=== PATIENT | female | born 1940 | race Caucasian/White ===

== ENCOUNTER 2021-06-26 17:25 | Emergency (ER) | payer MEDICARE, SELFPAY ==
[2021-06-26 17:33] VITALS: BP 155/70; PULSE 73; RESP 16; TEMP 35.9; O2SAT 99
--- NOTE | 2021-06-26 18:26 | ED.FEMALEGU ---
HPI - Female Genitourinary General Chief complaint: Urogenital-Female Stated complaint: poss uti Time Seen by Provider: 06/26/21 18:18 Source: family and RN notes reviewed Mode of arrival: ambulatory Limitations: dementia History of Present Illness HPI Narrative: Daughter presents patient today complaining of hematuria that was noticed by the clinical nursing intern this morning. Patient denies pain. Patient has history of dementia, so daughter supplies the history. No history of fever, nausea or vomiting, worsening mental status. Related Data Home Medications Medication Instructions Recorded Confirmed apixaban [Eliquis] mg 06/26/21 cyanocobalamin (vitamin B-12) mcg 06/26/21 diclofenac sodium TOPICAL 06/26/21 levothyroxine 06/26/21 memantine mg 06/26/21 pravastatin 06/26/21 rivastigmine tartrate mg 06/26/21 Allergies Allergy/AdvReac Type Severity Reaction Status Date / Time Penicillins Allergy Unknown Verified 06/26/21 18:03 Review of Systems Review of Systems: CONSTITUTIONAL: Denies body aches, fever, chills, or sweats. EYES: Denies visual changes, redness, or discharge. ENT: Denies rhinorrhea, congestion, sore throat, or otalgia. CARDIOVASCULAR: Denies chest pain, palpitations, or edema. RESPIRATORY: Denies cough or dyspnea. GASTROINTESTINAL: Denies abdominal pain, nausea, vomiting, or diarrhea. GENITOURINARY: Denies dysuria. + Hematuria SKIN: Denies rash, itching, or wounds. MUSCULOSKELETAL: Denies back pain, joint pain, or myalgia. NEUROLOGIC: Denies headache, numbness, tingling, or weakness. PSYCH: Denies depression or anxiety. [facility] Past Medical History Medical History (Updated 06/26/21 @ 18:32 by Jessie Vallecillo, [facility], ) Dementia Hypothyroidism TIA (transient ischemic attack) Comments At time of signature, I have reviewed and agree with nursing past medical, surgical, social and family history unless otherwise noted. Please see nursing chart for further information. There is no relevant family history pertinent to the presenting complaint Exam Narrative: GENERAL: Well-appearing, well-nourished, and in no acute distress. HEAD: Normocephalic, atraumatic. EYES: EOMI. No redness or drainage. Conjunctivae normal. ENT: Mucous membranes pink and moist. NECK: Normal AROM. CHEST: No respiratory distress. Clear to auscultation. HEART: Regular rate and rhythm. No murmur appreciated. Normal peripheral pulses. ABDOMEN: Soft, nondistended, normal active bowel sounds. Mild suprapubic tenderness. MUSCULOSKELETAL: No bony tenderness. EXTREMITIES: Normal range of motion. No edema. SKIN: Warm, dry, no rash. Capillary refill normal. Normal skin turgor. NEURO: No focal deficits. Alert and oriented x3. Gait steady. PSYCH: Normal affect. No signs of depression or anxiety. Course Vital Signs Vital signs: Vital Signs Temperature 96.7 F L 06/26/21 17:33 Pulse Rate 73 06/26/21 17:33 Respiratory Rate 16 06/26/21 17:33 Blood Pressure 155/70 H 06/26/21 17:33 Pulse Oximetry 99 06/26/21 17:33 Temperature 96.7 F L 06/26/21 17:33 Pulse Rate 73 06/26/21 17:33 Respiratory Rate 16 06/26/21 17:33 Blood Pressure 155/70 H 06/26/21 17:33 Pulse Oximetry 99 06/26/21 17:33 Reviewed. Pt has been instructed to follow up with her PCP regarding her elevated blood pressure today. MDM - Female Genitourinary Differential Diagnosis Differential diagnosis: Likely urinary tract infection and other (Vaginal bleeding, pyelonephritis) Lab Data Attestation: I reviewed the patient's lab results. Labs: Urine Glucose Negative Reference Range: Negative Urine Bilirubin Negative Reference Range: Negative Urine Ketone Negative Reference Range: Negative Urine Specific Fellows 1.030
== END 2021-06-26 18:35 | disposition home or self-care (01) ==
PROVIDERS: Emergency Provider Nurse Practitioner; PCP Internal Medicine Geriatric Medicine
DX: N39.0 Urinary tract infection, site not specified (principal); E03.9 Hypothyroidism, unspecified; Z86.73 Personal history of transient ischemic attack (TIA), and cerebral infarction without residual deficits; F03.90 Unspecified dementia, unspecified severity, without behavioral disturbance, psychotic disturbance, mood disturbance, and anxiety
CPT/HCPCS: 81003; 87077; 87086; 87186; 99213; G0463

== ENCOUNTER 2023-12-23 20:54 | Emergency (ER) | payer MEDICARE, SELFPAY ==
--- NOTE | ~2023-12-23 | CT_ITS ---
EXAMINATION: CT brain wo con DATE: 12/23/2023 21:21 INDICATION: Head injury. TECHNIQUE: Computed tomography (CT) of the head was performed without intravenous contrast. The mA wa s adjusted according to patient size. Iterative reconstruction technique was employed. The dose-lengt h product was 605.33 mGy-cm. COMPARISON: None FINDINGS: There are scattered areas of low attenuation in the cerebral white matter. There are old in farcts in right parietal and occipital lobes. There is an old infarct in left temporal occipital cesar on. There is an old infarct in left caudate nucleus. There is no intracranial hemorrhage, acute infar ction, or abnormal intracranial mass lesion. The ventricles are normal in size. There is a posterior scalp hematoma. There is mild mucosal thickening in the paranasal sinuses. There are likely changes o f ocular lens replacement surgeries. There is a right mastoid effusion. IMPRESSION: 1. 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 2. Extensive nonspecific cerebral white matter disease, which likely represents chronic small vessel ischemic disease. Reviewed, dictated and finalized at location E.
--- NOTE | ~2023-12-23 | CT_ITS ---
EXAMINATION: CT cervical spine wo con DATE: 12/23/2023 21:21 INDICATION: Head injury. TECHNIQUE: Computed tomography (CT) of the cervical spine was performed without intravenous contrast. Automated exposure control and iterative reconstruction technique were employed. The dose-length pro duct was 605.33 mGy-cm. COMPARISON: None FINDINGS: There is 2 mm anterolisthesis of C4 on C5. Vertebral body heights are normal. There is mild ly decreased disc height at C4-C5 and severely decreased disc height at C5-C6 and C6-C7. The followin g disc levels are specifically discussed: C2-C3: There is mild bilateral uncovertebral joint osteoarthritis. There is moderate right and mild l eft facet joint osteoarthritis. There is no neural foraminal stenosis. There is no central canal sten osis. C3-C4: There is mild bilateral uncovertebral joint osteoarthritis. There is mild right and severe lef t facet joint osteoarthritis. There is mild left neural foraminal stenosis. There is no central canal stenosis. C4-C5: There is mild bilateral uncovertebral joint osteoarthritis. There is ankylosis of left facet j oint with severe hypertrophy. There is mild left neural foraminal stenosis. There is no central canal stenosis. C5-C6: There is severe bilateral uncovertebral joint osteoarthritis. There is severe bilateral facet joint osteoarthritis. There is mild bilateral neural foraminal stenosis. There is mild central canal stenosis. C6-C7: There is severe bilateral uncovertebral joint osteoarthritis. There is severe bilateral facet joint osteoarthritis. There is mild bilateral neural foraminal stenosis. There is mild central canal stenosis. C7-T1: There is no uncovertebral joint osteoarthritis. There is severe right and moderate left facet joint osteoarthritis. There is mild right neural foraminal stenosis. There is no central canal stenos is. IMPRESSION: 1. No fracture. 2. Severe cervical spondylosis. Reviewed, dictated and finalized at location E.
[2023-12-23 20:55] VITALS: BP 141/88; PULSE 64; RESP 20; TEMP 36.6; O2SAT 97
[2023-12-23 21:29] VITALS: BP 149/77; PULSE 69; RESP 18; O2SAT 96
--- NOTE | 2023-12-23 21:31 | ED.FALL ---
HPI - Fall General Chief Complaint: Fall Stated Complaint: Fall out of w/c on thinners Source: patient Mode of arrival: EMS Limitations: dementia History of Present Illness HPI Narrative: Patient is an 83 y/o female who presents to the ED via EMS with report of a fall. Patient is a resident of [facility]. She has hx of dementia and is A&OX2 at baseline. Per AR report, patient slid out of her wheelchair this evening and fell backwards, hitting her head on the ground. She did sustain a contusion to her posterior scalp. No LOC. She is on Eliquis and was sent here for further evaluation. History of AFib. Patient complains of pain to her head. Denies any other concerns. Denies dizziness, lightheadedness, vision changes. Denies chest or abdominal pain. Denies neck or back pain. Related Data Home Medications Medication Instructions Recorded Confirmed apixaban 5 mg tablet (Eliquis) 5 mg PO BID 06/26/21 06/26/21 cholecalciferol (vitamin D3) 125 See Rx Instructions .Route .COMPLEX 06/26/21 06/26/21 mcg (5,000 unit) capsule (Dialyvite Vitamin D) cyanocobalamin (vitamin B-12) 1,000 mcg PO DAILY 06/26/21 06/26/21 1,000 mcg tablet diclofenac sodium 1 % topical gel See Rx Instructions .Route .COMPLEX 06/26/21 06/26/21 docosahexaenoic acid (dha)-epa cap PO 06/26/21 capsule levothyroxine 50 mcg tablet 50 mcg PO DAILY 06/26/21 06/26/21 memantine 10 mg tablet 10 mg PO BID 06/26/21 06/26/21 pravastatin 80 mg tablet 80 mg PO DAILY 06/26/21 06/26/21 rivastigmine tartrate 3 mg capsule 3 mg PO DAILY 06/26/21 06/26/21 turmeric 100 mg-adrian 150 See Rx Instructions .Route .COMPLEX 06/26/21 06/26/21 mg-olive 50 mg-oreg 150 mg-capryl capsule Allergies Allergy/AdvReac Type Severity Reaction Status Date / Time Penicillins Allergy Unknown Verified 06/26/21 18:03 Review of Systems Review of Systems: CONSTITUTIONAL: Denies fever, chills, or sweats. MUSCULOSKELETAL: Denies back pain, neck pain. NEUROLOGIC: See HPI. All systems reviewed & are unremarkable except as noted in HPI and below [facility] Past Medical History Medical History (Updated 12/23/23 @ 21:43 by Tiana Infante PA-C) Atrial fibrillation Dementia Hypothyroidism TIA (transient ischemic attack) Exam Narrative: GENERAL: Elderly, obese with BMI of 37.8, non-toxic, in no acute distress. HEAD: Normocephalic. Contusion/hematoma to posterior scalp, ecchymosis forming. No wounds. Focal TTP. EYES: PERRL/EOMI, conjunctival clear. RESPIRATORY: Airway patent, respirations nonlabored. Clear to auscultation bilaterally, no rales, rhonchi, wheezing. CARDIOVASCULAR: Regular rate and rhythm MUSCULOSKELETAL: Moves all extremities. No gross deformities. No cervical, thoracic, lumbar midline spinal tenderness. SKIN: Warm, dry, normal color. NEURO: A&O X2. Speech clear. Intermittently confused. Able to answer some questions. PSYCHIATRIC: Appropriate mood and affect. Normal interaction. Course Vital Signs Vital signs: Vital Signs Temperature 98 F 12/23/23 20:55 Pulse Rate 64 12/23/23 20:55 Respiratory Rate 20 12/23/23 20:55 Blood Pressure 141/88 H 12/23/23 20:55 Pulse Oximetry 97 12/23/23 20:55 Oxygen Delivery Room Air 12/23/23 20:55 Temperature 98 F 12/23/23 20:55 Pulse Rate 69 12/23/23 21:29 Respiratory Rate 18 12/23/23 21:29 Blood Pressure 149/77 H 12/23/23 21:29 Pulse Oximetry 96 12/23/23 21:29 Oxygen Delivery Room Air 12/23/23 20:55 MDM - Fall MDM Narrative Medical decision making narrative: Patient presented to ED status post mechanical fall out of wheelchair at [facility], head injury, on Eliquis. Vitals are stable upon arrival. Patient in no acute distress. No gross deformities on exam. Neurologically intact at baseline. A & O x2, consistent with baseline. CT brain and cervical spine without acute traumatic findings. Patient without any other injuries. Clear for discharge back to
[2023-12-23 22:10] VITALS: BP 175/85; PULSE 69; RESP 15; O2SAT 97
== END 2023-12-23 22:50 ==
PROVIDERS: Emergency Provider Physician Assistant
DX: S00.03XA Contusion of scalp, initial encounter (principal); F03.90 Unspecified dementia, unspecified severity, without behavioral disturbance, psychotic disturbance, mood disturbance, and anxiety; I48.91 Unspecified atrial fibrillation; E03.9 Hypothyroidism, unspecified; Z86.73 Personal history of transient ischemic attack (TIA), and cerebral infarction without residual deficits; Z79.01 Long term (current) use of anticoagulants; R90.82 White matter disease, unspecified; M47.812 Spondylosis without myelopathy or radiculopathy, cervical region; W05.0XXA Fall from non-moving wheelchair, initial encounter
CPT/HCPCS: 70450; 72125; 99284

== ENCOUNTER 2024-02-28 16:36 | Emergency (ER) | payer MEDICARE, SELFPAY ==
[2024-02-28 16:44] VITALS: BP 164/69; PULSE 65; RESP 16; TEMP 36.8; O2SAT 98
[2024-02-28 16:50] VITALS: BP 164/69; PULSE 65; RESP 16; TEMP 36.6; O2SAT 100
[2024-02-28 18:34] LABS: Appearance Urine Turbid (Clear); Bacteria Urine 4+ /hpf; Bilirubin Urine Negative (Negative); Blood Urine 3+ (Negative); Budding Yeast Urine Present /hpf; Color Urine Yellow (Yellow); Glucose Urine UA Negative (Negative); Ketones Urine Trace mg/dL (Negative); Leukocyte Esterase Ur 2+ LEU/UL (Negative); Need Manual Microscopic Reviewed; Nitrate Urine Positive (Negative); Protein Urine 1+ mg/dL (Negative); RBC Urine >100 /hpf (0-2); Specific Grav Ur 1.021 (1.001-1.035); Squamous Epithelial Cell Urine None Seen /hpf (Few); WBC Urine >100 /hpf (0-3)
[2024-02-28 18:37] LABS: Add Urine Microscopic? YES
--- NOTE | 2024-02-28 18:39 | ED.RECABL ---
HPI - Recheck/Abnormal Lab/Rx General Chief Complaint: Recheck/Abnormal Lab/Rx Stated Complaint: bleeding from genitals Time Seen by Provider: 02/28/24 18:11 History of Present Illness HPI narrative: Patient is an 83-year-old female presenting with hematuria. Patient's daughters are at bedside and they provide the history. Patient resides at a nursing facility and the staff noticed some blood in her depends this morning. States that she has a history of UTIs as well as abnormal uterine bleeding that required an ablation several years ago. Patient's family states that she has not been complaining of anything lately. Patient is poor historian due to her underlying dementia. She denies any complaints. Related Data Home Medications Medication Instructions Recorded Confirmed apixaban 5 mg tablet (Eliquis) 5 mg PO BID 06/26/21 06/26/21 cholecalciferol (vitamin D3) 125 See Rx Instructions .Route .COMPLEX 06/26/21 06/26/21 mcg (5,000 unit) capsule (Dialyvite Vitamin D) cyanocobalamin (vitamin B-12) 1,000 mcg PO DAILY 06/26/21 06/26/21 1,000 mcg tablet diclofenac sodium 1 % topical gel See Rx Instructions .Route .COMPLEX 06/26/21 06/26/21 docosahexaenoic acid (dha)-epa cap PO 06/26/21 capsule levothyroxine 50 mcg tablet 50 mcg PO DAILY 06/26/21 06/26/21 memantine 10 mg tablet 10 mg PO BID 06/26/21 06/26/21 pravastatin 80 mg tablet 80 mg PO DAILY 06/26/21 06/26/21 rivastigmine tartrate 3 mg capsule 3 mg PO DAILY 06/26/21 06/26/21 turmeric 100 mg-adrian 150 See Rx Instructions .Route .COMPLEX 06/26/21 06/26/21 mg-olive 50 mg-oreg 150 mg-capryl capsule Allergies Allergy/AdvReac Type Severity Reaction Status Date / Time Penicillins Allergy Unknown Verified 06/26/21 18:03 Review of Systems Review of Systems: All systems reviewed & are unremarkable except as noted in HPI and below [facility] Past Medical History Medical History Atrial fibrillation Dementia Hypothyroidism TIA (transient ischemic attack) Exam Narrative: GENERAL: Nontoxic, no acute distress, pleasant cooperative HEAD: Normocephalic, atraumatic. EYES: PERRLA and EOMI. ENT: Mucous membranes dry NECK: Supple. CHEST: Clear to auscultation. No respiratory distress. HEART: Regular rate and rhythm ABDOMEN: Soft, nontender, nondistended EXTREMITIES: Normal range of motion. SKIN: Warm, dry, no rash. NEURO: Alert and oriented x1, at baseline PSYCH: Normal mood and affect. Course Vital Signs Vital signs: Vital Signs Temperature 98.2 F 02/28/24 16:44 Pulse Rate 65 02/28/24 16:44 Respiratory Rate 16 02/28/24 16:44 Blood Pressure 164/69 H 02/28/24 16:44 Pulse Oximetry 98 02/28/24 16:44 Oxygen Delivery Room Air 02/28/24 16:44 Temperature 97.1 F L 02/28/24 20:48 Pulse Rate 72 02/28/24 20:48 Respiratory Rate 12 02/28/24 20:48 Blood Pressure 140/72 02/28/24 20:48 Pulse Oximetry 97 02/28/24 20:48 Oxygen Delivery Room Air 02/28/24 16:44 MDM - Recheck/Abnormal Lab/Rx MDM Narrative Medical decision making narrative: 83-year-old female presenting with concerns for hematuria versus vaginal bleeding. Vitals are stable. Exam remarkable for the above. UA is concerning for UTI. Greater than 100 RBCs present. Suspect this is the blood that has been seen in the depends. Does not appear to have bleeding from the vagina. Blood work with mildly elevated BUN to creatinine ratio. Remainder blood work is unremarkable. Normal hemoglobin. No leukocytosis. UA is concerning for UTI. Patient given a dose of IV Rocephin. Feel patient is safe for outpatient management. Patient and her family are agreeable with this. Advised close PCP follow-up. Will send in for Keflex. Appropriate return precautions given. Discharged in stable condition. Differential Diagnosis Differential diagnosis: Likely other (Hematuria, vaginal bleeding, UTI, EMILY, dehydration)
[2024-02-28] MEDS: SODIUM CHLORIDE 0.9% IV 1,000 ML 999 ML IV CONT (18:51)
[2024-02-28] MEDS: cefTRIAXone 2 GM/NS 100 ML 2 GM/100 ML BAG IVPB (18:52)
[2024-02-28 19:00] LABS: Basophils Percent Auto 0.5 % (0.2-1.2); Eosinophils Absolute Auto 0.5 K/mm3 (0-0.3); Eosinophils Percent Auto 6.6 % (0-4.4); Hematocrit 44.9 % (37.0-47.0); Hemoglobin 14.5 g/dL (12.0-15.0); Immature Granulocyte Absolute 0.03 K/mm3 (0.00-0.031); Immature Granulocyte Percent A 0.4 % (0-0.5); Lymphocytes Absolute Auto 2.41 K/mm3 (0.9-3.2); Mean Corpuscular HGB Conc 32.3 g/dl (32-36); Mean Corpuscular Hemoglobin 30.6 pg (26-34); Mean Corpuscular Volume 94.7 fl (80-100); Mean Platelet Volume 12.3 fl (7.4-10.4); Monocytes Absolute Auto 1.1 K/mm3 (0.1-0.6); Monocytes Percent Auto 13.8 % (2.6-8.5); Neutrophils Absolute Auto 3.7 K/mm3 (1.3-6.7); Neutrophils Percent Auto 47.7 % (45.5-73.1); Platelet Count Result 147 k/mm3 (150-375); Red Blood Count 4.74 M/mm3 (4.2-5.4); Red Cell Distribution Width 13.8 % (11.5-14.5); White Blood Count 7.8 K/mm3 (4.5-10.0)
[2024-02-28 19:11] LABS: Anion Gap 8 mmol/L (4-12); Blood Urea Nitrogen 22 mg/dL (7-17); Calcium 9.3 mg/dL (8.4-10.2); Carbon Dioxide 31 mmol/L (22-30); Chloride 104 mmol/L (98-107); Estimated CRCL calculation 44 ml/min; Estimated Glomerular Filt Rate > 60; Glucose 78 mg/dL (65-110); Potassium 3.9 mmol/L (3.4-5.0); Sodium 143 mmol/L (137-145)
[2024-02-28 19:24] LABS: INR 1.3
[2024-02-28 19:26] LABS: Partial Thromboplastin Time 28.2 Seconds (22.3-36.8)
[2024-02-28 20:48] VITALS: BP 140/72; PULSE 72; RESP 12; TEMP 36.2; O2SAT 97
== END 2024-02-28 20:56 ==
PROVIDERS: Emergency Medicine; Emergency Provider Emergency Medicine
DX: N39.0 Urinary tract infection, site not specified (principal); I48.91 Unspecified atrial fibrillation; F03.90 Unspecified dementia, unspecified severity, without behavioral disturbance, psychotic disturbance, mood disturbance, and anxiety; E03.9 Hypothyroidism, unspecified; Z86.73 Personal history of transient ischemic attack (TIA), and cerebral infarction without residual deficits; Z79.01 Long term (current) use of anticoagulants; Z79.899 Other long term (current) drug therapy
CPT/HCPCS: 36415; 80048; 81001; 85025; 85610; 85730; 87077; 87086; 87088; 87186; 96365; 96366; 99284; J0696; J7030

== ENCOUNTER 2024-10-26 09:40 | Emergency (ER) | payer MEDICARE, SELFPAY ==
--- NOTE | ~2024-10-26 | CT_ITS ---
CT thoracic lumbar wo con Ordering provider: Olivia Rico MD History: . fall, same dlp for chest t/l spine- images in . Comparison: None. Technique: CT thoracic spine without contrast. Automated exposure control and iterative reconstructi on technique were employed. The dose-length product was 1359.17 mGy-cm. FINDINGS: VERTEBRAE: Small is noted with slight anterior loss of volume is seen in T11 which may indicate acute fracture. MRI evaluation advised. Otherwise, Normal height and alignment. No subluxation or visible acute fracture. Degenerative changes of the spine. DISC SPACES: Well maintained. Narrowing of the disc T12-L1. PARASPINOUS SOFT TISSUES: Normal. IMPRESSION: Possible compression fracture in T11. MRI evaluation advised. CT thoracic lumbar wo con Ordering provider: Olivia Rico MD History: 84 years Female with . fall, same dlp for chest t/l spine- images in . Comparison: None. Technique: CT lumbar spine without contrast. Automated exposure control and iterative reconstruction technique were employed. The dose-length product was 1359.17 mGy-cm. FINDINGS: VERTEBRAE: Fracture of the spinous process of L4. Normal height and alignment. No subluxation or visi ble acute fracture. DISC SPACES: Narrowing of all the disc spaces. Multilevel facet joint disease. T12-L1: No stenosis. L1-L2: No stenosis. Osteophytes with small central disc protrusion. L2-L3: No stenosis. Mild diffuse disc bulge. L3-L4: No stenosis. Posterior osteophytes with mild diffuse disc bulge. L4-L5: No stenosis. Posterior osteophytes with mild diffuse disc bulge. L5-S1: No stenosis. Posterior osteophytes with diffuse disc bulge. PARASPINOUS SOFT TISSUES: Mild atheromatous disease of the abdominal aorta. Bilateral sacroiliitis. IMPRESSION: Multilevel degenerative disc disease. Highly suggestive fracture of the spinous process of L4. Reviewed, dictated and finalized at location A. IMPRESSION: Possible compression fracture in T11. MRI evaluation advised. CT thoracic lumbar wo con Ordering provider: Olivia Rico MD History: 84 years Female with . fall, same dlp for chest t/l spine- images in . Comparison: None. Technique: CT lumbar spine without contrast. Automated exposure control and it erative reconstruction technique were employed. The dose-length product was 135 9.17 mGy-cm. FINDINGS: VERTEBRAE: Fracture of the spinous process of L4. Normal height and alignment. No subluxation or visible acute fracture. DISC SPACES: Narrowing of all the disc spaces. Multilevel facet joint disease. T12-L1: No stenosis. L1-L2: No stenosis. Osteophytes with small central disc protrusion. L2-L3: No stenosis. Mild diffuse disc bulge. L3-L4: No stenosis. Posterior osteophytes with mild diffuse disc bulge. L4-L5: No stenosis. Posterior osteophytes with mild diffuse disc bulge. L5-S1: No stenosis. Posterior osteophytes with diffuse disc bulge. PARASPINOUS SOFT TISSUES: Mild atheromatous disease of the abdominal aorta. Bilateral sacroiliitis.
--- NOTE | ~2024-10-26 | CT_ITS ---
CT brain wo con Ordering provider: Olivia Rico MD History: 84 years Female with . Fall . Comparison: December 23, 2023 Technique: CT of the head without contrast. Radiation reduction technique utilized. The dose-length p roduct was 605.33 mGy-cm. FINDINGS: BRAIN PARENCHYMA AND CSF SPACES: Mild brain atrophy with deep white matter ischemic changes. 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 No mi dline shift, mass effect or hemorrhage. The brain parenchyma and CSF spaces are otherwise normal. VISUALIZED PARANASAL SINUSES: Well aerated. MASTOIDS: Well aerated. BONES: The bones appear intact. SOFT TISSUES: Visualized nasopharynx is normal. Superficial soft tissues are normal. IMPRESSION: No acute intracranial findings. Reviewed, dictated and finalized at location A.
--- NOTE | ~2024-10-26 | CT_ITS ---
CT diagnostic chest wo con Ordering provider: Olivia Rico MD History: 84 years Female with . rib fracture, fall . Comparison: None. Technique: CT chest without IV contrast. Radiation reduction technique utilized. The dose-length product was 1359.17 mGy-cm. FINDINGS: VISUALIZED THORACIC INLET: Normal. MEDIASTINUM: Aorta/coronary arteries: Mild atheromatous disease. Heart/other: The heart is not enlarged. Aortic valve prosthesis is noted. Lymph nodes: No mediastinal or hilar adenopathy. Precarinal lymph node is seen measuring 1 cm. LUNGS: No pulmonary nodules or masses. No infiltrates or effusions. No pneumothorax. Dependent atelec tatic changes. VISUALIZED UPPER ABDOMEN: Sliding hiatus hernia. Cholelithiasis. Status post splenectomy. Otherwise, the visualized upper abdomen is normal. MUSCULOSKELETAL: Soft tissues: The superficial soft tissues are normal. Bones: Age appropriate degenerative changes of the spine. IMPRESSION: 1. No acute cardiopulmonary pathology. 2. No definite rib fractures seen. 3. Cholelithiasis. 4. Small sliding hiatus hernia. Reviewed, dictated and finalized at location A.
--- NOTE | ~2024-10-26 | CT_ITS ---
CT cervical spine wo con Ordering provider: Olivia Rico MD History: . Fall . Comparison: None. Technique: CT of the cervical spine was performed without contrast. Sagittal and coronal reformatted images were also obtained and reviewed. Automated exposure control and iterative reconstruction zaida hnique were employed. The dose-length product was 605.33 mGy-cm. FINDINGS: VERTEBRAE: No subluxation or acute fracture. The occipital condyles are intact. DISC SPACES: Narrowing of the disc C4-C5 and C5-6 and C6-C7. Multilevel facet joint disease. Multilev el uncovertebral joint osteoarthritic changes. Narrowing of the left foramina at the level of C4-C5. Bilateral narrowing of the foramina at the level of C5-6. Bilateral narrowing of the foramina at the level of C6-C7. PARASPINOUS SOFT TISSUES: Atherosclerotic changes in both carotid arteries. IMPRESSION: No acute osseous abnormality cervical spine. Multilevel degenerative disc disease. Reviewed, dictated and finalized at location A.
[2024-10-26 09:38] VITALS: BP 155/82; PULSE 54; RESP 18; TEMP 36.4; O2SAT 95
[2024-10-26 10:01] VITALS: BP 171/83; PULSE 60; RESP 17; O2SAT 95
[2024-10-26 10:16] VITALS: BP 181/88; PULSE 60; RESP 18; O2SAT 100
--- NOTE | 2024-10-26 10:27 | ED_ITS ---
HPI - Fall General Chief Complaint: Fall Stated Complaint: fall Time Seen by Provider: 10/26/24 09:50 Source: patient Mode of arrival: ambulatory Limitations: no limitations History of Present Illness HPI Narrative: 84 YEARS OLD WHITE FEMALE CAME FROM ALF BECAUSE UNWITNESSED GROUND LEVEL FALLS LAST NIGHT UNSURE OF ANY INJURY, ALF BELIEVED THAT PATIENT IS MORE CONFUSED THAN HER BASELINE. PATIENT DENYING ANY SYMPTOMS, LOOKS COMFORTABLE, SMILING, DOES NOT LOOK IN ANY PAIN OR DISTRESS. PATIENT ON ELIQUIS Related Data Home Medications ?Medication ?Instructions ?Recorded ?Confirmed ?Last Taken ?Type apixaban 5 mg tablet (Eliquis) 5 mg PO BID 06/26/21 06/26/21 Unknown History cholecalciferol (vitamin D3) 125 See Rx Instructions .Route .COMPLEX 06/26/21 06/26/21 Unknown History mcg (5,000 unit) capsule (Dialyvite Vitamin D) cyanocobalamin (vitamin B-12) 1,000 mcg PO DAILY 06/26/21 06/26/21 Unknown History 1,000 mcg tablet diclofenac sodium 1 % topical gel See Rx Instructions .Route .COMPLEX 06/26/21 06/26/21 Unknown History docosahexaenoic acid (dha)-epa cap PO 06/26/21 Unknown History capsule levothyroxine 50 mcg tablet 50 mcg PO DAILY 06/26/21 06/26/21 Unknown History memantine 10 mg tablet 10 mg PO BID 06/26/21 06/26/21 Unknown History pravastatin 80 mg tablet 80 mg PO DAILY 06/26/21 06/26/21 Unknown History rivastigmine tartrate 3 mg capsule 3 mg PO DAILY 06/26/21 06/26/21 Unknown History turmeric 100 mg-adrian 150 See Rx Instructions .Route .COMPLEX 06/26/21 06/26/21 Unknown History mg-olive 50 mg-oreg 150 mg-capryl capsule Allergies Allergy/AdvReac Type Severity Reaction Status Date / Time Penicillins Allergy Unknown Verified 10/26/24 09:51 amoxicillin AdvReac Unknown Unknown Verified 10/26/24 09:51 donepezil AdvReac Unknown Unknown Verified 10/26/24 09:51 Review of Systems 2 Review of Systems: ROS unobtainable: Yes unobtainable due to mental status PMFSH Past Medical History Medical History Atrial fibrillation Hypothyroidism TIA (transient ischemic attack) Dementia Exam 2 Narrative: GENERAL APPEARANCE: WELL-DEVELOPED, WELL-NOURISHED, SMILING, DOES NOT LOOK IN PAIN OR DISTRESS SKIN: NORMAL COLOR HEAD: NORMOCEPHALIC, NONTRAUMATIC EYES: CLEAR CONJUNCTIVA ENT: OROPHARYNX NORMAL, EARS NORMAL, NOSE NORMAL NECK: SUPPLE, NONTENDER CHEST AND RESPIRATORY: AIRWAY PATENT, NO RESPIRATORY DISTRESS, NO ACCESSORY MUSCLE USE HEART: REGULAR RATE/RHYTHM ABDOMEN: SOFT, NONTENDER, NO ORGANOMEGALY, QUIET BOWEL SOUNDS VASCULAR: NORMAL PERIPHERAL PULSES, NORMAL CAPILLARY REFILL. MUSCULOSKELETAL: NORMAL RANGE OF MOTION, NONTENDER BACK NEUROLOGIC: ALERT ORIENTED TO HER NAME ONLY Course Vital Signs Vital signs: Vital Signs Temperature 36.4 C 10/26/24 09:38 Pulse Rate 54 L 10/26/24 09:38 Respiratory Rate 18 10/26/24 09:38 Blood Pressure 155/82 H 10/26/24 09:38 Pulse Oximetry 95 10/26/24 09:38 Oxygen Delivery Room Air 10/26/24 09:38 Temperature 36.4 C 10/26/24 09:38 Pulse Rate 54 L 10/26/24 09:38 Respiratory Rate 18 10/26/24 09:38 Blood Pressure 155/82 H 10/26/24 09:38 Pulse Oximetry 95 10/26/24 09:38 Oxygen Delivery Room Air 10/26/24 09:38 MDM - Fall MDM Narrative Medical decision making narrative: PATIENT CAME TO THE ED FROM ALF BY AMBULANCE BECAUSE OF UNWITNESSED GROUND LEVEL FALL VITAL SIGNS ARE STABLE PHYSICAL EXAMINATION IS UNREMARKABLE EXCEPT FOR DEMENTIA DIFFERENTIAL DIAGNOSIS FRACTURE, CONTUSION, CT HEAD, CT CERVICAL SPINE SHOWED NO ACUTE ABNORMALITY CT THORACIC SPINE SHOWED QUESTIONABLE T11 SMALL COMPRESSION FRACTURE CT LUMBAR SPINE SHOWED T4 SPINOUS PROCESS FRACTURE BLOOD WORKUP TODAY INCLUDES CBC, CMP SHOWED NO ACUTE/SIGNIFICANT ABNORMALITY URINALYSIS SHOWED EVIDENCE OF INFECTION, DISCHARGED ON CIPRO, FAMILY MEMBER AT THE BEDSIDE, WERE NOTIFIED ABOUT THE POSSIBILITY OF T11 FRACTURE AND MRI IS RECOMMENDED. FAMILY ACKNOWLEDGE DISCHARGE THE PT WAS DISCHARGED TO HOME.THE PT,S CONDITION UPON DISCHARGE WAS FAIR,EDUCATION WAS PROVIDED TO THE PT IN REFERENCE TO THE FINAL IMPRESSION,DISCHARGE STUDY RESULTS,TREATMENT,PROGNOSIS AND NEED FOR FOLLOW UP . Differential Diagnosis Differential diagnosis: Likely other ( ABOVE) Medical Records Attestation: I reviewed the patient's medical records. Lab Data Attestation: I reviewed the patient's lab results. 10/26/24 10:42 10/26/24 10:42 Labs: Lab Results 10/26/24 10/26/24 Range/Units 10:42 12:03 WBC 9.3 (4.5-10.0) K/mm3 RBC 4.47 (4.2-5.4) M/mm3 Hgb 13.6 (12.0-15.0) g/dL Hct 42.6 (37.0-47.0) % MCV 95.3 (80-100) fl MCH 30.4 (26-34) pg MCHC 31.9 L (32-36) g/dl RDW 14.3 (11.5-14.5) % Plt Count 160 (150-375) k/mm3 MPV 12.0 H (7.4-10.4) fl Immature Gran % (Auto) 0.3 (0-0.5) % Neut % (Auto) 57.6 (45.5-73.1) % Lymph % (Auto) 27.5 (18.3-44.2) % [place] % (Auto) 11.9 H (2.6-8.5) % Eos % (Auto) 2.2 (0-4.4) % Baso % (Auto) 0.5 (0.2-1.2) % Lymph # (Auto) 2.55 (0.9-3.2) K/mm3 [place] # (Auto) 1.1 H (0.1-0.6) K/mm3 Eos # (Auto) 0.2 (0-0.3) K/mm3 Baso # (Auto) 0.1 (0.0-0.1) K/mm3 Abs Immat Gran (auto) 0.03 (0.00-0.031) K/mm3 Absolute Neuts (auto) 5.3 (1.3-6.7) K/mm3 Absolute Nucleated RBC 0.000 (0.0-0.012) K/mm3 Nucleated RBC % 0.0 (0.0-0.2) % Sodium 140 (137-145) mmol/L Potassium 3.9 (3.4-5.0) mmol/L Chloride 105 (98-107) mmol/L Carbon Dioxide 27 (22-30) mmol/L Anion Gap 8 (4-12) mmol/L BUN 18 H (7-17) mg/dL Creatinine 0.80 (0.7-1.0) mg/dL Estim Creat Clear Calc 46 ml/min Estimated GFR > 60 (59 - ) Glucose 102 (65-110) mg/dL Calcium 9.3 (8.4-10.2) mg/dL Total Bilirubin 1.5 H (0.2-1.3) mg/dL AST 30 (14-36) U/L ALT 26 (6-35) U/L Alkaline Phosphatase 146 H (38-126) U/L Total Protein 7.0 (6.3-8.2) g/dL Albumin 4.1 (3.5-5.1) g/dL Urine Color Yellow (Yellow) Urine Appearance Cloudy H (Clear) Urine pH 5.5 (5.0-9.0) Ur Specific [place] 1.022 (1.001-1.035) Urine Protein Trace (Negative) mg/dL Urine Glucose (UA) Negative (Negative) mg/dL Urine Ketones Trace H (Negative) mg/dL Ur Blood (Man) Negative (Negative) Urine Nitrate Positive H (Negative) Urine Bilirubin Negative (Negative) Urine Urobilinogen 1.0 (<2.0) mg/dL Add Ur Microanalysis Reviewed Leukocyte Esterase Rfl 1+ H (Negative) GERRY/UL Urine RBC >100 H (0-2) /hpf Urine WBC 0-5 (0-3) /hpf Ur Squamous Epith Cells None seen (Few) /hpf Urine Bacteria 4+ H /hpf Urine Casts 0-2 Imaging Data Radiologist's impression: Impressions Head CT 10/26/24 10:57 IMPRESSION: No acute intracranial findings. Cervical Spine CT 10/26/24 11:03 IMPRESSION: No acute osseous abnormality cervical spine. Multilevel degenerative disc disease. Chest CT 10/26/24 11:22 IMPRESSION: 1. No acute cardiopulmonary pathology. 2. No definite rib fractures seen. 3. Cholelithiasis. 4. Small sliding hiatus hernia. Thoracic/Lumbar Spine CT 10/26/24 12:10 IMPRESSION: Possible compression fracture in T11. MRI evaluation advised. CT thoracic lumbar wo con Ordering provider: Olivia Rico MD History: 84 years Female with . fall, same dlp for chest t/l spine- images in . Comparison: None. Technique: CT lumbar spine without contrast. Automated exposure control and iterative reconstruction technique were employed. The dose-length product was 1359.17 mGy-cm. FINDINGS: VERTEBRAE: Fracture of the spinous process of L4. Normal height and alignment. No subluxation or visible acute fracture. DISC SPACES: Narrowing of all the disc spaces. Multilevel facet joint disease. T12-L1: No stenosis. L1-L2: No stenosis. Osteophytes with small central disc protrusion. L2-L3: No stenosis. Mild diffuse disc bulge. L3-L4: No stenosis. Posterior osteophytes with mild diffuse disc bulge. L4-L5: No stenosis. Posterior osteophytes with mild diffuse disc bulge. L5-S1: No stenosis. Posterior osteophytes with diffuse disc bulge. PARASPINOUS SOFT TISSUES: Mild atheromatous disease of the abdominal aorta. Bilateral sacroiliitis. IMPRESSION: Multilevel degenerative disc disease. Highly suggestive fracture of the spinous process of L4. Critical Care Time Critical Care Time Critical Care Time: No Discharge Plan Discharge Clinical Impression: Fall from ground level, Closed fracture of T11 vertebra, Fracture of spinous process of lumbar vertebra, Urinary tract infection Patient Disposition: NH Half-Way/Asst Living Condition: Stable Instructions: Urinary Tract Infection in Women (DC), Vertebral Compression Fracture (ED), Fall Prevention (ED) Additional Instructions: RETURN IF SYMPTOMS ARE WORSENING , CALL YOUR FAMILY PHYSICIAN FOR APPOINTMENT, TAKE TYLENOL NEEDED FOR ACHES AND PAIN, CONTINUE HOME MEDICATIONS. CT SCAN OF THE THORACIC SPINE AND LUMBAR SPINE TODAY SHOWED POSSIBLE COMPRESSION FRACTURE IN T11. MRI EVALUATION ADVISED. Patient Language: Kazakh Prescriptions: New ciprofloxacin HCl [Cipro] 500 mg tablet 500 mg PO Q12H Qty: 10 0RF No Action cyanocobalamin (vitamin B-12) 1,000 mcg tablet 1,000 mcg PO DAILY pravastatin 80 mg tablet 80 mg PO DAILY levothyroxine 50 mcg tablet 50 mcg PO DAILY rivastigmine tartrate 3 mg capsule 3 mg PO DAILY memantine 10 mg tablet 10 mg PO BID diclofenac sodium 1 % gel See Rx Instructions .ROUTE .COMPLEX Rx Instructions: as prescribed Eliquis 5 mg tablet 5 mg PO BID nitrofurantoin monohyd/m-cryst [Macrobid] 100 mg capsule 100 mg PO Q12H 7 Days Qty: 14 0RF Rx Instructions: must administer with a meal/food cholecalciferol (vitamin D3) [Dialyvite Vitamin D] 125 mcg (5,000 unit) Capsule See Rx Instructions .ROUTE .COMPLEX Rx Instructions: per family EPA Fish Oil Capsule PO oxlaagqs-rpxu-xptkp-oreg-capry 100 mg-150 mg- 50 mg-150 mg Capsule See Rx Instructions .ROUTE .COMPLEX Rx Instructions: per family cephalexin 500 mg capsule 500 mg PO Q12H 7 Days Qty: 14 0RF Follow-up/Referrals: UNKNOWN,DOCTOR [Primary Care Provider] -
[2024-10-26 10:31] VITALS: BP 181/93; PULSE 59; RESP 16; O2SAT 96
--- OUTSIDE RECORDS SUMMARY | 2024-10-26 10:52 | XMS_ITS | Encounter Summary ---
Author Organization [facility] ts Address [address] [place] [address] Phone Care Team Providers Care Machine Rug Cleaner Name Role Phone Britni Horn MD Primary Care Provider + [phone] Cornelius Padilla MD Unavailable [phone] Trev Medeiros MD Unavailable [phone] Fam Conteh MD Unavailable [phone] Andrew AlcalaM Unavailable [phone] Carmencita Hammer MD Unavailable [phone] Sree Ramos MD Unavailable Akshat Dukes MD Unavailable [phone] Marley Moore MD Unavailable [phone] Jessie Walker DO Unavailable [phone] Miscellaneous, Not In File Unavailable Unava ilable Prasanna Ochoa MD Primary Care Provider Ale Zheng WATER QUALITY MANAGER Primary Care Provider + [phone] Unknown, Notinfile Primary Care Provider Unavail able Darlin Lazcano WATER QUALITY MANAGER Primary Care Provider [phone] Encounter Details Date Type Department Care Team (Late st Contact Info) Description 06/26/2021 Orders Only [facility] [address] [place] [id number] Britni Horn MD [address] [place] [id number] Social History Tobacco Use Types Packs/Day Years Used Date Smoking Tobacco: Never Smokeless Tobacco: Never Alcohol Use Standard Drinks/Week Comments No 0 (1 standard drink = 0.6 oz pur e alcohol) PHQ-2 Answer Date Recorded PHQ-2 Total Score (If total score is 3 or more points, staff should administer the PHQ-9) 0 12/02/2020 Comments No Sex and Gender Information Value Date Recorded Sex Assigned at Not on file Legal Sex Female 2:35 PM MANAGER ANALYSIS Gender Identity Not on file Sexual Orientation Not on file Occupation Industry Job Start Date Job End Date retired Not on file Not on file Not on file documented as of this encounter Plan of Treatment Not on file documented as of this encounter Procedures Procedure Name Priority Date/Time Associated Diagnosis Comments SCAN - LABS 06/26/2021 documented in this encounter Results * SCAN - LABS (06/26/2021) us Britni Horn MD Final Resu lt documented in this encounter Visit Diagnoses Not on filedocumented in this encounter Additional Health Concerns Infection Onset Date Last Indicated Resolved Time 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 05/07/2022 11/03/2022 3:05 AM CDT COVID: Suspected 09/12/2022 09/12/2022 09/12/2022 8:14 PM MANAGER ANALYSIS COVID: Suspected 01/19/2023 01/19/2023 01/19/2023 3:44 PM CDT documented as of this encounter Care Teams Machine Rug Cleaner Relationship Specialty Start Date End Date Britni Horn MD PCP - General 11/06/16 05/18/22 GabrielaPrasanna augustin MD PCP - General Cardiology 06/08/22 07/15/22 Ale Zheng, WATER QUALITY MANAGER [address] [place] [address] PCP - General Nurse Practitioner 07/16/22 09/28/23 Unknown, Notinfile PCP - General 09/29/23 08/13/24 Darlin Lazcano, WATER QUALITY MANAGER [address] [place] [address] PCP - General Family Medicine 08/14/24 Cornelius Padilla MD [address] [facility] [place] [address] Internal Medicine 03/16/17 Trev Medeiros MD [address] [facility] [place] [address] Cardiovascular Disease 03/16/17 Fam Conteh MD [address] [facility] [address] [place] [facility] [address] [place] [address] Surgeon Orthopedic Surgery 05/26/17 Andrew Alcala DPM [address] [facility] [address] [place] [facility] [address] [place] [address] Consulting Physician Orthotics 06/25/17 Carmencita Hammer MD [address] [facility] [address] [place] [address] Ophthalmology 08/11/17 Sree Ramos MD [address] [place] [address] Consulting Physician Psychiatry 08/15/18 Akshat Dukes MD [address] [place] [address] Surgeon Orthopedic Surgery 12/09/18 Marley Moore MD [address] [place] [address] Consulting Physician Cardiology 06/03/21 Jessie Walker DO [address] [place] [address] Consulting Physician Obstetrics and Gynecology 07/18/21 Miscellaneous, Not In File 09/04/21 documented as of this encounter
--- OUTSIDE RECORDS SUMMARY | 2024-10-26 10:52 | XMS_ITS | CONTINUITY OF CARE DOCUMENT ---
Author Name joseleslie, jacquelynsandeep Address Unknown Organization [facility] Address [address] [place] [address] Phone [phone] Care Team Providers Care Copy Chief Name Role Phone Oscar EVANS, Marley Unavailable HARISH EVANS, GIRISH Unavailable [phone] GIRISH MOREIRA MD Unavailable PROBLEMS Condition Status Date Provider Notes Implantable Loop Recorder- [employer] active 02/01 [facility] Cardiology examination active Gabriele quinones DO Syncope active Gabriele Phillips DO Atrial fibrillation active Gabriele Phillips DO ENCOUNTERS Date Type Provider Location Encounter Diag nosis - In-person encounter Office Visit Gabriele [facility] - In-person encounter Office Visit [facility]le [facility] - In-person encounter Office Visit [facility] Atrial fibrillation - In-person encounter Office Visit [facility]le [facility] - In-person encounter Office Visit [facility]le [facility] Cardiology examinationSyncope VITAL SIGNS Date Observation Value Provider Body Mass Index (Ratio) 36.13 kg/m2 Chapo Phillips DO oxygen saturation, oximetry 97 % Chastvashti Sanabria blood pressure, diastolic 88 mm[Hg] Ch astity Elly blood pressure, systolic 132 mm[Hg] Tiffany stity Elly pulse rate 63 /min Chastity Elly respiratory rate E&M 16 /min Chastit y Elly weight E&M 204 [lb_av] Chastity Elly height E&M 63 [in_i] Tiffanystity Elly Body Mass Index (Ratio) 31.35 kg/m2 Juan Poe blood pressure, diastolic 90 mm[Hg] Er dom Pandey-Jeremy blood pressure, systolic 150 mm[Hg] Charlette ca Pandey-Jeremy oxygen saturation, oximetry 97 % Sybil Pandey-Jeremy pulse rate 75 /min Sybil Pandey- Jeremy weight E&M 177 [lb_av] Sybil Pandey- Jeremy height E&M 63 [in_i] Sybil Pandey- Jeremy Body Mass Index (Ratio) 29.40 kg/m2 Denn is Shannon DO blood pressure, diastolic 66 mm[Hg] Er dom Pandey-Jeremy blood pressure, systolic 120 mm[Hg] Charlette ca Pandey-Jeremy oxygen saturation, oximetry 96 % Sybil Pandey-Jeremy pulse rate 57 /min Sybil Pandey- Jeremy weight E&M 166 [lb_av] Sybil Pandey- Jeremy height E&M 63 [in_i] Sybil Pandey- Jeremy Body Mass Index (Ratio) 29.40 kg/m2 Denn is Shannon DO blood pressure, diastolic 80 mm[Hg] Kr isty David blood pressure, systolic 140 mm[Hg] Kri sty David blood pressure, cuff size regular Kr isty David respiratory rate E&M 17 /min Stacey David oxygen saturation, oximetry 98 % Stacey Ophir pulse rate 59 /min Stacey Hernandez weight E&M 166 [lb_av] Stacey Hernandez height E&M 63 [in_i] Stacey Hernandez Body Mass Index (Ratio) 29.21 kg/m2 Denmina Phillips DO blood pressure, diastolic 82 mm[Hg] Rh karyn Juarez blood pressure, systolic 130 mm[Hg] Rho tracey Juarez blood pressure, cuff size regular Rh karyn Juarez oxygen saturation, oximetry 97 % America Juarez respiratory rate E&M 16 /min America Ann pulse rate 64 /min America Juarez blood pressure, resting Yes Mickymina tory Ann weight E&M 164.9 [lb_av] America Ann height E&M 63 [in_i] Maerica Ann ALLERGIES Allergy Name Onset Date Reaction Criticality Status PENICILLIN High Criticality active AMOXICILLIN High Criticality active RESULTS Date Observation Value Provider Reference Range Interpretation Location prothrombin time (patient) 10.3 s [facility] 9.0-11.5 Normal international normalized ratio (INR) 1.0 [facility] Normal calcium, serum 9.6 mg/dL [facility] 8.6-10.4 Normal carbon dioxide, venous blood 33 mmol/L [facility] 20-32 High chloride, serum 103 mmol/L [facility] 98-110 Normal potassium, serum 3.8 mmol/L [facility] 3.5-5.3 Normal sodium, serum 143 mmol/L [facility] 135-146 Normal urea nitrogen/creatini ne ratio, serum NOT APPLICABLE (calc) [facility] 6-22 Estimated Glomerular Filtration Rate (calc) 78 mL/min/{1.73_m 2} [facility] > OR = 60 Normal creatinine, serum 0.83 mg/dL [facility] 0.60-0.93 Normal urea nitrogen, blood 15 mg/dL [facility] 7-25 Normal blood glucose, random 120 mg/dL [facility] 65-139 Normal HISTORY OF MEDICATION USE Medication Status Instructions Dates Provider Indications Com ments ELIQUIS 5 MG ORAL TABLET active one tablet twice daily 3 Waleska Dickey RN LISINOPRIL-HYDROC HLOROTHIAZIDE 20-12.5 MG ORAL TABLET completed take one tablet by mouth once daily if BP >140/80 5 - 6 Chastity Elly B-12 100 MCG ORAL TABLET active 1 tab once daily 2 America Juarez VITAMIN D2 2000 UNIT ORAL TABLET active one tab daily 2 Waleska Dickey RN CLINDAMYCIN HCL 300 MG ORAL CAPSULE completed 2 - 3 Waleska Dickey RN [facility] FISH OIL 1200 MG ORAL CAPSULE active 1 tab once daily 2 America Juarez RIVASTIGMINE TARTRATE 3 MG ORAL CAPSULE active take one tablet by mouth twice daily 2 Stacey Hernandez PRAVASTATIN SODIUM 80 MG ORAL TABLET active 1 tab once daily 2 America Juarez ADULT ASPIRIN REGIMEN 81 MG ORAL TABLET DELAYED RELEASE completed 1 tab once daily 2 - 6 Chastity Elly LEVOTHYROXINE SODIUM 50 MCG ORAL TABLET active 1 tab once daily 2 America Juarez MEMANTINE HCL 10 MG ORAL TABLET active 1 tab twice daily 2 Waleska Dickey RN SOCIAL HISTORY Date Observation Value Provider number of grandchildren Gabriele Phillips DO social history reviewed E&M revi ewed - no changes required Gabriele Phillips DO smoking status Never smoker Natalia keith smoking status Never smoker Sybil Campos social history reviewed E&M revi ewed - no changes required Sybil Hernandez smoking status Never smoker Sybil Campos social history reviewed E&M revi ewed - no changes required Sybil Hernandez social history E&M S moking History: P patito has never smoked. Waleska Dickey RN social history reviewed E&M revi ewed - no changes required Waleska Dickey RN smoking status Never smoker Waleska Dickey RN social history reviewed E&M revi ewed - no changes required Gabriele Phillips DO INSURANCE PROVIDERS Payer name Policy type / Coverage type [place] red libertarian ID [employer] MEDICARE GOLD ADVANTAGE O Medicare [id number] TREATMENT PLAN Date Name Performer Electrophysiology:1 episode in spring U nclear etiology N one since ILR implant Gabriele Phillips DO Electrophysiology:No kaela on [facility] 04/19/19 lasted 2 hr and 42min C ontinues to having episodes. N o symptoms or awareness . C ontinued occasional episodes of PAF w/o syncope or falls & ZINA VASC of 5. O n eliquis Gabriele Phillips DO Electrophysiology -s ign~M:Noted on [facility] 04/19/19 lasted 2 hr and 42min C ontinues to having episodes. N o symptoms or awareness . . G iven continued cont episodes of PAF w/o syncope or falls & ZINA VASC of 5. will start Eliquis 5mg BID. Waleska Dickey RN Electrophysiology -s ign~M:1 episode in spring U nclear etiology N one since ILR implant Waleska Dickey RN Electrophysiology:No kaela on [facility] 04/19/19 lasted 2 hr and 42min N o symptoms or awareness W ill withhold OAC until etiology of syncope identified and treated Gabriele Phillips DO Electrophysiology:Un clear etiology n one since ILR implant Gabriele Phillips DO Electrophysiology - reivew/sign~M- fxd 06/23/19/TS:none since ILR implant Waleska Dickey RN Electrophysiology - reivew/sign~M- fxd 06/23/19//TS:latest remote showed 1 epiosde of PAT lasting only 6 seconds w/HR 170bpm. p t did not notice episode. P AT has been noted prior w/external monitoring. w ill continue to monitor ILR for increase in episodes or symptomatic episodes. Waleska Dickey RN Electrophysiology:Re current 04/2017 and 12/2018. N o warning sustained left humeral head fracture with most recent. S he had an echo which was normal with the exception of mild aortic stenosis, EF 65%. S he has had two 30 day event monitors, one in 2016 and one 01/2019. Both showed multiple brief spells of nonsustained PAT lasting up to 20 beats at HRs of around 170, and also occasional mild bradycardia with pauses up to 2.2 seconds in duration. It is unclear whether she is having episodes of tachycardia or bradycardia or something entirely unrelated which could be contributing to syncope. I would recommend proceding with implantable ILR to further define this. Discussed with pt and family, they agree Acceptable risk for repair of humeral head fracture from EP standpoint. Gabriele Shannon DO Date Name PROTHROMBIN TIME WIT H INR BASIC METABOLIC PANE L W/EGFR HISTORY OF PROCEDURES Procedure Date Procedure Name Provider Procedure Notes S tatus EKG Gabriele Shannon DO comple kaela EKG Gabriele Shannon DO comple kaela Loop Recorder Interrogation, Remote Gabriele Shannon DO INTERROGATION EVALUATION REMOTE </30 D ILR SYS completed ICM Interrogation, Remote (Tech) Gabriele Shannon DO INTERROGATION EVAL REMOTE </30 D TECH REVIEW completed EKG Gabriele Shannon DO comple kaela Loop Recorder Interrogation, Remote Gabriele Shannon DO INTERROGATION EVALUATION REMOTE </30 D ILR SYS completed ICM Interrogation, Remote (Tech) Gabriele Shannon DO INTERROGATION EVAL REMOTE </30 D TECH REVIEW completed Loop Recorder Interrogation, Remote Gabriele Shannon DO INTERROGATION EVALUATION REMOTE </30 D ILR SYS completed ICM Interrogation, Remote (Tech) Gabriele Shannon DO INTERROGATION EVAL REMOTE </30 D TECH REVIEW completed EKG Gabriele Shannon DO comple kaela
--- OUTSIDE RECORDS SUMMARY | 2024-10-26 10:52 | XMS_ITS | Referral Summary ---
Author Organization [facility] Address [address] [place] [address] Care Team Providers Care Joint Cutter Name Role Phone Cornelius Padilla MD Unavailable [phone] Reagan Medeiros MD Unavailable [phone] Fam Conteh MD Unavailable [phone] Andrew Alcala DPM Unavailable [phone] Carmencita Hammer MD Unavailable [phone] Sree Ramos MD Unavailable Akshat Dukes MD Unavailable [phone] Marley Moore MD Unavailable [phone] Jessie Walker DO Unavailable [phone] Miscellaneous, Not In File Unavailable Unava ilable Darlin Lazcano NP Primary Care Provider Encounters Date Type Department Care Team Description 10/09/2024 1:00 PM [facility] [employer] [facility] Office Visit [facility] at [address] [place] [address] Pat Degroot NP Status post transcatheter aortic valve replacement (TAVR) using bioprosthesis (Primary Dx); Nonrheumatic aortic valve stenosis; Mixed hyperlipidemia; Primary hypertension 09/25/2024 2:10 PM [employer] - 09/25/2024 11:59 PM [employer] Hospital Encounter [facility] [address] [place] [address] Status post transcatheter aortic valve replacement (TAVR) using bioprosthesis Discharge Disposition: Discharge to home or self care from Last 3 Months Allergies Active Allergy Reactions Criticality Noted Date Comments Amoxicillin Itching High 01/18/2019 Donepezil Vomiting Low 03/11/2018 Penicillins Itching Low Medications cyanocobalamin (Vitamin B-12) 1,000 mcg tabletIndication s:Late onset Alzheimer's dementia without behavioral disturbance (HCC) Take 1 tablet (1,000 mcg total) by mouth daily 90 tablet 3 1 Active cholecalciferol (VITAMIN D-3) 2000 unit capsule 1 capsule (2,000 Units total) daily Active acetaminophen ER (TYLENOL) 650 mg 8 hr tabletIndication s:Arthritic Pain Take 1 tablet (650 mg total) by mouth every 8 (eight) hours as needed for pain 2 Active apixaban (ELIQUIS) 5 mg tabletIndication s:Paroxysmal atrial fibrillation (HCC) Take 1 tablet (5 mg total) by mouth 2 (two) times a day 180 tablet 1 2 Active diclofenac sodium (VOLTAREN) 1 % gelIndications:A rthritis of knee Apply 4 g topically 3 (three) times a day 450 g 5 2 Active Additional Information Patient not taking.Reported on 10/09/2024 ergocalciferol, vitamin D2, 50 mcg (2,000 unit) tablet Take 5,000 Units by mouth daily 90 tablet 1 2 Active memantine (NAMENDA) 10 mg tabletIndication s:Late onset Alzheimer's dementia without behavioral disturbance (HCC) Take 1 tablet (10 mg total) by mouth 2 (two) times a day 180 tablet 1 2 Active rivastigmine (EXELON) 3 mg capsuleIndicatio ns:Late onset Alzheimer's dementia without behavioral disturbance (HCC) Take 1 capsule (3 mg total) by mouth 2 (two) times a day 180 capsule 1 2 Active metoprolol tartrate (LOPRESSOR) 25 mg immediate release tablet Take 0.5 tablets (12.5 mg total) by mouth 2 (two) times a day 30 tablet 1 2 Active levothyroxine (SYNTHROID) 100 mcg tablet Take 1 tablet (100 mcg total) by mouth daily 30 tablet 2 Active atorvastatin (LIPITOR) 10 mg tablet Take 1 tablet (10 mg total) by mouth nightly 30 tablet 2 Active miconazole 2 % cream Apply topically 2 (two) times a day 28.35 g 2 Active Additional Information Patient not taking.Reported on 10/09/2024 albuterol HFA (PROVENTIL HFA,VENTOLIN HFA,PROAIR HFA) 90 mcg/actuation inhaler Inhale 2 puffs every 4 hours by inhalation route as needed. Active clobetasoL (TEMOVATE) 0.05 % ointment clobetasol 0.05 % topical ointment Active traMADoL (ULTRAM) 50 mg tablet Take 0.5 tablets every 12 hours by oral route for 30 days. Active Active Problems Problem Noted Date Diagnosed Date E-coli UTI 11/26/2023 Nonrheumatic aortic valve stenosis 11/10/2023 Recurrent syncope 11/06/2023 Syncope and collapse 05/07/2022 Assessment & Plan (05/08/2022 5:44 AM CDT): In the past had loop recorder, not currently. Start on telemetry monitoring. Last echocardiogram from August 2021 consistent with normal left ventricular systolic function and diastolic dysfunction , EF 65-70%, moderate aortic stenosis. Will get orthostatic vital signs. Avoid aggressive diuresis since the patient is preload dependent Fall precautions Acute cystitis with hematuria 05/07/2022 Assessment & Plan (05/07/2022 7:45 PM CDT): UA positive for UTI. Obtain blood cultures, lactate procalcitonin. Started Levaquin. Follow-up urine cultures. CBC, BMP in a.m.. Sepsis 05/07/2022 Assessment & Plan (05/07/2022 7:47 PM CDT): Suspect UTI sepsis versus SIRS. Will check procalcitonin lactate to rule out sepsis. Mixed hyperlipidemia 01/22/2022 Assessment & Plan (05/07/2022 7:46 PM CDT): On statin Arthritis of knee 01/22/2022 Acute blood loss anemia 08/31/2021 Status post transcatheter ao rtic valve replacement (TAVR) using bioprosthesis 08/31/2021 History of loop recorder 06/03/2021 Acute pain of left knee 01/20/2021 Assessment & Plan (01/20/2021 2:28 PM CDT): Patient presents with daughter who provides much of history as patient is poor historian d/t her underlying dementia. Patient has been having pain in the left leg on and off x 1 week. On exam gait is guarded and stepping. She has swelling and tenderness with palpation of the left knee. She also has pain with flexion of left knee. No bruising or warmth noted. Most likely secondary to underlying arthritis. However, there is concern for acute injury as patient cannot recall if she fell. We will do xray for further evaluation. She will continue with OTC therapies and was encouraged to use walker at all times. If no acute fracture will refer to PT. Patient will follow up in 8 weeks or sooner if needed. Paroxysmal atrial fibrillation 05/11/2019 Assessment & Plan (05/07/2022 7:46 PM CDT): Rate controlled. Currently in sinus rhythm. Continue metoprolol. Patient is on Eliquis oral anticoagulation. Encounter for screening for cardiovascular disor ders 02/01/2019 Dementia without behavioral disturbance 12/09/19 19 Assessment & Plan (05/07/2022 7:45 PM CDT): Continue Namenda, Exelon and vitamin-D 12, Assessment & Plan (08/11/2019 12:11 PM [employer]): She continues to follow with Dr. Ramos and the memory clinic. Daughter reports a recent decline on mini mental score. 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 History of total splenectomy 08/11/2017 Overview (08/11/2017): Is done for ITP in 2003, requires Pneumovax every 5 years given 2011, August 2017 Aortic valve disorder 06/25/2017 Overview (09/03/2018): ECHO 09/02/2018 Conclusions: Left Ventricle: Normal left ventricular systolic function with no focal wall motion abnormalities. Normal left ventricular size. Left ventricular wall thickness upper limits of normal. Impaired diastolic relaxation Grade I. Ejection fraction is visually estimated at 60-70 %. Left Atrium: There is mild enlargement of left atrium. Mitral Valve: Mild mitral annular calcification. Mild mitral valve regurgitation. Aortic Valve: Mild aortic stenosis. Mean gradient of 11.0 mmHg. Aortic cusps appear mildly calcified. Aortic cusps appear mildly sclerotic. Aortic cusps appear mildly restricted. Tricuspid Valve: Normal structure of the tricuspid valve. Normal right ventricular systolic pressure. Mild tricuspid regurgitation. Electronically Signed By:Tre Dumont MD, [id number] 12:58:17 [employer] Aortic valve defect Noted 1st in 2007. Recheck echo May 26, 2017. Using dental clindamycin because of the aortic valve. Plan to Repeat echo yearly because of the aortic valve June 2017 RESULT: IMPRESSION ECHO REPORT 2D/M-MODE FINDINGS: 1. Normal left ventricular size, thickness and systolic function. Ejection fraction 60-70%. 2. Nonspecific mitral leaflet thickening with normal excursion. 3. Mild mitral annular calcification. 4. Aortic valve reveals sclerosis and calcifications with some restriction of leaflet mobility. 5. Tricuspid leaflet excursion normal. 6. Pulmonary valve is poorly visualized. 7. Normal right heart size and right ventricular systolic function. 8. No pericardial effusion. 9. Inferior vena cava is poorly visualized. COLOR AND DOPPLER FINDINGS: 1. E to A wave reversal on transmitral Doppler suggesting mild diastolic dysfunction. 2. Aortic valve forward velocity within normal limits with a valve area of 2.0cm sq that is normal. 3. Mild tricuspid regurgitation with no hemodynamic significance. 4. Normal pulmonary Doppler. Interpreting Physician: DR MIKE BARDALES M.D. Read on: Jun 11 2017 Hx of adenomatous colonic polyps 12/23/2013 Overview (03/16/2017): Adenomatous colon polyp Dr. Padilla (+) February 2012 Acquired hypothyroidism 12/23/2013 Overview (11/12/2016): Combined hyperlipidemia Assessment & Plan (05/07/2022 7:44 PM CDT): Continue Synthroid Assessment & Plan (08/11/2019 12:12 PM [employer]): Remains on statin therapy. Will repeat LDL prior to next visit Primary hypertension 11/21/2012 Overview (11/12/2016): Hypertension, benign Assessment & Plan (05/07/2022 7:44 PM CDT): Blood pressure is stable. Continue metoprolol. Assessment & Plan (08/11/2019 12:13 PM [employer]): Blood pressure well controlled. Will continue to monitor. BMP prior to annual visit Adverse effect of anticoagulant Benign tumor of uterine fundus Resolved Problems Problem Noted Date Diagnosed Date Resolved Date Vaginal bleeding 08/30/2021 09/05/2021 Post-menopausal bleeding 07/08/2021 Assessment & Plan (07/08/2021 7:50 AM [employer]): Patient presents today with her daughter. Patient is a poor historian d/t her underlying dementia. Patient however, was seen in urgent care for UTI and treated with antibiotic. Today however, at visit patient has blood noted running down her leg. Her urine sample should gross hematuria and her sanitary pad had a significant amount of blood and clots noted. Suggesting that most likely this was d/t vaginal bleeding not hematuria. Given persistent bleeding patient was taken to ER by her daughter for further evaluation. Fall 09/19/2019 03/25/2020 Assessment & Plan (09/19/2019 2:34 PM [employer]): Appears mechanical in nature as patient reports tripping off the edge of sidewalk. She landed with her face hitting the side of the van and on her knees. She has no previous history of falls. Did discuss with patient and family if this becomes recurrent we will need to address safety of continuing AC as she is on eliquis for CVA prevention. Facial contusion, subsequent encounter 09/19/2019 03/25/2020 Assessment & Plan (09/19/2019 3:32 PM [employer]): Contusion noted s/p fall. Appears to be healing. CT of head negative for acute bleed or infarct. Ct of the face with no acute fracture. Discussed with Dr. Long and at this time feels it is safe to resume AC. Contusion of left hip 12/15/20182019 Closed fracture of surgical neck of left humerus 12/08/2018 03/25/2020 Bilateral carotid artery stenosis 08/11/2017 12/02/2020 Overview (08/11/2017): The 40 percent right carotid 52 percent left carotid January 2008, February 2012 decrease left-sided velocities on carotid Doppler Hypothyroid 08/11/2017 11/06/2023 Assessment & Plan (08/11/2019 12:12 PM [employer]): Remains on replacement therapy. 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 Alcala authorized, Mercedes cannot trim her own toenails PSVT (paroxysmal supraventri cular tachycardia) 05/26/2017 06/26/2017 Overview (05/26/2017): 21 day CardioNetDATE OF EXAM: Apr 23 2017 IMPRESSION:CARDIONET MONITORING REPORT Marianna Gil was monitored for 20 days. There were several transmissions all of which were reviewed by me. There were no urgent reports. The patient had no symptomatic events. She did, however, have 3 asymptomatic short runs of PSVT lasting 7 beats, 12 beats and 14 beats. The fastest one was at 175 beats per minute. Clinical correlation is advised for the above three asymptomatic short runs of PSVT. Interpreting Physician: DR REAGAN MEDEIROS M.D. Read on: May 18 2017 Hearing loss associated with syndrome 05/03/2017 03/25/2020 Overview (06/29/2017): Images from the original note were not included. No evidence of asymmetric hearing loss on audiogram 2016 Syncope 04/22/2017 11/06/2023 Overview (09/05/2021): Dr. Phillips consultation 01/18/2019 advise loop recorder to help determine if her problem is tachycardia or bradycardia causing syncope Syncope developed on the airplane witnessed by her son. Symptoms developed after an episode of nausea and abdominal bloating. Son suspected vasovagal. medical workup 1. PSVT on 28/08 day CardioNet monitor with heart rates up to 175 at night during sleep asymptomatic 2. TSH low-- antithyroid antibodies pending 3. Carotid Dopplers normal 4. Echocardiogram follow-up of / A I Pending 5. Asymmetric hearing loss evaluated with audiogram--- pending 6. Short-term memory impairment evaluated with head CT showing small vessel disease consistent with age Mild cognitive impairment with memory loss 03/16/2017 12/02/2020 Overview (06/26/2017): Syncope developed on the airplane witnessed by her son. Symptoms developed after an episode of nausea and abdominal bloating. Son suspected vasovagal. medical workup 1. PSVT on 28/08 day CardioNet monitor with heart rates up to 175 at night during sleep asymptomatic 2. TSH low-- antithyroid antibodies pending 3. Carotid Dopplers normal 4. Echocardiogram follow-up of June 2017 sclerotic aortic valve with no stenosis or insufficiency. 5. Asymmetric hearing loss evaluated with audiogram--- pending 6. Short-term memory impairment evaluated with head CT showing small vessel disease consistent with age. Problem associated with hearing loss. Hearing evaluation ordered and is pending as of June 2017. Subacromial impingement 03/16/201703/09 Overview (05/29/2017): Failed physical therapy. Referred to Dr. Quiroga 05/26/2017 Hyperthyroidism 12/23/2013 06/26/2017 Overview (06/26/2017): HYPOTHYROIDISM Condition medication induced resolved off Synthroid Thrombocytopenia 12/23/2013 06/26/2017 Overview (06/26/2017): Thrombocytopenia, condition not present on CBC testing 2016 Immunizations Immunization Administration Dates Next Due Influenza, Quad, Adjuvantate d, Intramuscular 05/14/2021 Influenza, Quadrivalent, Hig h Dose, Preservative Free, Intrr 05/11/2022(Deferred: Patient Refused - daughter/poa wished to not give, is scheduled to recieve influenza vacc at facility in the next week or so),05/11/2021 Influenza, Quadrivalent, Spl it, Intramuscular 05/09/2016 Influenza, Trivalent, High D ose, Split, Preservative Free, Intramuscular 05/26/2019,05/03/2018,05/17/2017,04/27,04/24/2015 Influenza, Trivalent, IM (MDV) 04/23/2015 Influenza, Unspecified 05/26/2019,05/08/2018 Moderna SARS-CoV-2 Monovalen t Vaccination (12+ YRS) 10/02/2020,09/04/2020 Pneumococcal Conjugate PCV 13 05/26/2019, 014 Pneumococcal Polysaccharide PPV23 08/11/2017,,03/19/2008 Tdap 10/24/2012 ZOSTER LIVE 05/08/2009 Social History Tobacco Use Types Packs/Day Years Used Date Smoking Tobacco: Never Smokeless Tobacco: Never Tobacco Cessation:Counseling Given: Not Answered Alcohol Use Standard Drinks/Week Comments No 0 (1 standard drink = 0.6 oz pur e alcohol) [facility] Utilities Answer Date Recorded In the past 12 months has [employer], gas, oil, or water Done. threatened to shut off services in your home? No 11/08/2023 Social Connection and Isolat ion Panel [NHANES] Answer Date Recorded In a typical week, how many times do you talk on the phone with family, friends, or neighbors? Twice a week 11/08/2023 How often do you get togethe r with friends or relatives? Twice a week 11/08/2023 How often do you attend [facility] or amish services? More than 4 times per year 11/08/2023 Do you belong to any clubs o r organizations such as amish groups, unions, fraternal or athletic groups, or school groups? Yes 11/08/2023 How often do you attend meet ings of the clubs or organizations you belong to? Never 11/08/2023 Are you , , di vorced, , never , or living with a partner? 11/08/2023 AUDIT-C Answer Date Recorded Q1: How often do you have a drink containing alcohol? Never 11/08/2023 Q2: How many drinks containi ng alcohol do you have on a typical day when you are drinking? Patient does not drink Q3: How often do you have si x or more drinks on one occasion? Never 11/08/2023 Overall Financial Resource Strain (CARDIA) Answe r Date Recorded How hard is it for you to pa y for the very basics like food, housing, medical care, and heating? Not hard at all 11/08/2023 PHQ-2 Answer Date Recorded PHQ-2 Total Score 0 11/08/2023 Hunger Vital Sign Answer Date Recorded Within the past 12 months, y ou worried that your food would run out before you got the money to buy more. Never true 11/08/19 24 Within the past 12 months, t he food you bought just didn't last and you didn't have money to get more. Never true 11/08/2023 PRAPARE - Transportation Answer Date Re corded In the past 12 months, has l ack of transportation kept you from medical appointments or from getting medications? No 08/2023 In the past 12 months, has l ack of transportation kept you from meetings, work, or from getting things needed for daily living? No 11/08/2023 Housing Stability Vital Sign Answer Enrico e Recorded In the last 12 months, was t here a time when you were not able to pay the mortgage or rent on time? No 11/08/2023 In the last 12 months, how many places have you lived? 1 11/08/2023 In the last 12 months, was t here a time when you did not have a steady place to sleep or slept in a jail (including now)? No 11/08/2023 PHQ-9 Answer Date Recorded PHQ-9 Total Score 0 11/08/2023 Personal Safety Answer Date Recorded Have you ever been in or are you currently in a harmful physical or emotional relationship or is someone making you feel afraid or unsafe? Denies 11/05/2023 Comments No Sex and Gender Information Value Date Recorded Sex Assigned at Not on file Legal Sex Female 2:35 PM [employer] Gender Identity Not on file Sexual Orientation Not on file Occupation Industry Job Start Date Job End Date retired Not on file Not on file Not on file Last Filed Vital Signs Vital Sign Reading Time Taken Comments Blood Pressure 151/97 10/09/2024 1:21 PM [employer] Pulse 75 10/09/2024 1:21 PM [employer] Temperature 37.1 C (98.8 F) 12/02/2023 5:26 PM CDT Respiratory Rate 18 10/09/2024 1:21 PM [employer] Oxygen Saturation 95% 12/02/2023 5:26 PM CDT Inhaled Oxygen Concentration - - Weight 83.9 kg (185 lb) 02/03/2024 1:33 PM CDT Height 160 cm (5' 3 ) 10/09/2024 1:21 PM [employer] Body Mass Index 32.26 02/03/2024 1:33 PM CDT Plan of Treatment Not on file Medical Devices Implanted Type Area Maintenance Manager Device Identifier Shelf Expiration Date Model / Serial / Lot Mi Lifesciences Valve Aortic Trnscath Maryam 3 Ultra Resilia 23mm [id number] - [id number] - [id number] Implanted:Qty: 1 on 12/01/2023 by Cuauhtemoc Faulkner MD at [facility] Prosthetic Valve N/A: Heart Mi [employer]iences 01/06/2026 [id number] / [id number] / ShopPad Precious Angio-Seal Vip 6fr Closere Device [id number] - [id number] Implanted:Qty: 1 on 11/10/2023 by Cuauhtemoc Faulkner MD at [facility] [employer]CellNovo Medical Precious [id number] / / Miller Vascular Device Clsr Perclose Prostyle Sut-Mediatd Closure-Repair Sys 51661-82 - [id number] Implanted:Qty: 1 on 12/01/2023 by Cuauhtemoc Faulkner MD at [facility] N/A: Heart [employer] 09/08/2025 [id number] / / [id number] [employer] V[employer] Device Clsr Perclose Prostyle Sut-Mediatd Closure-Repair Sys 17543-08 - [id number] Implanted:Qty: 1 on 12/01/2023 by Cuauhtemoc Faulkner MD at [facility] N/A: Heart [employer] 09/08/2025 [id number] / / [id number] [employer] Device Clsr Perclose Prostyle Sut-Mediatd Closure-Repair Sys 09328-88 - [id number] Implanted:Qty: 1 on 12/01/2023 by Cuauhtemoc Faulkner MD at [facility] [employer] 08/08/2025 [id number] / / [id number] [employer] Precious Angio-Seal Vip 6fr Closere Device [id number] - [id number] Implanted:Qty: 1 on 12/01/2023 by [facility] [id number] / / Procedures Procedure Name Priority Date/Time Associated Diagnosis Comments TRANSTHORACIC ECHO (TTE) COMPLETE W DOPPLER/CF WO CONTRAST Routine 09/25/2024 3:02 PM [employer] Status post transcatheter aortic valve replacement (TAVR) using bioprosthesis from Last 3 Months Results * TRANSTHORACIC ECHO (TTE) COMPLETE W DOPPLER/CF WO CONTRAST (09/25/2024 3:02 PM [employer]) LV EF 60-65 % CONS SCIMAGE Anatomical Region Laterality Modality Ultrasound 09/25/2024 2:27 PM [employer] [facility] Narrative 09/25/2024 3:46 PM [employer] [facility] [employer] [address] [address] Echocardiogram Report Patient Name: MARIANNA GIL : 1940 Study Date: 09/25/2024 2:27:58 PM Gender: F Tech: AA Location: Echo room 1 Ref Provider: CUAUHTEMOC FAULKNER Height(Cm): BSA: Weight(Kg): Quality: Good Order Provider: CUAUHTEMOC FAULKNER PROCEDURES: Echocardiographic Report: Transthoracic echocardiogram with complete 2D, M-Mode, and color Doppler examination. INDICATIONS: 23mm TAVR and Z95.3 Presence of xenogenic heart valve. MEASUREMENTS: 2D/MM Value Range Doppler Value Range Estimated EF 60-65 % MARK Vmax 2.62 cm2 LA Dimension MM 3.99 cm [ 2.70 - 3.80 ] AV Mean PG 5 mmHg AoR Diam MM 2.15 cm [ 2.70 - 3.70 ] AV Peak Eddie 1.64 m/s [ 1.00 - 1.70 ] ACS MM 1.53 cm AV VTI 38.69 cm LVOT Diam 2.30 cm LVOT Peak Eddie 1.04 m/s [ 0.70 - 1.10 ] LVOT VTI 26.45 cm MV E Peak Eddie 1.08 m/s [ 0.60 - 1.30 ] MV A Peak Eddie 1.11 m/s [ 1.00 - 1.20 ] MV Mean PG 2 mmHg MV PHT 58 msec [ 20 - 100 ] MVA 2.50 MV Decel Time 201 msec [ 104 - 258 ] PV Peak Eddie 0.72 m/s [ 0.40 - 0.80 ] TR Peak Eddie 2.62 m/s [ 1.00 - 2.80 ] TR Peak PG 27 mmHg RVSP 32.00 mmHg [ 10.00 - 36.00 ] E` 0.05 m/s E/E` 22.10 [ <= 10.00 ] PA Pressure 5.00 mmHg [ 10.00 - 36.00 ] 2D/MM Value Range Doppler Value Range - FINDINGS: Atrial Septum: Normal atrial septum. Left Ventricle: Normal left ventricular systolic function with no focal wall motion abnormalities. Normal left ventricular size. Normal left ventricular wall thickness. Impaired diastolic relaxation Grade I. Ejection Fraction is estimated to be 60-65 %. Left Atrium: There is mild enlargement of left atrium. Right Ventricle: Normal right ventricular size. Normal right ventricular systolic function. Right Atrium: The right atrium is normal in size. Aortic Valve: Normal appearing aortic valve prosthesis. Normal appearing aortic valve bioprosthesis. Mitral Valve: Mitral valve leaflets appear mildly thickened. Mild mitral annular calcification. Trivial regurgitation of the mitral valve. Pulmonic Valve: Normal structure of the pulmonic valve. Tricuspid Valve: Normal structure of the tricuspid valve. Normal right ventricular systolic pressure. Trivial regurgitation in the tricuspid valve. Pericardium: Normal pericardium with no significant pericardial effusion. Aorta: There is mild atherosclerosis in the aortic root. IVC: The IVC is not well visualized. Pulmonary Artery: Pulmonary artery not well visualized. CONCLUSIONS: Normal left ventricular systolic function with no focal wall motion abnormalities. Normal left ventricular size. Normal left ventricular wall thickness. Impaired diastolic relaxation Grade I. Ejection Fraction is estimated to be 60-65 %. Normal right ventricular size. Normal right ventricular systolic function. There is mild enlargement of left atrium. Mitral valve leaflets appear mildly thickened. Mild mitral annular calcification. Trivial regurgitation of the mitral valve. Normal appearing aortic valve prosthesis. Normal appearing aortic valve bioprosthesis. Normal structure of the tricuspid valve. Normal right ventricular systolic pressure. Trivial regurgitation in the tricuspid valve. Normal pericardium with no significant pericardial effusion. Technically difficult study with limited views and visualization. Subcostal views not available. Valves in general are poorly visualized. Electronically Signed By: Mike Bardales MD 09/25/2024 3:46:27 PM DRAFTER HEATING AND VENTILATING Procedure Note Mike Bardales MD - 09/25/[address] [address] Echocardiogram Report Patient Name: MARIANNA GIL : 1940 Study Date: 09/25/2024 2:27:58 PM Gender: F Tech: SAQIB Location: Echo room 1 Ref Provider: CUAUHTEMOC FAULKNER Height(Cm): BSA: Weight(Kg): Quality: Good Order Provider: CUAUHTEMOC FAULKNER PROCEDURES: Echocardiographic Report: Transthoracic echocardiogram with complete 2D, M-Mode, and color Dopplerexamination. INDICATIONS: 23mm TAVR and Z95.3 Presence of xenogenic heart valve. MEASUREMENTS: 2D/MM Value Range Doppler ValueRange Estimated EF 60-65 % MARK Vmax 2.62cm2 LA Dimension MM 3.99 cm [ 2.70 - 3.80 ] AV Mean PG 5 mmHg AoR Diam MM 2.15 cm [ 2.70 - 3.70 ] AV Peak Eddie 1.64 m/s[ 1.00 - 1.70 ] ACS MM 1.53 cm AV VTI 38.69cm LVOT Diam 2.30 cm LVOT Peak Eddie 1.04 m/s [ 0.70 - 1.10 ] LVOT VTI 26.45 cm MV E Peak Eddie 1.08 m/s [ 0.60 - 1.30 ] MV A Peak Eddie 1.11 m/s [ 1.00 - 1.20 ] MV Mean PG 2 mmHg MV PHT 58 msec [ 20 - 100 ] MVA 2.50 MV Decel Time 201 msec [ 104 - 258 ] PV Peak Eddie 0.72 m/s [ 0.40 - 0.80 ] TR Peak Eddie 2.62 m/s [ 1.00 - 2.80 ] TR Peak PG 27 mmHg RVSP 32.00 mmHg [ 10.00 - 36.00 ] E` 0.05 m/s E/E` 22.10 [ <= 10.00 ] PA Pressure 5.00 mmHg [ 10.00 - 36.00 ] 2D/MM Value Range Doppler ValueRange - FINDINGS: Atrial Septum: Normal atrial septum. Left Ventricle: Normal left ventricular systolic function with no focal wall motionabnormalities. Normal left ventricular size. Normal left ventricular wall thickness. Impaireddiastolic relaxation Grade I. Ejection Fraction is estimated to be 60-65 %. Left Atrium: There is mild enlargement of left atrium. Right Ventricle: Normal right ventricular size. Normal right ventricular systolicfunction. Right Atrium: The right atrium is normal in size. Aortic Valve: Normal appearing aortic valve prosthesis. Normal appearing aortic valvebioprosthesis. Mitral Valve: Mitral valve leaflets appear mildly thickened. Mild mitral annularcalcification. Trivial regurgitation of the mitral valve. Pulmonic Valve: Normal structure of the pulmonic valve. Tricuspid Valve: Normal structure of the tricuspid valve. Normal right ventricular systolicpressure. Trivial regurgitation in the tricuspid valve. Pericardium: Normal pericardium with no significant pericardial effusion. Aorta: There is mild atherosclerosis in the aortic root. IVC: The IVC is not well visualized. Pulmonary Artery: Pulmonary artery not well visualized. CONCLUSIONS: Normal left ventricular systolic function with no focal wall motionabnormalities. Normal left ventricular size. Normal left ventricular wall thickness. Impaireddiastolic relaxation Grade I. Ejection Fraction is estimated to be 60-65 %. Normal right ventricular size. Normal right ventricular systolicfunction. There is mild enlargement of left atrium. Mitral valve leaflets appear mildly thickened. Mild mitral annularcalcification. Trivial regurgitation of the mitral valve. Normal appearing aortic valve prosthesis. Normal appearing aortic valvebioprosthesis. Normal structure of the tricuspid valve. Normal right ventricular systolicpressure. Trivial regurgitation in the tricuspid valve. Normal pericardium with no significant pericardial effusion. Technically difficult study with limited views and visualization.Subcostal views not available. Valves in general are poorly visualized. Electronically Signed By: Mike Bardales MD 09/25/2024 3:46:27 PM [employer] HEATING [employer] VENTILATING Cuauhtemoc Faulkner MD CV ECHO PROCEDURES Final Result from Last 3 Months Insurance [facility] AETNA MEDICARE GOLD [facility] A[facility]NA MEDICARE GOLD AETNA MEDICARE GOLD [facility] AETNA [facility] GOLD REF Advance Directives For more information, please contact: [phone] Documents on File Type Date Recorded Patient Echocardiologist Expl anation ADVANCE DIRECTIVE 11/05/2023 11:42 PM Ryland r of Environmental Health Safety Engineer-Medical ADVANCE DIRECTIVE 11/05/2023 11:40 PM LIFE SUSTANING TREATMENT FORM ADVANCE DIRECTIVE 01/23/2022 POLST - PH YS ORDER FOR PT PREFERENCES ADVANCE DIRECTIVE 03/30/2019 DNR * LIMITED - No CPR (Latest Code Status on File) Date Activated Date Inactivated Comments 11/06/2023 12:46 AM 12/02/2023 11:07 PM Question Answer Comments Provide aggressive medical m anagement before a full cardiopulmonary arrest occurs. Use antibiotics, IV Fluids, and medical treatment unless specifically selected below: No intubation * LIMITED - No CPR Date Activated Date Inactivated Comments 05/07/2022 4:38 PM 05/11/2022 10:16 PM Question Answer Comments Provide aggressive medical m anagement before a full cardiopulmonary arrest occurs. Use antibiotics, IV Fluids, and medical treatment unless specifically selected below: No intubation * LIMITED - No CPR Date Activated Date Inactivated Comments 08/30/2021 5:12 PM 09/04/2021 9:55 PM Question Answer Comments Provide aggressive medical m anagement before a full cardiopulmonary arrest occurs. Use antibiotics, IV Fluids, and medical treatment unless specifically selected below: No intubation Discussed with the following attending physician: patient and family, pt has form on refrig stateing same * Full Code Date Activated Date Inactivated Comments 08/30/2021 5:12 PM 08/30/2021 5:12 PM * Comfort Care Only - DO NOT Resuscitate Date Activated Date Inactivated Comments 08/30/2021 4:53 PM 08/30/2021 5:12 PM Question Answer Comments Discussed with the following attending physician: Discussed with daughter and pt. Pt has form on refridgerator, no cpr, no intubation Care Teams Joint Cutter Relationship Specialty Start Date End Date Darlin Lazcano NP [address] [place] [address] PCP - General Family Medicine 08/14/24 Cornelius Padilla MD [address] [facility] [address] [place] [address] Internal Medicine 03/16/17 Reagan Medeiros MD [address] [place] [address] [address] [place] [address] Cardiovascular Disease 03/16/17 Fam Conteh MD [address] [place] [address] [address] [address] Surgeon Orthopedic Surgery 05/26/17 Andrew Alcala, KANDIM [address] [place] [address] [address] [place] [address] Consulting Physician Orthotics 06/25/17 Carmencita Hammer MD [address] [place] [address] [address] [place] [address] Ophthalmology 08/11/17 Sree Ramos MD [address] [place] [address] Consulting Physician Psychiatry 08/15/18 Akshat Dukes MD [address] [place] [address] Surgeon Orthopedic Surgery 12/09/18 Marley Moore MD [address] [place] [address] Consulting Physician Cardiology 06/03/21 Jessie Walker DO [address] [place] [address] Consulting Physician Obstetrics and Gynecology 07/18/21 Miscellaneous, Not In File 09/04/21
--- OUTSIDE RECORDS SUMMARY | 2024-10-26 10:52 | XMS_ITS | Encounter Summary ---
Author Organization [facility] ts Address [address] [place] [address] Phone Care Team Providers Care Dumper Mold Cleaner Name Role Phone Britni Horn MD Primary Care Provider + [phone] Cornelius Padilla MD Unavailable [phone] Trev Medeiros MD Unavailable [phone] aFm Conteh MD Unavailable [phone] Andrew AlcalaM Unavailable [phone] Carmencita Hammer MD Unavailable [phone] Sree Ramos MD Unavailable Akshat Dukes MD Unavailable [phone] Akshat Montano DO Unavailable Gabriele Phillips DO Unavailable Marley Moore MD Unavailable Jessie Walker DO Unavailable [phone] Miscellaneous, Not In File Unavailable Unava ilable rPasanna Ochoa MD Primary Care Provider Stone, Crystal Helene MANNEQUIN MOLD MAKER Primary Care Provider [phone] Unknown, Notinfile Primary Care Provider Unavail able Darlin Lazcano MANNEQUIN MOLD MAKER Primary Care Provider Encounter Details Date Type Department Care Team (Late st Contact Info) Description 04/20/2017 Orders Only [facility] [address] [place] [address] Britni Horn MD [address] [place] [address] Personal history of colonic polyps (Primary Dx) Social History Tobacco Use Types Packs/Day Years Used Date Smoking Tobacco: Never Smokeless Tobacco: Never Alcohol Use Standard Drinks/Week Comments No 0 (1 standard drink = 0.6 oz pur e alcohol) Comments No Sex and Gender Information Value Date Recorded Sex Assigned at Not on file Legal Sex Female 2:35 PM 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 Gender Identity Not on file Sexual Orientation Not on file documented as of this encounter Plan of Treatment Not on file documented as of this encounter Visit Diagnoses Diagnosis Personal history of colonic polyps- Primary documented in this encounter Additional Health Concerns Infection Onset Date Last Indicated Resolved Time 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 05/07/2022 11/03/2022 3:05 AM CDT COVID: Suspected 09/12/2022 09/12/2022 09/12/2022 8:14 PM 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 COVID: Suspected 01/19/2023 01/19/2023 01/19/2023 3:44 PM CDT documented as of this encounter Care Teams Dumper Mold Cleaner Relationship Specialty Start Date End Date Britni Horn MD PCP - General 11/06/16 05/18/22 Prasanna Ochoa MD PCP - General Cardiology 06/08/22 07/15/22 Ale Zheng NP [address] [place] [address] PCP - General Nurse Practitioner 07/16/22 09/28/23 Unknown, Notinfile PCP - General 09/29/23 08/13/24 Jaleesa DarlinOMAR [address] [place] [address] PCP - General Family Medicine 08/14/24 Cornelius Padilla MD [address] [facility] [facility] [address] Internal Medicine 03/16/17 Trev Medeiros MD [address] [place] [address] [place] [address] Cardiovascular Disease 03/16/17 Fam Conteh MD [address] [place] [address] [address] [address] Surgeon Orthopedic Surgery 05/26/17 Andrew Alcala DPM [address] [place] [address] [address] [address] Consulting Physician Orthotics 06/25/17 Carmencita Hammer MD [address] [place] [address] [address] [address] Ophthalmology 08/11/17 Sree Ramos MD [address] [place] [address] Consulting Physician Psychiatry 08/15/18 Akshat Dukes MD [address] [place] [address] Surgeon Orthopedic Surgery 12/09/18 Akshat Montano DO [address] [facility] [address] [place] [address] Cardiovascular Disease 12/09/18 0 Gabriele Phillips DO [address] [facility] [address] [place] [address] Consulting Physician Cardiology 03/25/20 06/02/21 Marley Moore MD [address] [place] [address] Consulting Physician Cardiology 06/03/21 Jessie Walker DO [address] [place] [address] Consulting Physician Obstetrics and Gynecology 07/18/21 Miscellaneous, Not In File 09/04/21 documented as of this encounter
--- OUTSIDE RECORDS SUMMARY | 2024-10-26 10:52 | XMS_ITS | Clinical Summary ---
Author Organization [facility] Address [address] [place] [address] Care Team Providers Care Juvenile Counselor Name Role Phone Cornelius Padilla MD Unavailable [phone] Reagan Medeiros MD Unavailable [phone] Fam Conteh MD Unavailable [phone] Andrew Alcala DPM Unavailable [phone] Carmencita Hammer MD Unavailable [phone] Sree Ramos MD Unavailable Akshat Dukes MD Unavailable [phone] Marley Moore MD Unavailable [phone] Mitesh Walker DO Unavailable [phone] Miscellaneous, Not In File Unavailable Unava ilable Darlin Lazcano NP Primary Care Provider [phone] Allergies Active Allergy Reactions Criticality Noted Date [...] 12, Assessment & Plan (08/11/2019 12:11 PM WARE DRESSER): She continues to follow with Dr. Ramos [...] tricuspid regurgitation. Electronically Signed By:Tre [place] MD, [id number] 12:58:17 WARE DRESSER Aortic valve defect Noted 1st in 2007. [...] Synthroid Assessment & Plan (08/11/2019 12:12 PM WARE DRESSER): Remains on statin therapy. Will repeat LDL prior to next visit Primary hypertension 11/21/2012 Overview (11/12/2016): Hypertension, benign Assessment & Plan (05/07/2022 7:44 PM CDT): Blood pressure is stable. Continue metoprolol. Assessment & Plan (08/11/2019 12:13 PM WARE DRESSER): Blood pressure well controlled. Will continue to monitor. BMP prior to annual visit Adverse effect of anticoagulant Benign tumor of uterine fundus Resolved Problems Problem Noted Date Diagnosed Date Resolved Date Vaginal bleeding 08/30/2021 09/05/2021 Post-menopausal bleeding 07/08/2021 Assessment & Plan (07/08/2021 7:50 AM WARE DRESSER): Patient presents today with her daughter. Patient [...] 03/25/2020 Assessment & Plan (09/19/2019 2:34 PM WARE DRESSER): Appears mechanical in nature as patient reports [...] 03/25/2020 Assessment & Plan (09/19/2019 3:32 PM WARE DRESSER): Contusion noted s/p fall. Appears to be [...] 11/06/2023 Assessment & Plan (08/11/2019 12:12 PM WARE DRESSER): Remains on replacement therapy. Will do TSH [...] evidence of asymmetric hearing loss on audiogram 2017 Syncope 04/22/2017 11/06/2023 Overview (09/05/2021): Dr. Phillips [...] Thrombocytopenia, condition not present on CBC testing 2017 Encounters Date Type Department Care Team Description 10/09/2024 1:00 PM WARE DRESSER Office Visit [place] Financial Operations Consultant at [address] [place] [id number] Pat Degroot NP Status post transcatheter aortic valve replacement (TAVR) using bioprosthesis (Primary Dx); Nonrheumatic aortic valve stenosis; Mixed hyperlipidemia; Primary hypertension 09/25/2024 2:10 PM WARE DRESSER - 09/25/2024 11:59 PM WARE DRESSER Hospital Encounter [facility] Cardiology [address] [place] [place] [id number] Status post transcatheter aortic valve replacement (TAVR) using bioprosthesis Discharge Disposition: Discharge to home or self care from Last 3 Months Immunizations Immunization Administration Dates Next Due Influenza, [...] PPV23 08/11/2017,,03/19/2008 Tdap 10/24/2012 ZOSTER LIVE 05/08/2009 Surgical History Surgery Date Site/Laterality Comments OTHER SURGICAL HISTORY 08/09/2002 - 08/08/2003 ITP: Spleanectomy OTHER SURGICAL HISTORY 08/09/2002 - 08/08/2003 spleen removed OTHER SURGICAL HISTORY 08/09/2002 - 08/08/2003 surgery on left leg OTHER SURGICAL HISTORY 08/09/2011 - 08/08/2012 Osteoporosis, postmenopausal: COLONOSCOPY 04/20/2017 Valerie (-) CATARACT EXTRACTION 06/09/2014 - 07/08/2014 CARDIAC SURGERY 02/01/2019 Left loop recorder, Dr. 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 [...] showing small vessel disease consistent with age PSVT (paroxysmal supraventri cular tachycardia) 05/26/2017 21 day CardioNetDATE OF EXAM : Apr 23 2017 IMPRESSION:CARDIONET MONITORING REPORT Marianna [...] MEDEIROS M.D. Read on: May 18 2017 Diverticulosis 02/2012 colon Carotid stenosis 2011 Hypothyroid Thyroid disease 2 para 2 Subacromial impingement 03/16/2017 Failed p hysical therapy. Referred to Dr. Quiroga 05/26/2017 Closed fracture of surgical neck of left humerus 12/08/2018 Bilateral carotid artery stenosis 08/11/2017 The 40 percent right carotid 52 percent left carotid January 2008, February 2012 decrease left-sided velocities on carotid Doppler Heart murmur Seizures (HCC) Stroke (HCC) TIA's Family History Medical History Relation Name Comments Heart disease Brother 3 Heart attack Brother 4 Heart attack Brother 5 COPD Father Cirrhosis Mother Diabetes Mother's Sister Stroke Sister Relation Name Status Comments Brother 1 Brother 2 (Age 74) Brother 3 Brother 4 Brother 5 Father (Age 65) Mother (Age 65) Mother's Sister Sister Social History Tobacco Use Types Packs/Day Years Used Date Smoking Tobacco: Never Smokeless Tobacco: Never Tobacco Cessation:Counseling Given: Not Answered Alcohol Use Standard Drinks/Week Comments No 0 (1 standard drink = 0.6 oz pur e alcohol) [facility] Utilities Answer Date Recorded In the past 12 months has e [employer], gas, oil, or water [employer] threatened to shut off services in your home? No 11/08/2023 Social Connection and Isolat ion Panel [NHANES] Answer Date Recorded In a typical week, how many times do you talk on the phone with family, friends, or neighbors? Twice a week 11/08/2023 How often do you get togethe r with friends or relatives? Twice a week 11/08/2023 How often do you attend chur ch or sabianism services? More than 4 times per year 11/08/2023 Do you belong to any clubs o r organizations such as catholic groups, unions, fraternal or athletic groups, or [...] place to sleep or slept in a senior care (including now)? No 11/08/2023 PHQ-9 Answer Date [...] on file Legal Sex Female 2:35 PM WARE DRESSER Gender Identity Not on file Sexual Orientation Not on file Occupation Industry Job Start Date Job End Date retired Not on file Not on file Not on file Obstetrics History Last Filed Vital Signs Vital Sign Reading Time Taken Comments Blood Pressure 151/97 10/09/2024 1:21 PM WARE DRESSER Pulse 75 10/09/2024 1:21 PM WARE DRESSER Temperature 37.1 C (98.8 F) 12/02/2023 5:26 PM CDT Respiratory Rate 18 10/09/2024 1:21 PM WARE DRESSER Oxygen Saturation 95% 12/02/2023 5:26 PM CDT Inhaled Oxygen Concentration - - Weight 83.9 kg (185 lb) 02/03/2024 1:33 PM CDT Height 160 cm (5' 3 ) 10/09/2024 1:21 PM WARE DRESSER Body Mass Index 32.26 02/03/2024 1:33 PM CDT Plan of Treatment Health Maintenance Due Date Last Done Comments Osteoporosis Screening-Bone Density Scan 1940 Meningococcal B Vaccine (1 o f 5 - Increased Risk) 1950 Hepatitis B Screening 1958 Zoster Vaccine (2 of 3) 07/03/2009 05/08/2009 Well Visit 65+ 12/02/2021 12/02/2020, 02/2019, 08/11/2017 DTaP/Tdap/Td Vaccine (2 - Td or Tdap) 10/24/2022 10/24/2012 Covid-19 Vaccine (5 - 2023-2 5 season) 2024 11/20/2021, 06/05/2021, 10/02/2020, Additional history exists Influenza Vaccine (#1) 2024 , 05/11/2021, 05/26/2019, Additional history exists Depression Screening 11/04/2024 11/05/2023, 11/05/2023, 01/22/2022, Additional history exists Fall Risk Assessment 12/01/2024 12/02/2023, 01/22/2022, 12/02/2020, Additional history exists Pneumococcal vaccine 65+ Completed 019, 08/11/2017, 08/06/2014, Additional history exists Medical Devices Implanted Type Area Leather Tanner Device Identifier Shelf Expiration Date Model / Serial / Lot Im Lifesciences Valve Aortic Trnscath Maryam 3 Ultra Resilia 23mm [id number] - [id number] - [id number] Implanted:Qty: 1 on 12/01/2023 by Cuauhtemoc Faulkner MD at [facility] Prosthetic Valve N/A: Heart Mi Lif[employer]iences 01/06/2026 [id number] / [id number] / [employer] Medical Precious Angio-Seal Vip 6fr Closere Device [id number] - [id number] Implanted:Qty: 1 on 11/10/2023 by Cuauhtemoc Faulkner MD at [facility] TerDEMANDIT Medical Precious [id number] / / Miller Vascular Device Clsr Perclose Prostyle Sut-Mediatd Closure-Repair Sys 72794-73 - [id number] Implanted:Qty: 1 on 12/01/2023 by Cuauhtemoc Faulkner MD at [facility] N/A: Heart Miller V[employer] 09/08/2025 [id number] / / [id number] Miller Vascular Device Clsr Perclose Prostyle Sut-Mediatd Closure-Repair Sys 18528-51 - [id number] Implanted:Qty: 1 on 12/01/2023 by Cuauhtemoc Faulkner MD at [facility] N/A: Heart [employer] 09/08/2025 [id number] / / [id number] Miller Vascular Device Clsr Perclose Prostyle Sut-Mediatd Closure-Repair Sys 21911-10 - [id number] Implanted:Qty: 1 on 12/01/2023 by Cuauhtemoc Faulkner MD at [facility] Miller Vascular 08/08/2025 [id number] / / [id number] [employer] Angio-Seal Vip 6fr Closere Device [id number] - [id number] Implanted:Qty: 1 on 12/01/2023 by Cuauhtemoc Faulkner MD at [facility] Style for [employer] [id number] / / Procedures Procedure Name Priority Date/Time Associated Diagnosis Comments TRANSTHORACIC ECHO (TTE) COMPLETE W DOPPLER/CF WO CONTRAST Routine 09/25/2024 3:02 PM WARE DRESSER Status post transcatheter aortic valve replacement (TAVR) using bioprosthesis from Last 3 Months Results * TRANSTHORACIC ECHO (TTE) COMPLETE W DOPPLER/CF WO CONTRAST (09/25/2024 3:02 PM WARE DRESSER) LV EF 60-65 % CONS SCIMAGE Anatomical Region Laterality Modality Ultrasound 09/25/2024 2:27 PM WARE DRESSER Narrative 09/25/2024 3:46 PM WARE DRESSER [address] [place] [address] Echocardiogram Report Patient Name: MARIANNA GIL : [...] By: Mike Bardales MD 09/25/2024 3:46:27 PM WARE DRESSER Procedure Note Mike Bardales MD - 09/25/[address] [address] Echocardiogram Report Patient Name: MARIANNA GIL : [...] By: Mike Bardales MD 09/25/2024 3:46:27 PM WARE DRESSER Cuauhtemoc Faulkner MD CV ECHO PROCEDURES Final Result from Last 3 Months Insurance [facility] AETNA MEDICARE GOLD [facility] ADVANTRA AETNA MEDICARE GOLD AETNA MEDICARE GOLD [facility] AETNA [facility] GOLD REF Advance Directives For more information, please contact: [phone] Documents on File Type Date Recorded Patient Excellence Leader Expl anation ADVANCE DIRECTIVE 11/05/2023 11:42 PM Ryland r of Youth Teacher-Medical ADVANCE DIRECTIVE 11/05/2023 11:40 PM LIFE SUSTANING TREATMENT FORM ADVANCE DIRECTIVE 01/23/2022 POLST - YS ORDER FOR PT PREFERENCES ADVANCE DIRECTIVE [...] refridgerator, no cpr, no intubation Care Teams Juvenile Counselor Relationship Specialty Start Date End Date Darlin Lazcano NP [address] [place] [address] PCP - General Family Medicine 08/14/24 Cornelius Padilla MD [address] [facility] [address] [place] [address] Internal Medicine 03/16/17 Reagan Medeiros MD [address] [place] [address] [address] [place] [address] Cardiovascular Disease 03/16/17 Fam Conteh MD [address] [place] [address] [address] [address] Surgeon Orthopedic Surgery 05/26/17 Andrew Alcala DPM [address] [place] [address] [address] [place] [address] Consulting Physician Orthotics 06/25/17 Carmencita Hammer MD [address] [place] [address] [address] [place] [address] Ophthalmology 08/11/17 Sree Ramos MD [address] [place] [address] Consulting Physician Psychiatry 08/15/18 Akshat Dukes MD [address] [place] [address] Surgeon Orthopedic Surgery 12/09/18 Marley Moore MD [address] [place] [address] Consulting Physician Cardiology 06/03/21 Mitesh Walker DO [address] [place] [address] Consulting Physician Obstetrics and Gynecology 07/18/21 Miscellaneous, Not In File 09/04/21
--- OUTSIDE RECORDS SUMMARY | 2024-10-26 10:52 | XMS_ITS | Encounter Summary ---
Author Organization [facility] ts Address [address] [place] [address] Phone Care Team Providers Care Director Index Name Role Phone Britni Horn MD Primary Care Provider + [phone] Cornelius Padilla MD Unavailable +[phone] Trev Medeiros MD Unavailable +[phone] Fam Conteh MD Unavailable +[phone] Andrew AlcalaM Unavailable +[phone] Carmencita Hammer MD Unavailable [phone] Sree Ramos MD Unavailable Akshat Dukes MD Unavailable [phone] Akshat Montano DO Unavailable +[phone] Gabriele Phillips DO Unavailable Marley Moore MD Unavailable [phone] Jessie Walker DO Unavailable Miscellaneous, Not In File Unavailable Unava ilable Prasanna Ochoa MD Primary Care Provider Stone, Crystal Helene FIELD OPERATIONS COORDINATOR Primary Care Provider [phone] Unknown, Notinfile Primary Care Provider Unavail able Darlin Lazcano FIELD OPERATIONS COORDINATOR Primary Care Provider [phone] Encounter Details Date Type Department Care Team (Late st Contact Info) Description 05/10/2017 Orders Only [facility] [address] [place] [address] Britni Horn MD [address] [place] [address] Bilateral carotid artery occlusion (Primary Dx) Social History Tobacco Use Types Packs/Day Years Used Date Smoking Tobacco: Never Smokeless Tobacco: Never Alcohol Use Standard Drinks/Week Comments No 0 (1 standard drink = 0.6 oz pur e alcohol) Comments No Sex and Gender Information Value Date Recorded Sex Assigned at Not on file Legal Sex Female 2:35 PM QUALITY AUDIT REPRESENTATIVE Gender Identity Not on file Sexual Orientation Not on file documented as of this encounter Plan of Treatment Not on file documented as of this encounter Visit Diagnoses Diagnosis Bilateral carotid artery occlusion- Primary Occlusion and stenosis of carotid artery without mention of cerebral infarction documented in this encounter Additional Health Concerns Infection Onset Date Last Indicated Resolved Time 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 05/07/2022 11/03/2022 3:05 AM CDT COVID: Suspected 09/12/2022 09/12/2022 09/12/2022 8:14 PM QUALITY AUDIT REPRESENTATIVE COVID: Suspected 01/19/2023 01/19/2023 01/19/2023 3:44 PM CDT documented as of this encounter Care Teams Director Index Relationship Specialty Start Date End Date Britni Horn MD PCP - General 11/06/16 05/18/22 Prasanna Ochoa MD PCP - General Cardiology 06/08/22 07/15/22 Ale Zheng NP [address] [place] [address] PCP - General Nurse Practitioner 07/16/22 09/28/23 Unknown, Notinfile PCP - General 09/29/23 08/13/24 Darlin Lazcano NP [address] [place] [address] PCP - General Family Medicine 08/14/24 Cornelius Padilla MD [address] [facility] [address] [place] [address] Internal Medicine 03/16/17 Trev Medeiros MD [address] [place] [address] [address] [place] [address] Cardiovascular Disease 03/16/17 Fam Conteh MD [address] [place] [address] [address] [place] [address] [address] Surgeon Orthopedic Surgery 05/26/17 Andrew Alcala, MITCHELL [address] [place] [address] [address] [place] [address] Consulting Physician Orthotics 06/25/17 Carmencita Hammer MD [address] [place] [address] [address] [place] [address] Ophthalmology 08/11/17 Sree Ramos MD [address] [place] [address] Consulting Physician Psychiatry 08/15/18 Akshat Dukes MD [address] [place] [address] Surgeon Orthopedic Surgery 12/09/18 Akshat Montano DO [address] [facility] [address] [place] [address] Cardiovascular Disease 12/09/18 0 Gabriele Phillips DO [address] [facility] [address] [place] [address] Consulting Physician Cardiology 03/25/20 06/02/21 Marley Moore MD [address] [place] [address] Consulting Physician Cardiology 06/03/21 Jessie Walker DO [address] [place] [address] Consulting Physician Obstetrics and Gynecology 07/18/21 Miscellaneous, Not In File 09/04/21 documented as of this encounter
--- OUTSIDE RECORDS SUMMARY | 2024-10-26 10:53 | XMS_ITS | Encounter Summary ---
Author Organization [facility] ts Address [address] [place] [address] Phone Care Team Providers Care Burn Center Nurse Name Role Phone Britni Horn MD Primary Care Provider + [phone] Cornelius Padilla MD Unavailable +[phone] Trev Medeiros MD Unavailable +[phone] Fam Conteh MD Unavailable [phone] Andrew AlcalaM Unavailable [phone] Carmencita Hammer MD Unavailable [phone] Sree Ramos MD Unavailable Akshat Dukes MD Unavailable [phone] Akshat Montano DO Unavailable Gabriele Phillips DO Unavailable Marley Moore MD Unavailable Jessie Walker DO Unavailable Miscellaneous, Not In File Unavailable Unava ilable Prasanna Ochoa MD Primary Care Provider Stone, Crystal Helene LEAD NUCLEAR MEDICINE TECHNOLOGIST Primary Care Provider [phone] Unknown, Notinfile Primary Care Provider Unavail able Darlin Lazcano LEAD NUCLEAR MEDICINE TECHNOLOGIST Primary Care Provider Encounter Details Date Type Department Care Team (Late st Contact Info) Description 05/25/2017 Orders Only [facility] [address] [place] [address] Britni Horn MD [address] [place] [address] Social History Tobacco Use Types Packs/Day Years Used Date Smoking Tobacco: Never Smokeless Tobacco: Never Alcohol Use Standard Drinks/Week Comments No 0 (1 standard drink = 0.6 oz pur e alcohol) Comments No Sex and Gender Information Value Date Recorded Sex Assigned at Not on file Legal Sex Female 2:35 PM PRESCRIPTION CLERK Gender Identity Not on file Sexual Orientation Not on file documented as of this encounter Plan of Treatment Not on file documented as of this encounter Procedures Procedure Name Priority Date/Time Associated Diagnosis Comments SCAN - RADIOLOGY/IMAGING 05/25/2017 2:43 PM CDT documented in this encounter Results * SCAN - RADIOLOGY/IMAGING (05/25/2017 2:43 PM CDT) Anatomical Region Laterality Modality Other us Britni Horn MD Final Resu lt documented in this encounter Visit Diagnoses Not on filedocumented in this encounter Additional Health Concerns Infection Onset Date Last Indicated Resolved Time 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 05/07/2022 11/03/2022 3:05 AM CDT COVID: Suspected 09/12/2022 09/12/2022 09/12/2022 8:14 PM PRESCRIPTION CLERK COVID: Suspected 01/19/2023 01/19/2023 01/19/2023 3:44 PM CDT documented as of this encounter Care Teams Burn Center Nurse Relationship Specialty Start Date End Date Britni Horn MD PCP - General 11/06/16 05/18/22 Prasanna Ochoa MD PCP - General Cardiology 06/08/22 07/15/22 Ale Zheng, LEAD NUCLEAR MEDICINE TECHNOLOGIST [address] [place] [address] PCP - General Nurse Practitioner 07/16/22 09/28/23 Unknown, Notinfile PCP - General 09/29/23 08/13/24 Darlin Lazcano NP [address] [place] [address] PCP - General Family Medicine 08/14/24 Cornelius Padilla MD [address] [facility] [place] [address] Internal Medicine 03/16/17 Trev Medeiros MD [address] [place] [address] [place] [address] Cardiovascular Disease 03/16/17 Fam Conteh MD [address] [facility] [address] [address] Surgeon Orthopedic Surgery 05/26/17 Andrew Alcala DPM [address] [facility] [address] [facility] [address] [place] [address] Consulting Physician Orthotics 06/25/17 Carmencita Hammer MD [address] [facility] [address] [place] [address] Ophthalmology 08/11/17 Sree Ramos MD [address] [place] [address] Consulting Physician Psychiatry 08/15/18 Akshat Dukes MD [address] [place] [address] Surgeon Orthopedic Surgery 12/09/18 Akshat Montano DO [address] [facility] [address] [place] [address] Cardiovascular Disease 12/09/18 0 Gabriele Phillips DO [address] [facility] [address] [place] [address] Consulting Physician Cardiology 03/25/20 06/02/21 Marley Moore MD [address] [place] [address] Consulting Physician Cardiology 06/03/21 Jessie Walker DO [address] [place] [address] Consulting Physician Obstetrics and Gynecology 07/18/21 Miscellaneous, Not In File 09/04/21 documented as of this encounter
--- OUTSIDE RECORDS SUMMARY | 2024-10-26 10:53 | XMS_ITS | Encounter Summary ---
Author Organization [facility] ts Address [address] [place] [address] Phone Care Team Providers Care Roads Superintendent Name Role Phone Britni Horn MD Primary Care Provider + [phone] Cornelius Padilla MD Unavailable +[phone] Trev Medeiros MD Unavailable +[phone] Fam Conteh MD Unavailable [phone] Andrew AlcalaM Unavailable [phone] Carmencita Hammer MD Unavailable [phone] Sree Ramos MD Unavailable Akshat Dukes MD Unavailable [phone] Akshat Montano DO Unavailable [phone] Gabriele Phillips DO Unavailable [phone] Marley Moore MD Unavailable Jessie Walker DO Unavailable [phone] Miscellaneous, Not In File Unavailable Unava ilable Prasanna Ochoa MD Primary Care Provider Stone, Crystal Helene USER EXPERIENCE ANALYST Primary Care Provider [phone] Unknown, Notinfile Primary Care Provider Unavail able Darlin Lazcano USER EXPERIENCE ANALYST Primary Care Provider Encounter Details Date Type Department Care Team (Late st Contact Info) Description 06/25/2017 Orders Only [facility] [address] [place] [address] Britni Horn MD [address] [place] [address] Dystrophia unguium (Primary Dx) Social History Tobacco Use Types Packs/Day Years Used Date Smoking Tobacco: Never Smokeless Tobacco: Never Alcohol Use Standard Drinks/Week Comments No 0 (1 standard drink = 0.6 oz pur e alcohol) Comments No Sex and Gender Information Value Date Recorded Sex Assigned at Not on file Legal Sex Female 2:35 PM ORTHOTICS ASSISTANT Gender Identity Not on file Sexual Orientation Not on file documented as of this encounter Plan of Treatment Not on file documented as of this encounter Visit Diagnoses Diagnosis Dystrophia unguium- Primary Other specified disease of nail documented in this encounter Additional Health Concerns Infection Onset Date Last Indicated Resolved Time 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 05/07/2022 11/03/2022 3:05 AM CDT COVID: Suspected 09/12/2022 09/12/2022 09/12/2022 8:14 PM ORTHOTICS ASSISTANT COVID: Suspected 01/19/2023 01/19/2023 01/19/2023 3:44 PM CDT documented as of this encounter Care Teams Roads Superintendent Relationship Specialty Start Date End Date Britni Horn MD PCP - General 11/06/16 05/18/22 Prasanna Ochoa MD PCP - General Cardiology 06/08/22 07/15/22 Ale Zheng NP [address] [place] [address] PCP - General Nurse Practitioner 07/16/22 09/28/23 Unknown, Notinfile PCP - General 09/29/23 08/13/24 Darlin Lazcano NP [address] [place] [address] PCP - General Family Medicine 08/14/24 Cornelius Padilla MD 4 [facility] [address] [place] [address] Internal Medicine 03/16/17 Trev Medeiros MD [address] [place] [address] [address] [place] [address] Cardiovascular Disease 03/16/17 Fam Conteh MD [address] [place] [address] [address] [address] Surgeon Orthopedic Surgery 05/26/17 Andrew Alcala DPM [address] [place] [address] [address] [address] Consulting Physician Orthotics 06/25/17 Carmencita Hammer MD [address] [place] [address] [address] [address] Ophthalmology 08/11/17 Sree Ramos MD [address] [place] [address] Consulting Physician Psychiatry 08/15/18 Akshat Dukes MD [address] [place] [address] Surgeon Orthopedic Surgery 12/09/18 Akshat Montano DO 2 [facility] [address] [place] [address] Cardiovascular Disease 12/09/18 0 Gabriele Phillips DO 2 [facility] [address] [place] [address] Consulting Physician Cardiology 03/25/20 06/02/21 Marley Moore MD [address] [place] [address] Consulting Physician Cardiology 06/03/21 Jessie Walker DO [address] [place] [address] Consulting Physician Obstetrics and Gynecology 07/18/21 Miscellaneous, Not In File 09/04/21 documented as of this encounter
--- OUTSIDE RECORDS SUMMARY | 2024-10-26 10:53 | XMS_ITS | Encounter Summary ---
Author Organization [facility] ts Address [address] [place] [address] Phone Care Team Providers Care Hedis Manager Name Role Phone Britni Horn MD Primary Care Provider + [phone] Cornelius Padilla MD Unavailable +[phone] Trev Medeiros MD Unavailable +[phone] Fam Conteh MD Unavailable +[phone] Andrew AlcalaM Unavailable [phone] Carmencita Hammer MD Unavailable [phone] Sree Ramos MD Unavailable Akshat Dukes MD Unavailable [phone] Akshat Montano DO Unavailable [phone] Gabriele Phillips DO Unavailable Marley Moore MD Unavailable Jessie Walker DO Unavailable [phone] Miscellaneous, Not In File Unavailable Unava ilable Prasanna Ochoa MD Primary Care Provider Stone, Crystal Helene MAJOR ACCOUNT REPRESENTATIVE Primary Care Provider [phone] Unknown, Notinfile Primary Care Provider Unavail able Darlin Lazcano MAJOR ACCOUNT REPRESENTATIVE Primary Care Provider Encounter Details Date Type Department Care Team (Late st Contact Info) Description 06/02/2017 Orders Only [facility] [address] [place] [id number] Britni Horn MD [address] [place] [address] Other specified hearing loss, bilateral (Primary Dx); Impingement syndrome of left shoulder Social History Tobacco Use Types Packs/Day Years Used Date Smoking Tobacco: Never Smokeless Tobacco: Never Alcohol Use Standard Drinks/Week Comments No 0 (1 standard drink = 0.6 oz pur e alcohol) Comments No Sex and Gender Information Value Date Recorded Sex Assigned at Not on file Legal Sex Female 2:35 PM LOADING INSPECTOR Gender Identity Not on file Sexual Orientation Not on file documented as of this encounter Plan of Treatment Not on file documented as of this encounter Visit Diagnoses Diagnosis Other specified hearing loss, bilateral- Primary Impingement syndrome of left shoulder documented in this encounter Additional Health Concerns Infection Onset Date Last Indicated Resolved Time 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 05/07/2022 11/03/2022 3:05 AM CDT COVID: Suspected 09/12/2022 09/12/2022 09/12/2022 8:14 PM LOADING INSPECTOR COVID: Suspected 01/19/2023 01/19/2023 01/19/2023 3:44 PM CDT documented as of this encounter Care Teams Hedis Manager Relationship Specialty Start Date End Date Britni Horn MD PCP - General 11/06/16 05/18/22 Prasanna Ochoa MD PCP - General Cardiology 06/08/22 07/15/22 Ale Zheng NP [address] [place] [address] PCP - General Nurse Practitioner 07/16/22 09/28/23 Unknown, Notinfile PCP - General 09/29/23 08/13/24 Darlin Lazcano NP [address] [place] [address] PCP - General Family Medicine 08/14/24 Cornelius Padilla MD 4 [facility] [address] [place] [address] Internal Medicine 03/16/17 Trev Medeiros MD [address] [facility] [address] [place] [address] Cardiovascular Disease 03/16/17 Fam Conteh MD [address] [facility] [address] [place] [address] Surgeon Orthopedic Surgery 05/26/17 Andrew Alcala, DPM 4 [facility] [address] [place] [address] Consulting Physician Orthotics 06/25/17 Carmencita Hammer MD [address] [place] [address] [address] [place] [address] Ophthalmology 08/11/17 Sree Ramos MD [address] [place] [address] Consulting Physician Psychiatry 08/15/18 Akshat Dukes MD [address] [place] [address] Surgeon Orthopedic Surgery 12/09/18 Akshat Montano DO [address] [place] [address] [address] [place] [address] Cardiovascular Disease 12/09/18 0 Gabriele Phillips DO [address] [place] [address] [address] [place] [address] Consulting Physician Cardiology 03/25/20 06/02/21 Marley Moore MD [address] [place] [address] Consulting Physician Cardiology 06/03/21 Jessie Walker DO [address] [place] [address] Consulting Physician Obstetrics and Gynecology 07/18/21 Miscellaneous, Not In File 09/04/21 documented as of this encounter
--- OUTSIDE RECORDS SUMMARY | 2024-10-26 10:53 | XMS_ITS | Encounter Summary ---
Author Organization [facility] ts Address [address] [place] [address] Phone Care Team Providers Care Product Craftsman Name Role Phone Britni Horn MD Primary Care Provider + [phone] Cornelius Padilla MD Unavailable +[phone] Trev Medeiros MD Unavailable +[phone] Fam Conteh MD Unavailable [phone] Andrew AlcalaM Unavailable +[phone] Carmencita Hammer MD Unavailable [phone] Sree Ramos MD Unavailable Akshat Dukes MD Unavailable [phone] Akshat Montano DO Unavailable Gabriele Phillips DO Unavailable Marley Moore MD Unavailable Jessie Walker DO Unavailable Miscellaneous, Not In File Unavailable Unava ilable Prasanna Ochoa MD Primary Care Provider Stone, Crystal Helene JUNIOR SYSTEMS ANALYST Primary Care Provider [phone] Unknown, Notinfile Primary Care Provider Unavail able Darlin Lazcano JUNIOR SYSTEMS ANALYST Primary Care Provider Encounter Details Date Type Department Care Team (Late st Contact Info) Description 05/25/2017 Orders Only [facility] [address] [place] [address] Britni Horn MD [address] [place] [address] Social History Tobacco Use Types Packs/Day Years Used Date Smoking Tobacco: Never Smokeless Tobacco: Never Alcohol Use Standard Drinks/Week Comments No 0 (1 standard drink = 0.6 oz pur e alcohol) Comments No Sex and Gender Information Value Date Recorded Sex Assigned at Not on file Legal Sex Female 2:35 PM BRICK OR BLOCK MAKER Gender Identity Not on file Sexual Orientation Not on file documented as of this encounter Plan of Treatment Not on file documented as of this encounter Procedures Procedure Name Priority Date/Time Associated Diagnosis Comments SCAN - RADIOLOGY/IMAGING 05/25/2017 9:45 AM CDT documented in this encounter Results * SCAN - RADIOLOGY/IMAGING (05/25/2017 9:45 AM CDT) Anatomical Region Laterality Modality Other us Britni Horn MD Final Resu lt documented in this encounter Visit Diagnoses Not on filedocumented in this encounter Additional Health Concerns Infection Onset Date Last Indicated Resolved Time 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 05/07/2022 11/03/2022 3:05 AM CDT COVID: Suspected 09/12/2022 09/12/2022 09/12/2022 8:14 PM BRICK OR BLOCK MAKER COVID: Suspected 01/19/2023 01/19/2023 01/19/2023 3:44 PM CDT documented as of this encounter Care Teams Product Craftsman Relationship Specialty Start Date End Date Britni Horn MD PCP - General 11/06/16 05/18/22 Prasanna Ochoa MD PCP - General Cardiology 06/08/22 07/15/22 Ale Zheng, JUNIOR SYSTEMS ANALYST [address] [place] [address] PCP - General Nurse Practitioner 07/16/22 09/28/23 Unknown, Notinfile PCP - General 09/29/23 08/13/24 Darlin Lazcano NP [address] [place] [address] PCP - General Family Medicine 08/14/24 Cornelius Padilla MD 4 [facility] [place] [address] Internal Medicine 03/16/17 Trev Medeiros MD [address] [place] [address] [place] [address] Cardiovascular Disease 03/16/17 Fam Conteh MD 4 [facility] [address] [address] Surgeon Orthopedic Surgery 05/26/17 Andrew Alcala DPM 4 [facility] [address] [facility] [address] [place] [address] Consulting Physician Orthotics 06/25/17 Carmencita Hammer MD 4 [facility] [address] [place] [address] Ophthalmology 08/11/17 Sree Ramos MD [address] [place] [address] Consulting Physician Psychiatry 08/15/18 Akshat Dukes MD [address] [place] [address] Surgeon Orthopedic Surgery 12/09/18 Akshat Montano DO 2 [facility] [address] [place] [address] Cardiovascular Disease 12/09/18 0 Gabriele Phillips DO 2 [facility] [address] [place] [address] Consulting Physician Cardiology 03/25/20 06/02/21 Marley Moore MD [address] [place] [address] Consulting Physician Cardiology 06/03/21 Jessie Walker DO [address] [place] [address] Consulting Physician Obstetrics and Gynecology 07/18/21 Miscellaneous, Not In File 09/04/21 documented as of this encounter
[2024-10-26 11:02] LABS: Basophils Absolute Auto 0.1 K/mm3 (0.0-0.1); Basophils Percent Auto 0.5 % (0.2-1.2); Eosinophils Absolute Auto 0.2 K/mm3 (0-0.3); Eosinophils Percent Auto 2.2 % (0-4.4); Hematocrit 42.6 % (37.0-47.0); Hemoglobin 13.6 g/dL (12.0-15.0); Immature Granulocyte Absolute 0.03 K/mm3 (0.00-0.031); Immature Granulocyte Percent A 0.3 % (0-0.5); Lymphocytes Absolute Auto 2.55 K/mm3 (0.9-3.2); Lymphocytes Percent Auto 27.5 % (18.3-44.2); Mean Corpuscular HGB Conc 31.9 g/dl (32-36); Mean Corpuscular Hemoglobin 30.4 pg (26-34); Mean Corpuscular Volume 95.3 fl (80-100); Monocytes Absolute Auto 1.1 K/mm3 (0.1-0.6); Monocytes Percent Auto 11.9 % (2.6-8.5); Neutrophils Absolute Auto 5.3 K/mm3 (1.3-6.7); Neutrophils Percent Auto 57.6 % (45.5-73.1); Platelet Count Result 160 k/mm3 (150-375); Red Blood Count 4.47 M/mm3 (4.2-5.4); Red Cell Distribution Width 14.3 % (11.5-14.5); White Blood Count 9.3 K/mm3 (4.5-10.0)
[2024-10-26 11:49] LABS: Alanine Aminotransferase 26 U/L (6-35); Albumin Level 4.1 g/dL (3.5-5.1); Alkaline Phosphatase 146 U/L (38-126); Anion Gap 8 mmol/L (4-12); Aspartate Amino Transferase 30 U/L (14-36); Bilirubin,Total 1.5 mg/dL (0.2-1.3); Blood Urea Nitrogen 18 mg/dL (7-17); Calcium 9.3 mg/dL (8.4-10.2); Carbon Dioxide 27 mmol/L (22-30); Chloride 105 mmol/L (98-107); Estimated CRCL calculation 46 ml/min; Estimated Glomerular Filt Rate > 60; Glucose 102 mg/dL (65-110); Potassium 3.9 mmol/L (3.4-5.0); Sodium 140 mmol/L (137-145)
[2024-10-26 12:05] VITALS: BP 138/63; PULSE 72; RESP 19; O2SAT 97
[2024-10-26 12:47] LABS: Add Urine Microscopic? YES; Appearance Urine Cloudy (Clear); Bacteria Urine 4+ /hpf; Bilirubin Urine Negative (Negative); Blood Urine Negative (Negative); Color Urine Yellow (Yellow); Glucose Urine UA Negative (Negative); Ketones Urine Trace mg/dL (Negative); Leukocyte Esterase Ur 1+ LEU/UL (Negative); Need Manual Microscopic Reviewed; Nitrate Urine Positive (Negative); Non Pathogenic Casts 0-2; Protein Urine Trace mg/dL (Negative); RBC Urine >100 /hpf (0-2); Specific Grav Ur 1.022 (1.001-1.035); Squamous Epithelial Cell Urine None Seen /hpf (Few); WBC Urine 0-5 /hpf (0-3); pH Urine 5.5 (5.0-9.0)
== END 2024-10-26 14:20 ==
PROVIDERS: Emergency Provider Emergency Medicine
DX: S22.089A Unspecified fracture of T11-T12 vertebra, initial encounter for closed fracture (principal); S32.048A Other fracture of fourth lumbar vertebra, initial encounter for closed fracture; W18.30XA Fall on same level, unspecified, initial encounter; N39.0 Urinary tract infection, site not specified; Z79.01 Long term (current) use of anticoagulants; I48.91 Unspecified atrial fibrillation; E03.9 Hypothyroidism, unspecified; Z86.73 Personal history of transient ischemic attack (TIA), and cerebral infarction without residual deficits; F03.90 Unspecified dementia, unspecified severity, without behavioral disturbance, psychotic disturbance, mood disturbance, and anxiety
CPT/HCPCS: 36415; 70450; 71250; 72125; 72128; 72131; 80053; 81001; 85025; 87077; 87086; 87186; 99284

== ENCOUNTER 2024-10-27 06:03 | Emergency (ER) | payer MEDICARE, SELFPAY ==
--- NOTE | ~2024-10-27 | XR_ITS ---
XR forearm LT 2V Ordering provider: Yuan Gregg MD History: . PT FOUND ON FLOOR/NOT RESPONDING TO STIMULUSXPRIOR HUMERUS F . Comparison: None. FINDINGS: BONES: No acute fracture or dislocation. JOINT SPACES: Normal. SOFT TISSUES: Normal. IMPRESSION: No acute osseous abnormality left forearm. Reviewed, dictated and finalized at location A.
--- NOTE | ~2024-10-27 | CT_ITS ---
Noncontrast CT scan of the cervical spine Technique: Multiple contiguous axial [address] images of the cervical spine were obtained and rec onstructed in 2D sagittal and coronal planes on the acquisition scanner. Dose reduction technique was used on this scan by utilizing automated exposure control, adjustment of the mA and/or kV according to patient size. The dose-length product (DLP) was 566.30 mGy-cm. Clinical History: Pain COMPARISON: 10/26/2024 Findings: No fractures or dislocations. Stable osseous alignment. Advanced degenerative disc narrowi ng at C5-C6 and C6-C7 is present. Stable facet joint degenerative changes in the cervical spine. Prob able left neural foraminal narrowing at C4-C5. There is bilateral neural foraminal narrowing at C5-C6 and C6-C7. No prevertebral soft tissue swelling. Impression: No fracture or subluxation of the cervical spine. Stable degenerative change. Reviewed, dictated and finalized at [facility]. Impression: No fracture or subluxation of the cervical spine. Stable degenerative change.
--- NOTE | ~2024-10-27 | CT_ITS ---
CT head without contrast Indication: Status post fall COMPARISON: 10/26/2024 Technique: Serial scans were obtained through the brain without the administration of contrast. Dose reduction technique was used on this scan by utilizing automated exposure control and iterative recon struction technique. The dose-length product (DLP) was 681.00 mGy-cm. Findings: There is no evidence of intracranial hemorrhage, mass lesion, or acute infarct. Stable area s of chronic encephalomalacia involving the posterior left temporal lobe and bilateral occipital lobe s. The ventricles and subarachnoid spaces are dilated, consistent with mild atrophy. Low attenuation regions are seen within the periventricular white matter bilaterally, likely representing changes fr om chronic microvascular ischemic disease. There is no evidence of edema, mass effect or midline anny ft. The visualized paranasal sinuses and mastoid air cells are clear. Impression: No intracranial hemorrhage, mass, or acute infarct. Stable areas of chronic encephalomalacia in the posterior left temporal lobe and bilateral occipital lobes. Atrophy and chronic white matter changes, as above. Reviewed, dictated and finalized at location . Impression: No intracranial hemorrhage, mass, or acute infarct. Stable areas of chronic encephalomalacia in the posterior left temporal lobe an d bilateral occipital lobes. Atrophy and chronic white matter changes, as above.
--- NOTE | ~2024-10-27 | XR_ITS ---
XR humerus LT Ordering provider: Yuan Gregg MD History: . arm pain . Comparison: None. FINDINGS: BONES: Healing fracture of the surgical neck is noted. JOINT SPACES: Severely narrowed. SOFT TISSUES: Normal. IMPRESSION: Healing fracture in the proximal left humerus with severely narrowed glenohumeral joint. Clinical franc luation for movement at the level of the glenohumeral joint is advised to exclude fusion. Reviewed, dictated and finalized at location A. IMPRESSION: Healing fracture in the proximal left humerus with severely narrowed glenohumer al joint. Clinical evaluation for movement at the level of the glenohumeral french nt is advised to exclude fusion.
[2024-10-27 06:01] VITALS: BP 196/136; PULSE 76; RESP 14; TEMP 36.7; O2SAT 96
--- NOTE | 2024-10-27 06:19 | PC.NURSE ---
blood sent to lab with demo labels at this time.
--- NOTE | 2024-10-27 07:43 | ED_ITS ---
HPI - Fall General Chief Complaint: Fall Stated Complaint: fall Time Seen by Provider: 10/27/24 07:03 Source: EMS Mode of arrival: EMS Limitations: dementia History of Present Illness HPI Narrative: 84-year-old with a history of atrial fibrillation on Eliquis, dementia, T12 compression fracture [facility] from [facility] with [facility] complaints of possible fall. Patient upon his note. She has no complaints at this time. Any questions asked she malik EVANS complaint: fall Onset (ago): unknown Fall witnessed: yes, by living facility staff Place fall occurred: [facility] Loss of consciousness: none Related Data Home Medications ?Medication ?Instructions ?Recorded ?Confirmed ?Last Taken ?Type apixaban 5 mg tablet (Eliquis) 5 mg PO BID 06/26/21 06/26/21 Unknown History cholecalciferol (vitamin D3) 125 See Rx Instructions .Route .COMPLEX 06/26/21 06/26/21 Unknown History mcg (5,000 unit) capsule (Dialyvite Vitamin D) cyanocobalamin (vitamin B-12) 1,000 mcg PO DAILY 06/26/21 06/26/21 Unknown Hist ory 1,000 mcg tablet diclofenac sodium 1 % topical gel See Rx Instructions .Route .COMPLEX 06/26/21 06/26/21 Unknown History docosahexaenoic acid (dha)-epa cap PO 06/26/21 Unknown History capsule levothyroxine 50 mcg tablet 50 mcg PO DAILY 06/26/21 06/26/21 Unknown History memantine 10 mg tablet 10 mg PO BID 06/26/21 06/26/21 Unknown History pravastatin 80 mg tablet 80 mg PO DAILY 06/26/21 06/26/21 Unknown History rivastigmine tartrate 3 mg capsule 3 mg PO DAILY 06/26/21 06/26/21 Unknown History turmeric 100 mg-adrian 150 See Rx Instructions .Route .COMPLEX 06/26/21 06/26/21 Unknown History mg-olive 50 mg-oreg 150 mg-capryl capsule Allergies Allergy/AdvReac Type Severity Reaction Status Date / Time Penicillins Allergy Unknown Verified 10/26/24 09:51 amoxicillin AdvReac Unknown Unknown Verified 10/26/24 09:51 donepezil AdvReac Unknown Unknown Verified 10/26/24 09:51 Review of Systems Review of Systems: ROS unobtainable: Yes unobtainable due to medical condition (dementia) PMFSH Past Medical History Medical History Atrial fibrillation Hypothyroidism TIA (transient ischemic attack) Dementia Exam Narrative: GENERAL: Well-appearing, well-nourished, and in no acute distress., smiling HEAD: Normocephalic, atraumatic. EYES: PERRLA and EOMI. ENT: Nares clear, no rhinorrhea or epistaxis. Mucous membranes moist. NECK: Supple. CHEST: Clear to auscultation. No respiratory distress. HEART: Regular rate and rhythm. No murmur heard. Normal peripheral pulses. ABDOMEN: Soft, nontender, nondistended, normal active bowel sounds. EXTREMITIES: Normal range of motion. No edema. SKIN: Warm, dry, no rash. NEURO: No focal deficits. Alert PSYCH: Normal mood and affect. Course Course Emergency Course: I did review old chart, clear she is comfortably resting on the bed in no discomfort. Informed her about the CT findings Vital Signs Vital signs: Vital Signs Temperature 36.7 C 10/27/24 06:01 Pulse Rate 76 10/27/24 06:01 Respiratory Rate 14 10/27/24 06:01 Blood Pressure 196/136 H 10/27/24 06:01 Pulse Oximetry 96 10/27/24 06:01 Oxygen Delivery Room Air 10/27/24 06:01 Temperature 36.7 C 10/27/24 06:01 Pulse Rate 76 10/27/24 06:01 Respiratory Rate 14 10/27/24 06:01 Blood Pressure 196/136 H 10/27/24 06:01 Pulse Oximetry 96 10/27/24 06:01 Oxygen Delivery Room Air 10/27/24 06:01 MDM - Fall Differential Diagnosis Differential diagnosis: Likely concussion without loss of consciousness Medical Records Attestation: I reviewed the patient's medical records. Lab Data Attestation: I reviewed the patient's lab results. Imaging Data Radiologist's impression: ITS Impressions Head CT 10/27/24 06:38 Impression: No intracranial hemorrhage, mass, or acute infarct. Stable areas of chronic encephalomalacia in the posterior left temporal lobe and bilateral occipital lobes. Atrophy and chronic white matter changes, as above. Cervical Spine CT 10/27/24 06:44 Impression: No fracture or subluxation of the cervical spine. Stable degenerative change. Discharge Plan Discharge Clinical Impression: Minor head injury Qualifiers: Encounter type: initial encounter Qualified Code(s): S09.90XA - Unspecified injury of head, initial encounter Patient Disposition: [place] Skilled Nursing/Asst Living Condition: Stable Instructions: Head Injury (ED) Additional Instructions: Continue home medication fall precaution Patient Language: Irish Prescriptions: No Action cyanocobalamin (vitamin B-12) 1,000 mcg tablet 1,000 mcg PO DAILY pravastatin 80 mg tablet 80 mg PO DAILY levothyroxine 50 mcg tablet 50 mcg PO DAILY rivastigmine tartrate 3 mg capsule 3 mg PO DAILY memantine 10 mg tablet 10 mg PO BID diclofenac sodium 1 % gel See Rx Instructions .ROUTE .COMPLEX Rx Instructions: as prescribed Eliquis 5 mg tablet 5 mg PO BID nitrofurantoin monohyd/m-cryst [Macrobid] 100 mg capsule 100 mg PO Q12H 7 Days Qty: 14 0RF Rx Instructions: must administer with a meal/food cholecalciferol (vitamin D3) [Dialyvite Vitamin D] 125 mcg (5,000 unit) Capsule See Rx Instructions .ROUTE .COMPLEX Rx Instructions: per family EPA Fish Oil Capsule PO [id number]-ktoz-ktewy-oreg-capry 100 mg-150 mg- 50 mg-150 mg Capsule See Rx Instructions .ROUTE .COMPLEX Rx Instructions: per family ciprofloxacin HCl [Cipro] 500 mg tablet 500 mg PO Q12H Qty: 10 0RF cephalexin 500 mg capsule 500 mg PO Q12H 7 Days Qty: 14 0RF Follow-up/Referrals: UNKNOWN,DOCTOR [Primary Care Provider] - Yaw Orellana MD [Physician] - Time of Disposition: 07:49
--- OUTSIDE RECORDS SUMMARY | 2024-10-27 07:43 | XMS_ITS | Referral Summary ---
Author Organization [facility] Address [address] [place] [address] Care Team Providers Care Branch Retail Executive Name Role Phone Cornelius Padilla MD Unavailable [phone] Reagan Medeiros MD Unavailable [phone] Fam Conteh MD Unavailable [phone] Andrew Alcala DPM Unavailable [phone] Carmencita Hammer MD Unavailable [phone] Sree Ramos MD Unavailable Akshat Dukes MD Unavailable [phone] Marley Moore MD Unavailable Jessie Walker DO Unavailable [phone] Miscellaneous, Not In File Unavailable Unava ilable Darlin Lazcano NP Primary Care Provider [phone] Encounters Date Type Department Care Team Description 10/09/2024 1:00 PM TRAILER BODY ASSEMBLER Office Visit [facility] Director at [address] [place] [address] Pat Degroot NP Status post transcatheter aortic valve replacement (TAVR) using bioprosthesis (Primary Dx); Nonrheumatic aortic valve stenosis; Mixed hyperlipidemia; Primary hypertension 09/25/2024 2:10 PM TRAILER BODY ASSEMBLER - 09/25/2024 11:59 PM TRAILER BODY ASSEMBLER Hospital Encounter [facility] Cardiology [address] [place] [address] Status post transcatheter aortic valve replacement (TAVR) [...] 12, Assessment & Plan (08/11/2019 12:11 PM TRAILER BODY ASSEMBLER): She continues to follow with Dr. Ramos [...] tricuspid regurgitation. Electronically Signed By:Tre Dumont MD, [id number] 12:58:17 TRAILER BODY ASSEMBLER Aortic valve defect Noted 1st in 2007. [...] Synthroid Assessment & Plan (08/11/2019 12:12 PM TRAILER BODY ASSEMBLER): Remains on statin therapy. Will repeat LDL prior to next visit Primary hypertension 11/21/2012 Overview (11/12/2016): Hypertension, benign Assessment & Plan (05/07/2022 7:44 PM CDT): Blood pressure is stable. Continue metoprolol. Assessment & Plan (08/11/2019 12:13 PM TRAILER BODY ASSEMBLER): Blood pressure well controlled. Will continue to monitor. BMP prior to annual visit Adverse effect of anticoagulant Benign tumor of uterine fundus Resolved Problems Problem Noted Date Diagnosed Date Resolved Date Vaginal bleeding 08/30/2021 09/05/2021 Post-menopausal bleeding 07/08/2021 Assessment & Plan (07/08/2021 7:50 AM TRAILER BODY ASSEMBLER): Patient presents today with her daughter. Patient [...] 03/25/2020 Assessment & Plan (09/19/2019 2:34 PM TRAILER BODY ASSEMBLER): Appears mechanical in nature as patient reports [...] 03/25/2020 Assessment & Plan (09/19/2019 3:32 PM TRAILER BODY ASSEMBLER): Contusion noted s/p fall. Appears to be [...] 11/06/2023 Assessment & Plan (08/11/2019 12:12 PM TRAILER BODY ASSEMBLER): Remains on replacement therapy. Will do TSH [...] drink = 0.6 oz pur e alcohol) [facility] Utilities Answer Date Recorded In the past 12 months has [employer], gas, oil, or water [employer] threatened to shut off services in your home? No 11/08/2023 Social Connection and Isolat ion Panel [NHANES] Answer Date Recorded In a typical week, how many times do you talk on the phone with family, friends, or neighbors? Twice a week 11/08/2023 How often do you get togethe r with friends or relatives? Twice a week 11/08/2023 How often do you attend [facility] or uatsdin services? More than 4 times per year 11/08/2023 Do you belong to any clubs o r organizations such as hinduism groups, unions, fraternal or athletic groups, or [...] place to sleep or slept in a alf (including now)? No 11/08/2023 PHQ-9 Answer Date [...] on file Legal Sex Female 2:35 PM TRAILER BODY ASSEMBLER Gender Identity Not on file Sexual Orientation Not on file Occupation Industry Job Start Date Job End Date retired Not on file Not on file Not on file Last Filed Vital Signs Vital Sign Reading Time Taken Comments Blood Pressure 151/97 10/09/2024 1:21 PM TRAILER BODY ASSEMBLER Pulse 75 10/09/2024 1:21 PM TRAILER BODY ASSEMBLER Temperature 37.1 C (98.8 F) 12/02/2023 5:26 PM CDT Respiratory Rate 18 10/09/2024 1:21 PM TRAILER BODY ASSEMBLER Oxygen Saturation 95% 12/02/2023 5:26 PM CDT Inhaled Oxygen Concentration - - Weight 83.9 kg (185 lb) 02/03/2024 1:33 PM CDT Height 160 cm (5' 3 ) 10/09/2024 1:21 PM TRAILER BODY ASSEMBLER Body Mass Index 32.26 02/03/2024 1:33 PM CDT Plan of Treatment Not on file Medical Devices Implanted Type Area Treasury Representative Device Identifier Shelf Expiration Date Model / Serial / Lot Mi Lifesciences Valve Aortic Trnscath Maryam 3 Ultra Resilia 23mm [id number] - [id number] - [id number] Implanted:Qty: 1 on 12/01/2023 by Cuauhtemoc Faulkner MD at [facility] Prosthetic Valve N/A: Heart Mi Lifesciences 01/06/2026 [id number] / [id number] / [employer] Precious Angio-Seal Vip 6fr Closere Device [id number] - [id number] Implanted:Qty: 1 on 11/10/2023 by Cuauhtemoc Faulkner MD at [facility] [employer] Medical Precious [id number] / / Miller Vascular Device Clsr Perclose Prostyle Sut-Mediatd Closure-Repair Sys 34223-93 - [id number] Implanted:Qty: 1 on 12/01/2023 by Cuauhtemoc Faulkner MD at [facility] N/A: Heart Miller V[employer] 09/08/2025 [id number] / / [id number] Miller Vascular Device Clsr Perclose Prostyle Sut-Mediatd Closure-Repair Sys 99923-85 - [id number] Implanted:Qty: 1 on 12/01/2023 by Cuauhtemoc Faulkner MD at [facility] N/A: Heart [employer] 09/08/2025 [id number] / / [id number] Miller Vascular Device Clsr Perclose Prostyle Sut-Mediatd Closure-Repair Sys 44483-04 - [id number] Implanted:Qty: 1 on 12/01/2023 by Cuauhtemoc Faulkner MD at [facility] [employer] 08/08/2025 [id number] / / [id number] [employer] Precious Angio-Seal Vip 6fr Closere Device [id number] - [id number] Implanted:Qty: 1 on 12/01/2023 [facility] [id number] / / Procedures Procedure Name Priority Date/Time Associated Diagnosis Comments TRANSTHORACIC ECHO (TTE) COMPLETE W DOPPLER/CF WO CONTRAST Routine 09/25/2024 3:02 PM TRAILER BODY ASSEMBLER Status post transcatheter aortic valve replacement (TAVR) using bioprosthesis from Last 3 Months Results * TRANSTHORACIC ECHO (TTE) COMPLETE W DOPPLER/CF WO CONTRAST (09/25/2024 3:02 PM TRAILER BODY ASSEMBLER) LV EF 60-65 % CONS SCIMAGE Anatomical Region Laterality Modality Ultrasound 09/25/2024 2:27 PM TRAILER BODY ASSEMBLER Narrative 09/25/2024 3:46 PM TRAILER BODY ASSEMBLER [address] [address] Echocardiogram Report Patient Name: MARIANNA GIL : [...] By: Mike Bardales MD 09/25/2024 3:46:27 PM TRAILER BODY ASSEMBLER Procedure Note Mike Bardales MD - 09/25/[address] [address] Echocardiogram Report Patient Name: MARIANNA GIL : [...] By: Mike Bardales MD 09/25/2024 3:46:27 PM TRAILER BODY ASSEMBLER Cuauhtemoc Faulkner MD CV ECHO PROCEDURES Final Result from Last 3 Months Insurance [facility] AETNA MEDICARE GOLD [facility] AETNA MEDICARE GOLD AETNA MEDICARE GOLD [facility] AETNA [facility] GOLD REF Advance Directives For more information, please contact: [phone] Documents on File Type Date Recorded Patient Shoe Salesperson Expl anation ADVANCE DIRECTIVE 11/05/2023 11:42 PM Ryland r of Record Pressman-Medical ADVANCE DIRECTIVE 11/05/2023 11:40 PM LIFE SUSTANING [...] refridgerator, no cpr, no intubation Care Teams Branch Retail Executive Relationship Specialty Start Date End Date Darlin Lazcano NP [address] [place] [address] PCP - General Family Medicine 08/14/24 Cornelius Padilla MD [address] [facility] [address] [place] [address] Internal Medicine 03/16/17 Reagan Medeiros MD [address] [place] [address] [address] [place] [address] Cardiovascular Disease 03/16/17 Fam Conteh MD [address] [place] [address] [address] [address] Surgeon Orthopedic Surgery 05/26/17 Andrew Alcala, KANDIM [address] [place] [address] [address] [place] [address] Consulting Physician Orthotics 06/25/17 Carmencita Hammer MD [address] [place] [address] [address] [place] [address] Ophthalmology 08/11/17 Sree Ramos MD [address] [place] [address] Consulting Physician Psychiatry 08/15/18 Akshat Dukes MD [address] [place] [address] Surgeon Orthopedic Surgery 12/09/18 Marley Moore MD [address] [place] [address] Consulting Physician Cardiology 06/03/21 Jessie Walker DO [address] [place] [address] Consulting Physician Obstetrics and Gynecology 07/18/21 Miscellaneous, Not In File 09/04/21
--- OUTSIDE RECORDS SUMMARY | 2024-10-27 07:43 | XMS_ITS | Encounter Summary ---
Author Organization [facility] ts Address [address] [place] [address] Phone Care Team Providers Care Polymerization Supervisor Name Role Phone Britni Horn MD Primary Care Provider + [phone] Cornelius Padilla MD Unavailable [phone] Trev Medeiros MD Unavailable [phone] Fam Conteh MD Unavailable [phone] Andrew AlcalaM Unavailable [phone] Carmencita Hammer MD Unavailable [phone] Sree Ramos MD Unavailable Akshat Dukes MD Unavailable [phone] Akshat Montano DO Unavailable [phone] Gabriele Phillips DO Unavailable Marley Moore MD Unavailable [phone] eJssie Walker DO Unavailable Miscellaneous, Not In File Unavailable Unava ilable Prasanna Ochoa MD Primary Care Provider Stone, Crystal Helene PRIVATE BRANCH EXCHANGE SERVICE ADVISER Primary Care Provider [phone] Unknown, Notinfile Primary Care Provider Unavail able Darlin Lazcano PRIVATE BRANCH EXCHANGE SERVICE ADVISER Primary Care Provider [phone] Encounter Details Date Type Department Care Team (Late st Contact Info) Description 05/25/2017 Orders Only [facility] [address] [place] [address] Britni Horn MD [address] [place] [address] Social History Tobacco Use Types Packs/Day Years Used Date Smoking Tobacco: Never Smokeless Tobacco: Never Alcohol Use Standard Drinks/Week Comments No 0 (1 standard drink = 0.6 oz pur e alcohol) Comments No Sex and Gender Information Value Date Recorded Sex Assigned at Not on file Legal Sex Female 2:35 PM FRINGE MAKER Gender Identity Not on file Sexual [...] COVID: Suspected 09/12/2022 09/12/2022 09/12/2022 8:14 PM FRINGE MAKER COVID: Suspected 01/19/2023 01/19/2023 01/19/2023 3:44 PM CDT documented as of this encounter Care Teams Polymerization Supervisor Relationship Specialty Start Date End Date Britni Horn MD PCP - General 11/06/16 05/18/22 Prasanna Ochoa MD PCP - General Cardiology 06/08/22 07/15/22 Ale Zheng, PRIVATE BRANCH EXCHANGE SERVICE ADVISER [address] [place] [address] PCP - General Nurse Practitioner 07/16/22 09/28/23 Unknown, Notinfile PCP - General 09/29/23 08/13/24 Darlin Lazcano NP [address] [place] [address] PCP - General Family Medicine 08/14/24 Cornelius Padilla MD [address] [facility] [place] [address] Internal Medicine 03/16/17 Trev Medeiros MD [address] [place] [address] [place] [address] Cardiovascular Disease 03/16/17 Fam Conteh MD [address] [facility] [address] [address] Surgeon Orthopedic Surgery 05/26/17 Andrew Alcala DPM [address] [facility] [address] [facility] [address] [place] [address] Consulting Physician Orthotics 06/25/17 Carmencita Hammer MD [address] [facility] [address] [place] [address] Ophthalmology 08/11/17 Sree Ramos MD [address] [place] [address] Consulting Physician Psychiatry 08/15/18 Akshat Dukes MD [address] [place] [address] Surgeon Orthopedic Surgery 12/09/18 Akshat Montano DO [address] [facility] [address] [place] [address] Cardiovascular Disease 12/09/18 0 Gabriele Phillips DO [address] [facility] [address] [place] [address] Consulting Physician Cardiology 03/25/20 06/02/21 Marley Moore MD [address] [place] [address] Consulting Physician Cardiology 06/03/21 Jessie Walker DO [address] [place] [address] Consulting Physician Obstetrics and Gynecology 07/18/21 Miscellaneous, Not In File 09/04/21 documented as of this encounter
--- OUTSIDE RECORDS SUMMARY | 2024-10-27 07:43 | XMS_ITS | CONTINUITY OF CARE DOCUMENT ---
Author Name joseleslie, jacquelynsandeep Address Unknown Organization [facility] Address [address] [facility] [address] [place] [address] Phone [phone] Care Team Providers Care Clean Out Driller Name Role Phone Oscar EVANS, Marley Unavailable [phone] HARISH EVANS, GIRISH Unavailable GIRISH MOREIRA MD Unavailable PROBLEMS Condition Status Date Provider Notes Implantable Loop Recorder- [employer]Q-[employer] active 02/01 [facility] Cardiology examination active Gabriele quinones DO Syncope [...] Mass Index (Ratio) 29.40 kg/m2 Denn is Meagher DO blood pressure, diastolic 66 mm[Hg] Er dom Pandey-Jeremy blood pressure, systolic 120 mm[Hg] Charlette ca Pandey-Jeremy oxygen saturation, oximetry 96 % Sybil Pandey-Jeremy pulse rate 57 /min Sybil Pandey- Jeremy weight E&M 166 [lb_av] Sybil Pandey- Jeremy height E&M 63 [in_i] Sybil Pandey- Jeremy Body Mass Index (Ratio) 29.40 kg/m2 Denn is Meagher DO blood pressure, diastolic 80 mm[Hg] Kr isty David blood pressure, systolic 140 mm[Hg] Kri sty David blood pressure, cuff size regular Kr isty David respiratory rate E&M 17 /min Stacey David oxygen saturation, oximetry 98 % Stacey Cheshire pulse rate 59 /min Stacey Hernandez weight [...] [lb_av] America Ann height E&M 63 [in_i] America Ann ALLERGIES Allergy Name Onset Date Reaction [...] Policy type / Coverage type [employer] red constitution party ID AETNA MEDICARE GOLD ADVANTAGE O Medicare [id number] TREATMENT PLAN Date Name Performer Electrophysiology:1 episode in spring U nclear etiology N one since ILR implant Gabriele Phillips DO Electrophysiology:No kaela on [facility] 04/19/19 lasted 2 hr and 42min C ontinues to having episodes. N o symptoms or awareness . C ontinued occasional episodes of PAF w/o syncope or falls & IZNA VASC of 5. O n eliquis Gabriele Phillips DO Electrophysiology -s ign~M:Noted on [facility] 04/19/19 lasted 2 hr and 42min C ontinues to having episodes. N o symptoms or awareness . . G iven continued cont episodes of PAF w/o syncope or falls & ZINA VASC of 5. will start Eliquis 5mg BID. Waleska Dickey RN Electrophysiology -s ign~M:1 episode in spring U nclear etiology N one since ILR implant Waleska Dickey RN Electrophysiology:No kaela on [facility] 04/19/19 lasted 2 hr and 42min N [...] humeral head fracture from EP standpoint. Gabriele Meagher DO Date Name PROTHROMBIN TIME WIT H INR BASIC METABOLIC PANE L W/EGFR HISTORY OF PROCEDURES Procedure Date Procedure Name Provider Procedure Notes S tatus EKG Gabriele Meagher DO comple kaela EKG Gabriele Meagher DO comple kaela Loop Recorder Interrogation, Remote Gabriele Meagher DO INTERROGATION EVALUATION REMOTE </30 D ILR SYS completed ICM Interrogation, Remote (Tech) Gabriele Meagher DO INTERROGATION EVAL REMOTE </30 D TECH REVIEW completed EKG Gabriele Meagher DO comple kaela Loop Recorder Interrogation, Remote Gabriele Meagher DO INTERROGATION EVALUATION REMOTE </30 D ILR SYS completed ICM Interrogation, Remote (Tech) Gabriele Meagher DO INTERROGATION EVAL REMOTE </30 D TECH REVIEW completed Loop Recorder Interrogation, Remote Gabriele Meagher DO INTERROGATION EVALUATION REMOTE </30 D ILR SYS completed ICM Interrogation, Remote (Tech) Gabriele Meagher DO INTERROGATION EVAL REMOTE </30 D TECH REVIEW completed EKG Gabriele Meagher DO comple kaela
--- OUTSIDE RECORDS SUMMARY | 2024-10-27 07:43 | XMS_ITS | Encounter Summary ---
Author Organization [facility] ts Address [address] [place] [address] Phone Care Team Providers Care Making Machine Operator Name Role Phone Britni Horn MD Primary Care Provider + [phone] Cornelius Padilla MD Unavailable [phone] Trev Medeiros MD Unavailable [phone] Fam Conteh MD Unavailable [phone] Andrew AlcalaM Unavailable [phone] Carmencita Hammer MD Unavailable [phone] Sree Ramos MD Unavailable Akshat Dukes MD Unavailable [phone] Akshat Montano DO Unavailable Gabriele Phillips DO Unavailable Marley Moore MD Unavailable Jessie Walker DO Unavailable Miscellaneous, Not In File Unavailable Unava ilable Prasanna Ochoa MD Primary Care Provider Stone, Crystal Helene IMCU SPECIALIST Primary Care Provider [phone] Unknown, Notinfile Primary Care Provider Unavail able Darlin Lzacano IMCU SPECIALIST Primary Care Provider [phone] Encounter Details Date Type Department Care Team (Late st Contact Info) Description 05/10/2017 Orders Only [facility] [address] [place] [address] Britni Horn MD [address] [place] [address] Bilateral carotid artery occlusion (Primary Dx) Social History Tobacco Use Types Packs/Day Years Used Date Smoking Tobacco: Never Smokeless Tobacco: Never Alcohol Use Standard Drinks/Week Comments No 0 (1 standard drink = 0.6 oz pur e alcohol) Comments No Sex and Gender Information Value Date Recorded Sex Assigned at Not on file Legal Sex Female 2:35 PM GILL NET STRINGER Gender Identity Not on file Sexual Orientation [...] COVID: Suspected 09/12/2022 09/12/2022 09/12/2022 8:14 PM GILL NET STRINGER COVID: Suspected 01/19/2023 01/19/2023 01/19/2023 3:44 PM CDT documented as of this encounter Care Teams Making Machine Operator Relationship Specialty Start Date End Date Britni Horn MD PCP - General 11/06/16 05/18/22 Prasanna Ochoa MD PCP - General Cardiology 06/08/22 07/15/22 Ale Zheng NP [address] [place] [address] PCP - General Nurse Practitioner 07/16/22 09/28/23 Unknown, Notinfile PCP - General 09/29/23 08/13/24 Darlin Lazcano NP [address] [place] [address] PCP - General Family Medicine 08/14/24 Cornelius Padilla MD [address] [facility] [address] [place] [address] Internal Medicine 03/16/17 Trev Medeiros MD [address] [place] [address] [address] [place] [address] Cardiovascular Disease 03/16/17 Fam Conteh MD [address] [place] [address] [address] [address] Surgeon Orthopedic Surgery 05/26/17 Andrew Alcala, MITCHELL [address] [place] [address] [address] [place] [address] Consulting Physician Orthotics 06/25/17 Carmencita Hammer MD [address] [place] [address] [address] [place] [address] Ophthalmology 08/11/17 Sree Ramos MD [address] [place] [address] Consulting Physician Psychiatry 08/15/18 Akshat Dukes MD [address] [place] [address] Surgeon Orthopedic Surgery 12/09/18 Akshat Montano DO [address] [facility] [address] [place] [address] Cardiovascular Disease 12/09/18 0 Gabriele Phillips DO [address] [facility] [address] [place] [address] Consulting Physician Cardiology 03/25/20 06/02/21 Marley Moore MD [address] [place] [address] Consulting Physician Cardiology 06/03/21 Jessie Walker DO [address] [place] [address] Consulting Physician Obstetrics and Gynecology 07/18/21 Miscellaneous, Not In File 09/04/21 documented as of this encounter
--- OUTSIDE RECORDS SUMMARY | 2024-10-27 07:43 | XMS_ITS | Encounter Summary ---
Author Organization [facility] ts Address [address] [place] [address] Phone Care Team Providers Care Patient Centered Care Specialist Name Role Phone Britni Horn MD Primary Care Provider + [phone] Cornelius Padilla MD Unavailable [phone] Trev Medeiros MD Unavailable [phone] Fam Conteh MD Unavailable [phone] Andrew AlcalaM Unavailable [phone] Carmencita Hammer MD Unavailable [phone] Sree Ramos MD Unavailable Akshat Dukes MD Unavailable [phone] Marley Moore MD Unavailable [phone] Jessie Walker DO Unavailable [phone] Miscellaneous, Not In File Unavailable Unava ilable Prasanna Ochoa MD Primary Care Provider Ale Zheng OPTICAL DISPENSER Primary Care Provider + [phone] Unknown, Notinfile Primary Care Provider Unavail able Darlin Lazcano OPTICAL DISPENSER Primary Care Provider [phone] Encounter Details Date Type Department Care Team (Late st Contact Info) Description 06/26/2021 Orders Only [facility] [address] [place] [address] Britni Horn MD [address] [place] [address] Social History Tobacco Use Types Packs/Day Years [...] on file Legal Sex Female 2:35 PM BUSINESS EXCELLENCE MANAGER Gender Identity Not on file Sexual Orientation [...] COVID: Suspected 09/12/2022 09/12/2022 09/12/2022 8:14 PM BUSINESS EXCELLENCE MANAGER COVID: Suspected 01/19/2023 01/19/2023 01/19/2023 3:44 PM CDT documented as of this encounter Care Teams Patient Centered Care Specialist Relationship Specialty Start Date End Date Britni Horn MD PCP - General 11/06/16 05/18/22 GabrielaPrasanna augustin MD PCP - General Cardiology 06/08/22 07/15/22 Ale Zheng, OPTICAL DISPENSER [address] [place] [address] PCP - General Nurse Practitioner 07/16/22 09/28/23 Unknown, Notinfile PCP - General 09/29/23 08/13/24 Darlin Lazcano, OPTICAL DISPENSER [address] [place] [address] PCP - General Family Medicine 08/14/24 Cornelius Padilla MD [address] [facility] [place] [address] Internal Medicine 03/16/17 Trev Medeiros MD [address] [facility] [address] Cardiovascular Disease 03/16/17 Fam Conteh MD [address] [facility] [address] [facility] [address] [place] [address] Surgeon Orthopedic Surgery 05/26/17 Andrew Alcala DPM [address] [facility] [address] [facility] [address] [place] [address] Consulting Physician Orthotics 06/25/17 Carmencita Hammer MD [address] [facility] [address] [place] [address] Ophthalmology 08/11/17 Sree Ramos MD [address] [place] [address] Consulting Physician Psychiatry 08/15/18 Akshat Dukes MD [address] [place] [address] Surgeon Orthopedic Surgery 12/09/18 Marley Moore MD [address] [place] [address] Consulting Physician Cardiology 06/03/21 Jessie Walker DO [address] [place] [address] Consulting Physician Obstetrics and Gynecology 07/18/21 Miscellaneous, Not In File 09/04/21 documented as of this encounter
--- OUTSIDE RECORDS SUMMARY | 2024-10-27 07:43 | XMS_ITS | Clinical Summary ---
Author Organization [facility] Address [address] [facility] [address] Care Team Providers Care Recycling Program Manager Name Role Phone Jacqueline Horn MD Primary Care Provider [phone] Source Comments [facility],non-owned Affiliates and Associated Physician Practices is amultiple site organization consisting of ambulatory clinics and hospital sitesin [place], [place], [place] and [place]. This disclosure is being madepursuant to the Care Everywhere program and may not contain all information available regarding this patient. Last updated 18.[facility] Allergies Active Allergy Reactions Criticality Noted Date Comments Penicillins Other 02/01/2019 Patient unsure of allergy or reaction. Allergy documented on preprocedure paperwork Medications * Be aware that medications may not be up to date on this document. Alwaysverify current medications with the patient. Medication Sig Dispensed Refills Start Date End Date Status memantine (NAMENDA) 10 MG tablet Take 10 mg by mouth 2 times daily Active levothyroxine (SYNTHROID) 50 MCG tablet Take 50 mcg by mouth daily before breakfast Active aspirin EC (ECOTRIN) 81 MG tablet Take 81 mg by mouth once daily Active pravastatin (PRAVACHOL) 80 MG tablet Take 80 mg by mouth at bedtime Active rivastigmine (EXELON) 1.5 MG capsule Take 1.5 mg by mouth 2 times daily with morning and evening meal Active Reading-3 Fatty Acids (FISH OIL) 1200 MG Take 1 capsule by mouth once daily Active clindamycin (CLEOCIN) 300 MG capsule Take 300 mg by mouth every 8 hours Active vitamin D3 (CHOLECALCIFEROL) 1000 units tablet Take 2,000 Units by mouth once daily Active cyanocobalamin (VITAMIN B-12) 100 MCG tablet Take 100 mcg by mouth once daily Active lisinopril (PRINIVIL; ZESTRIL) 10 MG tabletIndications:H ypertension,Take if BP > 140/90 Take 10 mg by mouth 2 times daily Reasons: High Blood Pressure Disorder, Take if BP > 140/90 Active acetaminophen (TYLENOL) 325 MG tablet Take 2 tablets by mouth every 6 hours as needed for Pain Maximum allowable Acetaminophen amount = 4 Grams (4000 mg) / 24 hours. 02/01/2019 Active medroxyPROGESTERone (PROVERA) 10 MG tablet 07/28/2021 Active clindamycin (CLEOCIN) 300 MG capsule 03/18/2021 Active cyanocobalamin (VITAMIN B-12) 1000 MCG tablet 06/07/2021 Active diclofenac sodium (VOLTAREN) 1 % gel 06/03/2021 Active levothyroxine (SYNTHROID) 50 MCG tablet 06/04/2021 Active memantine (NAMENDA) 10 MG tablet 06/03/2021 Active pravastatin (PRAVACHOL) 80 MG tablet 04/01/2021 Active rivastigmine (EXELON) 3 MG capsule 06/03/2021 Active Social History Tobacco Use Types Packs/Day Years Used Date Smoking Tobacco: Never Smokeless Tobacco: Never Alcohol Use Standard Drinks/Week Comments Never 0 (1 standard drink = 0.6 oz pur e alcohol) Sex and Gender Information Value Date Recorded Sex Assigned at Not on file Gender Identity Not on file Sexual Orientation Not on file Last Filed Vital Signs Vital Sign Reading Time Taken Comments Blood Pressure 108/76 08/05/2021 2:51 PM HOSPITALITY COORDINATOR Pulse 63 02/01/2019 2:55 PM CDT Temperature 36.2 C (97.1 F) 02/01/2019 1:33 PM CDT Respiratory Rate 16 02/01/2019 2:55 PM CDT Oxygen Saturation 94% 02/01/2019 2:55 PM CDT Inhaled Oxygen Concentration - - Weight 93.2 kg (205 lb 6.4 oz) 08/05/2021 2:51 P M HOSPITALITY COORDINATOR Height 161.3 cm (5' 3.5 ) 08/05/2021 2:51 PM HOSPITALITY COORDINATOR Body Mass Index 35.81 08/05/2021 2:51 PM HOSPITALITY COORDINATOR Plan of Treatment Health Maintenance Due Date Last Done Comments BONE DENSITY TESTING 1940 DTAP/TDAP/TD VACCINES (1 - Tdap) 1959 PNEUMOCOCCAL VACCINE 50+ (1 of 1 - PCV) 1990 ZOSTER VACCINE (1 of 2) 1990 Respiratory Syncytial Virus (RSV) Vaccine Pt: or over 60 yrs (1 - 1-dose 75+ series) 2015 COVID-19 VACCINE ( - 2023- season) 2024 INFLUENZA VACCINE (#1) 2024 8, 05/03/2018, 05/17/2017, Additional history exists DEPRESSION SCREENING 08/09/2024 HEPATITIS B VACCINE Aged Out No longe r eligible based on patient's age to complete this topic HIB VACCINE Aged Out No longer eligi ble based on patient's age to complete this topic HPV VACCINE Aged Out No longer eligi ble based on patient's age to complete this topic MENINGOCOCCAL (Group B) VACCINE SHARED DECISION-MAKING Aged Out No longer eligible based on patient's age to complete this topic MENINGOCOCCAL GROUPS A/C/Y/W VACCINE Aged Out No longer eligible based on patient's age to complete this topic Care Teams Recycling Program Manager Relationship Specialty Start Date End Date Jacqueline Horn MD [address] [place] [address] PCP - General Internal Medicine 02/01/19
--- OUTSIDE RECORDS SUMMARY | 2024-10-27 07:43 | XMS_ITS | Clinical Summary ---
Author Organization [facility] Address [address] [place] [address] Care Team Providers Care Shooter'S Helper Name Role Phone Cornelius Padilla MD Unavailable [phone] Reagan Medeiros MD Unavailable [phone] Fam Conteh MD Unavailable [phone] Andrew Alcala DPM Unavailable [phone] Carmencita Hammer MD Unavailable [phone] Sree Ramos MD Unavailable Akshat Dukes MD Unavailable [phone] Marley Moore MD Unavailable [phone] Mitesh Walker DO Unavailable [phone] Miscellaneous, Not In File Unavailable Unava ilable Darlin Lazcano NP Primary Care Provider [phone] Allergies Active Allergy Reactions Criticality Noted Date [...] 12, Assessment & Plan (08/11/2019 12:11 PM PARI MUTUEL TICKET CASHIER): She continues to follow with Dr. Ramos [...] tricuspid regurgitation. Electronically Signed By:Tre [place] MD, [id number] 12:58:17 PARI MUTUEL TICKET CASHIER Aortic valve defect Noted 1st in 2007. [...] Synthroid Assessment & Plan (08/11/2019 12:12 PM PARI MUTUEL TICKET CASHIER): Remains on statin therapy. Will repeat LDL prior to next visit Primary hypertension 11/21/2012 Overview (11/12/2016): Hypertension, benign Assessment & Plan (05/07/2022 7:44 PM CDT): Blood pressure is stable. Continue metoprolol. Assessment & Plan (08/11/2019 12:13 PM PARI MUTUEL TICKET CASHIER): Blood pressure well controlled. Will continue to monitor. BMP prior to annual visit Adverse effect of anticoagulant Benign tumor of uterine fundus Resolved Problems Problem Noted Date Diagnosed Date Resolved Date Vaginal bleeding 08/30/2021 09/05/2021 Post-menopausal bleeding 07/08/2021 Assessment & Plan (07/08/2021 7:50 AM PARI MUTUEL TICKET CASHIER): Patient presents today with her daughter. Patient [...] 03/25/2020 Assessment & Plan (09/19/2019 2:34 PM PARI MUTUEL TICKET CASHIER): Appears mechanical in nature as patient reports [...] 03/25/2020 Assessment & Plan (09/19/2019 3:32 PM PARI MUTUEL TICKET CASHIER): Contusion noted s/p fall. Appears to be [...] 11/06/2023 Assessment & Plan (08/11/2019 12:12 PM PARI MUTUEL TICKET CASHIER): Remains on replacement therapy. Will do TSH [...] Department Care Team Description 10/09/2024 1:00 PM PARI MUTUEL TICKET CASHIER Office Visit [employer] Design Engineer at [address] [place] [id number] Pat Degroot NP Status post transcatheter aortic valve replacement (TAVR) using bioprosthesis (Primary Dx); Nonrheumatic aortic valve stenosis; Mixed hyperlipidemia; Primary hypertension 09/25/2024 2:10 PM PARI MUTUEL TICKET CASHIER - 09/25/2024 11:59 PM PARI MUTUEL TICKET CASHIER Hospital Encounter [facility] Cardiology [address] [id number] Status post transcatheter aortic valve replacement (TAVR) [...] TSH Hx Other Medical 2001 SONALI mild [place] Hx Other Medical bilateral corat id, neg [...] drink = 0.6 oz pur e alcohol) [facility] Utilities Answer Date Recorded In the past 12 months has e [employer], gas, oil, or water [employer] threatened to shut off services in your [...] often do you attend chur ch or adventist services? More than 4 times per year 11/08/2023 Do you belong to any clubs o r organizations such as evangelical groups, unions, fraternal or athletic groups, or [...] place to sleep or slept in a group home (including now)? No 11/08/2023 PHQ-9 Answer Date [...] on file Legal Sex Female 2:35 PM PARI MUTUEL TICKET CASHIER Gender Identity Not on file Sexual Orientation Not on file Occupation Industry Job Start Date Job End Date retired Not on file Not on file Not on file Obstetrics History Last Filed Vital Signs Vital Sign Reading Time Taken Comments Blood Pressure 151/97 10/09/2024 1:21 PM PARI MUTUEL TICKET CASHIER Pulse 75 10/09/2024 1:21 PM PARI MUTUEL TICKET CASHIER Temperature 37.1 C (98.8 F) 12/02/2023 5:26 PM CDT Respiratory Rate 18 10/09/2024 1:21 PM PARI MUTUEL TICKET CASHIER Oxygen Saturation 95% 12/02/2023 5:26 PM CDT Inhaled Oxygen Concentration - - Weight 83.9 kg (185 lb) 02/03/2024 1:33 PM CDT Height 160 cm (5' 3 ) 10/09/2024 1:21 PM PARI MUTUEL TICKET CASHIER Body Mass Index 32.26 02/03/2024 1:33 PM [...] history exists Medical Devices Implanted Type Area Supervisor Computer Operations Device Identifier Shelf Expiration Date Model / Serial / Lot Mi Lifesciences Valve Aortic Trnscath Maryam 3 Ultra Resilia 23mm [id number] - [id number] - [id number] Implanted:Qty: 1 on 12/01/2023 by Cuauhtemoc Faulkner MD at [facility] Prosthetic Valve N/A: Heart Mi [employer]iences 01/06/2026 [id number] / [id number] / TerVendscreen Medical Precious Angio-Seal Vip 6fr Closere Device [id number] - [id number] Implanted:Qty: 1 on 11/10/2023 by Cuauhtemoc Faulkner MD at [facility] TerSave On Medical Medical Precious [id number] / / Miller Vascular Device Clsr Perclose Prostyle Sut-Mediatd Closure-Repair Sys 36876-43 - [id number] Implanted:Qty: 1 on 12/01/2023 by Cuauhtemoc Faulkner MD at [facility] N/A: Heart Miller V[employer] 09/08/2025 [id number] / / [id number] Miller Vascular Device Clsr Perclose Prostyle Sut-Mediatd Closure-Repair Sys 28439-96 - [id number] Implanted:Qty: 1 on 12/01/2023 by Cuauhtemoc Faulkner MD at [facility] N/A: Heart [employer] 09/08/2025 [id number] / / [id number] Miller Vascular Device Clsr Perclose Prostyle Sut-Mediatd Closure-Repair Sys 75963-38 - [id number] Implanted:Qty: 1 on 12/01/2023 by Cuauhtemoc Faulkner MD at [facility] [employer] 08/08/2025 [id number] / / [id number] [employer] Angio-Seal Vip 6fr Closere Device [id number] - [id number] Implanted:Qty: 1 on 12/01/2023 by Cuauhtemoc Faulkner MD at [facility] [employer] [id number] / / Procedures Procedure Name Priority Date/Time Associated Diagnosis Comments TRANSTHORACIC ECHO (TTE) COMPLETE W DOPPLER/CF WO CONTRAST Routine 09/25/2024 3:02 PM PARI MUTUEL TICKET CASHIER Status post transcatheter aortic valve replacement (TAVR) using bioprosthesis from Last 3 Months Results * TRANSTHORACIC ECHO (TTE) COMPLETE W DOPPLER/CF WO CONTRAST (09/25/2024 3:02 PM PARI MUTUEL TICKET CASHIER) LV EF 60-65 % CONS SCIMAGE Anatomical Region Laterality Modality Ultrasound 09/25/2024 2:27 PM PARI MUTUEL TICKET CASHIER Narrative 09/25/2024 3:46 PM PARI MUTUEL TICKET CASHIER [address] [place] [address] Echocardiogram Report Patient Name: MARIANNA GIL : [...] By: Mike Bardales MD 09/25/2024 3:46:27 PM PARI MUTUEL TICKET CASHIER Procedure Note Mike Bardales MD - 09/25/[address] [address] Echocardiogram Report Patient Name: MARIANNA GIL : [...] By: Mike Bardales MD 09/25/2024 3:46:27 PM PARI MUTUEL TICKET CASHIER Cuauhtemoc Faulkner MD CV ECHO PROCEDURES Final Result from Last 3 Months Insurance [facility] AETNA MEDICARE GOLD [facility] AETNA MEDICARE GOLD AETNA MEDICARE GOLD [facility] A[facility]NA [facility] GOLD REF Advance Directives For more information, please contact: [phone] Documents on File Type Date Recorded Patient General Clerk Expl anation ADVANCE DIRECTIVE 11/05/2023 11:42 PM Ryland r of [employer] Manager-Medical ADVANCE DIRECTIVE 11/05/2023 11:40 PM LIFE SUSTANING [...] refridgerator, no cpr, no intubation Care Teams Shooter'S Helper Relationship Specialty Start Date End Date Darlin Lazcano NP [address] [place] [address] PCP - General Family Medicine 08/14/24 Cornelius Padilla MD [address] [facility] [address] [place] [address] Internal Medicine 03/16/17 Reagan Medeiros MD [address] [place] [address] [address] [place] [address] Cardiovascular Disease 03/16/17 Fam Conteh MD [address] [place] [address] [address] [address] Surgeon Orthopedic Surgery 05/26/17 Andrew Alcala DPM [address] [place] [address] [address] [place] [address] Consulting Physician Orthotics 06/25/17 Carmencita Hammer MD [address] [place] [address] [address] [facility] [address] [place] [address] Ophthalmology 08/11/17 Sree Ramos MD [address] [place] [address] Consulting Physician Psychiatry 08/15/18 Akshat Dukes MD [address] [place] [address] Surgeon Orthopedic Surgery 12/09/18 Marley Moore MD [address] [place] [address] Consulting Physician Cardiology 06/03/21 Mitesh Walker DO [address] [place] [address] Consulting Physician Obstetrics and Gynecology 07/18/21 Miscellaneous, Not In File 09/04/21
--- OUTSIDE RECORDS SUMMARY | 2024-10-27 07:43 | XMS_ITS | Encounter Summary ---
Author Organization [facility] ts Address [address] [place] [address] Phone Care Team Providers Care Toe Puncher Name Role Phone Britni Horn MD Primary Care Provider + [phone] Cornelius Padilla MD Unavailable +[phone] Trev Medeiros MD Unavailable +[phone] Fam Conteh MD Unavailable +[phone] Andrew AlcalaM Unavailable [phone] Carmencita Hammer MD Unavailable [phone] Sree Ramos MD Unavailable Akshat Dukes MD Unavailable +[phone] Akshat Montano DO Unavailable Gabriele Phillips DO Unavailable [phone] Marley Moore MD Unavailable Jessie Walker DO Unavailable Miscellaneous, Not In File Unavailable Unava ilable Prasanna Ochoa MD Primary Care Provider Stone, Crystal Helene CUSTOMER ADVISOR Primary Care Provider +[phone] Unknown, Notinfile Primary Care Provider Unavail able Darlin Lazcano CUSTOMER ADVISOR Primary Care Provider Encounter Details Date Type Department Care Team (Late st Contact Info) Description 04/20/2017 Orders Only [facility] [address] [place] [address] Britni Horn MD [address] [place] [address] Personal history of colonic polyps (Primary Dx) Social History Tobacco Use Types Packs/Day Years Used Date Smoking Tobacco: Never Smokeless Tobacco: Never Alcohol Use Standard Drinks/Week Comments No 0 (1 standard drink = 0.6 oz pur e alcohol) Comments No Sex and Gender Information Value Date Recorded Sex Assigned at Not on file Legal Sex Female 2:35 PM 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 MECHANIC Gender Identity Not on file Sexual Orientation Not on file documented as of this encounter Plan of Treatment Not on file documented as of this encounter Visit Diagnoses Diagnosis Personal history of colonic polyps- Primary documented in this encounter Additional Health Concerns Infection Onset Date Last Indicated Resolved Time 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 05/07/2022 11/03/2022 3:05 AM CDT COVID: Suspected 09/12/2022 09/12/2022 09/12/2022 8:14 PM MAINTENANCE MECHANIC COVID: Suspected 01/19/2023 01/19/2023 01/19/2023 3:44 PM CDT documented as of this encounter Care Teams Toe Puncher Relationship Specialty Start Date End Date Britni Horn MD PCP - General 11/06/16 05/18/22 Prasanna Ochoa MD PCP - General Cardiology 06/08/22 07/15/22 Ale Zheng NP [address] [place] [address] PCP - General Nurse Practitioner 07/16/22 09/28/23 Unknown, Notinfile PCP - General 09/29/23 08/13/24 Jaleesa DarlinOMAR [address] [place] [address] PCP - General Family Medicine 08/14/24 Cornelius Padlila MD [address] [facility] [place] [address] Internal Medicine 03/16/17 Trev Medeiros MD [address] [place] [address] [place] [address] Cardiovascular Disease 03/16/17 Fam Conteh MD [address] [place] [address] [address] [place] [address] [address] Surgeon Orthopedic Surgery 05/26/17 Andrew Alcala DPM [address] [place] [address] [address] [place] [address] [address] Consulting Physician Orthotics 06/25/17 Carmencita Hammer MD [address] [place] [address] [address] [place] [address] [address] Ophthalmology 08/11/17 Sree Ramos MD [address] [place] [address] Consulting Physician Psychiatry 08/15/18 Akshat Dukes MD [address] [place] [address] Surgeon Orthopedic Surgery 12/09/18 Akshat Montano DO [address] [facility] [address] [place] [address] Cardiovascular Disease 12/09/18 0 Gabriele Phillips DO [address] [facility] [address] [place] [address] Consulting Physician Cardiology 03/25/20 06/02/21 Marley Moore MD [address] [place] [address] Consulting Physician Cardiology 06/03/21 Jessie Walker DO [address] [place] [address] Consulting Physician Obstetrics and Gynecology 07/18/21 Miscellaneous, Not In File 09/04/21 documented as of this encounter
--- OUTSIDE RECORDS SUMMARY | 2024-10-27 07:43 | XMS_ITS | Encounter Summary ---
Author Organization [facility] ts Address [address] [place] [address] Phone Care Team Providers Care Supervisor Cell Maintenance Name Role Phone Britni Horn MD Primary Care Provider + [phone] Cornelius Padilla MD Unavailable +[phone] Trev Medeiros MD Unavailable [phone] Fam Conteh MD Unavailable [phone] Andrew AlcalaM Unavailable [phone] Carmencita Hammer MD Unavailable [phone] Sree Ramos MD Unavailable Akshat Dukes MD Unavailable [phone] Akshat Montano DO Unavailable Gabriele Phillips DO Unavailable Marley Moore MD Unavailable Jessie Walker DO Unavailable Miscellaneous, Not In File Unavailable Unava ilable Prasanna Ochoa MD Primary Care Provider Stone, Crystal Helene CANCER GENETIC COUNSELOR Primary Care Provider [phone] Unknown, Notinfile Primary Care Provider Unavail able Darlin Lazcano CANCER GENETIC COUNSELOR Primary Care Provider Encounter Details Date Type Department Care Team (Late st Contact Info) Description 06/25/2017 Orders Only [facility] [address] [place] [address] Britni Horn MD [address] [place] [address] Dystrophia unguium (Primary Dx) Social History Tobacco Use Types Packs/Day Years Used Date Smoking Tobacco: Never Smokeless Tobacco: Never Alcohol Use Standard Drinks/Week Comments No 0 (1 standard drink = 0.6 oz pur e alcohol) Comments No Sex and Gender Information Value Date Recorded Sex Assigned at Not on file 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 Gender Identity Not on file Sexual [...] COVID: Suspected 09/12/2022 09/12/2022 09/12/2022 8:14 PM GOLF BALL INSPECTOR COVID: Suspected 01/19/2023 01/19/2023 01/19/2023 3:44 PM CDT documented as of this encounter Care Teams Supervisor Cell Maintenance Relationship Specialty Start Date End Date Britni Horn MD PCP - General 11/06/16 05/18/22 Prasanna Ochoa MD PCP - General Cardiology 06/08/22 07/15/22 Ale Zheng NP [address] [place] [address] PCP - General Nurse Practitioner 07/16/22 09/28/23 Unknown, Notinfile PCP - General 09/29/23 08/13/24 Darlin Lazcano NP [address] [place] [address] PCP - General Family Medicine 08/14/24 Cornelius Padilla MD [address] [facility] [address] [place] [address] Internal Medicine 03/16/17 Trev Medeiros MD [address] [place] [address] [address] [place] [address] Cardiovascular Disease 03/16/17 Fam Conteh MD [address] [place] [address] [address] [place] [address] [address] Surgeon Orthopedic Surgery 05/26/17 Andrew Alcala DPM [address] [place] [address] [address] [place] [address] [address] Consulting Physician Orthotics 06/25/17 Carmencita Hammer MD [address] [place] [address] [address] [place] [address] [address] Ophthalmology 08/11/17 Sree Ramos MD [address] [place] [address] Consulting Physician Psychiatry 08/15/18 Akshat Dukes MD [address] [place] [address] Surgeon Orthopedic Surgery 12/09/18 Akshat Montano DO [address] [facility] [address] YOUNG [address] [place] [address] Cardiovascular Disease 12/09/18 0 Gabriele Phillips DO [address] [facility] [address] YOUNG [address] [place] [address] Consulting Physician Cardiology 03/25/20 06/02/21 Marley Moore MD [address] [place] [address] Consulting Physician Cardiology 06/03/21 Jessie Walker DO [address] [place] [address] Consulting Physician Obstetrics and Gynecology 07/18/21 Miscellaneous, Not In File 09/04/21 documented as of this encounter
--- OUTSIDE RECORDS SUMMARY | 2024-10-27 07:44 | XMS_ITS | Encounter Summary ---
Author Organization [facility] ts Address [address] [place] [address] Phone Care Team Providers Care Process Architect Name Role Phone Britni Horn MD Primary Care Provider + [phone] Cornelius Padilla MD Unavailable +[phone] Trev Medeiros MD Unavailable [phone] Fam Conteh MD Unavailable [phone] Andrew AlcalaM Unavailable [phone] Carmencita Hammer MD Unavailable [phone] Sree Ramos MD Unavailable Akshat Dukes MD Unavailable [phone] Akshat Montano DO Unavailable [phone] Gabriele Phillips DO Unavailable Marley Moore MD Unavailable Jessie Walker DO Unavailable Miscellaneous, Not In File Unavailable Unava ilable Prasanna Ochoa MD Primary Care Provider Stone, Crystal Helene VET TECH Primary Care Provider [phone] Unknown, Notinfile Primary Care Provider Unavail able Darlin Lazcano VET TECH Primary Care Provider [phone] Encounter Details Date Type Department Care Team (Late st Contact Info) Description 05/25/2017 Orders Only [facility] [address] [place] [id number] Britni Horn MD [address] [place] [address] Social History Tobacco Use Types Packs/Day Years Used Date Smoking Tobacco: Never Smokeless Tobacco: Never Alcohol Use Standard Drinks/Week Comments No 0 (1 standard drink = 0.6 oz pur e alcohol) Comments No Sex and Gender Information Value Date Recorded Sex Assigned at Not on file 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 Gender Identity Not on file Sexual Orientation [...] COVID: Suspected 09/12/2022 09/12/2022 09/12/2022 8:14 PM INDUSTRIAL TECHNOLOGY EDUCATION TEACHER COVID: Suspected 01/19/2023 01/19/2023 01/19/2023 3:44 PM CDT documented as of this encounter Care Teams Process Architect Relationship Specialty Start Date End Date Britni Horn MD PCP - General 11/06/16 05/18/22 Prasanna Ochoa MD PCP - General Cardiology 06/08/22 07/15/22 Ale Zheng, VET TECH [address] [place] [address] PCP - General Nurse Practitioner 07/16/22 09/28/23 Unknown, Notinfile PCP - General 09/29/23 08/13/24 Darlin Lazcano NP [address] [place] [address] PCP - General Family Medicine 08/14/24 Cornelius Padilla MD [address] [facility] [place] [address] Internal Medicine 03/16/17 Trev Medeiros MD [address] [place] [address] [place] [address] Cardiovascular Disease 03/16/17 Fam Conteh MD [address] [facility] [address] [place] [address] Surgeon Orthopedic Surgery 05/26/17 Andrew Alcala DPM [address] [facility] [address] [facility] [address] [place] [address] Consulting Physician Orthotics 06/25/17 Carmencita Hammer MD [address] [facility] [address] [place] [address] Ophthalmology 08/11/17 Sree Ramos MD [address] [place] [address] Consulting Physician Psychiatry 08/15/18 Akshat Dukes MD [address] [place] [address] Surgeon Orthopedic Surgery 12/09/18 Akshat Montano DO [address] [facility] [address] YOUNG [address] [place] [address] Cardiovascular Disease 12/09/18 0 Gabriele Phillips DO [address] [facility] [address] YOUNG [address] [place] [address] Consulting Physician Cardiology 03/25/20 06/02/21 Marley Moore MD [address] [place] [address] Consulting Physician Cardiology 06/03/21 Jessie Walker DO [address] [place] [address] Consulting Physician Obstetrics and Gynecology 07/18/21 Miscellaneous, Not In File 09/04/21 documented as of this encounter
--- OUTSIDE RECORDS SUMMARY | 2024-10-27 07:44 | XMS_ITS | Encounter Summary ---
Author Organization [facility] ts Address [address] [place] [address] Phone Care Team Providers Care All Source Intelligence Analyst Name Role Phone Britni Horn MD Primary Care Provider + [phone] Cornelius Padilla MD Unavailable +[phone] Trev Medeiros MD Unavailable +[phone] Fam Conteh MD Unavailable [phone] Andrew AlcalaM Unavailable [phone] Carmencita Hammer MD Unavailable [phone] Sree Ramos MD Unavailable Akshat Dukes MD Unavailable [phone] Akshat Montano DO Unavailable Gabriele Phillips DO Unavailable [phone] Marley Moore MD Unavailable Jessie Walker DO Unavailable Miscellaneous, Not In File Unavailable Unava ilable Prasanna Ochoa MD Primary Care Provider Stone, Crystal Helene MACHINE SHOP SPECIALIST Primary Care Provider [phone] Unknown, Notinfile Primary Care Provider Unavail able Darlin Lazcano MACHINE SHOP SPECIALIST Primary Care Provider Encounter Details Date Type Department Care Team (Late st Contact Info) Description 06/02/2017 Orders Only [facility] [address] [place] [id number] Britni Horn MD [address] [place] [address] Other specified hearing loss, bilateral (Primary Dx); Impingement syndrome of left shoulder Social History Tobacco Use Types Packs/Day Years Used Date Smoking Tobacco: Never Smokeless Tobacco: Never Alcohol Use Standard Drinks/Week Comments No 0 (1 standard drink = 0.6 oz pur e alcohol) Comments No Sex and Gender Information Value Date Recorded Sex Assigned at Not on file 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 Gender Identity Not on file Sexual Orientation [...] COVID: Suspected 09/12/2022 09/12/2022 09/12/2022 8:14 PM COLLECTION TEAM LEAD COVID: Suspected 01/19/2023 01/19/2023 01/19/2023 3:44 PM CDT documented as of this encounter Care Teams All Source Intelligence Analyst Relationship Specialty Start Date End Date Britni Horn MD PCP - General 11/06/16 05/18/22 Prasanna Ochoa MD PCP - General Cardiology 06/08/22 07/15/22 Ale Zheng NP [address] [place] [address] PCP - General Nurse Practitioner 07/16/22 09/28/23 Unknown, Notinfile PCP - General 09/29/23 08/13/24 Darlin Lazcano NP [address] [place] [address] PCP - General Family Medicine 08/14/24 Cornelius Padilla MD [address] [facility] [address] [place] [address] Internal Medicine 03/16/17 Trev Medeiros MD [address] [facility] [address] [place] [address] Cardiovascular Disease 03/16/17 Fam Conteh MD [address] [facility] [address] [place] [place] [address] Surgeon Orthopedic Surgery 05/26/17 Andrew Alcala, DPM [address] [facility] [address] [place] [address] Consulting Physician Orthotics 06/25/17 Carmencita Hammer MD [address] [place] [address] [address] [place] [address] Ophthalmology 08/11/17 Sree Ramos MD [address] [place] [address] Consulting Physician Psychiatry 08/15/18 Akshat Dukes MD [address] [place] [address] Surgeon Orthopedic Surgery 12/09/18 Akshat Montano DO [address] [place] [address] [address] [place] [address] Cardiovascular Disease 12/09/18 0 Gabriele Phillips DO [address] [place] [address] DR [address] [place] [address] Consulting Physician Cardiology 03/25/20 06/02/21 Marley Moore MD [address] [place] [address] Consulting Physician Cardiology 06/03/21 Jessie Walker DO [address] [place] [address] Consulting Physician Obstetrics and Gynecology 07/18/21 Miscellaneous, Not In File 09/04/21 documented as of this encounter
--- NOTE | 2024-10-27 07:51 | PC.NURSE ---
This RN attempted to call report to [facility], received no answer, left voicemail stating this RN was calling to give report on a pt returning to their facility left phone number of department for them to return call.
[2024-10-27 09:17] VITALS: BP 131/93; PULSE 68; RESP 17; O2SAT 96
--- NOTE | 2024-10-27 09:18 | PC.NURSE ---
Pt family requesting imaging of L arm before pt returns to her NH. Pt grimaces when RN touches L arm. Pt has no grimace when R arm is moved or touched. EDP aware gave VORB for XR of L humerus and L forearm.
[2024-10-27 11:24] VITALS: BP 111/74; PULSE 70; RESP 16; O2SAT 96
[2024-10-27 14:06] VITALS: BP 98/57; PULSE 62; RESP 16; O2SAT 96
== END 2024-10-27 14:09 ==
PROVIDERS: Emergency Provider Family Medicine
DX: S09.90XA Unspecified injury of head, initial encounter (principal); F03.90 Unspecified dementia, unspecified severity, without behavioral disturbance, psychotic disturbance, mood disturbance, and anxiety; I48.91 Unspecified atrial fibrillation; E03.9 Hypothyroidism, unspecified; Z86.73 Personal history of transient ischemic attack (TIA), and cerebral infarction without residual deficits; Z79.01 Long term (current) use of anticoagulants; Z79.899 Other long term (current) drug therapy; W19.XXXA Unspecified fall, initial encounter
CPT/HCPCS: 70450; 72125; 73060; 73090; 99284

== ENCOUNTER 2025-03-14 10:02 | Emergency (ER) | payer MEDICARE, SELFPAY ==
--- NOTE | ~2025-03-14 | US_ITS ---
EXAMINATION: US venous doppler LE RT DATE: 03/14/2025 12:24 INDICATION: Right lower limb pain and swelling TECHNIQUE: Grayscale ultrasound images without and with compression and Doppler ultrasound images of the right lower extremity veins were obtained. COMPARISON: None. FINDINGS: The visualized portions of right common femoral vein, profunda (deep) femoral vein, femoral vein, pop liteal vein, peroneal trunk, posterior tibial veins, peroneal veins, gastrocnemius vein and greater s aphenous vein outflow are patent. IMPRESSION: 1. No deep venous thrombosis in the right lower limb. Reviewed, dictated and finalized at location A.
[2025-03-14 10:03] VITALS: BP 123/38; PULSE 65; TEMP 36.6; O2SAT 97
[2025-03-14 11:05] VITALS: BP 121/41; PULSE 66; RESP 18; O2SAT 99
[2025-03-14 11:30] LABS: Hematocrit 40.3 % (37.0-47.0); Hemoglobin 13.3 g/dL (12.0-15.0); Immature Granulocyte Percent A 0.4 % (0-0.5); Immature Platelet Fraction Pct 15.5 % (0.9-11.2); Lymphocytes Absolute Auto 2.03 K/mm3 (0.9-3.2); Mean Corpuscular HGB Conc 33.0 g/dl (32-36); Mean Corpuscular Hemoglobin 31.1 pg (26-34); Mean Corpuscular Volume 94.2 fl (80-100); Nucleated Red Blood Cells Absolute Auto 0.000 K/mm3 (0.0-0.012); Nucleated Red Blood Cells Perc 0.0 % (0.0-0.2); Platelet Count Result 112 k/mm3 (150-375); Red Blood Count 4.28 M/mm3 (4.2-5.4); White Blood Count 9.6 K/mm3 (4.5-10.0)
[2025-03-14 11:38] LABS: INR 1.6; Partial Thromboplastin Time 34.2 Seconds (22.3-36.8); Prothrombin Time 18.4 Seconds (11.1-14.7)
[2025-03-14 11:42] LABS: Anion Gap 6 mmol/L (4-12); Blood Urea Nitrogen 20 mg/dL (7-17); Calcium 9.4 mg/dL (8.4-10.2); Carbon Dioxide 29 mmol/L (22-30); Chloride 104 mmol/L (98-107); Estimated CRCL calculation 41 ml/min; Estimated Glomerular Filt Rate 57; Glucose 125 mg/dL (65-110); Potassium 4.5 mmol/L (3.4-5.0); Sodium 139 mmol/L (137-145)
--- OUTSIDE RECORDS SUMMARY | 2025-03-14 12:23 | XMS_ITS | Encounter Summary ---
Author Organization [facility] ts Address [address] [place] [address] Phone Care Team Providers Care Lighting Fixtures Decorator Name Role Phone Britni Horn MD Primary Care Provider + [phone] Cornelius Padilla MD Unavailable [phone] Trev Medeiros MD Unavailable [phone] Fam Conteh MD Unavailable [phone] Andrew AlcalaM Unavailable [phone] Carmencita Hammer MD Unavailable [phone] Sree Ramos MD Unavailable Akshat Dukes MD Unavailable [phone] Akshat Montano DO Unavailable Gabriele Phillips DO Unavailable [phone] Marley Moore MD Unavailable [phone] Jessie Walker DO Unavailable Miscellaneous, Not In File Unavailable Unava ilable Prasanna Ochoa MD Primary Care Provider Stone, Crystal Helene INTERNATIONAL BANKER Primary Care Provider [phone] Unknown, Notinfile Primary Care Provider Unavail able Darlin Lazcano INTERNATIONAL BANKER Primary Care Provider Encounter Details Date Type Department Care Team (Late st Contact Info) Description 05/25/2017 Orders Only [facility] [address] [place] [address] Britni Horn MD [address] [place] [address] Social History Tobacco Use Types Packs/Day Years Used Date Smoking Tobacco: Never Smokeless Tobacco: Never Alcohol Use Standard Drinks/Week Comments No 0 (1 standard drink = 0.6 oz pur e alcohol) Comments No Sex and Gender Information Value Date Recorded Sex Assigned at Not on file 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 Gender Identity Not on file Sexual Orientation [...] COVID: Suspected 09/12/2022 09/12/2022 09/12/2022 8:14 PM ENTERPRISE INFRASTRUCTURE ARCHITECT COVID: Suspected 01/19/2023 01/19/2023 01/19/2023 3:44 PM CDT documented as of this encounter Care Teams Lighting Fixtures Decorator Relationship Specialty Start Date End Date Britni Horn MD PCP - General 11/06/16 05/18/22 Prasanna Ochoa MD PCP - General Cardiology 06/08/22 07/15/22 Ale Zheng, INTERNATIONAL BANKER [address] [place] [address] PCP - General Nurse Practitioner 07/16/22 09/28/23 Unknown, Notinfile PCP - General 09/29/23 08/13/24 Darlin Lazcano NP [address] [place] [address] PCP - General Family Medicine 08/14/24 Cornelius Padilla MD [address] [facility] [place] [address] Internal Medicine 03/16/17 Trev Medeiros MD [address] [facility] [place] [address] Cardiovascular Disease 03/16/17 Fam Conteh MD [address] [facility] [address] [place] [address] [address] Surgeon Orthopedic Surgery 05/26/17 Andrew Alcala, MIT[place] [address] [facility] [address] [facility] [address] [place] [address] Consulting Physician Orthotics 06/25/17 Carmencita Hammer MD [address] [facility] [address] [place] [address] Ophthalmology 08/11/17 Sree Ramos MD [address] [place] [address] Consulting Physician Psychiatry 08/15/18 Akshat Dukes MD [address] [place] [address] Surgeon Orthopedic Surgery 12/09/18 Akshat Montano DO [address] [facility] [address] YOUNG [address] [place] [address] Cardiovascular Disease 12/09/18 0 Gabriele Phillips DO [address] [facility] [address]NG [address] [place] [address] Consulting Physician Cardiology 03/25/20 06/02/21 Marley Moore MD [address] [place] [address] Consulting Physician Cardiology 06/03/21 Jessie Walker DO [address] [place] [address] Consulting Physician Obstetrics and Gynecology 07/18/21 Miscellaneous, Not In File 09/04/21 documented as of this encounter
--- OUTSIDE RECORDS SUMMARY | 2025-03-14 12:23 | XMS_ITS | Clinical Summary ---
Author Organization [facility] [employer] Address [address] [place] [address] Care Team Providers Care Collection Clerk Name Role Phone Jacqueline Horn MD Primary Care Provider [phone] Source Comments [facility] [employer],non-owned Affiliates and Associated Physician Practices is amultiple site organization consisting of ambulatory clinics and hospital sitesin [place], [place], [place] and [place]. This disclosure is being madepursuant to the Care Everywhere program and may not contain all information available regarding this patient. Last updated 18.[facility] [employer] Allergies Active Allergy Reactions Criticality Noted Date Comments Penicillins Other 02/01/2019 Patient unsure of allergy or reaction. Allergy documented on preprocedure paperwork Medications * Be aware that medications may not be up to date on this document. Alwaysverify current medications with the patient. memantine (NAMENDA) 10 MG tablet Take 10 [...] daily with morning and evening meal Active Melbourne-3 Fatty Acids (FISH OIL) 1200 MG Take 1 capsule by mouth once daily Active clindamycin (CLEOCIN) 300 MG capsule Take 300 mg by mouth every 8 hours Active vitamin D3 (CHOLECALCIFER OL) 1000 units tablet Take 2,000 Units by mouth once daily Active cyanocobalamin (VITAMIN B-12) 100 MCG tablet Take 100 mcg by mouth once daily Active lisinopril (PRINIVIL; ZESTRIL) 10 MG tabletIndicati ons:Hypertensi on,Take if BP > 140/90 Take 10 mg by mouth 2 times daily Reasons: High Blood Pressure Disorder, Take if BP > 140/90 Active acetaminophen (TYLENOL) 325 MG tablet Take 2 tablets by mouth every 6 hours as needed for Pain Maximum allowable Acetaminophen amount = 4 Grams (4000 mg) / 24 hours. 9 Active medroxyPROGEST ERone (PROVERA) 10 MG tablet 1 Active clindamycin (CLEOCIN) 300 MG capsule 1 Active cyanocobalamin (VITAMIN B-12) 1000 MCG tablet 1 Active diclofenac sodium (VOLTAREN) 1 % gel 1 Active levothyroxine (SYNTHROID) 50 MCG tablet 1 Active memantine (NAMENDA) 10 MG tablet 1 Active pravastatin (PRAVACHOL) 80 MG tablet 1 Active rivastigmine (EXELON) 3 MG capsule 1 Active Social History Tobacco Use Types Packs/Day Years Used Date Smoking Tobacco: Never Smokeless Tobacco: Never Alcohol Use Standard Drinks/Week Comments Never 0 (1 standard drink = 0.6 oz pur e alcohol) Comments Unknown Sex and Gender Information Value Date Recorded Sex Assigned at Not on file Legal Sex Female 11:11 AM CDT Gender Identity Not on file Sexual Orientation Not on file Last Filed Vital Signs Vital Sign Reading Time Taken Comments Blood Pressure 108/76 08/05/2021 2:51 PM GAS STATION SUPERVISOR Pulse 63 02/01/2019 2:55 PM CDT Temperature 36.2 C (97.1 F) 02/01/2019 1:33 PM CDT Respiratory Rate 16 02/01/2019 2:55 PM CDT Oxygen Saturation 94% 02/01/2019 2:55 PM CDT Inhaled Oxygen Concentration - - Weight 93.2 kg (205 lb 6.4 oz) 08/05/2021 2:51 P M GAS STATION SUPERVISOR Height 161.3 cm (5' 3.5) 08/05/2021 2:51 PM GAS STATION SUPERVISOR Body Mass Index 35.81 08/05/2021 2:51 PM GAS STATION SUPERVISOR Plan of Treatment Health Maintenance Due Date Last Done Comments BONE DENSITY TESTING 1940 DTAP/TDAP/TD VACCINES (1 - Tdap) 1959 PNEUMOCOCCAL VACCINE 50+ (1 of 1 - PCV) 1990 ZOSTER VACCINE (1 of 2) 1990 Respiratory Syncytial Virus (RSV) Vaccine Pt: or over 60 yrs (1 - 1-dose 75+ series) 2015 COVID-19 VACCINE (1 - season) 2024 DEPRESSION SCREENING 08/09/2024 INFLUENZA VACCINE (#1) 2025 8, 05/03/2018, 05/17/2017, Additional history exists HEPATITIS B VACCINE Aged Out No longe [...] on patient's age to complete this topic Insurance COVENTRY MEDICARE [employer] Care Teams Collection Clerk Relationship Specialty Start Date End Date Jacqueline Horn MD [address] [place] [address] PCP - General Internal Medicine 02/01/19
--- OUTSIDE RECORDS SUMMARY | 2025-03-14 12:23 | XMS_ITS | Encounter Summary ---
Author Organization [facility] ts Address [address] [place] [address] Phone Care Team Providers Care Legal Administrative Secretary Name Role Phone Britni Horn MD Primary Care Provider + [phone] Cornelius Padilla MD Unavailable [phone] Trev Medeiros MD Unavailable +[phone] Fam Conteh MD Unavailable [phone] Andrew AlcalaM Unavailable [phone] Carmencita Hammer MD Unavailable [phone] Sree Ramos MD Unavailable Akshat Dukes MD Unavailable [phone] Akshat Montano DO Unavailable [phone] Gabriele Phillips DO Unavailable [phone] Marley Moore MD Unavailable [phone] Jessie Walker DO Unavailable Miscellaneous, Not In File Unavailable Unava ilable Prasanna Ochoa MD Primary Care Provider Stone, Crystal Helene BAND SEWER Primary Care Provider [phone] Unknown, Notinfile Primary Care Provider Unavail able Darlin Lazcano BAND SEWER Primary Care Provider Encounter Details Date Type Department Care Team (Late st Contact Info) Description 05/25/2017 Orders Only [facility] [address] [place] [address] Britni Horn MD [address] [place] [address] Social History Tobacco Use Types Packs/Day Years Used Date Smoking Tobacco: Never Smokeless Tobacco: Never Alcohol Use Standard Drinks/Week Comments No 0 (1 standard drink = 0.6 oz pur e alcohol) Comments No Sex and Gender Information Value Date Recorded Sex Assigned at Not on file 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 Sex 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 PM 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 Gender Identity Not on file Sexual [...] COVID: Suspected 09/12/2022 09/12/2022 09/12/2022 8:14 PM 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 COVID: Suspected 01/19/2023 01/19/2023 01/19/2023 3:44 PM CDT documented as of this encounter Care Teams Legal Administrative Secretary Relationship Specialty Start Date End Date Britni Horn MD PCP - General 11/06/16 05/18/22 Prasanna Ochoa MD PCP - General Cardiology 06/08/22 07/15/22 Ale Zheng, BAND SEWER [address] [place] [address] PCP - General Nurse Practitioner 07/16/22 09/28/23 Unknown, Notinfile PCP - General 09/29/23 08/13/24 Darlin Lazcano NP [address] [place] [address] PCP - General Family Medicine 08/14/24 Cornelius Padilla MD [address] [facility] [place] [address] Internal Medicine 03/16/17 Trev Medeiros MD [address] [facility] [place] [address] Cardiovascular Disease 03/16/17 Fam Conteh MD [address] [facility] [address] [place] [place] [address] [address] Surgeon Orthopedic Surgery 05/26/17 Andrew Alcala, MITCHELL [address] [facility] [address] [facility] [address] [place] [address] Consulting Physician Orthotics 06/25/17 Carmencita Hammer MD [address] [facility] [address] [place] [address] [place] [address] Ophthalmology 08/11/17 Sree Ramos MD [address] [place] [address] Consulting Physician Psychiatry 08/15/18 Akshat Dukes MD [address] [place] [address] Surgeon Orthopedic Surgery 12/09/18 Akshat Montano DO [address] [facility] [address] [place] [address] Cardiovascular Disease 12/09/18 0 Gabriele Phillips DO [address] [facility] [address] [place] [address] Consulting Physician Cardiology 03/25/20 06/02/21 Marley Moore MD [address] [place] [address] Consulting Physician Cardiology 06/03/21 Jessie Walker DO [address] [place] [address] Consulting Physician Obstetrics and Gynecology 07/18/21 Miscellaneous, Not In File 09/04/21 documented as of this encounter
--- OUTSIDE RECORDS SUMMARY | 2025-03-14 12:23 | XMS_ITS | Encounter Summary ---
Author Organization [facility] ts Address [address] [place] [address] Phone Care Team Providers Care Geodetic Advisor Name Role Phone Britni Horn MD Primary Care Provider + [phone] Cornelius Padilla MD Unavailable +[phone] Trev Medeiros MD Unavailable +[phone] Fam Conteh MD Unavailable [phone] Andrew AlcalaM Unavailable [phone] Carmencita Hammer MD Unavailable [phone] Sree Ramos MD Unavailable Akshat Dukes MD Unavailable [phone] Akshat Montano DO Unavailable Gabriele Phillips DO Unavailable Marley Moore MD Unavailable [phone] Jessie Walker DO Unavailable Miscellaneous, Not In File Unavailable Unava ilable Prasanna Ochoa MD Primary Care Provider Stone, Crystal Helene HEARING AND SPEECH ASSISTANT Primary Care Provider [phone] Unknown, Notinfile Primary Care Provider Unavail able Darlin Lazcano HEARING AND SPEECH ASSISTANT Primary Care Provider [phone] Encounter Details Date Type Department Care Team (Late st Contact Info) Description 05/10/2017 Orders Only [facility] [address] [place] [address] Britni Horn MD [address] [place] [address] Bilateral carotid artery occlusion (Primary Dx) Social History Tobacco Use Types Packs/Day Years Used Date Smoking Tobacco: Never Smokeless Tobacco: Never Alcohol Use Standard Drinks/Week Comments No 0 (1 standard drink = 0.6 oz pur e alcohol) Comments No Sex and Gender Information Value Date Recorded Sex Assigned at Not on file 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 SOLUTION MANAGER Gender Identity Not on file Sexual [...] COVID: Suspected 09/12/2022 09/12/2022 09/12/2022 8:14 PM LOGISTICS SOLUTION MANAGER COVID: Suspected 01/19/2023 01/19/2023 01/19/2023 3:44 PM CDT documented as of this encounter Care Teams Geodetic Advisor Relationship Specialty Start Date End Date Britni Horn MD PCP - General 11/06/16 05/18/22 Prasanna Ochoa MD PCP - General Cardiology 06/08/22 07/15/22 Ale Zheng NP [address] [place] [address] PCP - General Nurse Practitioner 07/16/22 09/28/23 Unknown, Notinfile PCP - General 09/29/23 08/13/24 Darlin Lazcano NP [address] [place] [address] PCP - General Family Medicine 08/14/24 Cornelius Padilla MD [address] [facility] [address] [place] [address] Internal Medicine 03/16/17 Trev Medeiros MD [address] [place] [address] [address] [place] [address] Cardiovascular Disease 03/16/17 Fam Conteh MD [address] [place] [address] [address] [place] [place] [address] [address] Surgeon Orthopedic Surgery 05/26/17 Andrew Alcala DPM [address] [place] [address] [address] [place] [address] [address] Consulting Physician Orthotics 06/25/17 Carmencita Hammer MD [address] [place] [address] [address] [place] [address] [address] Ophthalmology 08/11/17 Sree Ramos MD [address] [place] [address] Consulting Physician Psychiatry 08/15/18 Akshat Dukes MD [address] [place] [address] Surgeon Orthopedic Surgery 12/09/18 Akshat Montano DO [address] [facility] [address] [place] [address] Cardiovascular Disease 12/09/18 0 Gabriele Phillips DO [address] [facility] [address] [place] [place] [address] Consulting Physician Cardiology 03/25/20 06/02/21 Marley Moore MD [address] [place] [address] Consulting Physician Cardiology 06/03/21 Jessie Walker DO [address] [place] [address] Consulting Physician Obstetrics and Gynecology 07/18/21 Miscellaneous, Not In File 09/04/21 documented as of this encounter
--- OUTSIDE RECORDS SUMMARY | 2025-03-14 12:23 | XMS_ITS | Encounter Summary ---
Author Organization [facility] ts Address [address] [place] [address] Phone Care Team Providers Care Outpatient Interviewing Clerk Name Role Phone Britni Horn MD Primary Care Provider + [phone] Cornelius Padilla MD Unavailable [phone] Trev Medeiros MD Unavailable [phone] Fam Conteh MD Unavailable [phone] Andrew AlcalaM Unavailable [phone] Carmencita Hammer MD Unavailable [phone] Sree Ramos MD Unavailable Akshat Dukes MD Unavailable [phone] Akshat Montano DO Unavailable Gabriele Phillips DO Unavailable Marley Moore MD Unavailable Jessie Walker DO Unavailable Miscellaneous, Not In File Unavailable Unava ilable Prasanna Ochoa MD Primary Care Provider Stone, Crystal Helene RESEARCH QUALITY ASSURANCE ANALYST Primary Care Provider [phone] Unknown, Notinfile Primary Care Provider Unavail able Darlin Lazcano RESEARCH QUALITY ASSURANCE ANALYST Primary Care Provider [phone] Encounter Details Date Type Department Care Team (Late st Contact Info) Description 04/20/2017 Orders Only [facility] [address] [place] [address] Britni Horn MD [address] [place] [address] Personal history of colonic polyps (Primary Dx) Social History Tobacco Use Types Packs/Day Years Used Date Smoking Tobacco: Never Smokeless Tobacco: Never Alcohol Use Standard Drinks/Week Comments No 0 (1 standard drink = 0.6 oz pur e alcohol) Comments No Sex and Gender Information Value Date Recorded Sex Assigned at Not on file Legal Sex Female 2:35 PM CALCIMINER Gender Identity Not on file Sexual Orientation Not on file documented as of this encounter Plan of Treatment Not on file documented as of this encounter Visit Diagnoses Diagnosis Personal history of colonic polyps- Primary documented in this encounter Additional Health Concerns Infection Onset Date Last Indicated Resolved Time 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 05/07/2022 11/03/2022 3:05 AM CDT COVID: Suspected 09/12/2022 09/12/2022 09/12/2022 8:14 PM CALCIMINER COVID: Suspected 01/19/2023 01/19/2023 01/19/2023 3:44 PM CDT documented as of this encounter Care Teams Outpatient Interviewing Clerk Relationship Specialty Start Date End Date Britni Horn MD PCP - General 11/06/16 05/18/22 Prasanna Ochoa MD PCP - General Cardiology 06/08/22 07/15/22 Ale Zheng NP [address] [place] [address] PCP - General Nurse Practitioner 07/16/22 09/28/23 Unknown, Notinfile PCP - General 09/29/23 08/13/24 MichaelmelaniDarlin oconnorOMAR [address] [place] [address] PCP - General Family Medicine 08/14/24 Cornelius Padilla MD [address] [facility] [address] [place] [address] Internal Medicine 03/16/17 Trev Medeiros MD [address] [place] [address] [address] [place] [address] Cardiovascular Disease 03/16/17 Fam Conteh MD [address] [place] [address] [address] [place] [place] [address] [address] Surgeon Orthopedic Surgery 05/26/17 Andrew Alcala, KANDIM [address] [place] [address] [address] [place] [address] Consulting Physician Orthotics 06/25/17 Carmencita Hammer MD [address] [place] [address] [address] [place] [address] Ophthalmology 08/11/17 Sree Ramos MD [address] [place] [address] Consulting Physician Psychiatry 08/15/18 Akshat Dukes MD [address] [place] [address] Surgeon Orthopedic Surgery 12/09/18 Akshat Montano DO [address] [facility] [address] [place] [address] Cardiovascular Disease 12/09/18 0 Gabriele Phillips DO [address] [facility] [address] [place] [address] Consulting Physician Cardiology 03/25/20 06/02/21 Marley Moore MD [address] [place] [address] Consulting Physician Cardiology 06/03/21 Jessie Walker DO [address] [place] [address] Consulting Physician Obstetrics and Gynecology 07/18/21 Miscellaneous, Not In File 09/04/21 documented as of this encounter
--- OUTSIDE RECORDS SUMMARY | 2025-03-14 12:23 | XMS_ITS | Encounter Summary ---
Author Organization [facility] ts Address [address] [place] [address] Phone Care Team Providers Care Rehabilitation Inspector Name Role Phone Britni Horn MD Primary Care Provider + [phone] Cornelius Padilla MD Unavailable +[phone] Trev Medeiros MD Unavailable [phone] Fam Conteh MD Unavailable [phone] Andrew AlcalaM Unavailable [phone] Carmencita Hammer MD Unavailable [phone] Sree Ramos MD Unavailable Akshat Dukes MD Unavailable [phone] Akshat Montano DO Unavailable Gabriele Phillips DO Unavailable [phone] Marley Moore MD Unavailable Jessie Walker DO Unavailable Miscellaneous, Not In File Unavailable Unava ilable Prasanna Ochoa MD Primary Care Provider Stone, Crystal Helene LEASE ANALYST Primary Care Provider [phone] Unknown, Notinfile Primary Care Provider Unavail able Darlin Lazcano LEASE ANALYST Primary Care Provider Encounter Details Date Type Department Care Team (Late st Contact Info) Description 06/02/2017 Orders Only [facility] [address] [place] [address] Britni Horn MD [address] [place] [address] Other specified hearing loss, bilateral (Primary Dx); Impingement syndrome of left shoulder Social History Tobacco Use Types Packs/Day Years Used Date Smoking Tobacco: Never Smokeless Tobacco: Never Alcohol Use Standard Drinks/Week Comments No 0 (1 standard drink = 0.6 oz pur e alcohol) Comments No Sex and Gender Information Value Date Recorded Sex Assigned at Not on file Legal Sex Female 2:35 PM ASSOCIATE SOFTWARE 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 ENGINEER Gender Identity Not on file Sexual Orientation [...] COVID: Suspected 09/12/2022 09/12/2022 09/12/2022 8:14 PM ASSOCIATE SOFTWARE DEVELOPMENT ENGINEER COVID: Suspected 01/19/2023 01/19/2023 01/19/2023 3:44 PM CDT documented as of this encounter Care Teams Rehabilitation Inspector Relationship Specialty Start Date End Date Britni Horn MD PCP - General 11/06/16 05/18/22 Prasanna Ochoa MD PCP - General Cardiology 06/08/22 07/15/22 Ale Zheng NP [address] [place] [address] PCP - General Nurse Practitioner 07/16/22 09/28/23 Unknown, Notinfile PCP - General 09/29/23 08/13/24 MichaelmelanistefanoDarlinOMAR [address] [place] [address] PCP - General Family Medicine 08/14/24 Cornelius Padilla MD [address] [facility] [address] [place] [address] Internal Medicine 03/16/17 Trev Medeiros MD [address] [facility] [address] [place] [address] Cardiovascular Disease 03/16/17 Fam Conteh MD [address] [facility] [address] [place] [address] Surgeon Orthopedic Surgery 05/26/17 Andrew Alcala, DPM [address] [facility] [address] [place] [address] Consulting Physician Orthotics 06/25/17 Carmencita Hammer MD [address] [facility] [address] [place] [address] Ophthalmology 08/11/17 Sree Ramos MD [address] [place] [address] Consulting Physician Psychiatry 08/15/18 Akshat Dukes MD [address] [place] [address] Surgeon Orthopedic Surgery 12/09/18 Akshat Montano DO [address] [facility] [address] [place] [address] Cardiovascular Disease 12/09/18 0 Gabriele Phillips DO [address] [facility] [address] [place] [address] Consulting Physician Cardiology 03/25/20 06/02/21 Marley Moore MD [address] [place] [address] Consulting Physician Cardiology 06/03/21 Jessie Walker DO [address] [place] [address] Consulting Physician Obstetrics and Gynecology 07/18/21 Miscellaneous, Not In File 09/04/21 documented as of this encounter
--- OUTSIDE RECORDS SUMMARY | 2025-03-14 12:23 | XMS_ITS | Encounter Summary ---
Author Organization [facility] ts Address [address] [place] [address] Phone Care Team Providers Care Stair Builder Name Role Phone Britni Horn MD Primary Care Provider + [phone] Cornelius Padilla MD Unavailable +[phone] Trev Medeiros MD Unavailable +[phone] Fam Conteh MD Unavailable [phone] Andrew AlcalaM Unavailable [phone] Carmencita Hammer MD Unavailable [phone] Sree Ramos MD Unavailable Akshat Dukes MD Unavailable [phone] Marley Moore MD Unavailable [phone] Jessie Walker DO Unavailable [phone] Miscellaneous, Not In File Unavailable Unava ilable Prasanna Ochoa MD Primary Care Provider Ale Zheng TEXTILE COLORIST FORMULATOR Primary Care Provider + [phone] Unknown, Notinfile Primary Care Provider Unavail able Darlin Lazcano TEXTILE COLORIST FORMULATOR Primary Care Provider [phone] Encounter Details Date Type Department Care Team (Late st Contact Info) Description 06/26/2021 Orders Only [facility] [address] [place] [id number] Britni Horn MD [address] [place] [address] Social History Tobacco Use Types Packs/Day Years [...] on file Legal Sex Female 2:35 PM HEALTH CARE FACILITIES INSPECTOR Gender Identity Not on file Sexual [...] encounter Results * SCAN - LABS (06/26/2021) Britni Horn MD Final Resu lt documented in this encounter Visit Diagnoses Not on filedocumented in this encounter Additional Health Concerns Infection Onset Date Last Indicated Resolved Time 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 05/07/2022 11/03/2022 3:05 AM CDT COVID: Suspected 09/12/2022 09/12/2022 09/12/2022 8:14 PM HEALTH CARE FACILITIES INSPECTOR COVID: Suspected 01/19/2023 01/19/2023 01/19/2023 3:44 PM CDT documented as of this encounter Care Teams Stair Builder Relationship Specialty Start Date End Date Britni Horn MD PCP - General 11/06/16 05/18/22 Prasanna Ochoa MD PCP - General Cardiology 06/08/22 07/15/22 Ale Zheng, TEXTILE COLORIST FORMULATOR [address] [place] [address] PCP - General Nurse Practitioner 07/16/22 09/28/23 Unknown, Notinfile PCP - General 09/29/23 08/13/24 Darlin Lazcano, OMAR [address] [place] [address] PCP - General Family Medicine 08/14/24 Cornelius Padilla MD [address] [facility] [place] [address] Internal Medicine 03/16/17 Trev Medeiros MD [address] [facility] [place] [address] Cardiovascular Disease 03/16/17 Fam Conteh MD [address] [facility] [address] [place] [address] [address] Surgeon Orthopedic Surgery 05/26/17 Andrew Alcala DPM [address] [facility] [address] [facility] [address] [place] [address] Consulting Physician Orthotics 06/25/17 Carmencita Hammer MD [address] [facility] [address] [place] [address] Ophthalmology 08/11/17 Sree Ramos MD [address] [place] [address] Consulting Physician Psychiatry 08/15/18 Akshat Dukes MD [address] [place] [address] Surgeon Orthopedic Surgery 12/09/18 Marley Moore MD [address] [place] [address] Consulting Physician Cardiology 06/03/21 Jessie Walker DO [address] [place] [address] Consulting Physician Obstetrics and Gynecology 07/18/21 Miscellaneous, Not In File 09/04/21 documented as of this encounter
--- OUTSIDE RECORDS SUMMARY | 2025-03-14 12:23 | XMS_ITS | Encounter Summary ---
Author Organization [facility] ts Address [address] [place] [address] Phone Care Team Providers Care Hot Dip Galvanizer Name Role Phone Britni Horn MD Primary Care Provider + [phone] Cornelius Padilla MD Unavailable [phone] Trev Medeiros MD Unavailable [phone] Fam Conteh MD Unavailable [phone] Andrew AlcalaM Unavailable [phone] Carmencita Hammer MD Unavailable [phone] Sree Ramos MD Unavailable Akshat Dukes MD Unavailable [phone] Akshat Montano DO Unavailable Gabriele Phillips DO Unavailable Marley Moore MD Unavailable Jessie Walker DO Unavailable Miscellaneous, Not In File Unavailable Unava ilable Prasanna Ochoa MD Primary Care Provider Stone, Crystal Helene FOREIGN LANGUAGE STENOGRAPHER Primary Care Provider [phone] Unknown, Notinfile Primary Care Provider Unavail able Darlin Lazcano FOREIGN LANGUAGE STENOGRAPHER Primary Care Provider [phone] Encounter Details Date Type Department Care Team (Late st Contact Info) Description 06/25/2017 Orders Only [facility] [address] [place] [address] Britni Horn MD [address] [place] [address] Dystrophia unguium (Primary Dx) Social History Tobacco Use Types Packs/Day Years Used Date Smoking Tobacco: Never Smokeless Tobacco: Never Alcohol Use Standard Drinks/Week Comments No 0 (1 standard drink = 0.6 oz pur e alcohol) Comments No Sex and Gender Information Value Date Recorded Sex Assigned at Not on file Legal Sex Female 2:35 PM PROPERTY DISPOSAL MANAGER Gender Identity Not on file Sexual [...] COVID: Suspected 09/12/2022 09/12/2022 09/12/2022 8:14 PM PROPERTY DISPOSAL MANAGER COVID: Suspected 01/19/2023 01/19/2023 01/19/2023 3:44 PM CDT documented as of this encounter Care Teams Hot Dip Galvanizer Relationship Specialty Start Date End Date Britni Horn MD PCP - General 11/06/16 05/18/22 Prasanna Ochoa MD PCP - General Cardiology 06/08/22 07/15/22 Ale Zheng NP [address] [place] [address] PCP - General Nurse Practitioner 07/16/22 09/28/23 Unknown, Notinfile PCP - General 09/29/23 08/13/24 Darlin Lazcano NP [address] [place] [address] PCP - General Family Medicine 08/14/24 Cornelius Padilla MD [address] [facility] [address] [place] [address] Internal Medicine 03/16/17 Trev Medeiros MD [address] [place] [address] [address] [place] [address] Cardiovascular Disease 03/16/17 Fam Conteh MD [address] [place] [address] [address] [place] [address] [address] Surgeon Orthopedic Surgery 05/26/17 Andrew Alcala DPM [address] [place] [address] [address] [address] Consulting Physician Orthotics 06/25/17 Carmencita Hammer MD [address] [place] [address] [address] [place] [address] Ophthalmology 08/11/17 Sree Ramos MD [address] [place] [address] Consulting Physician Psychiatry 08/15/18 Akshat Dukes MD [address] [place] [address] Surgeon Orthopedic Surgery 12/09/18 Akshat Montano DO [address] [facility] [address] [place], [place] [address] [address] Cardiovascular Disease 12/09/18 0 Gabriele Phillips DO [address] [facility] [address] [place] [address] Consulting Physician Cardiology 03/25/20 06/02/21 Marley Moore MD [address] [place] [address] Consulting Physician Cardiology 06/03/21 Jessie Walker DO [address] [place] [address] Consulting Physician Obstetrics and Gynecology 07/18/21 Miscellaneous, Not In File 09/04/21 documented as of this encounter
--- OUTSIDE RECORDS SUMMARY | 2025-03-14 12:23 | XMS_ITS | Clinical Summary ---
Author Organization [facility] Address [address] [place] [address] Care Team Providers Care Shift Coordinator Name Role Phone Cornelius Padilla MD Unavailable [phone] Reagan Medeiros MD Unavailable [phone] Fam Conteh MD Unavailable [phone] Andrew Alcala DPM Unavailable [phone] Carmencita Hammer MD Unavailable [phone] Sree Ramos MD Unavailable Akshat Dukes MD Unavailable [phone] Marley Moore MD Unavailable [phone] Mitesh Walker DO Unavailable [phone] Miscellaneous, Not In File Unavailable Unava ilable Darlin Lazcano NP Primary Care Provider [phone] Allergies Active Allergy Reactions Criticality Noted Date Comments Amoxicillin Itching High 01/18/2019 Donepezil Vomiting Low 03/11/2018 Penicillins Itching Low Medications cyanocobalamin (Vitamin B-12) 1,000 mcg tabletIndication s:Late onset Alzheimer's dementia without behavioral disturbance Take 1 tablet (1,000 mcg total) by [...] s:Late onset Alzheimer's dementia without behavioral disturbance Take 1 tablet (10 mg total) by mouth 2 (two) times a day 180 tablet 1 2 Active rivastigmine (EXELON) 3 mg capsuleIndicatio ns:Late onset Alzheimer's dementia without behavioral disturbance Take 1 capsule (3 mg total) by [...] 12, Assessment & Plan (08/11/2019 12:11 PM JAVASCRIPT PROGRAMMER): She continues to follow with Dr. Ramos [...] tricuspid regurgitation. Electronically Signed By:Tre Dumont MD, [id number] 12:58:17 JAVASCRIPT PROGRAMMER Aortic valve defect Noted 1st in 2007. [...] Synthroid Assessment & Plan (08/11/2019 12:12 PM JAVASCRIPT PROGRAMMER): Remains on statin therapy. Will repeat LDL prior to next visit Primary hypertension 11/21/2012 Overview (11/12/2016): Hypertension, benign Assessment & Plan (05/07/2022 7:44 PM CDT): Blood pressure is stable. Continue metoprolol. Assessment & Plan (08/11/2019 12:13 PM JAVASCRIPT PROGRAMMER): Blood pressure well controlled. Will continue to monitor. BMP prior to annual visit Adverse effect of anticoagulant Benign tumor of uterine fundus Resolved Problems Problem Noted Date Diagnosed Date Resolved Date Vaginal bleeding 08/30/2021 09/05/2021 Post-menopausal bleeding 07/08/2021 Assessment & Plan (07/08/2021 7:50 AM JAVASCRIPT PROGRAMMER): Patient presents today with her daughter. Patient [...] 03/25/2020 Assessment & Plan (09/19/2019 2:34 PM JAVASCRIPT PROGRAMMER): Appears mechanical in nature as patient reports [...] 03/25/2020 Assessment & Plan (09/19/2019 3:32 PM JAVASCRIPT PROGRAMMER): Contusion noted s/p fall. Appears to be [...] 11/06/2023 Assessment & Plan (08/11/2019 12:12 PM JAVASCRIPT PROGRAMMER): Remains on replacement therapy. 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 Alcala authorized, Mercedes cannot trim her own toenails PSVT (paroxysmal supraventri cular tachycardia) 05/26/2017 06/26/2017 Overview (05/26/2017): 21 day CardioNetDATE OF EXAM: Apr 23 2017 IMPRESSION:CARDIONET MONITORING REPORT Marianna Long was monitored for 20 days. There were [...] TSH Hx Other Medical [address] Hx Other Medical bilateral corat id, neg [...] Apr 23 2017 IMPRESSION:CARDIONET MONITORING REPORT Marianna Long was monitored for 20 days. There were [...] drink = 0.6 oz pur e alcohol) [facility] Utilities Answer Date Recorded In the past 12 months has [employer], gas, oil, or water company threatened to shut off services in your [...] often do you attend chur ch or hindu services? More than 4 times per year 11/08/2023 Do you belong to any clubs o r organizations such as judaism groups, unions, fraternal or athletic groups, or [...] place to sleep or slept in a fdc (including now)? No 11/08/2023 PHQ-9 Answer Date [...] on file Legal Sex Female 2:35 PM JAVASCRIPT PROGRAMMER Gender Identity Not on file Sexual Orientation Not on file Occupation Industry Job Start Date Job End Date retired Not on file Not on file Not on file Obstetrics History Last Filed Vital Signs Vital Sign Reading Time Taken Comments Blood Pressure 151/97 10/09/2024 1:21 PM JAVASCRIPT PROGRAMMER Pulse 75 10/09/2024 1:21 PM JAVASCRIPT PROGRAMMER Temperature 37.1 C (98.8 F) 12/02/2023 5:26 PM CDT Respiratory Rate 18 10/09/2024 1:21 PM JAVASCRIPT PROGRAMMER Oxygen Saturation 95% 12/02/2023 5:26 PM CDT Inhaled Oxygen Concentration - - Weight 83.9 kg (185 lb) 02/03/2024 1:33 PM CDT Height 160 cm (5' 3) 10/09/2024 1:21 PM JAVASCRIPT PROGRAMMER Body Mass Index 32.26 02/03/2024 1:33 PM [...] 2024 11/20/2021, 06/05/2021, 10/02/2020, Additional history exists Depression Screening 11/04/2024 11/05/2023, 11/05/2023, 01/22/2022, Additional history exists Fall Risk Assessment 12/01/2024 12/02/2023, 01/22/2022, 12/02/2020, Additional history exists Influenza Vaccine (#1) 2025 , 05/11/2021, 05/26/2019, Additional history exists Pneumococcal vaccine 65+ Completed 019, 08/11/2017, 08/06/2014, Additional history exists Medical Devices Implanted Type Area Tire And Lube Technician Device Identifier Shelf Expiration Date Model / Serial / Lot Mi Lifesciences Valve Aortic Trnscath Maryam 3 Ultra Resilia 23mm [id number] - [id number] - [id number] Implanted:Qty: 1 on 12/01/2023 by Cuauhtemoc Faulkner MD at [facility] Prosthetic Valve N/A: Heart Mi Lifesciences 01/06/2026 [id number] / [id number] / CoachUp Angio-Seal Vip 6fr Closere Device [id number] - [id number] Implanted:Qty: 1 on 11/10/2023 by [facility] [id number] / / Miller Vascular Device Clsr Perclose Prostyle Sut-Mediatd Closure-Repair Sys 04441-36 - [id number] Implanted:Qty: 1 on 12/01/2023 by Cuauhtemoc Faulkner MD at [facility] N/A: Heart Miller Vascular 09/08/2025 [id number] / / [id number] Miller Vascular Device Clsr Perclose Prostyle Sut-Mediatd Closure-Repair Sys 85080-35 - [id number] Implanted:Qty: 1 on 12/01/2023 by Cuauhtemoc Faulkner MD at [facility] N/A: Heart [employer] 09/08/2025 [id number] / / [id number] Miller Vascular Device Clsr Perclose Prostyle Sut-Mediatd Closure-Repair Sys 83194-41 - [id number] Implanted:Qty: 1 on 12/01/2023 by Cuauhtemoc Faulkner MD at [facility] [employer] 08/08/2025 [id number] / / [id number] CoachUp Angio-Seal Vip 6fr Closere Device [id number] - [id number] Implanted:Qty: 1 on 12/01/2023 by Cuauhtemoc Faulkner MD at [facility] [id number] / / Insurance COVENTRY ADVANTRA TNA MEDICARE GOLD COVENTRY ADVANTRA [facility]NA [facility] MEDIC[facility] GOLD AETNA MEDICARE GOLD [facility] Advance Directives For more information, please contact: [phone] Documents on File Type Date Recorded Patient Uke Operator Expl anation ADVANCE DIRECTIVE 11/05/2023 11:42 PM Ryland r of Retail Analyst-Medical ADVANCE DIRECTIVE 11/05/2023 11:40 PM LIFE SUSTANING [...] refridgerator, no cpr, no intubation Care Teams Shift Coordinator Relationship Specialty Start Date End Date Darlin Lazcano NP [address] [place] [address] PCP - General Family Medicine 08/14/24 Cornelius Padilla MD [address] [place] [address] [address] [place] [address] Internal Medicine 03/16/17 Reagan Medeiros MD [address] [place] [address] [address] [place] [address] Cardiovascular Disease 03/16/17 Fam Conteh MD [address] [place] [address] [address] [place] [address] Surgeon Orthopedic Surgery 05/26/17 Andrew Alcala, DPM [address] [facility] [address] [place] [address] [place] [address] Consulting Physician Orthotics 06/25/17 Carmencita Hammer MD [address] [facility] [address] [place] [address] [place] [address] Ophthalmology 08/11/17 Sree Ramos MD [address] [place] [address] Consulting Physician Psychiatry 08/15/18 Akshat Dukes MD [address] [place] [address] Surgeon Orthopedic Surgery 12/09/18 Marley Moore MD [facility] [place] [address] Consulting Physician Cardiology 06/03/21 Mitesh Walker DO [address] [address] Consulting Physician Obstetrics and Gynecology 07/18/21 Miscellaneous, Not In File 09/04/21
[2025-03-14 12:28] LABS: Giant Platelets Present; Schistocytes None Seen
[2025-03-14 12:45] VITALS: BP 124/65; PULSE 62; RESP 20; O2SAT 96
[2025-03-14 13:38] VITALS: BP 137/65; PULSE 60; RESP 19; O2SAT 100
--- NOTE | 2025-03-14 14:08 | ED_ITS ---
HPI - General Adult General Chief complaint: Extremity Problem,Nontraumatic Stated complaint: RLE redness and swelling Time Seen by Provider: 03/14/25 10:25 History of Present Illness HPI narrative: Patient is an 84-year-old female who presents ER with redness the right lower extremity. She is demented and cannot provide history. She had a lower extremity Doppler that showed peripheral arterial disease recently she started on doxycycline. She continues had the redness and swelling so she was sent here for further evaluation. She is resting comfortably. Family present without additional concerns. No pustules. Related Data Home Medications ?Medication ?Instructions ?Recorded ?Confirmed ?Last Taken ?Type apixaban 5 mg tablet (Eliquis) 5 mg PO BID 06/26/21 06/26/21 Unknown History cholecalciferol (vitamin D3) 125 See Rx Instructions .Route .COMPLEX 06/26/21 06/26/21 Unknown History mcg (5,000 unit) capsule (Dialyvite Vitamin D) cyanocobalamin (vitamin B-12) 1,000 mcg PO DAILY 06/26/21 06/26/21 Unknown History 1,000 mcg tablet diclofenac sodium 1 % topical gel See Rx Instructions .Route .COMPLEX 06/26/21 06/26/21 Unknown History docosahexaenoic acid (dha)-epa cap PO 06/26/21 Unknown History capsule levothyroxine 50 mcg tablet 50 mcg PO DAILY 06/26/21 06/26/21 Unknown History memantine 10 mg tablet 10 mg PO BID 06/26/21 06/26/21 Unknown History pravastatin 80 mg tablet 80 mg PO DAILY 06/26/21 06/26/21 Unknown History rivastigmine tartrate 3 mg capsule 3 mg PO DAILY 06/26/21 06/26/21 Unknown History turmeric 100 mg-adrian 150 See Rx Instructions .Route .COMPLEX 06/26/21 06/26/21 Unknown History mg-olive 50 mg-oreg 150 mg-capryl capsule Allergies Allergy/AdvReac Type Severity Reaction Status Date / Time Penicillins Allergy Unknown Verified 03/14/25 10:11 amoxicillin AdvReac Unknown Unknown Verified 03/14/25 10:11 donepezil AdvReac Unknown Unknown Verified 03/14/25 10:11 Review of Systems 2 Review of Systems: ROS unobtainable: Yes unobtainable due to mental status PMFSH Past Medical History Medical History Atrial fibrillation Hypothyroidism TIA (transient ischemic attack) Dementia Exam 2 Narrative: GENERAL: Well-appearing, well-nourished, and in no acute distress. HEAD: Normocephalic, atraumatic. ENT: Mucous membranes moist. NECK: Supple. CHEST: Clear to auscultation. No respiratory distress. HEART: Regular rate and rhythm. Normal peripheral pulses. ABDOMEN: Soft, nontender, nondistended, normal active bowel sounds. EXTREMITIES: Normal range of motion. +2 edema right lower extremity. SKIN: Warm, dry. Erythema and tenderness right lower extremity at the calf. Warmth palpated. NEURO: at neurologic baseline Course Course Emergency Course: Workup unremarkable. Ultrasound does not show any DVT. Will place Italo wrap on lower extremity. Vital Signs Vital signs: Vital Signs Temperature 97.8 F 03/14/25 10:03 Pulse Rate 65 03/14/25 10:03 Blood Pressure 123/38 L 03/14/25 10:03 Pulse Oximetry 97 03/14/25 10:03 Oxygen Delivery Room Air 03/14/25 10:03 Temperature 97.8 F 03/14/25 10:03 Pulse Rate 60 03/14/25 13:38 Respiratory Rate 19 03/14/25 13:38 Blood Pressure 137/65 03/14/25 13:38 Pulse Oximetry 100 03/14/25 13:38 Oxygen Delivery Room Air 03/14/25 10:03 Medical Decision Making Vital Signs Vital Signs: Vital Signs Temperature 97.8 F 03/14/25 10:03 Pulse Rate 65 03/14/25 10:03 Blood Pressure 123/38 L 03/14/25 10:03 Pulse Oximetry 97 03/14/25 10:03 Oxygen Delivery Room Air 03/14/25 10:03 Temperature 97.8 F 03/14/25 10:03 Pulse Rate 60 03/14/25 13:38 Respiratory Rate 19 03/14/25 13:38 Blood Pressure 137/65 03/14/25 13:38 Pulse Oximetry 100 03/14/25 13:38 Oxygen Delivery Room Air 03/14/25 10:03 Lab Data 03/14/25 11:16 03/14/25 11:16 Labs: Lab Results 08/06/25 Range/Units 11:16 WBC 9.6 (4.5-10.0) K/mm3 RBC 4.28 (4.2-5.4) M/mm3 Hgb 13.3 (12.0-15.0) g/dL Hct 40.3 (37.0-47.0) % MCV 94.2 (80-100) fl MCH 31.1 (26-34) pg MCHC 33.0 (32-36) g/dl RDW 14.5 (11.5-14.5) % Plt Count 112 L (150-375) k/mm3 MPV 13.4 H (7.4-10.4) fl Immature Gran % (Auto) 0.4 (0-0.5) % Neut % (Auto) 63.5 (45.5-73.1) % Lymph % (Auto) 21.3 (18.3-44.2) % [place] % (Auto) 11.2 H (2.6-8.5) % Eos % (Auto) 3.1 (0-4.4) % Baso % (Auto) 0.5 (0.2-1.2) % Lymph # (Auto) 2.03 (0.9-3.2) K/mm3 [place] # (Auto) 1.1 H (0.1-0.6) K/mm3 Eos # (Auto) 0.3 (0-0.3) K/mm3 Baso # (Auto) 0.1 (0.0-0.1) K/mm3 Abs Immat Gran (auto) 0.04 H (0.00-0.031) K/mm3 Absolute Neuts (auto) 6.1 (1.3-6.7) K/mm3 Absolute Nucleated RBC 0.000 (0.0-0.012) K/mm3 Band Neutrophils % Not Reportable Nucleated RBC % 0.0 (0.0-0.2) % Platelet Estimate Slightly decreased (Adequate) Large Platelets Present Giant Platelets Present % Immature Plt Fraction 15.5 H (0.9-11.2) % Schistocytes None seen PT 18.4 H (11.1-14.7) Seconds INR 1.6 APTT 34.2 (22.3-36.8) Seconds Sodium 139 (137-145) mmol/L Potassium 4.5 (3.4-5.0) mmol/L Chloride 104 (98-107) mmol/L Carbon Dioxide 29 (22-30) mmol/L Anion Gap 6 (4-12) mmol/L BUN 20 H (7-17) mg/dL Creatinine 0.93 (0.7-1.0) mg/dL Estim Creat Clear Calc 41 ml/min Estimated GFR 57 L (59 - ) Glucose 125 H (65-110) mg/dL Calcium 9.4 (8.4-10.2) mg/dL Discharge Plan Discharge Clinical Impression: Cellulitis Patient Disposition: Home Condition: Stable Instructions: Cellulitis (ED) Additional Instructions: Continue the doxycycline. There is no DVT in the leg. Your white blood cell count was normal. Her other lab work was also unremarkable. Patient Language: Bhutanese Prescriptions: No Action cyanocobalamin (vitamin B-12) 1,000 mcg tablet 1,000 mcg PO DAILY pravastatin 80 mg tablet 80 mg PO DAILY levothyroxine 50 mcg tablet 50 mcg PO DAILY rivastigmine tartrate 3 mg capsule 3 mg PO DAILY memantine 10 mg tablet 10 mg PO BID diclofenac sodium 1 % gel See Rx Instructions .ROUTE .COMPLEX Rx Instructions: as prescribed Eliquis 5 mg tablet 5 mg PO BID nitrofurantoin monohyd/m-cryst [Macrobid] 100 mg capsule 100 mg PO Q12H 7 Days Qty: 14 0RF Rx Instructions: must administer with a meal/food cholecalciferol (vitamin D3) [Dialyvite Vitamin D] 125 mcg (5,000 unit) Capsule See Rx Instructions .ROUTE .COMPLEX Rx Instructions: per family EPA Fish Oil Capsule PO [id number]-llxse-oreg-capry 100 mg-150 mg- 50 mg-150 mg Capsule See Rx Instructions .ROUTE .COMPLEX Rx Instructions: per family ciprofloxacin HCl [Cipro] 500 mg tablet 500 mg PO Q12H Qty: 10 0RF cephalexin 500 mg capsule 500 mg PO Q12H 7 Days Qty: 14 0RF Follow-up/Referrals: UNKNOWN,DOCTOR [Primary Care Provider] - 1 Week
== END 2025-03-14 16:56 ==
PROVIDERS: Emergency Provider Emergency Medicine
DX: L03.115 Cellulitis of right lower limb (principal); I73.9 Peripheral vascular disease, unspecified; I48.91 Unspecified atrial fibrillation; F03.90 Unspecified dementia, unspecified severity, without behavioral disturbance, psychotic disturbance, mood disturbance, and anxiety; E03.9 Hypothyroidism, unspecified; Z86.73 Personal history of transient ischemic attack (TIA), and cerebral infarction without residual deficits; Z79.01 Long term (current) use of anticoagulants; Z79.899 Other long term (current) drug therapy
CPT/HCPCS: 36415; 80048; 85025; 85055; 85610; 85730; 93971; 99284

== ENCOUNTER 2025-03-18 11:59 | Inpatient (IN) | payer MEDICARE, SELFPAY ==
[2025-03-18] VITALS (11 sets, daily range): BP systolic 94–126; BP diastolic 45–65; PULSE 57–82; RESP 13–20; TEMP 36.6–37; O2SAT 92–99; BMI 33.0
--- NOTE | ~2025-03-18 | XR_ITS ---
EXAMINATION: XR chest 1V portable DATE: 03/22/2025 12:39 INDICATION: Wheezing. Somnolent TECHNIQUE: A single portable AP semiupright frontal image of the chest was obtained. COMPARISON: Chest radiograph dated 03/18/2025 FINDINGS: Cardiomediastinal silhouette is enlarged, unchanged. Stent projects over the mediastinum similar to t he prior study. No pneumothorax. No pleural effusion. No free air in the diaphragm. Small opacities in the mid and lower lungs similar to the prior study from 03/18/2025. IMPRESSION: 1. Small opacities in the mid and lower lungs similar to the prior study from 03/18/2025 2. No new focal pulmonary consolidation. Reviewed, dictated and finalized at location A. IMPRESSION: 1. Small opacities in the mid and lower lungs similar to the prior study from 2. No new focal pulmonary consolidation.
--- NOTE | ~2025-03-18 | CT_ITS ---
EXAMINATION: CT brain wo con DATE: 03/19/2025 11:21 INDICATION: Anticoagulated patient with head injury and 4 had bruising TECHNIQUE: Computed tomography (CT) of the head was performed without intravenous contrast. Sagittal and coronal reconstructions were performed. The mA was adjusted according to patient size. Iterative reconstruction technique was employed. The dose-length product was 605.33 mGy-cm. COMPARISON: head CT dated 10/27/2024 FINDINGS: No fracture. Unchanged small regions of encephalomalacia in the bilateral occipital lobes and right p arieto-occipital region. Additional small old lacunar infarct in the white matter of the posterior ri ght frontal lobe centrum semiovale. No acute intracranial hemorrhage, acute infarction or abnormal ex tra axial fluid collection. There is moderate scattered white matter hypoattenuation consistent with chronic small vessel ischemic disease. Ventricles are normal and symmetric. No mass/mass effect. Rivers ges of bilateral intraocular lens replacement. Bilateral medial sided senescent scleral calcification s. Mild mucosal thickening in the right maxillary sinus. Trace bilateral mastoid effusions. IMPRESSION: 1. No fracture or acute intracranial process. 2. 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 Reviewed, dictated and finalized at location A. IMPRESSION: 1. No fracture or acute intracranial process. 2. 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
--- NOTE | ~2025-03-18 | XR_ITS ---
EXAMINATION: XR chest 1V portable DATE: 03/18/2025 13:13 INDICATION: Cough and weakness TECHNIQUE: frontal view of the chest was obtained. COMPARISON: Chest CT dated 10/26/2024 FINDINGS: Small lung volumes. Mild opacities in the left lower lung zone which could represent atelectasis or p neumonia. No pleural effusion or pneumothorax. Heart size is normal. Aortic valve repair. Inferior le ft parasternal implantable campus monitor. Old healed fracture deformity at the left humeral neck. 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 IMPRESSION: 1. Small lung volumes with mild opacities at the left lower lung zone which could represent atelectas is or pneumonia. Reviewed, dictated and finalized at location A. IMPRESSION: 1. Small lung volumes with mild opacities at the left lower lung zone which cou ld represent atelectasis or pneumonia.
--- NOTE | ~2025-03-18 | CT_ITS ---
EXAMINATION: CT tibia/fibula RT wo con DATE: 03/19/2025 11:21 INDICATION: Right tibial cellulitis presenting with bruising, pain and swelling TECHNIQUE: High resolution computed tomography (CT) of the right lower leg from the knee through the ankle was performed without intravenous contrast. Additional sagittal and coronal reconstructions wer e performed. Automated exposure control and iterative reconstruction technique were employed. The dos e-length product was 956.68 mGy-cm. COMPARISON: None FINDINGS: Bone alignment is normal. No fracture. Mild osteoarthritis at the medial compartment of the right kne e. No knee or ankle joint effusions. There is diffuse subcutaneous edema throughout the right lower l eg most prominent at the junction of the mid to distal thirds at level of a 3.5 x 3.5 x 1.2 cm lentic ular region of soft tissue density in the subcutaneous fat overlying the anteromedial margin of the l eft tibia. Given the surrounding edema, the location and configuration with favor a small hematoma ov er solid neoplasm which is unable to be definitively distinguished in the absence of intravenous cont rast. However consider correlation with ultrasound. Mild likely age-related relatively uniform fatty atrophy of the musculature of the right lower leg. Scattered vascular calcifications along the arteri es of the right lower limb. IMPRESSION: 1. 3.5 x 2.5 x 1.2 cm lenticular soft tissue density with prominent surrounding subcutaneous edema ov erlying the anteromedial aspect of the mid to distal right tibia with differential including hematoma , abscess in the proper clinical setting or less likely solid neoplasm. Correlate clinically and coul d consider ultrasound to confirm complex fluid as clinically indicated. Reviewed, dictated and finalized at location A. IMPRESSION: 1. 3.5 x 2.5 x 1.2 cm lenticular soft tissue density with prominent surrounding subcutaneous edema overlying the anteromedial aspect of the mid to distal righ t tibia with differential including hematoma, abscess in the proper clinical se tting or less likely solid neoplasm. Correlate clinically and could consider ul trasound to confirm complex fluid as clinically indicated.
--- NOTE | 2025-03-18 12:18 | ECG_ITS ---
Test Date: 2025-03-18 12:22:49 Measurements Intervals [place] Rate: 67 P: 64 AK: 167 QRS: -11 QRSD: 127 T: 124 QT: 444 QTc: 470 Interpretive Statements SINUS RHYTHM LEFT BUNDLE BRANCH BLOCK BASELINE WANDER- V4 ABNORMAL ECG No previous ECG available for comparison Electronically Signed On 03-18-2025 12:39:58 CDT by Angelo Guerrero D.O.
--- OUTSIDE RECORDS SUMMARY | 2025-03-18 12:29 | XMS_ITS | Encounter Summary ---
Author Organization [facility] ts Address [address] [place] [address] Phone Care Team Providers Care Meter Readers Supervisor Name Role Phone Britni Horn MD Primary Care Provider + [phone] Cornelius Padilla MD Unavailable [phone] Trev Medeiros MD Unavailable [phone] Fam Conteh MD Unavailable [phone] Andrew AlcalaM Unavailable [phone] Carmencita Hammer MD Unavailable [phone] Sree Ramos MD Unavailable Akshat Dukes MD Unavailable [phone] Marley Moore MD Unavailable [phone] Jessie Walker DO Unavailable [phone] Miscellaneous, Not In File Unavailable Unava ilable Prasanna Ochoa MD Primary Care Provider Ale Zheng SUPERVISOR METAL PLACING Primary Care Provider + [phone] Unknown, Notinfile Primary Care Provider Unavail able Darlin Lazcano SUPERVISOR METAL PLACING Primary Care Provider [phone] Encounter Details Date Type Department Care Team (Late st Contact Info) Description 06/26/2021 Orders Only [facility] [address] [place] [id number] Britni Horn MD [address] [place] [address] Social History Tobacco Use Types Packs/Day Years [...] on file Legal Sex Female 2:35 PM PATTERN HAND Gender Identity Not on file Sexual Orientation [...] COVID: Suspected 09/12/2022 09/12/2022 09/12/2022 8:14 PM PATTERN HAND COVID: Suspected 01/19/2023 01/19/2023 01/19/2023 3:44 PM CDT documented as of this encounter Care Teams Meter Readers Supervisor Relationship Specialty Start Date End Date Britni Horn MD PCP - General 11/06/16 05/18/22 Prasanna Ochoa MD PCP - General Cardiology 06/08/22 07/15/22 Ale Zheng, SUPERVISOR METAL PLACING [address] [place] [address] PCP - General Nurse Practitioner 07/16/22 09/28/23 Unknown, Notinfile PCP - General 09/29/23 08/13/24 Darlin Lazcano, OMAR [address] [place] [address] PCP - General Family Medicine 08/14/24 Cornelius Padilla MD [address] [facility] [place] [address] Internal Medicine 03/16/17 Trev Medeiros MD [address] [facility] [place] [address] Cardiovascular Disease 03/16/17 Fam Conteh MD [address] [facility] [address] [address] Surgeon Orthopedic Surgery 05/26/17 Andrew Alcala DPM [address] [facility] [address] [facility] [address] [place] [address] Consulting Physician Orthotics 06/25/17 Carmencita Hammer MD [address] [facility] [address] [place] [address] Ophthalmology 08/11/17 Sree Ramos MD [address] [place] [address] Consulting Physician Psychiatry 08/15/18 Akshat Dukes MD [address] [place] [address] Surgeon Orthopedic Surgery 12/09/18 Marley Moore MD [address] [place] [address] Consulting Physician Cardiology 06/03/21 Jessie Walker DO [address] [place] [address] Consulting Physician Obstetrics and Gynecology 07/18/21 Miscellaneous, Not In File 09/04/21 documented as of this encounter
--- OUTSIDE RECORDS SUMMARY | 2025-03-18 12:29 | XMS_ITS | Encounter Summary ---
Author Organization [facility] ts Address [address] [place] [address] Phone Care Team Providers Care Word Processor Operator Name Role Phone Britni Horn MD Primary Care Provider + [phone] Cornelius Padilla MD Unavailable +[phone] Trev Medeiros MD Unavailable +[phone] Fam Conteh MD Unavailable [phone] Andrew AlcalaM Unavailable [phone] Carmencita Hammer MD Unavailable [phone] Sree Ramos MD Unavailable Akshat Dukes MD Unavailable [phone] Akshat Montano DO Unavailable Gabriele Phillips DO Unavailable [phone] Marley Moore MD Unavailable [phone] Jessie Walker DO Unavailable [phone] Miscellaneous, Not In File Unavailable Unava ilable Prasanna Ochoa MD Primary Care Provider Stone, Crystal Helene FINANCIAL AUDITOR Primary Care Provider [phone] Unknown, Notinfile Primary Care Provider Unavail able Darlin Lazcano FINANCIAL AUDITOR Primary Care Provider Encounter Details Date Type Department Care Team (Late st Contact Info) Description 04/20/2017 Orders Only [facility] [address] [place] [address] Britni Horn MD [address] [place] [address] Personal history of colonic polyps (Primary Dx) Social History Tobacco Use Types Packs/Day Years Used Date Smoking Tobacco: Never Smokeless Tobacco: Never Alcohol Use Standard Drinks/Week Comments No 0 (1 standard drink = 0.6 oz pur e alcohol) Comments No Sex and Gender Information Value Date Recorded Sex Assigned at Not on file Legal Sex Female 2:35 PM INSURANCE VERIFIER Gender Identity Not on file Sexual Orientation Not on file documented as of this encounter Plan of Treatment Not on file documented as of this encounter Visit Diagnoses Diagnosis Personal history of colonic polyps- Primary documented in this encounter Additional Health Concerns Infection Onset Date Last Indicated Resolved Time 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 05/07/2022 11/03/2022 3:05 AM CDT COVID: Suspected 09/12/2022 09/12/2022 09/12/2022 8:14 PM INSURANCE VERIFIER COVID: Suspected 01/19/2023 01/19/2023 01/19/2023 3:44 PM CDT documented as of this encounter Care Teams Word Processor Operator Relationship Specialty Start Date End Date Britni Horn MD PCP - General 11/06/16 05/18/22 Prasanna Ochoa MD PCP - General Cardiology 06/08/22 07/15/22 Ale Zehng NP [address] [place] [address] PCP - General Nurse Practitioner 07/16/22 09/28/23 Unknown, Notinfile PCP - General 09/29/23 08/13/24 MichaelmelaniDarlin oconnorOMAR [address] [place] [address] PCP - General Family Medicine 08/14/24 Cornelius Padilla MD [address] [facility] [address] [place] [address] Internal Medicine 03/16/17 Trev Medeiros MD [address] [place] [address] [address] [place] [address] Cardiovascular Disease 03/16/17 Fam Conteh MD [address] [place] [address] [address] [place] [address] [address] Surgeon Orthopedic Surgery 05/26/17 Andrew Alcala, KANDIM [address] [place] [address] [address] [place] [address] Consulting Physician Orthotics 06/25/17 Carmencita Hammer MD [address] [place] [address] [address] [place] [address] Ophthalmology 08/11/17 Sree Ramos MD [address] [place] [address] Consulting Physician Psychiatry 08/15/18 Akshat Dukes MD [address] [place] [address] Surgeon Orthopedic Surgery 12/09/18 Akshat Montano DO [address] [facility] [address] [place] [address] Cardiovascular Disease 12/09/18 0 Gabriele Phillips DO [address] [facility] [address] [place] [address] Consulting Physician Cardiology 03/25/20 06/02/21 Marley Moore MD [address] [place] [address] Consulting Physician Cardiology 06/03/21 Jessie Walker DO [address] [place] [address] Consulting Physician Obstetrics and Gynecology 07/18/21 Miscellaneous, Not In File 09/04/21 documented as of this encounter
--- OUTSIDE RECORDS SUMMARY | 2025-03-18 12:29 | XMS_ITS | Encounter Summary ---
Author Organization [facility] ts Address [address] [place] [address] Phone Care Team Providers Care Woodwinds Teacher Name Role Phone Britni Horn MD Primary Care Provider + [phone] Cornelius Padilla MD Unavailable +[phone] Trev Medeiros MD Unavailable +[phone] Fam Conteh MD Unavailable [phone] Andrew AlcalaM Unavailable [phone] Carmencita Hammer MD Unavailable [phone] Sree Ramos MD Unavailable Akshat Dukes MD Unavailable [phone] Akshat Montano DO Unavailable Gabriele Phillips DO Unavailable Marley [place] MD Unavailable Jessie Walker DO Unavailable [phone] Miscellaneous, Not In File Unavailable Unava ilable Prasanna Ochoa MD Primary Care Provider Stone, Crystal Helene CARAMEL CUTTER HELPER Primary Care Provider [phone] Unknown, Notinfile Primary Care Provider Unavail able Darlin Lazcano CARAMEL CUTTER HELPER Primary Care Provider [phone] Encounter Details Date Type Department Care Team (Late st Contact Info) Description 06/25/2017 Orders Only [facility] [address] [place] [address] Britni Horn MD [address] [place] [address] Dystrophia unguium (Primary Dx) Social History Tobacco Use Types Packs/Day Years Used Date Smoking Tobacco: Never Smokeless Tobacco: Never Alcohol Use Standard Drinks/Week Comments No 0 (1 standard drink = 0.6 oz pur e alcohol) Comments No Sex and Gender Information Value Date Recorded Sex Assigned at Not on file Legal Sex Female 2:35 PM COMMERCIAL HORTICULTURE INSTRUCTOR Gender Identity Not on file Sexual Orientation [...] COVID: Suspected 09/12/2022 09/12/2022 09/12/2022 8:14 PM COMMERCIAL HORTICULTURE INSTRUCTOR COVID: Suspected 01/19/2023 01/19/2023 01/19/2023 3:44 PM CDT documented as of this encounter Care Teams Woodwinds Teacher Relationship Specialty Start Date End Date Britni Horn MD PCP - General 11/06/16 05/18/22 Prasanna Ochoa MD PCP - General Cardiology 06/08/22 07/15/22 Ale Zheng NP [address] [place] [address] PCP - General Nurse Practitioner 07/16/22 09/28/23 Unknown, Notinfile PCP - General 09/29/23 08/13/24 Darlin Lazcano NP [address] [place] [address] PCP - General Family Medicine 08/14/24 Cornelius Padilla MD [address] [facility] [address] [place] [address] Internal Medicine 03/16/17 Trev Medeiros MD [address] [place] [address] [address] [place] [address] Cardiovascular Disease 03/16/17 Fam Conteh MD [address] [place] [address] [address] [place] [address] [address] Surgeon Orthopedic Surgery 05/26/17 Andrew Alcala DPM [address] [place] [address] [address] [place] [address] [address] Consulting Physician Orthotics 06/25/17 Carmencita Hammer MD [address] [place] [address] [address] [place] [address] [address] Ophthalmology 08/11/17 Sree Ramos MD [address] [place] [address] Consulting Physician Psychiatry 08/15/18 Akshat Dukes MD [address] [place] [address] Surgeon Orthopedic Surgery 12/09/18 Akshat Montano DO [address] [facility] [address] [place] [address], [place] [address] Cardiovascular Disease 12/09/18 0 Gabriele Phillips DO [address] [facility] [address] [place] [address] Consulting Physician Cardiology 03/25/20 06/02/21 Marley Moore MD [address] [place] [address] Consulting Physician Cardiology 06/03/21 Jessie Walker DO [address] [place] [address] Consulting Physician Obstetrics and Gynecology 07/18/21 Miscellaneous, Not In File 09/04/21 documented as of this encounter
--- OUTSIDE RECORDS SUMMARY | 2025-03-18 12:29 | XMS_ITS | Encounter Summary ---
Author Organization [facility] ts Address [address] [place] [address] Phone Care Team Providers Care Sheet Folder Name Role Phone Britni Horn MD Primary Care Provider + [phone] Cornelius Padilla MD Unavailable [phone] Trev Medeiros MD Unavailable [phone] Fam Conteh MD Unavailable [phone] Andrew AlcalaM Unavailable [phone] Carmencita Hammer MD Unavailable [phone] Sree Ramos MD Unavailable Akshat Dukes MD Unavailable [phone] Akshat Montano DO Unavailable [phone] Gabriele Phillips DO Unavailable Marley Moore MD Unavailable Jessie Walker DO Unavailable Miscellaneous, Not In File Unavailable Unava ilable Prasanna Ochoa MD Primary Care Provider Stone, Crystal Helene INTELLECTUAL PROPERTY MANAGER Primary Care Provider [phone] Unknown, Notinfile Primary Care Provider Unavail able Darlin Lazcano INTELLECTUAL PROPERTY MANAGER Primary Care Provider Encounter Details Date Type Department Care Team (Late st Contact Info) Description 05/25/2017 Orders Only [facility] [address] [place] [address] Britni Horn MD [address] [place] [address] Social History Tobacco Use Types Packs/Day Years Used Date Smoking Tobacco: Never Smokeless Tobacco: Never Alcohol Use Standard Drinks/Week Comments No 0 (1 standard drink = 0.6 oz pur e alcohol) Comments No Sex and Gender Information Value Date Recorded Sex Assigned at Not on file Legal Sex Female 2:35 PM SURGICAL CLINICAL REVIEWER Gender Identity Not on file Sexual Orientation [...] COVID: Suspected 09/12/2022 09/12/2022 09/12/2022 8:14 PM SURGICAL CLINICAL REVIEWER COVID: Suspected 01/19/2023 01/19/2023 01/19/2023 3:44 PM CDT documented as of this encounter Care Teams Sheet Folder Relationship Specialty Start Date End Date Britni Horn MD PCP - General 11/06/16 05/18/22 Prasanna Ochoa MD PCP - General Cardiology 06/08/22 07/15/22 Ale Zheng, INTELLECTUAL PROPERTY MANAGER [address] [place] [address] PCP - General Nurse Practitioner 07/16/22 09/28/23 Unknown, Notinfile PCP - General 09/29/23 08/13/24 Darlin Lazcano NP [address] [place] [address] PCP - General Family Medicine 08/14/24 Cornelius Padilla MD [address] [facility] [place] [address] Internal Medicine 03/16/17 Trev Medeiros MD [address] [facility] [place] [address] Cardiovascular Disease 03/16/17 Fam Conteh MD [address] [facility] [address] [place] [address] [address] Surgeon Orthopedic Surgery 05/26/17 Andrew Alcala, MITCHELL [address] [facility] [address] [facility] [address] [place] [address] Consulting Physician Orthotics 06/25/17 Carmencita Hammer MD [address] [facility] [address] [place] [address] Ophthalmology 08/11/17 Sree Ramos MD [address] [place] [address] Consulting Physician Psychiatry 08/15/18 Akshat Dukes MD [address] [place] [address] Surgeon Orthopedic Surgery 12/09/18 Akshat Montano DO [address] [facility] [address] [place] [address] Cardiovascular Disease 12/09/18 0 Gabriele Phillips DO [address] [facility] [address] [place] [address] Consulting Physician Cardiology 03/25/20 06/02/21 Marley Moore MD [address] [place] [address] Consulting Physician Cardiology 06/03/21 Jessie Walker DO [address] [place] [address] Consulting Physician Obstetrics and Gynecology 07/18/21 Miscellaneous, Not In File 09/04/21 documented as of this encounter
--- OUTSIDE RECORDS SUMMARY | 2025-03-18 12:29 | XMS_ITS | Encounter Summary ---
Author Organization [facility] ts Address [address] [place] [address] Phone Care Team Providers Care Nurse Unit Manager Name Role Phone Britni Horn MD Primary Care Provider + [phone] Cornelius Padilla MD Unavailable [phone] Trev Medeiros MD Unavailable [phone] Fam Conteh MD Unavailable [phone] Andrew AlcalaM Unavailable [phone] Carmencita Hammer MD Unavailable [phone] Sree Ramos MD Unavailable Akshat Dukes MD Unavailable [phone] Akshat Montano DO Unavailable Gabriele Phillips DO Unavailable Marley Moroe MD Unavailable [phone] Jessie Walker DO Unavailable Miscellaneous, Not In File Unavailable Unava ilable Prasanna Ochoa MD Primary Care Provider Stone, Crystal Helnee PLANETARIUM TECHNICIAN Primary Care Provider [phone] Unknown, Notinfile Primary Care Provider Unavail able Darlin Lazcano PLANETARIUM TECHNICIAN Primary Care Provider [phone] Encounter Details Date Type Department Care Team (Late st Contact Info) Description 05/25/2017 Orders Only [facility] [address] [place] [address] Britni Horn MD [address] [place] [address] Social History Tobacco Use Types Packs/Day Years Used Date Smoking Tobacco: Never Smokeless Tobacco: Never Alcohol Use Standard Drinks/Week Comments No 0 (1 standard drink = 0.6 oz pur e alcohol) Comments No Sex and Gender Information Value Date Recorded Sex Assigned at Not on file Legal Sex Female 2:35 PM SWISS MACHINIST Gender Identity Not on file Sexual Orientation [...] COVID: Suspected 09/12/2022 09/12/2022 09/12/2022 8:14 PM SWISS MACHINIST COVID: Suspected 01/19/2023 01/19/2023 01/19/2023 3:44 PM CDT documented as of this encounter Care Teams Nurse Unit Manager Relationship Specialty Start Date End Date Britni Horn MD PCP - General 11/06/16 05/18/22 Prasanna Ochoa MD PCP - General Cardiology 06/08/22 07/15/22 Ale Zheng, PLANETARIUM TECHNICIAN [address] [place] [address] PCP - General Nurse Practitioner 07/16/22 09/28/23 Unknown, Notinfile PCP - General 09/29/23 08/13/24 Darlin Lazcano NP [address] [place] [address] PCP - General Family Medicine 08/14/24 Cornelius Padilla MD [address] [facility] [place] [address] Internal Medicine 03/16/17 Trev Medeiros MD [address] [facility] [place] [address] Cardiovascular Disease 03/16/17 Fam Conteh MD [address] [facility] [address] [address] Surgeon Orthopedic Surgery 05/26/17 Andrew Alcala, MITCHELL [address] [facility] [address] [facility] [address] [place] [address] Consulting Physician Orthotics 06/25/17 Carmencita Hammer MD [address] [facility] [address] [place] [address] Ophthalmology 08/11/17 Sree Ramos MD [address] [place] [address] Consulting Physician Psychiatry 08/15/18 Akshat Dukes MD [address] [place] [address] Surgeon Orthopedic Surgery 12/09/18 Akshat Montano DO [address] [facility] [address] [place] [address] Cardiovascular Disease 12/09/18 0 Gabriele Phillips DO [address] [facility] [address] [place] [address] Consulting Physician Cardiology 03/25/20 06/02/21 Marley Moore MD [address] [place] [address] Consulting Physician Cardiology 06/03/21 Jessie Walker DO [address] [place] [address] Consulting Physician Obstetrics and Gynecology 07/18/21 Miscellaneous, Not In File 09/04/21 documented as of this encounter
--- OUTSIDE RECORDS SUMMARY | 2025-03-18 12:29 | XMS_ITS | Clinical Summary ---
Author Organization [facility] Address [address] [place] [address] Care Team Providers Care Lithographic Platemaker Name Role Phone Cornelius Padilla MD Unavailable [phone] Reagan Medeiros MD Unavailable [phone] Fam Conteh MD Unavailable [phone] Andrew Alcala DPM Unavailable [phone] Carmencita Hammer MD Unavailable [phone] Sree Ramos MD Unavailable Akshat Dukes MD Unavailable [phone] Marley Moore MD Unavailable [phone] Mitesh Walker DO Unavailable [phone] Miscellaneous, Not In File Unavailable Unava ilable Darlin Lazcano NP Primary Care Provider [phone] Allergies Active Allergy Reactions Criticality Noted Date [...] 12, Assessment & Plan (08/11/2019 12:11 PM COLOR REPAIRER): She continues to follow with Dr. Ramos [...] tricuspid regurgitation. Electronically Signed By:Tre [place] MD, [id number] 12:58:17 COLOR REPAIRER Aortic valve defect Noted 1st in 2007. [...] Synthroid Assessment & Plan (08/11/2019 12:12 PM COLOR REPAIRER): Remains on statin therapy. Will repeat LDL prior to next visit Primary hypertension 11/21/2012 Overview (11/12/2016): Hypertension, benign Assessment & Plan (05/07/2022 7:44 PM CDT): Blood pressure is stable. Continue metoprolol. Assessment & Plan (08/11/2019 12:13 PM COLOR REPAIRER): Blood pressure well controlled. Will continue to monitor. BMP prior to annual visit Adverse effect of anticoagulant Benign tumor of uterine fundus Resolved Problems Problem Noted Date Diagnosed Date Resolved Date Vaginal bleeding 08/30/2021 09/05/2021 Post-menopausal bleeding 07/08/2021 Assessment & Plan (07/08/2021 7:50 AM COLOR REPAIRER): Patient presents today with her daughter. Patient [...] 03/25/2020 Assessment & Plan (09/19/2019 2:34 PM COLOR REPAIRER): Appears mechanical in nature as patient reports [...] 03/25/2020 Assessment & Plan (09/19/2019 3:32 PM COLOR REPAIRER): Contusion noted s/p fall. Appears to be [...] 11/06/2023 Assessment & Plan (08/11/2019 12:12 PM COLOR REPAIRER): Remains on replacement therapy. Will do TSH [...] TSH Hx Other Medical 2001 SONALI mild [place] Hx Other Medical bilateral corat id, neg [...] = 0.6 oz pur e alcohol) [facility] Utilities Answer Date Recorded In the past 12 months has [employer], gas, oil, or water company threatened to shut off services in your home? No 11/08/2023 Social Connection and Isolation Panel Answer Date Recorded In a typical week, how many times do you talk on the phone with family, friends, or neighbors? Twice a week 11/08/2023 How often do you get togethe r with friends or relatives? Twice a week 11/08/2023 How often do you attend chur ch or oriental orthodox services? More than 4 times per year 11/08/2023 Do you belong to any clubs o r organizations such as rastafarian groups, unions, fraternal or athletic groups, or [...] place to sleep or slept in a mcfp (including now)? No 11/08/2023 PHQ-9 Answer Date [...] on file Legal Sex Female 2:35 PM COLOR REPAIRER Gender Identity Not on file Sexual Orientation Not on file Occupation Industry Job Start Date Job End Date retired Not on file Not on file Not on file Obstetrics History Last Filed Vital Signs Vital Sign Reading Time Taken Comments Blood Pressure 151/97 10/09/2024 1:21 PM COLOR REPAIRER Pulse 75 10/09/2024 1:21 PM COLOR REPAIRER Temperature 37.1 C (98.8 F) 12/02/2023 5:26 PM CDT Respiratory Rate 18 10/09/2024 1:21 PM COLOR REPAIRER Oxygen Saturation 95% 12/02/2023 5:26 PM CDT Inhaled Oxygen Concentration - - Weight 83.9 kg (185 lb) 02/03/2024 1:33 PM CDT Height 160 cm (5' 3) 10/09/2024 1:21 PM COLOR REPAIRER Body Mass Index 32.26 02/03/2024 1:33 PM [...] history exists Medical Devices Implanted Type Area Data Analyst Etl Developer Device Identifier Shelf Expiration Date Model / Serial / Lot Mi [employer]iences Valve Aortic Trnscath Maryam 3 Ultra Resilia 23mm [id number] - [id number] - [id number] Implanted:Qty: 1 on 12/01/2023 by Cuauhtemoc Faulkner MD at [facility] Prosthetic Valve N/A: Heart Mi [employer] 01/06/2026 [id number] / [id number] / [email or web address] Angio-Seal Vip 6fr Closere Device [id number] - [id number] Implanted:Qty: 1 on 11/10/2023 by Cu[facility]htemoc [facility]ulkner MD at [facility] [id number] / / Miller [employer] Device Clsr Perclose Prostyle Sut-Mediatd Closure-Repair Sys 99786-39 - [id number] Implanted:Qty: 1 on 12/01/2023 by Cuauhtemoc Faulkner MD at [facility] N/A: Heart [employer] 09/08/2025 [id number] / / [id number] [employer] Device Clsr Perclose Prostyle Sut-Mediatd Closure-Repair Sys 39675-14 - [id number] Implanted:Qty: 1 on 12/01/2023 by Cuauhtemoc Faulkner MD at [facility] N/A: Heart [employer] 09/08/2025 [id number] / / [id number] [employer] Device Clsr Perclose Prostyle Sut-Mediatd Closure-Repair Sys 52521-85 - [id number] Implanted:Qty: 1 on 12/01/2023 by Cuauhtemoc Faulkner MD at [facility] [employer] 08/08/2025 [id number] / / [id number] [email or web address] Angio-Seal Vip 6fr Closere Device [id number] - [id number] Implanted:Qty: 1 on 12/01/2023 by Cuauhtemoc Faulkner MD at [facility] [id number] / / Insurance COVENTRY ADVANTRA AETNA MEDICARE GOLD COVENTRY ADVANTRA AETNA [facility] [place] [address] AETNA MEDICARE GOLD [facility] GOLD REF Advance Directives For more information, please contact: [phone] Documents on File Type Date Recorded Patient Group Reservations Coordinator Expl anation ADVANCE DIRECTIVE 11/05/2023 11:42 PM Ryland r of It Network Architect-Medical ADVANCE DIRECTIVE 11/05/2023 11:40 PM LIFE SUSTANING [...] refridgerator, no cpr, no intubation Care Teams Lithographic Platemaker Relationship Specialty Start Date End Date Darlin Lazcano NP [address] [place] [address] PCP - General Family Medicine 08/14/24 Cornelius Padilla MD [address] [place] [address] [address] [place] [address] Internal Medicine 03/16/17 Reagan Medeiros MD [address] [place] [address] [address] [place] [address] Cardiovascular Disease 03/16/17 Fam Conteh MD [address] [place] [address] [address] [place] [address] Surgeon Orthopedic Surgery 05/26/17 Andrew Alcala, KANDIM [address] [facility] [address] [place] [address] [place] [address] Consulting Physician Orthotics 06/25/17 Carmencita Hammer MD [address] [facility] [address] [place] [address] [place] [address] Ophthalmology 08/11/17 Sree Ramos MD [address] [place] [address] Consulting Physician Psychiatry 08/15/18 Akshat Dukes MD [address] [place] [address] Surgeon Orthopedic Surgery 12/09/18 Marley Moore MD [address] [place] [address] Consulting Physician Cardiology 06/03/21 Mitesh Walker DO [address] [place] [address] Consulting Physician Obstetrics and Gynecology 07/18/21 Miscellaneous, Not In File 09/04/21
--- OUTSIDE RECORDS SUMMARY | 2025-03-18 12:29 | XMS_ITS | Clinical Summary ---
Author Organization [facility] Address [address] [facility] [place] [address] Care Team Providers Care Straight Pin Making Machine Operator Name Role Phone Jacuqeline Horn MD Primary Care Provider [phone] [facility],non-owned Affiliates and Associated Physician Practices is amultiple site organization consisting of ambulatory clinics and hospital sitesin [place], [place], [place] and [place]. This disclosure is being madepursuant to the Care Everywhere program and may not contain all information available regarding this patient. Last updated 18.[facility] Allergies Active Allergy Reactions Criticality Noted Date [...] daily with morning and evening meal Active Upperglade-3 Fatty Acids (FISH OIL) 1200 MG Take [...] Comments Blood Pressure 108/76 08/05/2021 2:51 PM OWNER CONSULTING ENGINEER Pulse 63 02/01/2019 2:55 PM CDT Temperature 36.2 C (97.1 F) 02/01/2019 1:33 PM CDT Respiratory Rate 16 02/01/2019 2:55 PM CDT Oxygen Saturation 94% 02/01/2019 2:55 PM CDT Inhaled Oxygen Concentration - - Weight 93.2 kg (205 lb 6.4 oz) 08/05/2021 2:51 P M OWNER CONSULTING ENGINEER Height 161.3 cm (5' 3.5) 08/05/2021 2:51 PM OWNER CONSULTING ENGINEER Body Mass Index 35.81 08/05/2021 2:51 PM OWNER CONSULTING ENGINEER Plan of Treatment Health Maintenance Due Date [...] topic Insurance COVENTRY MEDICARE AETNA Care Teams Straight Pin Making Machine Operator Relationship Specialty Start Date End Date Jacqueline Horn MD [address] [place] [address] PCP - General Internal Medicine 02/01/19
--- OUTSIDE RECORDS SUMMARY | 2025-03-18 12:29 | XMS_ITS | Encounter Summary ---
Author Organization [facility] ts Address [address] [place] [address] Phone Care Team Providers Care Records Clerk Name Role Phone Britni Horn MD Primary Care Provider + [phone] Cornelius Padilla MD Unavailable [phone] Trev Medeiros MD Unavailable [phone] Fam Conteh MD Unavailable [phone] Andrew AlcalaM Unavailable [phone] Carmencita Hmamer MD Unavailable [phone] Sree Ramos MD Unavailable Akshat Dukes MD Unavailable [phone] Akshat Montano DO Unavailable [phone] Gabriele Phillips DO Unavailable Marley Moore MD Unavailable Jessie Walker DO Unavailable Miscellaneous, Not In File Unavailable Unava ilable Prasanna Ochoa MD Primary Care Provider Stone, Crystal Helene SOCIAL WORK CASE MANAGER Primary Care Provider [phone] Unknown, Notinfile Primary Care Provider Unavail able Darlin Lazcano SOCIAL WORK CASE MANAGER Primary Care Provider Encounter Details Date Type Department Care Team (Late st Contact Info) Description 05/10/2017 Orders Only [facility] [address] [place] [address] Britni Horn MD [address] [place] [address] Bilateral carotid artery occlusion (Primary Dx) Social History Tobacco Use Types Packs/Day Years Used Date Smoking Tobacco: Never Smokeless Tobacco: Never Alcohol Use Standard Drinks/Week Comments No 0 (1 standard drink = 0.6 oz pur e alcohol) Comments No Sex and Gender Information Value Date Recorded Sex Assigned at Not on file Legal Sex Female 2:35 PM SHIP ENGINEER Gender Identity Not on file Sexual [...] COVID: Suspected 09/12/2022 09/12/2022 09/12/2022 8:14 PM SHIP ENGINEER COVID: Suspected 01/19/2023 01/19/2023 01/19/2023 3:44 PM CDT documented as of this encounter Care Teams Records Clerk Relationship Specialty Start Date End Date Britni Horn MD PCP - General 11/06/16 05/18/22 Prasanna Ochoa MD PCP - General Cardiology 06/08/22 07/15/22 Ale Zheng NP [address] [place] [address] PCP - General Nurse Practitioner 07/16/22 09/28/23 Unknown, Notinfile PCP - General 09/29/23 08/13/24 Darlin Lazcano NP [address] [place] [address] PCP - General Family Medicine 08/14/24 Cornelius Padilla MD [address] [facility] [place] [address] Internal Medicine 03/16/17 Trev Medeiros MD [address] [place] [address] [address] [place] [address] Cardiovascular Disease 03/16/17 Fam Conteh MD [address] [place] [address] [address] [address] Surgeon Orthopedic Surgery 05/26/17 Andrew Alcala DPM [address] [place] [address] [address] [address] Consulting Physician Orthotics 06/25/17 Carmencita Hammer MD [address] [place] [address] [address] [address] Ophthalmology 08/11/17 Sree Ramos MD [address] [place] [address] Consulting Physician Psychiatry 08/15/18 Akshat Dukes MD [address] [place] [address] Surgeon Orthopedic Surgery 12/09/18 Akshat Montano DO [address] [facility] [address] [place] [address] Cardiovascular Disease 12/09/18 0 Gabriele Phillips DO [address] [facility] [address] [place] [address] Consulting Physician Cardiology 03/25/20 06/02/21 Marley Moore MD [address] [place] [address] Consulting Physician Cardiology 06/03/21 Jessie Walker DO [address] [address] Consulting Physician Obstetrics and Gynecology 07/18/21 Miscellaneous, Not In File 09/04/21 documented as of this encounter
--- OUTSIDE RECORDS SUMMARY | 2025-03-18 12:29 | XMS_ITS | Encounter Summary ---
Author Organization [facility] ts Address [address] [place] [address] Phone Care Team Providers Care Intramural Director Name Role Phone Britni Horn MD Primary Care Provider + [phone] Cornelius Padilla MD Unavailable [phone] Trev Medeiros MD Unavailable [phone] Fam Conteh MD Unavailable [phone] Andrew AlcalaM Unavailable [phone] Carmencita Hammer MD Unavailable [phone] Sree Ramos MD Unavailable Akshat Dukes MD Unavailable [phone] Akshat Montano DO Unavailable Gabriele Phillips DO Unavailable [phone] Marley Moore MD Unavailable [phone] Jessie Walker DO Unavailable [phone] Miscellaneous, Not In File Unavailable Unava ilable Prasanna Ochoa MD Primary Care Provider Stone, Crystal Helene RIBBON LAPPER TENDER Primary Care Provider [phone] Unknown, Notinfile Primary Care Provider Unavail able Darlin Lazcano RIBBON LAPPER TENDER Primary Care Provider [phone] Encounter Details Date Type Department Care Team (Late st Contact Info) Description 06/02/2017 Orders Only [facility] [address] [place] [address] Britni Horn MD [address] [place] [address] Other specified hearing loss, bilateral (Primary Dx); Impingement syndrome of left shoulder Social History Tobacco Use Types Packs/Day Years Used Date Smoking Tobacco: Never Smokeless Tobacco: Never Alcohol Use Standard Drinks/Week Comments No 0 (1 standard drink = 0.6 oz pur e alcohol) Comments No Sex and Gender Information Value Date Recorded Sex Assigned at Not on file 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 Gender Identity Not on file Sexual [...] COVID: Suspected 09/12/2022 09/12/2022 09/12/2022 8:14 PM 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 COVID: Suspected 01/19/2023 01/19/2023 01/19/2023 3:44 PM CDT documented as of this encounter Care Teams Intramural Director Relationship Specialty Start Date End Date Britni Horn MD PCP - General 11/06/16 05/18/22 Prasanna Ochoa MD PCP - General Cardiology 06/08/22 07/15/22 Ale Zheng NP [address] [place] [address] PCP - General Nurse Practitioner 07/16/22 09/28/23 Unknown, Notinfile PCP - General 09/29/23 08/13/24 MichaelmelanistefanoDarlinOMAR [address] [place] [address] PCP - General Family Medicine 08/14/24 Cornelius Padilla MD [address] [facility] [address] [place] [address] Internal Medicine 03/16/17 Trev Medeiros MD [address] [facility] [address] [place] [address] Cardiovascular Disease 03/16/17 Fam Conteh MD [address] [facility] [address] [place] [address] Surgeon Orthopedic Surgery 05/26/17 Andrew Alcala, DPM [address] [facility] [address] [place] [address] Consulting Physician Orthotics 06/25/17 Carmencita Hammer MD [address] [facility] [address] [place] [address] Ophthalmology 08/11/17 Sree Ramos MD [address] [place] [address] Consulting Physician Psychiatry 08/15/18 Akshat Dukes MD [address] [place] [address] Surgeon Orthopedic Surgery 12/09/18 Akshat Montano DO [address] [facility] [address] [place] [address] Cardiovascular Disease 12/09/18 0 Gabriele Phillips DO [address] [facility] [address] [place] [address] Consulting Physician Cardiology 03/25/20 06/02/21 Marley Moore MD [address] [place] [address] Consulting Physician Cardiology 06/03/21 Jessie Walker DO [address] [place] [address] Consulting Physician Obstetrics and Gynecology 07/18/21 Miscellaneous, Not In File 09/04/21 documented as of this encounter
[2025-03-18 12:43] LABS: Hematocrit 38.5 % (37.0-47.0); Hemoglobin 12.5 g/dL (12.0-15.0); Immature Granulocyte Percent A 0.3 % (0-0.5); Lymphocytes Absolute Auto 1.72 K/mm3 (0.9-3.2); Mean Corpuscular HGB Conc 32.5 g/dl (32-36); Mean Corpuscular Hemoglobin 30.3 pg (26-34); Mean Corpuscular Volume 93.2 fl (80-100); Nucleated Red Blood Cells Absolute Auto 0.000 K/mm3 (0.0-0.012); Nucleated Red Blood Cells Perc 0.0 % (0.0-0.2); Platelet Count Result 130 k/mm3 (150-375); Red Blood Count 4.13 M/mm3 (4.2-5.4); White Blood Count 6.1 K/mm3 (4.5-10.0)
--- NOTE | 2025-03-18 12:47 | ED.GENADULT ---
HPI - General Adult General Chief complaint: Weakness Stated complaint: weakness Time Seen by Provider: 03/18/25 12:21 History of Present Illness HPI narrative: Patient is an 84-year-old female who presents ER with weakness from her mcc. Typically orient x2 but now only oriented x1. Appears very dry with sticky mucous membranes. She is being treated for cellulitis. She was seen here 3 days ago and had normal lab work and her antibiotics were continued for home. Patient cannot provide history. Related Data Home Medications ?Medication ?Instructions ?Recorded ?Confirmed ?Last Taken ?Type apixaban 5 mg tablet (Eliquis) 5 mg PO BID 06/26/21 03/18/25 03/17/25 History cholecalciferol (vitamin D3) 125 See Rx Instructions .Route .COMPLEX 06/26/21 03/18/25 03/17/25 History mcg (5,000 unit) capsule (Dialyvite Vitamin D) cyanocobalamin (vitamin B-12) 1,000 mcg PO DAILY 06/26/21 03/18/25 03/17/25 History 1,000 mcg tablet diclofenac sodium 1 % topical gel See Rx Instructions .Route .COMPLEX 06/26/21 03/18/25 Unknown History levothyroxine 50 mcg tablet 50 mcg PO DAILY 06/26/21 03/18/25 03/17/25 History memantine 10 mg tablet 10 mg PO BID 06/26/21 03/18/25 03/17/25 History rivastigmine tartrate 3 mg capsule 3 mg PO DAILY 06/26/21 03/18/25 03/17/25 History atorvastatin 10 mg tablet 10 mg PO QHS 03/18/25 03/18/25 03/17/25 History buspirone 5 mg tablet 5 mg PO BID 03/18/25 03/18/25 03/17/25 History doxycycline monohydrate 100 mg 100 mg PO BID 03/18/25 03/18/25 03/17/25 History capsule levothyroxine 100 mcg tablet 100 mcg PO DAILY 03/18/25 03/18/25 03/17/25 History metoprolol tartrate 25 mg tablet 12.5 mg PO Q12H 03/18/25 03/18/25 03/17/25 History nystatin 100,000 unit/gram topical 1 applic topical TID PRN skin 03/18/25 03/18/25 Unknown History powder ([facility]) maceration Allergies Allergy/AdvReac Type Severity Reaction Status Date / Time Penicillins Allergy Unknown Verified 03/14/25 10:11 amoxicillin AdvReac Unknown Unknown Verified 03/14/25 10:11 donepezil AdvReac Unknown Unknown Verified 03/14/25 10:11 Review of Systems Review of Systems: ROS unobtainable: Yes unobtainable due to medical condition PMFSH Past Medical History Medical History (Updated 03/18/25 @ 18:43 by Donald Rivera MD) Atrial fibrillation Hypothyroidism TIA (transient ischemic attack) Dementia Social History Social History Smoking status: Never smoker Alcohol intake: never Substance use: never Substance use type: does not use Spiritual care concerns: No Exam Narrative: GENERAL: Ill-appearing, well-nourished, and in no acute distress. HEAD: Normocephalic, atraumatic. ENT: Dry mucous membranes with adherent saliva NECK: Supple. CHEST: Clear to auscultation. No respiratory distress. HEART: Regular rate and rhythm. Normal peripheral pulses. ABDOMEN: Soft, nontender, nondistended. EXTREMITIES: Normal range of motion. No edema. SKIN: Warm, dry, erythema and warmth to the legs bilaterally more notably on the right side of the davidson circumferentially moving down towards the foot. Similar pattern on the left side. May be more reflective of stasis dermatitis given symmetry and no lymphangitic streaking up her leg. NEURO: Sleepy, alert orient x1. Moves all extremities. Course Course Emergency Course: Patient hydrated. Family informed of the diagnosis and treatment plan. Antibiotics for UTI. No EMILY. Vital Signs Vital signs: Vital Signs Temperature 98 F 03/18/25 12:00 Pulse Rate 72 03/18/25 12:00 Respiratory Rate 16 03/18/25 12:00 Blood Pressure 114/65 03/18/25 12:00 Pulse Oximetry 96 03/18/25 12:00 Oxygen Delivery Room Air 03/18/25 12:00 Temperature 98 F 03/18/25 12:00 Pulse Rate 62 03/18/25 15:05 Respiratory Rate 14 03/18/25 15:05 Blood Pressure 126/60 03/18/25 15:05 Pulse Oximetry 95 03/18/25 15:05 Oxygen Delivery Room Air 08/10/25 16:00 Medical Decision Making Vital Signs Vital Signs: Vital Signs Temperature 98 F 03/18/25 12:00 Pulse Rate 72 03/18/25 12:00 Respiratory Rate 16 03/18/25 12:00 Blood Pressure 114/65 03/18/25 12:00 Pulse Oximetry 96 03/18/25 12:00 Oxygen Delivery Room Air 03/18/25 12:00 Temperature 98 F 03/18/25 12:00 Pulse Rate 62 03/18/25 15:05 Respiratory Rate 14 03/18/25 15:05 Blood Pressure 126/60 03/18/25 15:05 Pulse Oximetry 95 03/18/25 15:05 Oxygen Delivery Room Air 03/18/25 16:00 Lab Data 03/18/25 12:37 03/18/25 12:37 Labs: Lab Results 03/18/25 03/18/25 Range/Units 12:37 12:48 WBC 6.1 (4.5-10.0) K/mm3 RBC 4.13 L (4.2-5.4) M/mm3 Hgb 12.5 (12.0-15.0) g/dL Hct 38.5 (37.0-47.0) % MCV 93.2 (80-100) fl MCH 30.3 (26-34) pg MCHC 32.5 (32-36) g/dl RDW 14.3 (11.5-14.5) % Plt Count 130 L (150-375) k/mm3 MPV 11.9 H (7.4-10.4) fl Immature Gran % (Auto) 0.3 (0-0.5) % Neut % (Auto) 54.1 (45.5-73.1) % Lymph % (Auto) 28.4 (18.3-44.2) % [place] % (Auto) 12.6 H (2.6-8.5) % Eos % (Auto) 3.8 (0-4.4) % Baso % (Auto) 0.8 (0.2-1.2) % Lymph # (Auto) 1.72 (0.9-3.2) K/mm3 [place] # (Auto) 0.8 H (0.1-0.6) K/mm3 Eos # (Auto) 0.2 (0-0.3) K/mm3 Baso # (Auto) 0.1 (0.0-0.1) K/mm3 Abs Immat Gran (auto) 0.02 (0.00-0.031) K/mm3 Absolute Neuts (auto) 3.3 (1.3-6.7) K/mm3 Absolute Nucleated RBC 0.000 (0.0-0.012) K/mm3 Nucleated RBC % 0.0 (0.0-0.2) % Sodium 138 (137-145) mmol/L Potassium 4.1 (3.4-5.0) mmol/L Chloride 105 (98-107) mmol/L Carbon Dioxide 28 (22-30) mmol/L Anion Gap 5 (4-12) mmol/L BUN 24 H (7-17) mg/dL Creatinine 0.98 (0.7-1.0) mg/dL Estim Creat Clear Calc Not Reportable Estimated GFR 54 L (59 - ) Glucose 86 (65-110) mg/dL Calcium 9.2 (8.4-10.2) mg/dL Total Bilirubin 1.7 H (0.2-1.3) mg/dL AST 33 (14-36) U/L ALT 20 (6-35) U/L Alkaline Phosphatase 105 (38-126) U/L Total Protein 6.8 (6.3-8.2) g/dL Albumin 3.5 (3.5-5.1) g/dL Urine Color Dark yellow (Yellow) Urine Appearance Clear (Clear) Urine pH 5.5 (5.0-9.0) Ur Specific [place] 1.023 (1.001-1.035) Urine Protein Negative (Negative) mg/dL Urine Glucose (UA) Negative (Negative) mg/dL Urine Ketones Trace H (Negative) mg/dL Ur Blood (Man) Negative (Negative) Urine Nitrate Positive H (Negative) Urine Bilirubin Negative (Negative) Urine Urobilinogen 1.0 (<2.0) mg/dL Add Ur Microanalysis Reviewed Leukocyte Esterase Rfl 1+ H (Negative) GERRY/UL Urine RBC 0-2 (0-2) /hpf Urine WBC 6-10 H (0-3) /hpf Ur Squamous Epith Cells Few (Few) /hpf Urine Bacteria 2+ H /hpf Urine Casts 3-5 Hyaline Casts 1-2 (None) /lpf Urine Mucus Present /lpf Imaging Data Radiologist's impression: ITS Impressions Chest X-Ray 03/18/25 13:17 IMPRESSION: 1. Small lung volumes with mild opacities at the left lower lung zone which could represent atelectasis or pneumonia. Discharge Plan Discharge Clinical Impression: Acute UTI, Dehydration Patient Disposition: Still a Patient Condition: Stable
[2025-03-18 12:52] LABS: Alanine Aminotransferase 20 U/L (6-35); Albumin Level 3.5 g/dL (3.5-5.1); Alkaline Phosphatase 105 U/L (38-126); Anion Gap 5 mmol/L (4-12); Aspartate Amino Transferase 33 U/L (14-36); Bilirubin,Total 1.7 mg/dL (0.2-1.3); Blood Urea Nitrogen 24 mg/dL (7-17); Calcium 9.2 mg/dL (8.4-10.2); Carbon Dioxide 28 mmol/L (22-30); Chloride 105 mmol/L (98-107); Estimated Glomerular Filt Rate 54; Glucose 86 mg/dL (65-110); Potassium 4.1 mmol/L (3.4-5.0); Sodium 138 mmol/L (137-145); Total Protein 6.8 g/dL (6.3-8.2)
[2025-03-18 13:04] LABS: Add Urine Microscopic? YES; Appearance Urine Clear (Clear); Glucose Urine UA Negative (Negative); Leukocyte Esterase Ur 1+ LEU/UL (Negative); Need Manual Microscopic Reviewed; Nitrate Urine Positive (Negative); Specific Grav Ur 1.023 (1.001-1.035)
[2025-03-18] MEDS: SODIUM CHLORIDE 0.9% IV 1,000 ML 999 ML IV CONT (13:08)
[2025-03-18] MEDS: cefTRIAXone 1 GM in SODIUM CHLORIDE 0.9% IV 50 ML 100 ML IVPB (14:37)
--- NOTE | 2025-03-18 15:22 | P.HP_ITS ---
H&P: HPI History of Present Illness Date/Time: 03/18/25 15:22 Chief Complaint: Altered mental status Narrative: 84-year-old female past medical history of TIA, hypothyroidism, atrial fibrillation and dementia presents the hospital with weakness and altered mental status from nursing. She is normally oriented x2, currently oriented x1. HPI is limited due to patient's altered mental status. On assessment patient has dry mucous membranes, lower extremity and is erythema neck and painful to touch. Lab work shows BUN of 24, GFR 54, total bili of 1.7, urine is dark yellow with positive nitrates 1+ leukocyte esterase 6-10 wbc's and 2+ bacteria. Chest x-ray shows atelectasis or pneumonia. EKG shows sinus rhythm with left bundle-branch block. Review of Systems Review of Systems: ROS unobtainable: Yes unobtainable due to mental status PMFSH Past Medical History Medical History (Updated 03/18/25 @ 21:18 by Kim Norton, SYED) Atrial fibrillation Hypothyroidism TIA (transient ischemic attack) Dementia Social History Social History Smoking status: Never smoker Alcohol intake: never Substance use: never Substance use type: does not use Spiritual care concerns: No Meds Home Medications and Allergies Home Medications ?Medication ?Instructions ?Recorded ?Confirmed ?Type apixaban 5 mg tablet (Eliquis) 5 mg PO BID 06/26/21 03/18/25 History cholecalciferol (vitamin D3) 125 See Rx Instructions .Route .COMPLEX 06/26/21 03/18/25 History mcg (5,000 unit) capsule (Dialyvite Vitamin D) cyanocobalamin (vitamin B-12) 1,000 mcg PO DAILY 06/26/21 03/18/25 History 1,000 mcg tablet diclofenac sodium 1 % topical gel See Rx Instructions .Route .COMPLEX 06/26/21 03/18/25 History levothyroxine 50 mcg tablet 50 mcg PO DAILY 06/26/21 03/18/25 History memantine 10 mg tablet 10 mg PO BID 06/26/21 03/18/25 History rivastigmine tartrate 3 mg capsule 3 mg PO DAILY 06/26/21 03/18/25 History atorvastatin 10 mg tablet 10 mg PO QHS 03/18/25 03/18/25 History buspirone 5 mg tablet 5 mg PO BID 03/18/25 03/18/25 History doxycycline monohydrate 100 mg 100 mg PO BID 03/18/25 03/18/25 History capsule levothyroxine 100 mcg tablet 100 mcg PO DAILY 03/18/25 03/18/25 History metoprolol tartrate 25 mg tablet 12.5 mg PO Q12H 03/18/25 03/18/25 History nystatin 100,000 unit/gram topical 1 applic topical TID PRN skin 03/18/25 03/18/25 History powder ([facility]) maceration Allergies Allergy/AdvReac Type Severity Reaction Status Date / Time Penicillins Allergy Unknown Verified 03/14/25 10:11 amoxicillin AdvReac Unknown Unknown Verified 03/14/25 10:11 donepezil AdvReac Unknown Unknown Verified 03/14/25 10:11 Vital Signs Vital Signs - 24 hr 03/18/25 12:00 03/18/25 12:45 03/18/25 12:47 Temperature 98 F Pulse Rate 72 67 66 Respiratory Rate 16 18 17 Blood Pressure 114/65 118/46 L 108/45 L Pulse Oximetry 96 95 97 Oxygen Delivery Room Air 03/18/25 13:32 03/18/25 13:47 03/18/25 14:17 Temperature Pulse Rate 57 L 62 60 Respiratory Rate 13 14 13 Blood Pressure 111/56 L 107/52 L 94/59 L Pulse Oximetry 97 96 97 Oxygen Delivery 03/18/25 14:33 03/18/25 15:05 Temperature Pulse Rate 66 62 Respiratory Rate 13 14 Blood Pressure 116/54 L 126/60 Pulse Oximetry 96 95 Oxygen Delivery Exam Narrative: General: well appearing, appears stated age. HEENT: normocephalic, atraumatic. Mucous membranes dry. EOMI, PERRLA, bilateral sclera anicteric, no conjunctival injection. Neck supple without JVD, lymphadenopathy, or bruit. Respiratory: clear to ascultation bilaterally. No rales/rhonic/wheezes. Cardiovascular: Regular rate and rhythm, normal S1-S2 upon ascultation. No murmurs, rubs, or clicks. PMI is nondisplaced, capillary refill less than 3 second. Abdomen: Soft, round, no pulsatile masses, nondistended and nontender. No reboun d, no guarding. No CVA tenderness, no hepatosplenomegaly. Bowel sounds present to all four quadrants. No high pitch or tinkling sounds, resonant to percussion. Extremities: No cyanosis, clubbing, or edema present. Pulses are palpable 2/2. Right lower extremity with erythema, swelling and painful to touch Neuro: Alert and orientated x 1. PERRLA. Cranial nerves 2-12 intact without focal deficit. Skin: Warm, dry, and intact, without rash, erythema, or lesion. Psych: Unable to assess H&P: Results Labs Labs: Short CBC 03/18/25 Range/Units 12:37 WBC 6.1 (4.5-10.0) K/mm3 Hgb 12.5 (12.0-15.0) g/dL Hct 38.5 (37.0-47.0) % Plt Count 130 L (150-375) k/mm3 BMP 03/18/25 12:37 Sodium 138 Potassium 4.1 Chloride 105 Carbon Dioxide 28 BUN 24 H Creatinine 0.98 Glucose 86 Calcium 9.2 Liver Function 03/18/25 Range/Units 12:37 Total Bilirubin 1.7 H (0.2-1.3) mg/dL AST 33 (14-36) U/L ALT 20 (6-35) U/L Alkaline Phosphatase 105 (38-126) U/L Albumin 3.5 (3.5-5.1) g/dL Urine 03/18/25 Range/Units 12:48 Urine Color Dark yellow (Yellow) Urine Appearance Clear (Clear) Urine pH 5.5 (5.0-9.0) Ur Specific [place] 1.023 (1.001-1.035) Urine Protein Negative (Negative) mg/dL Urine Glucose (UA) Negative (Negative) mg/dL Assessment and Plan Assessment and plan (1) Cellulitis: Code(s): L03.90 - Cellulitis, unspecified Status: Acute Assessment and Plan: Vancomycin IVF (2) Dehydration: Code(s): E86.0 - Dehydration Status: Acute Assessment and Plan: Patient was given 1 L bolus in the IVF (3) Urinary tract infection: Qualifiers: Hematuria presence: with hematuria Urinary tract infection type: acute cystitis Qualified Code(s): N30.01 - Acute cystitis with hematuria Code(s): N39.0 - Urinary tract infection, site not specified Status: Acute Assessment and Plan: Vancomycin for cellulitis also Culture and sensitivity pending IVF (4) Atrial fibrillation: Code(s): I48.91 - Unspecified atrial fibrillation Status: Acute Assessment and Plan: Continue Eliquis and metoprolol (5) Pneumonia: Code(s): J18.9 - Pneumonia, unspecified organism Status: Acute Assessment and Plan: Finish doxycycline from previous hospitalization (6) Dementia: Code(s): F03.90 - Unspecified dementia, unspecified severity, without behavioral disturbance, psychotic disturbance, mood disturbance, and anxiety Status: Acute Assessment and Plan: Continue Memantine (7) Hypothyroidism: Code(s): E03.9 - Hypothyroidism, unspecified Status: Acute Assessment and Plan: Continue levothyroxine . Quality VTE Prophylaxis VTE prophylaxis: mechanical ordered and pharmacologic ordered Hospitalist MIPS Advance Care Plan I have confirmed that the patient's Advanced Care Plan is present, code status is documented, or surrogate decision maker is listed in patient medical record.: Yes Medication Reconciliation I have utilized all available resources to obtain, update and review the patients current medications (includes all prescriptions, OTC, herbals, cannabis, and nutritional supplements).: Yes
--- NOTE | 2025-03-18 15:41 | ADMGEN ---
This patient, Marianna Long, was admitted to 2 Medical Room 256-. Patient/family oriented to hospital policies and general routines including ID bracelet, bed and alarms, visiting hours, pain management, procedures, bathroom and other care routines, personal items, smoking policy, room service/diet, and visiting hours. Information on how to activate the Rapid Response Team has been discussed. Patient/Family are encouraged to report perceived risks to care and to ask questions if they do not understand what they are told or what they should do.
[2025-03-18] MEDS: SODIUM CHLORIDE 0.9% IV 1,000 ML 125 ML IV CONT (16:19)
[2025-03-18] MEDS: METOPROLOL TARTRATE 12.5 MG TABLET PO (21:32)
[2025-03-18] MEDS: DOXYCYCLINE HYCLATE 100 MG TABLET PO (21:32)
[2025-03-18] MEDS: ATORVASTATIN 10 MG TABLET PO (21:32)
[2025-03-18] MEDS: VANCOMYCIN 2,000 MG/NS 500 ML 2,000 MG/500 ML BAG 250 MG IVPB (22:49)
[2025-03-19] MEDS: SODIUM CHLORIDE 0.9% IV 1,000 ML 125 ML IV CONT ×2 (00:05→08:56)
[2025-03-19 01:43] LABS: MRSA (PCR) NOT DETECTED (NOT DETECTE)
[2025-03-19 05:00] VITALS: BP 119/51; PULSE 60; RESP 16; TEMP 36.4; O2SAT 96
[2025-03-19] MEDS: LEVOTHYROXINE SODIUM 100 MCG TABLET PO (05:25)
[2025-03-19 05:36] LABS: Estimated CRCL calculation 45 ml/min; Estimated Glomerular Filt Rate > 60
--- NOTE | 2025-03-19 07:07 | P.PNIM_ITS ---
Progress Note: A&P Assessment and Plan (1) Cellulitis: Code(s): L03.90 - Cellulitis, unspecified Status: Acute Assessment and Plan: - was started on doxycycline by the nursing facility - seen in ED 03/14, RLE venous Doppler negative for DVT - afebrile, no leukocytosis. -erythema appears to be improving, but still with significant tenderness with bruising and swelling noted -check CT right tib-fib to evaluate for fluid collection or fracture -continue Rocephin/vancomycin, will deescalate as able - check inflammatory markers (2) Dehydration: Code(s): E86.0 - Dehydration Status: Acute Assessment and Plan: s-/p IVF - monitor volume status (3) Urinary tract infection: Qualifiers: Hematuria presence: with hematuria Urinary tract infection type: acute cystitis Qualified Code(s): N30.01 - Acute cystitis with hematuria Code(s): N39.0 - Urinary tract infection, site not specified Status: Acute Assessment and Plan: - UA with positive nitrite, 1+ LE, 6-10 WBC, 2+ bacteria - previous cultures with E coli, sensitive to cephalosporins, resistant to fluoroquinolones - continue IV Rocephin (4) Atrial fibrillation: Code(s): I48.91 - Unspecified atrial fibrillation Status: Acute Assessment and Plan: -Continue Eliquis and metoprolol (5) Pneumonia: Code(s): J18.9 - Pneumonia, unspecified organism Status: Acute Assessment and Plan: - CXR with mild opacities in the left lower lung zones, atlectasis vs pneumonia - low suspicion for pneumonia given no cough, stable respiratory status, but will finish doxycycline course previously prescribed. Also on Rocephin (6) Dementia: Code(s): F03.90 - Unspecified dementia, unspecified severity, without behavioral disturbance, psychotic disturbance, mood disturbance, and anxiety Status: Acute Assessment and Plan: - alert and oriented x1-2 at baseline. Resides in memory care. -Continue Memantine (7) Hypothyroidism: Code(s): E03.9 - Hypothyroidism, unspecified Status: Acute Assessment and Plan: -Continue levothyroxine (8) Thrombocytopenia: Code(s): D69.6 - Thrombocytopenia, unspecified Status: Acute Assessment and Plan: - plts 130 - monitor CBC (9) Head injury: Code(s): S09.90XA - Unspecified injury of head, initial encounter Status: Acute Assessment and Plan: - bruising noted on forehead. No reported falls, but patient on Eliquis. - obtain CT head Subjective Date/time seen: 03/19/25 07:07 Interval history: 84-year-old female past medical history of TIA, hypothyroidism, atrial fibrillation and dementia presents the hospital with weakness and altered mental status from snf. Patient seen and examined at bedside. Bedside assists with history. Patient is alert oriented x1 this a.m. which daughter states is patient's baseline. Patient denies any further pain. Daughter states she is more like herself today. Feels that swelling and redness of the right lower extremity is improved. Exam Narrative: General: NAD Eyes: EOMI HENT: neck supple, forehead bruising Cardiovascular: Regular rate and rhythm Respiratory: Clear to auscultation, respirations even and unlabored on RA Gastrointestinal: Soft, non tender Genitourinary: no suprapubic tenderness Musculoskeletal: No edema Skin: warm, dry, right lower leg with mild erythema of anterior davidson, bruising noted with tenderness to palpation Neuro: Alert. Psych: Mood appropriate Objective Data Vital Signs Vital Signs: Vital Signs - 24 hr 03/18/25 12:00 03/18/25 12:45 03/18/25 12:47 Temperature 98 F Pulse Rate 72 67 66 Respiratory Rate 16 18 17 Blood Pressure 114/65 118/46 L 108/45 L Pulse Oximetry 96 95 97 Oxygen Delivery Room Air Fraction of Inspired Oxygen 03/18/25 13:32 03/18/25 13:47 03/18/25 14:17 Temperature Pulse Rate 57 L 62 60 Respiratory Rate 13 14 13 Blood Pressure 111/56 L 107/52 L 94/59 L Pulse Oximetry 97 96 97 Oxygen Delivery Fraction of Inspired Oxygen 03/18/25 14:33 03/18/25 15:05 03/18/25 16:00 Temperature Pulse Rate 66 62 Respiratory Rate 13 14 Blood Pressure 116/54 L 126/60 Pulse Oximetry 96 95 Oxygen Delivery Room Air Fraction of Inspired Oxygen 03/18/25 20:11 03/18/25 21:27 03/18/25 21:28 Temperature 98.6 F Pulse Rate 70 82 Respiratory Rate 16 20 Blood Pressure 119/53 L Pulse Oximetry 99 92 Oxygen Delivery Room Air Room Air Fraction of Inspired Oxygen 21 03/18/25 21:32 03/19/25 05:00 Temperature 97.6 F Pulse Rate 82 60 Respiratory Rate 16 Blood Pressure 119/51 L Pulse Oximetry 96 Oxygen Delivery Fraction of Inspired Oxygen Intake/Output Intake/Output: Intake & Output 03/16/25 03/17/25 03/18/25 03/19/25 23:59 23:59 23:59 23:59 Intake Total 1220 1570.8 Output Total 75 400 Balance 1145 1170.8 Meds/Results Medications: Active Medications Generic Name Dose Route Start Last Admin Trade Name Freq PRN Reason Stop Dose Admin Apixaban 5 mg 03/19/25 09:00 Apixaban 5 Mg Tablet PO BID [facility] Atorvastatin Calcium 10 mg 03/18/25 21:00 03/18/25 21:32 Atorvastatin 10 Mg Tablet PO 10 mg QHS JAMARI Administration Buspirone HCl 5 mg 03/19/25 09:00 Buspirone Hcl 5 Mg Tablet PO BID JAMARI Doxycycline Hyclate 100 mg 03/18/25 21:00 03/18/25 21:32 Doxycycline Hyclate 100 Mg Tablet PO 03/20/25 09:01 100 mg Q12HR JAMARI Administration Sodium Chloride 1,000 mls @ 125 mls/hr 03/18/25 13:55 03/19/25 00:05 Normal Saline Iv IV CONT 125 mls/hr .Q8H JAMARI Administration Vancomycin HCl 1,500 mg in 500 mls @ 250 mls/hr 03/20/25 10:00 Vancomycin 1,500 Mg/Ns 500 Ml IVPB Q36H JAMARI Levothyroxine Sodium 100 mcg 03/19/25 06:30 03/19/25 05:25 Levothyroxine Sodium 100 Mcg Tablet PO 100 mcg DAILY@0630 JAMARI Administration Memantine 10 mg 03/19/25 09:00 Memantine 10 Mg Tablet PO BID JAMARI Metoprolol Tartrate 12.5 mg 03/18/25 21:00 03/18/25 21:32 Metoprolol Tartrate 12.5 Mg Tablet PO 12.5 mg Q12HR JAMARI Administration Ondansetron HCl 4 mg 03/18/25 13:54 Ondansetron Inj 4 Mg/2 Ml Vial IV PUSH Q4H PRN Nausea Radiology Results: ITS Impressions Chest X-Ray 03/18/25 13:17 IMPRESSION: 1. Small lung volumes with mild opacities at the left lower lung zone which could represent atelectasis or pneumonia. Labs Labs: Laboratory Results - last 24 hr 03/18/25 03/18/25 03/19/25 12:37 12:48 00:17 WBC 6.1 RBC 4.13 L Hgb 12.5 Hct 38.5 MCV 93.2 MCH 30.3 MCHC 32.5 RDW 14.3 Plt Count 130 L MPV 11.9 H Immature Gran % (Auto) 0.3 Neut % (Auto) 54.1 Lymph % (Auto) 28.4 Kimble % (Auto) 12.6 H Eos % (Auto) 3.8 Baso % (Auto) 0.8 Lymph # (Auto) 1.72 Kimble # (Auto) 0.8 H Eos # (Auto) 0.2 Baso # (Auto) 0.1 Abs Immat Gran (auto) 0.02 Absolute Neuts (auto) 3.3 Absolute Nucleated RBC 0.000 Nucleated RBC % 0.0 Sodium 138 Potassium 4.1 Chloride 105 Carbon Dioxide 28 Anion Gap 5 BUN 24 H Creatinine 0.98 Estim Creat Clear Calc Not Reportable Estimated GFR 54 L Glucose 86 Calcium 9.2 Total Bilirubin 1.7 H AST 33 ALT 20 Alkaline Phosphatase 105 Total Protein 6.8 Albumin 3.5 Urine Color Dark yellow Urine Appearance Clear Urine pH 5.5 Ur Specific Tiona 1.023 Urine Protein Negative Urine Glucose (UA) Negative Urine Ketones Trace H Ur Blood (Man) Negative Urine Nitrate Positive H Urine Bilirubin Negative Urine Urobilinogen 1.0 Add Ur Microanalysis Reviewed Leukocyte Esterase Rfl 1+ H Urine RBC 0-2 Urine WBC 6-10 H Ur Squamous Epith Cells Few Urine Bacteria 2+ H Urine Casts 3-5 Hyaline Casts 1-2 Urine Mucus Present Nasal MRSA (PCR) Not detected 03/19/25 05:04 WBC RBC Hgb Hct MCV MCH MCHC RDW Plt Count MPV Immature Gran % (Auto) Neut % (Auto) Lymph % (Auto) Kimble % (Auto) Eos % (Auto) Baso % (Auto) Lymph # (Auto) Kimble # (Auto) Eos # (Auto) Baso # (Auto) Abs Immat Gran (auto) Absolute Neuts (auto) Absolute Nucleated RBC Nucleated RBC % Sodium Potassium Chloride Carbon Dioxide Anion Gap BUN Creatinine 0.83 Estim Creat Clear Calc 45 Estimated GFR > 60 Glucose Calcium Total Bilirubin AST ALT Alkaline Phosphatase Total Protein Albumin Urine Color Urine Appearance Urine pH Ur Specific Tiona Urine Protein Urine Glucose (UA) Urine Ketones Ur Blood (Man) Urine Nitrate Urine Bilirubin Urine Urobilinogen Add Ur Microanalysis Leukocyte Esterase Rfl Urine RBC Urine WBC Ur Squamous Epith Cells Urine Bacteria Urine Casts Hyaline Casts Urine Mucus Nasal MRSA (PCR) Quality VTE Prophylaxis VTE prophylaxis: pharmacologic ordered
[2025-03-19 08:56] VITALS: PULSE 68
[2025-03-19] MEDS: METOPROLOL TARTRATE 12.5 MG TABLET PO ×2 (08:56→20:07)
[2025-03-19] MEDS: APIXABAN 5 MG TABLET PO ×2 (08:56→16:49)
[2025-03-19] MEDS: MEMANTINE 10 MG TABLET PO ×2 (08:56→16:49)
[2025-03-19] MEDS: DOXYCYCLINE HYCLATE 100 MG TABLET PO ×2 (08:57→20:07)
--- NOTE | 2025-03-19 09:56 | PC.NURSE ---
Addendum entered by Andrea Alicea RN 03/19/25 10:17: Verified by second RN, charge nurse, . Original Note: Patient's DNR paperwork brought by family. Code status updated, copy placed in chart and provider notified.
[2025-03-19 11:25] LABS: CRP 2.9 mg/dL (<1.0)
[2025-03-19] MEDS: cefTRIAXone 1 GM in SODIUM CHLORIDE 0.9% IV 50 ML 100 ML IVPB (12:34)
[2025-03-19 14:00] VITALS: BP 116/55; PULSE 48; RESP 16; TEMP 36.8; O2SAT 97
--- NOTE | 2025-03-19 15:23 | P.CONGS_ITS ---
Assessment and Plan Assessment and plan (1) Hematoma of right lower leg: Code(s): S80.11XA - Contusion of right lower leg, initial encounter Status: Acute Assessment and Plan: * Patient presented with AMS and admitted with RLE cellulitis, UTI, and possible pneumonia. CT scan of the right lower extremity showed a 3.5 x 2.5 cm soft tissue density in the anterior lower leg with subcutaneous edema c/w hematoma versus abscess or less likely solid neoplasm. On exam, the appearance is more consistent with a hematoma. She is anticoagulated with Eliquis and she has a history of falls noted in her EMR. She is a poor historian, so her clinical picture is not entirely clear. Will apply an italo wrap for compression and monitor this area. The overlying skin appears to be intact with no wounds or drainage. There is mild ruddiness around the hematoma, but no significant erythema or warmth. If there are more signs of an active infection or she develops overlying skin necrosis or it begins draining, then we may need to consider incision and drainage. Will reassess tomorrow and monitor for now. Hgb appears stable and she remains on her Eliquis, which we can continue for now. No surgical intervention anticipated at this time. (2) Cellulitis: Code(s): L03.90 - Cellulitis, unspecified Status: Acute Assessment and Plan: * She is on IV antibiotics for cellulitis. See plan above. 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 Okay to continue for now, but would need to hold if hematoma appears to be expanding. It appears stable for now and this may be old as it is unclear when this appeared. (4) Urinary tract infection: Qualifiers: Hematuria presence: with hematuria Urinary tract infection type: acute cystitis Qualified Code(s): N30.01 - Acute cystitis with hematuria Code(s): N39.0 - Urinary tract infection, site not specified Status: Acute Assessment and Plan: * Continue antibiotics per Hospitalist. (5) Dementia: Code(s): F03.90 - Unspecified dementia, unspecified severity, without behavioral disturbance, psychotic disturbance, mood disturbance, and anxiety Status: Acute (6) Atrial fibrillation: Code(s): I48.91 - Unspecified atrial fibrillation Status: Acute (7) Thrombocytopenia: Code(s): D69.6 - Thrombocytopenia, unspecified Status: Acute (8) Pneumonia: Code(s): J18.9 - Pneumonia, unspecified organism Status: Acute Assessment and Plan: * Hospitalist treating possible pneumonia with doxycycline based on CXR findings. No acute respiratory symptoms or complaints. Plan I have discussed the patient's case and plan of care with Dr. Quijano. History of Present Illness Consult details Consult date: 03/19/25 Reason for consult: other (Right lower extremity cellulitis with abscess versus hematoma) Requesting physician: Jenifer Medina PA Narrative: This is an 84-year-old female with history of dementia, TIA, atrial fibrillation, and hypothyroidism, who we have been asked to see in surgical consultation for right lower extremity cellulitis with abscess versus hematoma. The patient is a poor historian and resides in a senior living. She is unable to provide any information for her history and there is no family at the bedside. Therefore, her history is obtained by review of the EMR. She has been seen in the ED multiple times this year for falls at the senior living. She is anticoagulated on Eliquis. She was brought into the ED on 03/14/2025 for concerns of swelling to the right lower extremity. In the ED note, there is mention of swelling to the calf and they did a venous Doppler that was negative for DVT. She had recently been started on doxycycline for concern of infection in the right lower extremity. They wrapped her leg with Italo wrap and discharged her to the senior living with instructions to continue the doxycycline. She returned back for evaluation yesterday in the ED due to altered mental status. She was more confused than baseline. Workup in the ED showed UA concerning for UTI, CXR with findings that could represent atelectasis versus pneumonia, and labs showed a normal white blood cell count. She was admitted and started on IV antibiotics. Head CT today showed no acute findings. CT scan of the right lower extremity showed a 3.5 x 2.5 x 1.2 cm soft tissue density with prominent surrounding subcutaneous edema overlying the anteriomedial aspect of the mid to distal right tibia with differential including hematoma versus abscess versus less likely solid neoplasm. Our service was then consulted and she is now seen on the medical floor. She remains on Eliquis. She is unable to give me any additional history as she is confused. She cannot recall if she injured her leg. To note, there are multiple small scattered bruises across bilateral arms and on her right toes. Review of Systems 2 Review of Systems: All systems reviewed & are unremarkable except as noted in HPI and below PMFSH Past Medical History Medical History Atrial fibrillation Hypothyroidism TIA (transient ischemic attack) Dementia Social History Social History Smoking status: Never smoker Alcohol intake: never Substance use: never Substance use type: does not use Spiritual care concerns: No Meds Home Medications and Allergies Home Medications ?Medication ?Instructions ?Recorded ?Confirmed ?Type apixaban 5 mg tablet (Eliquis) 5 mg PO BID 06/26/21 03/18/25 History cholecalciferol (vitamin D3) 125 See Rx Instructions .Route .COMPLEX 06/26/21 03/18/25 History mcg (5,000 unit) capsule (Dialyvite Vitamin D) cyanocobalamin (vitamin B-12) 1,000 mcg PO DAILY 06/26/21 03/18/25 History 1,000 mcg tablet diclofenac sodium 1 % topical gel See Rx Instructions .Route .COMPLEX 06/26/21 03/18/25 History levothyroxine 50 mcg tablet 50 mcg PO DAILY 06/26/21 03/18/25 History memantine 10 mg tablet 10 mg PO BID 06/26/21 03/18/25 History rivastigmine tartrate 3 mg capsule 3 mg PO DAILY 06/26/21 03/18/25 History atorvastatin 10 mg tablet 10 mg PO QHS 03/18/25 03/18/25 History buspirone 5 mg tablet 5 mg PO BID 03/18/25 03/18/25 History doxycycline monohydrate 100 mg 100 mg PO BID 03/18/25 03/18/25 History capsule levothyroxine 100 mcg tablet 100 mcg PO DAILY 03/18/25 03/18/25 History metoprolol tartrate 25 mg tablet 12.5 mg PO Q12H 03/18/25 03/18/25 History nystatin 100,000 unit/gram topical 1 applic topical TID PRN skin 03/18/25 03/18/25 History powder ([facility]) maceration Allergies Allergy/AdvReac Type Severity Reaction Status Date / Time Penicillins Allergy Unknown Verified 03/14/25 10:11 amoxicillin AdvReac Unknown Unknown Verified 03/14/25 10:11 donepezil AdvReac Unknown Unknown Verified 03/14/25 10:11 Vital Signs Vital Signs - 24 hr 03/18/25 16:00 03/18/25 20:11 03/18/25 21:27 Temperature 98.6 F Pulse Rate 70 82 Respiratory Rate 16 20 Blood Pressure 119/53 L Pulse Oximetry 99 92 Oxygen Delivery Room Air Room Air Fraction of Inspired Oxygen 21 03/18/25 21:28 03/18/25 21:32 03/19/25 05:00 Temperature 97.6 F Pulse Rate 82 60 Respiratory Rate 16 Blood Pressure 119/51 L Pulse Oximetry 96 Oxygen Delivery Room Air Fraction of Inspired Oxygen 03/19/25 08:55 03/19/25 08:56 Temperature Pulse Rate 68 Respiratory Rate Blood Pressure Pulse Oximetry Oxygen Delivery Room Air Fraction of Inspired Oxygen Exam 2 Const: General: comfortable and no acute distress Nutritional Appearance: a verage body habitus Orientation/consciousness: confusion (demented) HENMT: Head: normocephalic and atraumatic Ears: hearing grossly normal bilaterally Mouth: Yes moist mucous membranes Eyes: General: appearance normal, both eyes and all related structures P upils: Equal, round and reactive pupils present Neck: Neck: normal visual inspection and full ROM Resp: Effort & Inspection: no respiratory distress Auscultation: clear to auscultation bilaterally Cardio: Rate: regular rate Rhythm: regular rhythm GI: Inspection: non-distended GI Palp: Yes Soft to palpation, No Tenderness to palpation present (GI), No Guarding due to palpation present (GI) and No Rebound tenderness present Auscultation: normal bowel sounds Skin: General skin exam: normal color Neuro: General: moves all extremities and no focal motor deficits Speech: n ormal speech Motor exam (neuro): 5/5 motor strength present throughout Extrem: Right upper extremity: full ROM and normal capillary refill; abnormal to inspection (Multiple scattered bruises on hands and arms) Left upper extremity: full ROM and normal capillary refill; abnormal to inspection (Multiple scattered bruises on hands and arms) Right lower extremity: foot Details: vascular exam Details: dorsalis pedis pulse present (weak), posterior tibial pulse present and normal capillary refill; not cool Left lower extremity: normal to inspection Upper/lower leg/hip images: 1. 4 x 3 cm raised area on the anterior lower leg with purple and red emilie discoloration, mild warmth. Tenderness in this area. Mild pink and emilie discoloration of the skin around this area and extending both medially and laterally. No spreading erythema. Overlying skin intact and viable with no drainage, and no overyling skin necrosis. 2. A few small scattered bruised on 2nd through 4th toes, no swelling, no tenderness. Able to wiggle all toes. No wounds. Psych: Attitude: cooperative Insight: Limited insight present (Psych) J udgement: Limited judgement present (Psych) Results Labs 03/18/25 12:37 03/19/25 05:04 Labs: Abnormal lab results 03/19/25 Range/Units 05:04 C-Reactive Protein 2.9 H (<1.0) mg/dL Diabetes panel 03/19/25 Range/Units 05:04 Creatinine 0.83 (0.7-1.0) mg/dL Pituitary panel 03/19/25 Range/Units 05:04 Creatinine 0.83 (0.7-1.0) mg/dL Adrenal panel 03/19/25 Range/Units 05:04 Creatinine 0.83 (0.7-1.0) mg/dL All other labs normal. Imaging Additional studies: ITS Impressions Chest X-Ray 03/18/25 13:17 IMPRESSION: 1. Small lung volumes with mild opacities at the left lower lung zone which could represent atelectasis or pneumonia. Head CT 03/19/25 11:45 IMPRESSION: 1. No fracture or acute intracranial process. 2. 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 Tibia/Fibula CT 03/19/25 11:50 IMPRESSION: 1. 3.5 x 2.5 x 1.2 cm lenticular soft tissue density with prominent surrounding subcutaneous edema overlying the anteromedial aspect of the mid to distal right tibia with differential including hematoma, abscess in the proper clinical setting or less likely solid neoplasm. Correlate clinically and could consider ultrasound to confirm complex fluid as clinically indicated.
[2025-03-19] MEDS: ATORVASTATIN 10 MG TABLET PO (20:06)
[2025-03-19 20:07] VITALS: PULSE 79
[2025-03-19 21:41] VITALS: PULSE 60; RESP 20; O2SAT 98
[2025-03-19 22:00] VITALS: BP 145/66; PULSE 65; RESP 18; TEMP 36.4; O2SAT 100
[2025-03-20 05:47] LABS: Anion Gap 7 mmol/L (4-12); Blood Urea Nitrogen 15 mg/dL (7-17); Calcium 8.9 mg/dL (8.4-10.2); Carbon Dioxide 21 mmol/L (22-30); Chloride 108 mmol/L (98-107); Estimated CRCL calculation 51 ml/min; Estimated Glomerular Filt Rate > 60; Glucose 89 mg/dL (65-110); Potassium 3.6 mmol/L (3.4-5.0); Sodium 136 mmol/L (137-145)
[2025-03-20 05:49] LABS: CRP 3.5 mg/dL (<1.0)
[2025-03-20] MEDS: LEVOTHYROXINE SODIUM 100 MCG TABLET PO (05:55)
[2025-03-20 06:00] VITALS: BP 138/71; PULSE 73; RESP 18; TEMP 36.4; O2SAT 95
[2025-03-20 08:04] LABS: Hematocrit 39.7 % (37.0-47.0); Hemoglobin 12.7 g/dL (12.0-15.0); Immature Granulocyte Percent A 0.3 % (0-0.5); Immature Platelet Fraction Pct 14.7 % (0.9-11.2); Lymphocytes Absolute Auto 1.96 K/mm3 (0.9-3.2); Mean Corpuscular HGB Conc 32.0 g/dl (32-36); Mean Corpuscular Hemoglobin 30.2 pg (26-34); Mean Corpuscular Volume 94.5 fl (80-100); Nucleated Red Blood Cells Absolute Auto 0.000 K/mm3 (0.0-0.012); Nucleated Red Blood Cells Perc 0.0 % (0.0-0.2); Platelet Count Result 139 k/mm3 (150-375); Red Blood Count 4.20 M/mm3 (4.2-5.4); White Blood Count 10.5 K/mm3 (4.5-10.0)
[2025-03-20 08:05] VITALS: BMI 10.0
[2025-03-20 09:31] VITALS: PULSE 66
[2025-03-20] MEDS: DOXYCYCLINE HYCLATE 100 MG TABLET PO (09:31)
[2025-03-20] MEDS: VANCOMYCIN 1,500 MG/NS 500 ML 1,500 MG/500 ML BAG 250 MG IVPB (09:31)
[2025-03-20] MEDS: APIXABAN 5 MG TABLET PO ×2 (09:31→17:14)
[2025-03-20] MEDS: METOPROLOL TARTRATE 12.5 MG TABLET PO ×2 (09:31→20:29)
[2025-03-20] MEDS: MEMANTINE 10 MG TABLET PO ×2 (09:31→17:14)
[2025-03-20] MEDS: cefTRIAXone 1 GM in SODIUM CHLORIDE 0.9% IV 50 ML 100 ML IVPB (13:34)
[2025-03-20 14:00] VITALS: BP 130/53; PULSE 58; RESP 22; TEMP 36.3; O2SAT 97
--- NOTE | 2025-03-20 15:03 | PM.PNGS ---
Progress Note: A&P Assessment and Plan (1) Hematoma of right lower leg: Code(s): S80.11XA - Contusion of right lower leg, initial encounter Status: Acute Assessment and Plan: Hematoma appears stable and does not appear to be expanding. No signs of infection and overlying skin appears healthy. 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 Hematoma does not appear to be expanding. H/H stable. Plan I have discussed the patient's case and plan of care with Dr. Quijano. Subjective Subjective Date/Time Seen: 03/20/25 15:03 Interval history: Patient pleasantly confused. Demented at baseline. No complaints. No pain. Exam Extrem: Other: Right leg hematoma on the lower anterior leg with no erythema, no warmth, and no expansion. Overlying skin viable and intact with no wounds or drainage. Objective Data Vital Signs Vital Signs: Vital Signs - 24 hr 03/19/25 20:07 03/19/25 20:10 03/19/25 21:41 Temperature Pulse Rate 79 60 Respiratory Rate 20 Blood Pressure Pulse Oximetry 98 Oxygen Delivery Room Air Room Air Fraction of Inspired Oxygen 21 03/19/25 22:00 03/20/25 06:00 03/20/25 09:30 Temperature 97.5 F L 97.5 F L Pulse Rate 65 73 Respiratory Rate 18 18 Blood Pressure 145/66 H 138/71 Pulse Oximetry 100 95 Oxygen Delivery Room Air Fraction of Inspired Oxygen 03/20/25 09:31 03/20/25 14:00 Temperature 97.4 F L Pulse Rate 66 58 L Respiratory Rate 22 H Blood Pressure 130/53 L Pulse Oximetry 97 Oxygen Delivery Fraction of Inspired Oxygen Intake/Output Intake/Output: Intake & Output 03/17/25 03/18/25 03/19/25 03/20/25 23:59 23:59 23:59 23:59 Intake Total 1220 4193.7 1430 Output Total 75 1000 900 Balance 1145 3193.7 530 Meds/Results Medications: Active Medications Generic Name Dose Route Start Last Admin Trade Name Freq PRN Reason Stop Dose Admin Apixaban 5 mg 03/19/25 09:00 03/20/25 09:31 Apixaban 5 Mg Tablet PO 5 mg BID JAMARI Administration Atorvastatin Calcium 10 mg 03/18/25 21:00 03/19/25 20:06 Atorvastatin 10 Mg Tablet PO 10 mg QHS JAMARI Administration Buspirone HCl 5 mg 03/19/25 09:00 03/20/25 09:31 Buspirone Hcl 5 Mg Tablet PO 5 mg BID JAMARI Administration Ceftriaxone Sodium 1 gm/ 50 mls @ 100 mls/hr 03/20/25 14:00 03/20/25 14:04 Sodium Chloride IVPB Infused Q24H JAMARI Infusion Vancomycin HCl 1,500 mg in 500 mls @ 250 mls/hr 03/21/25 10:00 Vancomycin 1,500 Mg/Ns 500 Ml IVPB Q24H JAMARI Levothyroxine Sodium 100 mcg 03/19/25 06:30 03/20/25 05:55 Levothyroxine Sodium 100 Mcg Tablet PO 100 mcg DAILY@0630 JAMARI Administration Memantine 10 mg 03/19/25 09:00 03/20/25 09:31 Memantine 10 Mg Tablet PO 10 mg BID JAMARI Administration Metoprolol Tartrate 12.5 mg 03/18/25 21:00 03/20/25 09:31 Metoprolol Tartrate 12.5 Mg Tablet PO 12.5 mg Q12HR JAMARI Administration Ondansetron HCl 4 mg 03/18/25 13:54 Ondansetron Inj 4 Mg/2 Ml Vial IV PUSH Q4H PRN Nausea Radiology Results: ITS Impressions Chest X-Ray 03/18/25 13:17 IMPRESSION: 1. Small lung volumes with mild opacities at the left lower lung zone which could represent atelectasis or pneumonia. Head CT 03/19/25 11:45 IMPRESSION: 1. No fracture or acute intracranial process. 2. 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 Tibia/Fibula CT 03/19/25 11:50 IMPRESSION: 1. 3.5 x 2.5 x 1.2 cm lenticular soft tissue density with prominent surrounding subcutaneous edema overlying the anteromedial aspect of the mid to distal right tibia with differential including hematoma, abscess in the proper clinical setting or less likely solid neoplasm. Correlate clinically and could consider ultrasound to confirm complex fluid as clinically indicated. Labs Labs: Laboratory Results - last 24 hr 03/20/25 03/20/25 05:10 05:11 WBC 10.5 H RBC 4.20 Hgb 12.7 Hct 39.7 MCV 94.5 MCH 30.2 MCHC 32.0 RDW 14.7 H Plt Count 139 L MPV 13.3 H Immature Gran % (Auto) 0.3 Neut % (Auto) 67.6 Lymph % (Auto) 18.7 [place] % (Auto) 9.7 H Eos % (Auto) 3.2 Baso % (Auto) 0.5 Lymph # (Auto) 1.96 [place] # (Auto) 1.0 H Eos # (Auto) 0.3 Baso # (Auto) 0.1 Abs Immat Gran (auto) 0.03 Absolute Neuts (auto) 7.1 H Absolute Nucleated RBC 0.000 Nucleated RBC % 0.0 % Immature Plt Fraction 14.7 H Sodium 136 L Potassium 3.6 Chloride 108 H Carbon Dioxide 21 L Anion Gap 7 BUN 15 D Creatinine 0.73 Estim Creat Clear Calc 51 Estimated GFR > 60 Glucose 89 Calcium 8.9 C-Reactive Protein 3.5 H
--- NOTE | 2025-03-20 15:10 | P.PNIM_ITS ---
Progress Note: A&P Assessment and Plan (1) Cellulitis: Code(s): L03.90 - Cellulitis, unspecified Status: Acute Assessment and Plan: - was started on doxycycline by the nursing facility - seen in ED 03/14, RLE venous Doppler negative for DVT - afebrile, no leukocytosis. -erythema appears to be improving, but still with significant tenderness with bruising and swelling noted - CT R tib/fib 03/19 with 3.5x2.5x1.2 cm fluid collection, likely hematoma - general surgery following, no surgical intervention warranted at this time -continue Rocephin/vancomycin today given mildly uptrending WBC. Likely can de-escalate in AM (2) Dehydration: Code(s): E86.0 - Dehydration Status: Acute Assessment and Plan: -s/p IVF - monitor volume status (3) Urinary tract infection: Qualifiers: Hematuria presence: with hematuria Urinary tract infection type: acute cystitis Qualified Code(s): N30.01 - Acute cystitis with hematuria Code(s): N39.0 - Urinary tract infection, site not specified Status: Acute Assessment and Plan: - UA with positive nitrite, 1+ LE, 6-10 WBC, 2+ bacteria - previous cultures with E coli, sensitive to cephalosporins, resistant to fluoroquinolones - continue IV Rocephin - urine culture pending (4) Atrial fibrillation: Code(s): I48.91 - Unspecified atrial fibrillation Status: Acute Assessment and Plan: -Continue Eliquis and metoprolol (5) Pneumonia: Code(s): J18.9 - Pneumonia, unspecified organism Status: Acute Assessment and Plan: - CXR with mild opacities in the left lower lung zones, atelectasis vs pneumonia - low suspicion for pneumonia given no cough, stable respiratory status, but will finish doxycycline course previously prescribed. Also on Rocephin (6) Dementia: Code(s): F03.90 - Unspecified dementia, unspecified severity, without behavioral disturbance, psychotic disturbance, mood disturbance, and anxiety Status: Acute Assessment and Plan: - alert and oriented x1-2 at baseline. Resides in memory care. -Continue Memantine (7) Hypothyroidism: Code(s): E03.9 - Hypothyroidism, unspecified Status: Acute Assessment and Plan: -Continue levothyroxine (8) Thrombocytopenia: Code(s): D69.6 - Thrombocytopenia, unspecified Status: Acute Assessment and Plan: - plts 139 - monitor CBC (9) Head injury: Code(s): S09.90XA - Unspecified injury of head, initial encounter Status: Acute Assessment and Plan: - bruising noted on forehead. No reported falls, but patient on Eliquis. - CT head no acute process Subjective Date/time seen: 03/20/25 15:10 Interval history: Patient seen and examined at bedside. Pleasantly confused this a.m.. Denies any acute complaints. Review of Systems Review of Systems: ROS unobtainable: Yes unobtainable due to mental status Exam Narrative: General: NAD Eyes: EOMI HENT: neck supple, forehead bruising Cardiovascular: Regular rate and rhythm Respiratory: Clear to auscultation, respirations even and unlabored on RA Gastrointestinal: Soft, non tender Genitourinary: no suprapubic tenderness Musculoskeletal: No edema Skin: warm, dry, right lower leg with mild erythema of anterior [place] with small fluid collection noted, bruising noted with tenderness to palpation Neuro: Alert and oriented to self only (baseline) Psych: Mood appropriate Objective Data Vital Signs Vital Signs: Vital Signs - 24 hr 03/19/25 20:07 03/19/25 20:10 03/19/25 21:41 Temperature Pulse Rate 79 60 Respiratory Rate 20 Blood Pressure Pulse Oximetry 98 Oxygen Delivery Room Air Room Air Fraction of Inspired Oxygen 21 03/19/25 22:00 03/20/25 06:00 03/20/25 09:30 Temperature 97.5 F L 97.5 F L Pulse Rate 65 73 Respiratory Rate 18 18 Blood Pressure 145/66 H 138/71 Pulse Oximetry 100 95 Oxygen Delivery Room Air Fraction of Inspired Oxygen 03/20/25 09:31 03/20/25 14:00 Temperature 97.4 F L Pulse Rate 66 58 L Respiratory Rate 22 H Blood Pressure 130/53 L Pulse Oximetry 97 Oxygen Delivery Fraction of Inspired Oxygen Intake/Output Intake/Output: Intake & Output 03/17/25 03/18/25 03/19/25 03/20/25 23:59 23:59 23:59 23:59 Intake Total 1220 4193.7 1430 Output Total 75 1000 900 Balance 1145 3193.7 530 Meds/Results Medications: Active Medications Generic Name Dose Route Start Last Admin Trade Name Freq PRN Reason Stop Dose Admin Apixaban 5 mg 03/19/25 09:00 03/20/25 09:31 Apixaban 5 Mg Tablet PO 5 mg BID JAMARI Administration Atorvastatin Calcium 10 mg 03/18/25 21:00 03/19/25 20:06 Atorvastatin 10 Mg Tablet PO 10 mg QHS JAMARI Administration Buspirone HCl 5 mg 03/19/25 09:00 03/20/25 09:31 Buspirone Hcl 5 Mg Tablet PO 5 mg BID JAMARI Administration Ceftriaxone Sodium 1 gm/ 50 mls @ 100 mls/hr 03/20/25 14:00 03/20/25 14:04 Sodium Chloride IVPB Infused Q24H JAMARI Infusion Vancomycin HCl 1,500 mg in 500 mls @ 250 mls/hr 03/21/25 10:00 Vancomycin 1,500 Mg/Ns 500 Ml IVPB Q24H JAMARI Levothyroxine Sodium 100 mcg 03/19/25 06:30 03/20/25 05:55 Levothyroxine Sodium 100 Mcg Tablet PO 100 mcg DAILY@0630 JAMARI Administration Memantine 10 mg 03/19/25 09:00 03/20/25 09:31 Memantine 10 Mg Tablet PO 10 mg BID JAMARI Administration Metoprolol Tartrate 12.5 mg 03/18/25 21:00 03/20/25 09:31 Metoprolol Tartrate 12.5 Mg Tablet PO 12.5 mg Q12HR JAMARI Administration Ondansetron HCl 4 mg 03/18/25 13:54 Ondansetron Inj 4 Mg/2 Ml Vial IV PUSH Q4H PRN Nausea Radiology Results: ITS Impressions Chest X-Ray 03/18/25 13:17 IMPRESSION: 1. Small lung volumes with mild opacities at the left lower lung zone which could represent atelectasis or pneumonia. Head CT 03/19/25 11:45 IMPRESSION: 1. No fracture or acute intracranial process. 2. 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 Tibia/Fibula CT 03/19/25 11:50 IMPRESSION: 1. 3.5 x 2.5 x 1.2 cm lenticular soft tissue density with prominent surrounding subcutaneous edema overlying the anteromedial aspect of the mid to distal right tibia with differential including hematoma, abscess in the proper clinical setting or less likely solid neoplasm. Correlate clinically and could consider ultrasound to confirm complex fluid as clinically indicated. Labs Labs: Laboratory Results - last 24 hr 03/20/25 03/20/25 05:10 05:11 WBC 10.5 H RBC 4.20 Hgb 12.7 Hct 39.7 MCV 94.5 MCH 30.2 MCHC 32.0 RDW 14.7 H Plt Count 139 L MPV 13.3 H Immature Gran % (Auto) 0.3 Neut % (Auto) 67.6 Lymph % (Auto) 18.7 [place] % (Auto) 9.7 H Eos % (Auto) 3.2 Baso % (Auto) 0.5 Lymph # (Auto) 1.96 [place] # (Auto) 1.0 H Eos # (Auto) 0.3 Baso # (Auto) 0.1 Abs Immat Gran (auto) 0.03 Absolute Neuts (auto) 7.1 H Absolute Nucleated RBC 0.000 Nucleated RBC % 0.0 % Immature Plt Fraction 14.7 H Sodium 136 L Potassium 3.6 Chloride 108 H Carbon Dioxide 21 L Anion Gap 7 BUN 15 D Creatinine 0.73 Estim Creat Clear Calc 51 Estimated GFR > 60 Glucose 89 Calcium 8.9 C-Reactive Protein 3.5 H Quality VTE Prophylaxis VTE prophylaxis: pharmacologic ordered
[2025-03-20 19:53] VITALS: BP 148/95; PULSE 83; RESP 20; TEMP 36.6; O2SAT 95
[2025-03-20 20:29] VITALS: PULSE 83
[2025-03-20] MEDS: ATORVASTATIN 10 MG TABLET PO (20:29)
[2025-03-21 05:30] VITALS: BP 105/75; PULSE 69; RESP 20; TEMP 36.6; O2SAT 90
[2025-03-21] MEDS: LEVOTHYROXINE SODIUM 100 MCG TABLET PO (05:31)
[2025-03-21 08:55] LABS: Hematocrit 37.4 % (37.0-47.0); Hemoglobin 12.1 g/dL (12.0-15.0); Immature Granulocyte Percent A 0.3 % (0-0.5); Lymphocytes Absolute Auto 1.72 K/mm3 (0.9-3.2); Mean Corpuscular HGB Conc 32.4 g/dl (32-36); Mean Corpuscular Hemoglobin 30.0 pg (26-34); Mean Corpuscular Volume 92.8 fl (80-100); Nucleated Red Blood Cells Absolute Auto 0.020 K/mm3 (0.0-0.012); Nucleated Red Blood Cells Perc 0.2 % (0.0-0.2); Platelet Count Result 142 k/mm3 (150-375); Red Blood Count 4.03 M/mm3 (4.2-5.4); White Blood Count 10.7 K/mm3 (4.5-10.0)
[2025-03-21 09:00] VITALS: PULSE 68
[2025-03-21] MEDS: METOPROLOL TARTRATE 12.5 MG TABLET PO ×2 (09:00→20:52)
[2025-03-21] MEDS: APIXABAN 5 MG TABLET PO ×2 (09:00→17:26)
[2025-03-21] MEDS: MEMANTINE 10 MG TABLET PO ×2 (09:00→17:26)
[2025-03-21 09:17] LABS: CRP 4.4 mg/dL (<1.0); Estimated CRCL calculation 46 ml/min; Estimated Glomerular Filt Rate > 60
[2025-03-21] MEDS: VANCOMYCIN 1,250 MG/NS 250 ML 1,250 MG/250 ML BAG 166.67 MG IVPB (10:34)
--- NOTE | 2025-03-21 11:00 | P.PNGS_ITS ---
Progress Note: A&P Assessment and Plan (1) Hematoma of right lower leg: Code(s): S80.11XA - Contusion of right lower leg, initial encounter Status: Acute Assessment and Plan: * Hematoma appears stable and does not appear to be expanding. No signs of infection and overlying skin appears healthy. * No indication for surgical management at this time. * Continue josé miguel wrap for compression. * We will sign off at this time. Please call with any concerns. Thank you for the opportunity to take care of this patient. (2) Anticoagulated by anticoagulation treatment: Code(s): Z79.01 - detention (current) use of anticoagulants Status: Acute Assessment and Plan: * Still on Eliquis. Hematoma does not appear to be expanding. H/H stable. Plan I have discussed the patient's case and plan of care with Dr. Quijano. Subjective Subjective Date/Time Seen: 03/21/25 11:00 Patient reports: no new complaints Interval history: Patient is doing well today. No new complaints. Hematoma stable. WBC 10.7, not likely from hematoma. Patient being worked up for UTI and pneumonia. Currently on ceftriaxone. Exam Const: General: comfortable and no acute distress Extrem: Right upper extremity: full ROM and normal capillary refill; abnormal to inspection (Multiple scattered bruises on hands and arms) Left upper extremity: full ROM and normal capillary refill; abnormal to inspection (Multiple scattered bruises on hands and arms) Right lower extremity: foot Details: vascular exam Details: dorsalis pedis pulse present (weak), posterior tibial pulse present and normal capillary refill; not cool Left lower extremity: normal to inspection Other: Right leg hematoma on the lower anterior leg with no erythema, no warmth, and no expansion. Overlying skin viable and intact with no wounds or drainage. Unchanged from yesterday. Objective Data Vital Signs Vital Signs: Vital Signs - 24 hr 03/20/25 14:00 03/20/25 19:53 03/20/25 20:29 Temperature 97.4 F L 97.8 F Pulse Rate 58 L 83 83 Respiratory Rate 22 H 20 Blood Pressure 130/53 L 148/95 H Pulse Oximetry 97 95 Oxygen Delivery 03/20/25 20:30 03/21/25 05:30 03/21/25 09:00 Temperature 97.9 F Pulse Rate 69 68 Respiratory Rate 20 Blood Pressure 105/75 Pulse Oximetry 90 Oxygen Delivery Room Air 03/21/25 09:00 Temperature Pulse Rate Respiratory Rate Blood Pressure Pulse Oximetry Oxygen Delivery Room Air Intake/Output Intake/Output: Intake & Output 03/18/25 03/19/25 03/20/25 03/21/25 23:59 23:59 23:59 23:59 Intake Total 1220 4193.7 2098 268 Output Total 75 1000 2300 800 Balance 1145 3193.7 -202 -532 Meds/Results Medications: Active Medications Generic Name Dose Route Start Last Admin Trade Name Freq PRN Reason Stop Dose Admin Apixaban 5 mg 03/19/25 09:00 03/21/25 09:00 Apixaban 5 Mg Tablet PO 5 mg BID JAMARI Administration Atorvastatin Calcium 10 mg 03/18/25 21:00 03/20/25 20:29 Atorvastatin 10 Mg Tablet PO 10 mg QHS JAMARI Administration Buspirone HCl 5 mg 03/19/25 09:00 03/21/25 09:00 Buspirone Hcl 5 Mg Tablet PO 5 mg BID JAMARI Administration Ceftriaxone Sodium 1 gm/ 50 mls @ 100 mls/hr 03/20/25 14:00 03/20/25 14:04 Sodium Chloride IVPB Infused Q24H JAMARI Infusion Vancomycin HCl 1,250 mg in 250 mls @ 166.667 mls/hr 03/21/25 10:00 03/21/25 10:34 Vancomycin 1,250 Mg/Ns 250 Ml IVPB 166.67 mls/hr Q12H JAMARI Administration Levothyroxine Sodium 100 mcg 03/19/25 06:30 03/21/25 05:31 Levothyroxine Sodium 100 Mcg Tablet PO 100 mcg DAILY@0630 JAMARI Administration Memantine 10 mg 03/19/25 09:00 03/21/25 09:00 Memantine 10 Mg Tablet PO 10 mg BID JAMARI Administration Metoprolol Tartrate 12.5 mg 03/18/25 21:00 03/21/25 09:00 Metoprolol Tartrate 12.5 Mg Tablet PO 12.5 mg Q12HR JAMARI Administration Ondansetron HCl 4 mg 03/18/25 13:54 Ondansetron Inj 4 Mg/2 Ml Vial IV PUSH Q4H PRN Nausea Radiology Results: ITS Impressions Chest X-Ray 03/18/25 13:17 IMPRESSION: 1. Small lung volumes with mild opacities at the left lower lung zone which could represent atelectasis or pneumonia. Head CT 03/19/25 11:45 IMPRESSION: 1. No fracture or acute intracranial process. 2. 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 Tibia/Fibula CT 03/19/25 11:50 IMPRESSION: 1. 3.5 x 2.5 x 1.2 cm lenticular soft tissue density with prominent surrounding subcutaneous edema overlying the anteromedial aspect of the mid to distal right tibia with differential including hematoma, abscess in the proper clinical setting or less likely solid neoplasm. Correlate clinically and could consider ultrasound to confirm complex fluid as clinically indicated. Labs Labs: Laboratory Results - last 24 hr 03/21/25 08:49 WBC 10.7 H RBC 4.03 L Hgb 12.1 Hct 37.4 MCV 92.8 MCH 30.0 MCHC 32.4 RDW 14.4 Plt Count 142 L MPV 12.3 H Immature Gran % (Auto) 0.3 Neut % (Auto) 73.1 Lymph % (Auto) 16.1 L [place] % (Auto) 8.9 H Eos % (Auto) 1.3 Baso % (Auto) 0.3 Lymph # (Auto) 1.72 [place] # (Auto) 1.0 H Eos # (Auto) 0.1 Baso # (Auto) 0.0 Abs Immat Gran (auto) 0.03 Absolute Neuts (auto) 7.8 H Absolute Nucleated RBC 0.020 H Nucleated RBC % 0.2 Creatinine 0.82 Estim Creat Clear Calc 46 Estimated GFR > 60 C-Reactive Protein 4.4 H Vancomycin Trough 9.5 L
[2025-03-21 14:00] VITALS: BP 100/80; PULSE 66; RESP 20; TEMP 36.6; O2SAT 91
[2025-03-21] MEDS: cefTRIAXone 1 GM in SODIUM CHLORIDE 0.9% IV 50 ML 100 ML IVPB (14:31)
--- NOTE | 2025-03-21 14:52 | P.PNIM_ITS ---
Progress Note: A&P Assessment and Plan (1) Metabolic encephalopathy: Code(s): G93.41 - Metabolic encephalopathy Status: Acute Assessment and Plan: AMS status from patient reported baseline has HX of dementia admitted with UTI * IV Rocephin for UTI * monitor mental status (2) Dementia: Code(s): F03.90 - Unspecified dementia, unspecified severity, without behavioral disturbance, psychotic disturbance, mood disturbance, and anxiety Status: Acute Assessment and Plan: * alert and oriented x1-2 at baseline. Resides in memory care. * Continue Memantine (3) Urinary tract infection: Qualifiers: Hematuria presence: with hematuria Urinary tract infection type: acute cystitis Qualified Code(s): N30.01 - Acute cystitis with hematuria Code(s): N39.0 - Urinary tract infection, site not specified Status: Acute Assessment and Plan: UA with positive nitrite, 1+ LE, 6-10 WBC, 2+ bacteria, previous cultures with E coli, sensitive to cephalosporins, resistant to fluoroquinolones * continue IV Rocephin * urine culture pending (4) Atrial fibrillation: Code(s): I48.91 - Unspecified atrial fibrillation Status: Acute Assessment and Plan: * Continue Eliquis and metoprolol (5) Pneumonia: Code(s): J18.9 - Pneumonia, unspecified organism Status: Acute Assessment and Plan: CXR with mild opacities in the left lower lung zones, atelectasis vs pneumonia * low suspicion for pneumonia given no cough, stable respiratory status, but will finish doxycycline course previously prescribed. Also on Rocephin (6) Hypothyroidism: Code(s): E03.9 - Hypothyroidism, unspecified Status: Acute Assessment and Plan: * Continue levothyroxine (7) Thrombocytopenia: Code(s): D69.6 - Thrombocytopenia, unspecified Status: Acute Assessment and Plan: * plts 139 * daily CBC (8) Head injury: Code(s): S09.90XA - Unspecified injury of head, initial encounter Status: Acute Assessment and Plan: * bruising noted on forehead. No reported falls, but patient on Eliquis. * CT head no acute process (9) Hematoma of right lower leg: Code(s): S80.11XA - Contusion of right lower leg, initial encounter Status: Acute Assessment and Plan: seen in ED 03/14, RLE venous Doppler negative for DVT * afebrile, no leukocytosis. * CT R tib/fib 03/19 with 3.5x2.5x1.2 cm fluid collection, likely hematoma * general surgery following, no surgical intervention warranted at this time * Elevate leg at rest, warm compression (10) Weakness: Code(s): R53.1 - Weakness Status: Acute Assessment and Plan: patient with increased weakness secondary to urinary tract infection currently lives at a assisted [facility] care they will need to re-evaluate patient to return concerns she will need rehab prior to returning not back to her baseline. * PT/OT * CC consulted Plan Code status: Full code per patient DVT prophylaxis: Eliquis Stress ulcer prophylaxis: GRACIE PT/OT notes: REHAB vs returning to [place] was using a gonzalez steady for transfers Disposition: Patient continues admission for treatment of urinary tract infection with generalized weakness and altered mental status. Patient lives At a assisted memory care being evaluated may need rehab prior to return. Time Spent With Patient Time with patient: 15 - 25 minutes Subjective Date/time seen: 03/21/25 14:52 Interval history: Patient is 84-year-old female admitted for altered mental status generalized weakness with history of dementia admitted for further evaluation for possible UTI and evaluation by PT/ OT patient currently lives at [facility]. 03/21/2025 Patient still confused and not answer questions appropriately appears to have flight of ideas daughter is at bedside states she has intermittent episodes of altered mental status but appears more confused than her baseline prior to admission. patient currently reporting no pain anywhere denied any shortness of breath or chest pain or difficulty with urination. Review of Systems Review of Systems: unsure patient's response confused with flight of ideas ROS unobtainable: Yes unobtainable due to mental status Exam Narrative: General: NAD Eyes: EOMI HENT: neck supple, forehead bruising Cardiovascular: RRR Respiratory: Clear to auscultation, respirations even and unlabored on RA Gastrointestinal: Soft, non tender Genitourinary: no suprapubic tenderness Musculoskeletal: No edema Skin: warm, dry, right lower leg with noted hematoma no erythema or swelling Neuro: Alert and oriented to self only (baseline) Psych: Mood appropriate Objective Data Vital Signs Vital Signs: Vital Signs - 24 hr 03/20/25 19:53 03/20/25 20:29 03/20/25 20:30 Temperature 97.8 F Pulse Rate 83 83 Respiratory Rate 20 Blood Pressure 148/95 H Pulse Oximetry 95 Oxygen Delivery Room Air 03/21/25 05:30 03/21/25 09:00 03/21/25 09:00 Temperature 97.9 F Pulse Rate 69 68 Respiratory Rate 20 Blood Pressure 105/75 Pulse Oximetry 90 Oxygen Delivery Room Air 03/21/25 14:00 Temperature 98 F Pulse Rate 66 Respiratory Rate 20 Blood Pressure 100/80 Pulse Oximetry 91 Oxygen Delivery Intake/Output Intake/Output: Intake & Output 03/18/25 03/19/25 03/20/25 03/21/25 23:59 23:59 23:59 23:59 Intake Total 1220 4193.7 2098 638 Output Total 75 1000 2300 800 Balance 1145 3193.7 -202 -162 Meds/Results Medications: Active Medications Generic Name Dose Route Start Last Admin Trade Name Freq PRN Reason Stop Dose Admin Apixaban 5 mg 03/19/25 09:00 03/21/25 09:00 Apixaban 5 Mg Tablet PO 5 mg BID JAMARI Administration Atorvastatin Calcium 10 mg 03/18/25 21:00 03/20/25 20:29 Atorvastatin 10 Mg Tablet PO 10 mg QHS JAMARI Administration Buspirone HCl 5 mg 03/19/25 09:00 03/21/25 09:00 Buspirone Hcl 5 Mg Tablet PO 5 mg BID JAMARI Administration Ceftriaxone Sodium 1 gm/ 50 mls @ 100 mls/hr 03/20/25 14:00 03/21/25 14:31 Sodium Chloride IVPB 100 mls/hr Q24H JAMARI Administration Levothyroxine Sodium 100 mcg 03/19/25 06:30 03/21/25 05:31 Levothyroxine Sodium 100 Mcg Tablet PO 100 mcg DAILY@0630 JAMARI Administration Memantine 10 mg 03/19/25 09:00 03/21/25 09:00 Memantine 10 Mg Tablet PO 10 mg BID JAMARI Administration Metoprolol Tartrate 12.5 mg 03/18/25 21:00 03/21/25 09:00 Metoprolol Tartrate 12.5 Mg Tablet PO 12.5 mg Q12HR JAMARI Administration Ondansetron HCl 4 mg 03/18/25 13:54 Ondansetron Inj 4 Mg/2 Ml Vial IV PUSH Q4H PRN Nausea Radiology Results: ITS Impressions Chest X-Ray 03/18/25 13:17 IMPRESSION: 1. Small lung volumes with mild opacities at the left lower lung zone which could represent atelectasis or pneumonia. Head CT 03/19/25 11:45 IMPRESSION: 1. No fracture or acute intracranial process. 2. 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 Tibia/Fibula CT 03/19/25 11:50 IMPRESSION: 1. 3.5 x 2.5 x 1.2 cm lenticular soft tissue density with prominent surrounding subcutaneous edema overlying the anteromedial aspect of the mid to distal right tibia with differential including hematoma, abscess in the proper clinical setting or less likely solid neoplasm. Correlate clinically and could consider ultrasound to confirm complex fluid as clinically indicated. Labs Labs: Laboratory Results - last 24 hr 03/21/25 08:49 WBC 10.7 H RBC 4.03 L Hgb 12.1 Hct 37.4 MCV 92.8 MCH 30.0 MCHC 32.4 RDW 14.4 Plt Count 142 L MPV 12.3 H Immature Gran % (Auto) 0.3 Neut % (Auto) 73.1 Lymph % (Auto) 16.1 L [place] % (Auto) 8.9 H Eos % (Auto) 1.3 Baso % (Auto) 0.3 Lymph # (Auto) 1.72 [place] # (Auto) 1.0 H Eos # (Auto) 0.1 Baso # (Auto) 0.0 Abs Immat Gran (auto) 0.03 Absolute Neuts (auto) 7.8 H Absolute Nucleated RBC 0.020 H Nucleated RBC % 0.2 Creatinine 0.82 Estim Creat Clear Calc 46 Estimated GFR > 60 C-Reactive Protein 4.4 H Vancomycin Trough 9.5 L Quality VTE Prophylaxis VTE prophylaxis: pharmacologic ordered -Patient's previous records reviewed on admission -ER notes reviewed in detail on admission -discussed all findings and current treatment plan with patient/Family/POA -Consultations reviewed for recommendations -Patient's disposition for safe discharge discussed with correctional counselor/case manager Dictation performed by [employer] direct speech recognition software, therefore hospice care consultant variants and typographical errors may occur. Hospitalist MIPS Advance Care Plan I have confirmed that the patient's Advanced Care Plan is present, code status is documented, or surrogate decision maker is listed in patient medical record.: Yes Medication Reconciliation I have utilized all available resources to obtain, update and review the patients current medications (includes all prescriptions, OTC, herbals, cannabis, and nutritional supplements).: Yes The patient is not eligible for med reconciliation; the patient is in a emergent medical situation where delaying treatment would jeopardize the patients health.: No
[2025-03-21 20:52] VITALS: PULSE 66
[2025-03-21] MEDS: ATORVASTATIN 10 MG TABLET PO (20:55)
[2025-03-21 22:00] VITALS: BP 114/56; PULSE 57; RESP 16; TEMP 36.2; O2SAT 97
[2025-03-22] VITALS (9 sets, daily range): BP systolic 118–151; BP diastolic 45–75; PULSE 50–64; RESP 14–18; TEMP 36.1–36.2; O2SAT 92–96
[2025-03-22 05:03] LABS: CRP 6.9 mg/dL (<1.0)
[2025-03-22] MEDS: LEVOTHYROXINE SODIUM 100 MCG TABLET PO (06:08)
[2025-03-22] MEDS: RIVASTIGMINE TARTRATE 1.5 MG CAPSULE 3 MG PO (10:11)
[2025-03-22] MEDS: METOPROLOL TARTRATE 12.5 MG TABLET PO (10:11)
[2025-03-22] MEDS: APIXABAN 5 MG TABLET PO ×2 (10:12→16:56)
[2025-03-22] MEDS: MEMANTINE 10 MG TABLET PO ×2 (10:12→16:56)
[2025-03-22 10:33] LABS: Hematocrit 36.2 % (37.0-47.0); Hemoglobin 11.5 g/dL (12.0-15.0); Immature Platelet Fraction Pct 14.1 % (0.9-11.2); Mean Corpuscular HGB Conc 31.8 g/dl (32-36); Mean Corpuscular Hemoglobin 30.5 pg (26-34); Mean Corpuscular Volume 96.0 fl (80-100); Platelet Count Result 142 k/mm3 (150-375); Red Blood Count 3.77 M/mm3 (4.2-5.4); White Blood Count 8.7 K/mm3 (4.5-10.0)
--- NOTE | 2025-03-22 12:16 | P.PNIM_ITS ---
Progress Note: A&P Assessment and Plan (1) Metabolic encephalopathy: Code(s): G93.41 - Metabolic encephalopathy Status: Acute Assessment and Plan: AMS status from patient reported baseline has HX of dementia admitted with UTI * IV Rocephin for UTI * monitor mental status (2) Dementia: Code(s): F03.90 - Unspecified dementia, unspecified severity, without behavioral disturbance, psychotic disturbance, mood disturbance, and anxiety Status: Acute Assessment and Plan: * alert and oriented x1-2 at baseline. Resides in memory care. * Continue Memantine (3) Urinary tract infection: Qualifiers: Hematuria presence: with hematuria Urinary tract infection type: acute cystitis Qualified Code(s): N30.01 - Acute cystitis with hematuria Code(s): N39.0 - Urinary tract infection, site not specified Status: Acute Assessment and Plan: UA with positive nitrite, 1+ LE, 6-10 WBC, 2+ bacteria, previous cultures with E coli, sensitive to cephalosporins, resistant to fluoroquinolones * continue IV Rocephin * urine culture pending (4) Atrial fibrillation: Code(s): I48.91 - Unspecified atrial fibrillation Status: Acute Assessment and Plan: * Continue Eliquis and metoprolol (5) Pneumonia: Code(s): J18.9 - Pneumonia, unspecified organism Status: Acute Assessment and Plan: CXR with mild opacities in the left lower lung zones, atelectasis vs pneumonia * low suspicion for pneumonia given no cough, stable respiratory status, but will finish doxycycline course previously prescribed. Also on Rocephin (6) Hypothyroidism: Code(s): E03.9 - Hypothyroidism, unspecified Status: Acute Assessment and Plan: * Continue levothyroxine (7) Thrombocytopenia: Code(s): D69.6 - Thrombocytopenia, unspecified Status: Acute Assessment and Plan: * plts 139 * daily CBC (8) Head injury: Code(s): S09.90XA - Unspecified injury of head, initial encounter Status: Acute Assessment and Plan: * bruising noted on forehead. No reported falls, but patient on Eliquis. * CT head no acute process (9) Hematoma of right lower leg: Code(s): S80.11XA - Contusion of right lower leg, initial encounter Status: Acute Assessment and Plan: seen in ED 03/14, RLE venous Doppler negative for DVT * afebrile, no leukocytosis. * CT R tib/fib 03/19 with 3.5x2.5x1.2 cm fluid collection, likely hematoma * general surgery following, no surgical intervention warranted at this time * Elevate leg at rest, warm compression (10) Weakness: Code(s): R53.1 - Weakness Status: Acute Assessment and Plan: patient with increased weakness secondary to urinary tract infection currently lives at a assisted [facility] care they will need to re-evaluate patient to return concerns she will need rehab prior to returning not back to her baseline. * PT/OT * CC consulted (11) Somnolence: Code(s): R40.0 - Somnolence Status: Acute Assessment and Plan: Patient with intermittent somnolence worse today after resuming her Exelon but already on Namenda as well with some scant wheezing heard throughout lung tee on auscultation. Normal WBC and on ABX therapy for UTI. 92% on room air likely some underlying sleep apnea. * CXR pending * will hold Exelon * Dounebs Plan Code status: DNR/DNI DVT prophylaxis: Eliquis Stress ulcer prophylaxis: NA PT/OT notes: REHAB vs returning to [place] was using a gonzalez steady for trans fers Disposition: Patient continues admission for treatment of urinary tract infection with generalized weakness and altered mental status. [facility] may need rehab prior to return. Time Spent With Patient Time with patient: 15 - 25 minutes Subjective Date/time seen: 03/22/25 12:16 Interval history: Patient is 84-year-old female admitted for altered mental status generalized weakness with history of dementia admitted for further evaluation for possible UTI and evaluation by PT/ OT patient currently lives at [facility]. 03/22/2025: Patient more somnolent today would respond with sternal rub and did answer some questions but dozes off during my assessment. Scant wheezing heard throughout, had difficulty working with PT and would fall asleep while eating. Review of Systems Review of Systems: unsure patient's response confused with flight of ideas ROS unobtainable: Yes unobtainable due to mental status Exam Narrative: General: NAD Eyes: EOMI HENT: neck supple, forehead bruising Cardiovascular: RRR Respiratory: Clear to auscultation, respirations even and unlabored on RA Gastrointestinal: Soft, non tender Genitourinary: no suprapubic tenderness Musculoskeletal: No edema Skin: warm, dry, right lower leg with noted hematoma no erythema or swelling Neuro: Alert and oriented to self only (baseline) Psych: Mood appropriate Objective Data Vital Signs Vital Signs: Vital Signs - 24 hr 03/21/25 14:00 03/21/25 20:00 03/21/25 20:52 Temperature 98 F Pulse Rate 66 66 Respiratory Rate 20 Blood Pressure 100/80 Pulse Oximetry 91 Oxygen Delivery Room Air 03/21/25 22:00 03/22/25 00:31 03/22/25 06:00 Temperature 97.2 F L 97.2 F L Pulse Rate 57 L 50 L Respiratory Rate 16 16 Blood Pressure 114/56 L 137/48 L Pulse Oximetry 97 96 93 Oxygen Delivery Room Air 03/22/25 10:10 03/22/25 10:11 03/22/25 11:06 Temperature 97.2 F L Pulse Rate 64 53 L Respiratory Rate 18 Blood Pressure 138/64 Pulse Oximetry 92 Oxygen Delivery Room Air Intake/Output Intake/Output: Intake & Output 03/19/25 03/20/25 03/21/25 03/22/25 23:59 23:59 23:59 23:59 Intake Total 4193.7 2098 1358 420 Output Total 1000 2300 1600 600 Balance 3193.7 -202 -242 -180 Meds/Results Medications: Active Medications Generic Name Dose Route Start Last Admin Trade Name Freq PRN Reason Stop Dose Admin Albuterol/Ipratropium 3 ml 03/22/25 14:00 Ipratropium 0.5 Mg/Albuterol Sulfate 2.5 Mg Ampul.Neb 3 Ml INHALATION Q6HRT JAMARI Apixaban 5 mg 03/19/25 09:00 03/22/25 10:12 Apixaban 5 Mg Tablet PO 5 mg BID JAMARI Administration Atorvastatin Calcium 10 mg 03/18/25 21:00 03/21/25 20:55 Atorvastatin 10 Mg Tablet PO 10 mg QHS JAMARI Administration Buspirone HCl 5 mg 03/19/25 09:00 03/22/25 10:12 Buspirone Hcl 5 Mg Tablet PO 5 mg BID JAMARI Administration Ceftriaxone Sodium 1 gm/ 50 mls @ 100 mls/hr 03/20/25 14:00 03/21/25 15:01 Sodium Chloride IVPB Infused Q24H JAMARI Infusion Levothyroxine Sodium 100 mcg 03/19/25 06:30 03/22/25 06:08 Levothyroxine Sodium 100 Mcg Tablet PO 100 mcg DAILY@0630 JAMARI Administration Memantine 10 mg 03/19/25 09:00 03/22/25 10:12 Memantine 10 Mg Tablet PO 10 mg BID JAMARI Administration Metoprolol Tartrate 12.5 mg 03/18/25 21:00 03/22/25 10:11 Metoprolol Tartrate 12.5 Mg Tablet PO 12.5 mg Q12HR JAMARI Administration Ondansetron HCl 4 mg 03/18/25 13:54 Ondansetron Inj 4 Mg/2 Ml Vial IV PUSH Q4H PRN Nausea Radiology Results: ITS Impressions Chest X-Ray 03/18/25 13:17 IMPRESSION: 1. Small lung volumes with mild opacities at the left lower lung zone which could represent atelectasis or pneumonia. Head CT 03/19/25 11:45 IMPRESSION: 1. No fracture or acute intracranial process. 2. 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 Tibia/Fibula CT 03/19/25 11:50 IMPRESSION: 1. 3.5 x 2.5 x 1.2 cm lenticular soft tissue density with prominent surrounding subcutaneous edema overlying the anteromedial aspect of the mid to distal right tibia with differential including hematoma, abscess in the proper clinical setting or less likely solid neoplasm. Correlate clinically and could consider ultrasound to confirm complex fluid as clinically indicated. Labs Labs: Laboratory Results - last 24 hr 03/22/25 03/22/25 03/22/25 04:21 04:24 11:39 WBC 8.7 RBC 3.77 L Hgb 11.5 L Hct 36.2 L MCV 96.0 MCH 30.5 MCHC 31.8 L RDW 14.8 H Plt Count 142 L MPV 13.3 H % Immature Plt Fraction 14.1 H POC Capillary Glucose 141 H C-Reactive Protein 6.9 H Quality VTE Prophylaxis VTE prophylaxis: pharmacologic ordered -Patient's previous records reviewed on admission -ER notes reviewed in detail on admission -discussed all findings and current treatment plan with patient/Family/POA -Consultations reviewed for recommendations -Patient's disposition for safe discharge discussed with window caser Dictation performed by [employer] direct speech recognition software, therefore fiber optic assembler variants and typographical errors may occur. Hospitalist MIPS Advance Care Plan I have confirmed that the patient's Advanced Care Plan is present, code status is documented, or surrogate decision maker is listed in patient medical record.: Yes Medication Reconciliation I have utilized all available resources to obtain, update and review the patients current medications (includes all prescriptions, OTC, herbals, cannabis, and nutritional supplements).: Yes The patient is not eligible for med reconciliation; the patient is in a emergent medical situation where delaying treatment would jeopardize the patients health.: No
--- NOTE | 2025-03-22 13:03 | PCOTNOTE ---
Patient has been attempted 2 times this date. Patient is unable to stay awake to participate in services. Patient can be aroused, attempts to answer question with eyes closed with 1 word answer, and difficulty to understand. RN is aware
[2025-03-22] MEDS: IPRATROPIUM 0.5 MG/ALBUTEROL SULFATE 2.5 MG AMPUL.NEB 3 ML INHALATION ×2 (13:45→22:14)
[2025-03-22 15:14] LABS: Alanine Aminotransferase 17 U/L (6-35); Albumin Level 2.9 g/dL (3.5-5.1); Alkaline Phosphatase 97 U/L (38-126); Anion Gap 4 mmol/L (4-12); Aspartate Amino Transferase 27 U/L (14-36); Bilirubin,Total 1.1 mg/dL (0.2-1.3); Blood Urea Nitrogen 15 mg/dL (7-17); Calcium 8.8 mg/dL (8.4-10.2); Carbon Dioxide 26 mmol/L (22-30); Chloride 107 mmol/L (98-107); Estimated CRCL calculation 44 ml/min; Estimated Glomerular Filt Rate > 60; Glucose 74 mg/dL (65-110); Magnesium 1.9 mg/dL (1.6-2.3); Potassium 3.6 mmol/L (3.4-5.0); Sodium 137 mmol/L (137-145); Total Protein 6.0 g/dL (6.3-8.2)
[2025-03-22] MEDS: cefTRIAXone 1 GM in SODIUM CHLORIDE 0.9% IV 50 ML 100 ML IVPB (15:38)
[2025-03-22 22:06] LABS: Alveolar/Arterial O2 Gradient 33.7 mmHg; Fractional Inspired Oxygen 21 %; HCO3 ABG 25.7 mEq/l (22.0-26.0); Oxygen Content ABG 17.4 %vol (16.0-22.0); Oxygen Saturation ABG 95.1 % (95.0-100.0); PCO2 ABG 37.5 mmHg (35.0-45.0); PO2 ABG 71.1 mmHg (80.0-100.0); PO2 FiO2 Ratio Arterial Blood 3.39 %
[2025-03-22 22:11] LABS: Modified Allen's Test Pass; Site Drawn RIGHT RADIAL
[2025-03-23] VITALS (12 sets, daily range): BP systolic 118–127; BP diastolic 47–52; PULSE 53–68; RESP 16–18; TEMP 36.3–36.5; O2SAT 94–97
[2025-03-23 05:57] LABS: Hematocrit 36.9 % (37.0-47.0); Hemoglobin 12.0 g/dL (12.0-15.0); Immature Platelet Fraction Pct 14.7 % (0.9-11.2); Mean Corpuscular HGB Conc 32.5 g/dl (32-36); Mean Corpuscular Hemoglobin 30.7 pg (26-34); Mean Corpuscular Volume 94.4 fl (80-100); Platelet Count Result 155 k/mm3 (150-375); Red Blood Count 3.91 M/mm3 (4.2-5.4); White Blood Count 9.9 K/mm3 (4.5-10.0)
[2025-03-23 07:06] LABS: Alanine Aminotransferase 18 U/L (6-35); Albumin Level 3.1 g/dL (3.5-5.1); Alkaline Phosphatase 106 U/L (38-126); Anion Gap 4 mmol/L (4-12); Aspartate Amino Transferase 30 U/L (14-36); Bilirubin,Total 0.8 mg/dL (0.2-1.3); Blood Urea Nitrogen 19 mg/dL (7-17); Calcium 9.0 mg/dL (8.4-10.2); Carbon Dioxide 29 mmol/L (22-30); Chloride 105 mmol/L (98-107); Estimated CRCL calculation 44 ml/min; Estimated Glomerular Filt Rate > 60; Glucose 82 mg/dL (65-110); Magnesium 2.0 mg/dL (1.6-2.3); Potassium 3.9 mmol/L (3.4-5.0); Sodium 138 mmol/L (137-145); Total Protein 6.2 g/dL (6.3-8.2)
[2025-03-23] MEDS: IPRATROPIUM 0.5 MG/ALBUTEROL SULFATE 2.5 MG AMPUL.NEB 3 ML INHALATION ×3 (07:48→21:26)
[2025-03-23] MEDS: APIXABAN 5 MG TABLET PO ×2 (08:58→17:08)
[2025-03-23] MEDS: MEMANTINE 10 MG TABLET PO ×2 (08:58→17:08)
[2025-03-23] MEDS: METOPROLOL TARTRATE 12.5 MG TABLET PO ×2 (08:58→21:03)
--- NOTE | 2025-03-23 11:43 | PCOTNOTE ---
Attempted to arouse arouse Patient. Patient able to awake, open eyes, but very difficult to stay awake. Patient unable to participate in therapy services at this time. RN present and aware. Will try back this afternoon.
--- NOTE | 2025-03-23 12:33 | P.PNIM_ITS ---
Progress Note: A&P Assessment and Plan (1) Metabolic encephalopathy: Code(s): G93.41 - Metabolic encephalopathy Status: Acute Assessment and Plan: AMS status from patient reported baseline has HX of dementia admitted with UTI * IV Rocephin for UTI * monitor mental status (2) Dementia: Code(s): F03.90 - Unspecified dementia, unspecified severity, without behavioral disturbance, psychotic disturbance, mood disturbance, and anxiety Status: Acute Assessment and Plan: * alert and oriented x1-2 at baseline. Resides in memory care. * Continue Memantine (3) Urinary tract infection: Qualifiers: Hematuria presence: with hematuria Urinary tract infection type: acute cystitis Qualified Code(s): N30.01 - Acute cystitis with hematuria Code(s): N39.0 - Urinary tract infection, site not specified Status: Acute Assessment and Plan: UA with positive nitrite, 1+ LE, 6-10 WBC, 2+ bacteria, previous cultures with E coli, sensitive to cephalosporins, resistant to fluoroquinolones * continue IV Rocephin * urine culture Ecoli will continue with IV Rocephin until discharge resistant to fluoroquinolones (4) Atrial fibrillation: Code(s): I48.91 - Unspecified atrial fibrillation Status: Acute Assessment and Plan: * Continue Eliquis and metoprolol (5) Pneumonia: Code(s): J18.9 - Pneumonia, unspecified organism Status: Acute Assessment and Plan: CXR with mild opacities in the left lower lung zones, atelectasis vs pneumonia * low suspicion for pneumonia given no cough, stable respiratory status, but will finish doxycycline course previously prescribed. Also on Rocephin (6) Hypothyroidism: Code(s): E03.9 - Hypothyroidism, unspecified Status: Acute Assessment and Plan: * Continue levothyroxine L (7) Thrombocytopenia: Code(s): D69.6 - Thrombocytopenia, unspecified Status: Acute Assessment and Plan: * plts 139 * daily CBC (8) Head injury: Code(s): S09.90XA - Unspecified injury of head, initial encounter Status: Acute Assessment and Plan: * bruising noted on forehead. No reported falls, but patient on Eliquis. * CT head no acute process (9) Hematoma of right lower leg: Code(s): S80.11XA - Contusion of right lower leg, initial encounter Status: Acute Assessment and Plan: seen in ED 03/14, RLE venous Doppler negative for DVT * afebrile, no leukocytosis. * CT R tib/fib 03/19 with 3.5x2.5x1.2 cm fluid collection, likely hematoma * general surgery following, no surgical intervention warranted at this time * Elevate leg at rest, warm compression (10) Weakness: Code(s): R53.1 - Weakness Status: Acute Assessment and Plan: patient with increased weakness secondary to urinary tract infection currently lives at a [facility] they will need to re-evaluate patient to return concerns she will need rehab prior to returning not back to her baseline. * PT/OT * CC consulted (11) Somnolence: Code(s): R40.0 - Somnolence Status: Acute Assessment and Plan: Patient with intermittent somnolence worse today after resuming her Exelon but already on Namenda as well with some scant wheezing heard throughout lung tee on auscultation. Normal WBC and on ABX therapy for UTI. 92% on room air likely some underlying sleep apnea. * CXR no significant finding * will hold Exelon * Dounebs * ABG showing mild hypoxia * Trialed CPAP overnight * Needs re-evaluated by a assisted living facility for returning Plan Code status: DNR/DNI DVT prophylaxis: [place] Stress ulcer prophylaxis: GRACIE PT/OT notes: REHAB vs returning to [place] was using a [employer] steady for transfers Disposition: Patient continues admission for treatment of urinary tract infection with generalized weakness and altered mental status. Patient lives At an assisted memory care being evaluated may need rehab prior to return. Time Spent With Patient Time with patient: 15 - 25 minutes Subjective Date/time seen: 03/23/25 12:33 Interval history: Patient is 84-year-old female admitted for altered mental status generalized weakness with history of dementia admitted for further evaluation for possible UTI and evaluation by PT/ OT patient currently lives at [facility]. 03/23/2025: Patient still with intermittent somnolent today but will wake up to name and respond. Patient with multiple physical therapy performed previous day due to be too lethargic. Patient denied any pain to me and denies any complaints. Overnight ABGs before they did trial CPAP, patient from assisted living facility need to be re-evaluated to return. Review of Systems Review of Systems: unsure patient's response confused with flight of ideas ROS unobtainable: Yes unobtainable due to mental status Exam Narrative: General: NAD, intermittent somnolence Eyes: EOMI HENT: neck supple, forehead bruising Cardiovascular: RRR Respiratory: Clear to auscultation, respirations even and unlabored on RA Gastrointestinal: Soft, non tender Genitourinary: no suprapubic tenderness Musculoskeletal: No edema Skin: warm, dry, right lower leg with noted hematoma no erythema or swelling Neuro: Alert and oriented to self only (baseline) Psych: Mood appropriate Objective Data Vital Signs Vital Signs: Vital Signs - 24 hr 03/22/25 13:48 03/22/25 14:13 03/22/25 18:34 Temperature 97.1 F L Pulse Rate 60 52 L Respiratory Rate 18 18 Blood Pressure 118/45 L Pulse Oximetry 92 Oxygen Delivery Room Air 03/22/25 19:44 03/22/25 20:40 03/22/25 22:14 Temperature 96.9 F L Pulse Rate 60 55 L Respiratory Rate 16 14 Blood Pressure 151/75 H Pulse Oximetry 96 92 Oxygen Delivery Autopap Room Air 03/22/25 22:14 03/22/25 23:25 03/23/25 06:00 Temperature 97.3 F L Pulse Rate 55 L 61 54 L Respiratory Rate 16 15 16 Blood Pressure 127/52 L Pulse Oximetry 92 97 Oxygen Delivery Autopap 03/23/25 07:48 03/23/25 08:00 03/23/25 08:58 Temperature Pulse Rate 60 68 Respiratory Rate 18 Blood Pressure Pulse Oximetry Oxygen Delivery Room Air Intake/Output Intake/Output: Intake & Output 03/20/25 03/21/25 03/22/25 03/23/25 23:59 23:59 23:59 23:59 Intake Total 2098 1358 710 Output Total 2300 1600 750 400 Balance -202 -242 -40 -400 Meds/Results Medications: Active Medications Generic Name Dose Route Start Last Admin Trade Name Riveraq PRN Reason Stop Dose Admin Albuterol/Ipratropium 3 ml 03/22/25 14:00 03/23/25 07:48 Ipratropium 0.5 Mg/Albuterol Sulfate 2.5 Mg Ampul.Neb 3 Ml INHALATION 3 ml Q6HRT JAMARI Administration Apixaban 5 mg 03/19/25 09:00 03/23/25 08:58 Apixaban 5 Mg Tablet PO 5 mg BID JAMARI Administration Atorvastatin Calcium 10 mg 03/18/25 21:00 03/22/25 20:45 Atorvastatin 10 Mg Tablet PO Not Given QHS JAMARI Buspirone HCl 5 mg 03/19/25 09:00 03/23/25 08:58 Buspirone Hcl 5 Mg Tablet PO 5 mg BID JAMARI Administration Ceftriaxone Sodium 1 gm/ 50 mls @ 100 mls/hr 03/20/25 14:00 03/22/25 16:08 Sodium Chloride IVPB Infused Q24H JAMARI Infusion Levothyroxine Sodium 100 mcg 03/19/25 06:30 03/23/25 05:52 Levothyroxine Sodium 100 Mcg Tablet PO Not Given DAILY@0630 JAMARI Memantine 10 mg 03/19/25 09:00 03/23/25 08:58 Memantine 10 Mg Tablet PO 10 mg BID JAMARI Administration Metoprolol Tartrate 12.5 mg 03/18/25 21:00 03/23/25 08:58 Metoprolol Tartrate 12.5 Mg Tablet PO 12.5 mg Q12HR JAMARI Administration Ondansetron HCl 4 mg 03/18/25 13:54 Ondansetron Inj 4 Mg/2 Ml Vial IV PUSH Q4H PRN Nausea Radiology Results: ITS Impressions Head CT 03/19/25 11:45 IMPRESSION: 1. No fracture or acute intracranial process. 2. 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 Tibia/Fibula CT 03/19/25 11:50 IMPRESSION: 1. 3.5 x 2.5 x 1.2 cm lenticular soft tissue density with prominent surrounding subcutaneous edema overlying the anteromedial aspect of the mid to distal right tibia with differential including hematoma, abscess in the proper clinical setting or less likely solid neoplasm. Correlate clinically and could consider ultrasound to confirm complex fluid as clinically indicated. Chest X-Ray 03/22/25 12:54 IMPRESSION: 1. Small opacities in the mid and lower lungs similar to the prior study from 03/18/2025 2. No new focal pulmonary consolidation. Labs Labs: Laboratory Results - last 24 hr 03/22/25 03/22/25 03/23/25 04:24 22:00 05:22 WBC 9.9 RBC 3.91 L Hgb 12.0 Hct 36.9 L MCV 94.4 MCH 30.7 MCHC 32.5 RDW 14.6 H Plt Count 155 MPV 13.1 H % Immature Plt Fraction 14.7 H Puncture Site Right radial ABG pH 7.453 H ABG pCO2 37.5 ABG pO2 71.1 L ABG PO2/FiO2 Ratio 3.39 ABG HCO3 25.7 ABG O2 Saturation 95.1 ABG O2 Content 17.4 ABG Base Excess 1.8 A-a Gradient 33.7 Oxyhemoglobin 93.5 Total Hemoglobin 13.2 O2 Delivery Device Not Reportable O2 Liters/Min Not Reportable FiO2 21 Sodium 137 138 Potassium 3.6 3.9 Chloride 107 105 Carbon Dioxide 26 29 Anion Gap 4 4 BUN 15 19 H Creatinine 0.85 0.86 Estim Creat Clear Calc 44 44 Estimated GFR > 60 > 60 Glucose 74 82 Calcium 8.8 9.0 Magnesium 1.9 2.0 Total Bilirubin 1.1 0.8 AST 27 30 ALT 17 18 Alkaline Phosphatase 97 106 Total Protein 6.0 L 6.2 L Albumin 2.9 L 3.1 L Quality VTE Prophylaxis VTE prophylaxis: pharmacologic ordered -Patient's previous records reviewed on admission -ER notes reviewed in detail on admission -discussed all findings and current treatment plan with patient/Family/POA -Consultations reviewed for recommendations -Patient's disposition for safe discharge discussed with block and case maker Dictation performed by [employer] direct speech recognition software, therefore reports analysis manager variants and typographical errors may occur. Hospitalist [facility] Advance Care Plan I have confirmed that the patient's Advanced Care Plan is present, code status is documented, or surrogate decision maker is listed in patient medical record.: Yes Medication Reconciliation I have utilized all available resources to obtain, update and review the patients current medications (includes all prescriptions, OTC, herbals, cannabis, and nutritional supplements).: Yes The patient is not eligible for med reconciliation; the patient is in a emergent medical situation where delaying treatment would jeopardize the patients health.: No
[2025-03-23] MEDS: cefTRIAXone 1 GM in SODIUM CHLORIDE 0.9% IV 50 ML 100 ML IVPB (13:32)
--- NOTE | 2025-03-23 15:28 | PCOTNOTE ---
Patient unable to participate due to decreased arousal level. RN aware.
[2025-03-23] MEDS: ATORVASTATIN 10 MG TABLET PO (21:03)
[2025-03-24] VITALS (12 sets, daily range): BP systolic 104–144; BP diastolic 45–59; PULSE 54–62; RESP 16–18; TEMP 36.4–36.8; O2SAT 93–99
[2025-03-24] MEDS: IPRATROPIUM 0.5 MG/ALBUTEROL SULFATE 2.5 MG AMPUL.NEB 3 ML INHALATION ×3 (01:35→14:10)
[2025-03-24 04:47] LABS: Hematocrit 38.5 % (37.0-47.0); Hemoglobin 12.4 g/dL (12.0-15.0); Mean Corpuscular HGB Conc 32.2 g/dl (32-36); Mean Corpuscular Hemoglobin 30.2 pg (26-34); Mean Corpuscular Volume 93.7 fl (80-100); Platelet Count Result 167 k/mm3 (150-375); Red Blood Count 4.11 M/mm3 (4.2-5.4); White Blood Count 8.5 K/mm3 (4.5-10.0)
[2025-03-24 05:22] LABS: Alanine Aminotransferase 20 U/L (6-35); Albumin Level 3.2 g/dL (3.5-5.1); Alkaline Phosphatase 123 U/L (38-126); Anion Gap 6 mmol/L (4-12); Aspartate Amino Transferase 32 U/L (14-36); Bilirubin,Total 0.5 mg/dL (0.2-1.3); Blood Urea Nitrogen 17 mg/dL (7-17); Calcium 8.8 mg/dL (8.4-10.2); Carbon Dioxide 27 mmol/L (22-30); Chloride 105 mmol/L (98-107); Estimated CRCL calculation 44 ml/min; Estimated Glomerular Filt Rate > 60; Glucose 103 mg/dL (65-110); Magnesium 2.1 mg/dL (1.6-2.3); Potassium 4.2 mmol/L (3.4-5.0); Sodium 138 mmol/L (137-145); Total Protein 6.5 g/dL (6.3-8.2)
[2025-03-24] MEDS: LEVOTHYROXINE SODIUM 100 MCG TABLET PO (06:03)
[2025-03-24] MEDS: APIXABAN 5 MG TABLET PO (09:21)
[2025-03-24] MEDS: MEMANTINE 10 MG TABLET PO (09:21)
[2025-03-24] MEDS: METOPROLOL TARTRATE 12.5 MG TABLET PO (09:21)
--- NOTE | 2025-03-24 11:23 | P.PNIM_ITS ---
Progress Note: A&P Assessment and Plan (1) Somnolence: Code(s): R40.0 - Somnolence Status: Acute Assessment and Plan: Patient with intermittent somnolence worse today after resuming her Exelon but already on Namenda as well with some scant wheezing heard throughout lung tee on auscultation. Normal WBC and on ABX therapy for UTI. 92% on room air likely some underlying sleep apnea. * Patient is sleepy but RSV related to her progressing dementia easily arouses to name and will carry on a full conversation * Still having some generalized weakness and difficulty with physical and occupational therapy at her previous baseline (2) Dementia: Code(s): F03.90 - Unspecified dementia, unspecified severity, without behavioral disturbance, psychotic disturbance, mood disturbance, and anxiety Status: Acute Assessment and Plan: * alert and oriented x1-2 at baseline. Resides in memory care. * Continue Memantine (3) Urinary tract infection: Qualifiers: Hematuria presence: with hematuria Urinary tract infection type: acute cystitis Qualified Code(s): N30.01 - Acute cystitis with hematuria Code(s): N39.0 - Urinary tract infection, site not specified Status: Acute Assessment and Plan: UA with positive nitrite, 1+ LE, 6-10 WBC, 2+ bacteria, previous cultures with E coli, sensitive to cephalosporins, resistant to fluoroquinolones * continue IV Rocephin * urine culture Ecoli will continue with IV Rocephin until discharge resistant to fluoroquinolones (4) Atrial fibrillation: Code(s): I48.91 - Unspecified atrial fibrillation Status: Acute Assessment and Plan: * Continue Eliquis and metoprolol (5) Hypothyroidism: Code(s): E03.9 - Hypothyroidism, unspecified Status: Acute Assessment and Plan: * Continue levothyroxine (6) Thrombocytopenia: Code(s): D69.6 - Thrombocytopenia, unspecified Status: Acute Assessment and Plan: * plts 139 * daily CBC (7) Head injury: Code(s): S09.90XA - Unspecified injury of head, initial encounter Status: Acute Assessment and Plan: * bruising noted on forehead. No reported falls, but patient on Eliquis. * CT head no acute process (8) Hematoma of right lower leg: Code(s): S80.11XA - Contusion of right lower leg, initial encounter Status: Acute Assessment and Plan: seen in ED 03/14, RLE venous Doppler negative for DVT * afebrile, no leukocytosis. * CT R tib/fib 03/19 with 3.5x2.5x1.2 cm fluid collection, likely hematoma * general surgery following, no surgical intervention warranted at this time * Elevate leg at rest, warm compression (9) Weakness: Code(s): R53.1 - Weakness Status: Acute Assessment and Plan: patient with increased weakness secondary to urinary tract infection currently lives at a assisted [facility] care they will need to re-evaluate patient to return concerns she will need rehab prior to returning not back to her baseline. * PT/OT * CC consulted (10) Metabolic encephalopathy: Code(s): G93.41 - Metabolic encephalopathy Status: Resolved Assessment and Plan: AMS status from patient reported baseline has HX of dementia admitted with UTI * IV Rocephin for UTI * monitor mental status (11) Pneumonia: Code(s): J18.9 - Pneumonia, unspecified organism Status: Resolved Assessment and Plan: CXR with mild opacities in the left lower lung zones, atelectasis vs pneumonia * low suspicion for pneumonia given no cough, stable respiratory status, but will finish doxycycline course previously prescribed. Also on Rocephin Plan Code status: DNR/DNI DVT prophylaxis: Eliquis Stress ulcer prophylaxis: NA PT/OT notes: REHAB vs returning to [place] was using a [employer] steady for transfers Disposition: Patient continues admission for treatment of urinary tract infection with generalized weakness and altered mental status. Patient lives At an assisted [facility] being evaluated may need rehab prior to return. Time Spent With Patient Time with patient: 15 - 25 minutes Subjective Date/time seen: 03/24/25 11:23 Interval history: Patient is 84-year-old female admitted for altered mental status generalized weakness with history of dementia admitted for further evaluation for possible UTI and evaluation by PT/ OT patient currently lives at [facility]. 03/24/2025: Patient still sleeping a lot but will open eyes immediately to name and have a conversation. PT still having some difficulty with ambulation at patient previous baseline. Labs in desired range and vitals stable. Patient denied any complaints. Exam Narrative: General: NAD, intermittent somnolence Eyes: EOMI HENT: neck supple, forehead bruising Cardiovascular: RRR Respiratory: Clear to auscultation, respirations even and unlabored on RA Gastrointestinal: Soft, non tender Genitourinary: no suprapubic tenderness Musculoskeletal: No edema Skin: warm, dry, right lower leg with noted hematoma no erythema or swelling Neuro: Alert and oriented to self only (baseline) Psych: Mood appropriate Objective Data Vital Signs Vital Signs: Vital Signs - 24 hr 03/23/25 13:04 03/23/25 14:04 03/23/25 20:00 Temperature 97.5 F L Pulse Rate 53 L 64 60 Respiratory Rate 18 16 16 Blood Pressure 118/47 L Pulse Oximetry 95 95 Oxygen Delivery Room Air Fraction of Inspired Oxygen 21 03/23/25 21:03 03/23/25 21:26 03/23/25 21:34 Temperature Pulse Rate 60 60 Respiratory Rate 16 Blood Pressure Pulse Oximetry 94 Oxygen Delivery Room Air Fraction of Inspired Oxygen 03/23/25 21:35 03/23/25 21:48 03/23/25 23:41 Temperature 97.7 F Pulse Rate 60 64 Respiratory Rate 16 16 18 Blood Pressure 123/48 L Pulse Oximetry 97 Oxygen Delivery Autopap Fraction of Inspired Oxygen 03/24/25 01:35 03/24/25 01:41 03/24/25 01:42 Temperature Pulse Rate 60 60 Respiratory Rate 16 16 17 Blood Pressure Pulse Oximetry Oxygen Delivery Autopap Fraction of Inspired Oxygen 03/24/25 06:48 03/24/25 08:00 03/24/25 08:09 Temperature 98.2 F Pulse Rate 60 58 L Respiratory Rate 18 16 Blood Pressure 144/59 H Pulse Oximetry 95 Oxygen Delivery Room Air Fraction of Inspired Oxygen 03/24/25 08:12 03/24/25 08:15 03/24/25 09:21 Temperature Pulse Rate 60 62 Respiratory Rate 16 Blood Pressure Pulse Oximetry 93 Oxygen Delivery Room Air Fraction of Inspired Oxygen 03/24/25 10:48 Temperature Pulse Rate 54 L Respiratory Rate Blood Pressure Pulse Oximetry 94 Oxygen Delivery Fraction of Inspired Oxygen Intake/Output Intake/Output: Intake & Output 03/21/25 03/22/25 03/23/25 03/24/25 23:59 23:59 23:59 23:59 Intake Total 0473 528 4090 200 Output Total 7146 823 4567 300 Balance -242 -40 -45 -100 Meds/Results Medications: Active Medications Generic Name Dose Route Start Last Admin Trade Name Freq PRN Reason Stop Dose Admin Albuterol/Ipratropium 3 ml 03/22/25 14:00 03/24/25 08:09 Ipratropium 0.5 Mg/Albuterol Sulfate 2.5 Mg Ampul.Neb 3 Ml INHALATION 3 ml Q6HRT JAMARI Administration Apixaban 5 mg 03/19/25 09:00 03/24/25 09:21 Apixaban 5 Mg Tablet PO 5 mg BID JAMARI Administration Atorvastatin Calcium 10 mg 03/18/25 21:00 03/23/25 21:03 Atorvastatin 10 Mg Tablet PO 10 mg QHS JAMARI Administration Buspirone HCl 5 mg 03/19/25 09:00 03/24/25 09:21 Buspirone Hcl 5 Mg Tablet PO 5 mg BID JAMARI Administration Ceftriaxone Sodium 1 gm/ 50 mls @ 100 mls/hr 03/20/25 14:00 03/23/25 14:02 Sodium Chloride IVPB Infused Q24H JAMARI Infusion Levothyroxine Sodium 100 mcg 03/19/25 06:30 03/24/25 06:03 Levothyroxine Sodium 100 Mcg Tablet PO 100 mcg DAILY@0630 JAMARI Administration Memantine 10 mg 03/19/25 09:00 03/24/25 09:21 Memantine 10 Mg Tablet PO 10 mg BID JAMARI Administration Metoprolol Tartrate 12.5 mg 03/18/25 21:00 03/24/25 09:21 Metoprolol Tartrate 12.5 Mg Tablet PO 12.5 mg Q12HR JAMARI Administration Ondansetron HCl 4 mg 03/18/25 13:54 Ondansetron Inj 4 Mg/2 Ml Vial IV PUSH Q4H PRN Nausea Radiology Results: ITS Impressions Head CT 03/19/25 11:45 IMPRESSION: 1. No fracture or acute intracranial process. 2. 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 Tibia/Fibula CT 03/19/25 11:50 IMPRESSION: 1. 3.5 x 2.5 x 1.2 cm lenticular soft tissue density with prominent surrounding subcutaneous edema overlying the anteromedial aspect of the mid to distal right tibia with differential including hematoma, abscess in the proper clinical setting or less likely solid neoplasm. Correlate clinically and could consider ultrasound to confirm complex fluid as clinically indicated. Chest X-Ray 03/22/25 12:54 IMPRESSION: 1. Small opacities in the mid and lower lungs similar to the prior study from 03/18/2025 2. No new focal pulmonary consolidation. Labs Labs: Laboratory Results - last 24 hr 03/24/25 04:33 WBC 8.5 RBC 4.11 L Hgb 12.4 Hct 38.5 MCV 93.7 MCH 30.2 MCHC 32.2 RDW 14.6 H Plt Count 167 MPV 12.6 H Sodium 138 Potassium 4.2 Chloride 105 Carbon Dioxide 27 Anion Gap 6 BUN 17 Creatinine 0.85 Estim Creat Clear Calc 44 Estimated GFR > 60 Glucose 103 Calcium 8.8 Magnesium 2.1 Total Bilirubin 0.5 AST 32 ALT 20 Alkaline Phosphatase 123 Total Protein 6.5 Albumin 3.2 L Quality -Patient's previous records reviewed on admission -ER notes reviewed in detail on admission -discussed all findings and current treatment plan with patient/Family/POA -Consultations reviewed for recommendations -Patient's disposition for safe discharge discussed with block and case maker Dictation performed by [employer] direct speech recognition software, therefore examining officer variants and typographical errors may occur. Hospitalist [facility] Advance Care Plan I have confirmed that the patient's Advanced Care Plan is present, code status is documented, or surrogate decision maker is listed in patient medical record.: Yes Medication Reconciliation I have utilized all available resources to obtain, update and review the patients current medications (includes all prescriptions, OTC, herbals, cannabis, and nutritional supplements).: Yes The patient is not eligible for med reconciliation; the patient is in a emergent medical situation where delaying treatment would jeopardize the patients health.: No
--- NOTE | 2025-03-24 13:08 | P.DS_ITS ---
DS: Admitting Diagnosis Discharge Date 03/24/2025 Admitting Diagnosis Metabolic encephalopathy/UTI/weakness/hematoma DS: Discharge Diagnosis Discharge Diagnosis (1) Somnolence: Code(s): R40.0 - Somnolence Status: Acute (2) Dementia: Code(s): F03.90 - Unspecified dementia, unspecified severity, without behavioral disturbance, psychotic disturbance, mood disturbance, and anxiety Status: Acute (3) Urinary tract infection: Qualifiers: Hematuria presence: with hematuria Urinary tract infection type: acute cystitis Qualified Code(s): N30.01 - Acute cystitis with hematuria Code(s): N39.0 - Urinary tract infection, site not specified Status: Acute (4) Atrial fibrillation: Code(s): I48.91 - Unspecified atrial fibrillation Status: Acute (5) Hypothyroidism: Code(s): E03.9 - Hypothyroidism, unspecified Status: Acute (6) Thrombocytopenia: Code(s): D69.6 - Thrombocytopenia, unspecified Status: Acute (7) Head injury: Code(s): S09.90XA - Unspecified injury of head, initial encounter Status: Acute (8) Hematoma of right lower leg: Code(s): S80.11XA - Contusion of right lower leg, initial encounter Status: Acute (9) Weakness: Code(s): R53.1 - Weakness Status: Acute (10) Metabolic encephalopathy: Code(s): G93.41 - Metabolic encephalopathy Status: Resolved (11) Pneumonia: Code(s): J18.9 - Pneumonia, unspecified organism Status: Resolved DS: Summary Hospital Course Reason for hospitalization: Metabolic encephalopathy/UTI/weakness/hemat Hospital Course: Admission: 84-year-old female past medical history of TIA, hypothyroidism, atrial fibrillation and dementia presents the hospital with weakness and altered mental status from nursing. She is normally oriented x2, currently oriented x1. HPI is limited due to patient's altered mental status. On assessment patient has dry mucous membranes, lower extremity and is erythema neck and painful to touch. In the ED: Lab work shows BUN of 24, GFR 54, total bili of 1.7, urine is dark yellow with positive nitrates 1+ leukocyte esterase 6-10 wbc's and 2+ bacteria. Chest x-ray shows atelectasis or pneumonia. EKG shows sinus rhythm with left bundle-branch block. Hospital Course: Patient was admitted to the medical unit for treatment of possible right lower extremity cellulitis underwent a venous Doppler that was negative for DVT but there was an apparent area with erythema tenderness and bruising evaluated by General surgery during admission appear to actually be hematoma after evaluation was stable and no need for any intervention amended to continue to elevate and apply pressure as well as to resume patient's Eliquis for atrial fibrillation. Patient was being treated outpatient for possible pneumonia so her doxycycline oral was continued. Patient's UA was suspicious for urinary tract infection and previous cultures were resistant fluoroquinolones and she was initiated on IV Rocephin pending final sensitivities. Patient waxing and waning of somnolence and intermittent confusion during her hospitalization some concern with returning to assisted living facility inability care for self she had been evaluated stone and they agreed for patient to return. PT/OT evaluation continue to work with patient during hospitalization recommend continuation of physical and occupational therapy at discharge. Patient seen assess day discharge in no distress with no complaints pleasant alert and oriented baseline labs unremarkable vital stable. She was discharged to assisted living with oral antibiotic for UTI to complete her length of therapy. Status at Discharge Functional status at discharge: wheelchair bound Overall status at discharge: patient is back to baseline Time Spent with Patient Time attestation: Total time spent providing and/or coordinating discharge services: Time spent: Greater than 30 minutes Exam Narrative: General: NAD, intermittent somnolence Eyes: EOMI HENT: neck supple, forehead bruising Cardiovascular: RRR Respiratory: Clear to auscultation, respirations even and unlabored on RA Gastrointestinal: Soft, non tender Genitourinary: no suprapubic tenderness Musculoskeletal: No edema Skin: warm, dry, right lower leg with noted hematoma no erythema or swelling Neuro: Alert and oriented to self only (baseline) Psych: Mood appropriate DS: Data Data Completed and Pending Labs on day of discharge: Labs from last 24 hours 03/24/25 04:33 WBC 8.5 RBC 4.11 L Hgb 12.4 Hct 38.5 MCV 93.7 MCH 30.2 MCHC 32.2 RDW 14.6 H Plt Count 167 MPV 12.6 H Sodium 138 Potassium 4.2 Chloride 105 Carbon Dioxide 27 Anion Gap 6 BUN 17 Creatinine 0.85 Estim Creat Clear Calc 44 Estimated GFR > 60 Glucose 103 Calcium 8.8 Magnesium 2.1 Total Bilirubin 0.5 AST 32 ALT 20 Alkaline Phosphatase 123 Total Protein 6.5 Albumin 3.2 L Imaging Radiologist's impression: Radiology Results: ITS Impressions Head CT 03/19/25 11:45 IMPRESSION: 1. No fracture or acute intracranial process. 2. 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 Tibia/Fibula CT 03/19/25 11:50 IMPRESSION: 1. 3.5 x 2.5 x 1.2 cm lenticular soft tissue density with prominent surrounding subcutaneous edema overlying the anteromedial aspect of the mid to distal right tibia with differential including hematoma, abscess in the proper clinical setting or less likely solid neoplasm. Correlate clinically and could consider ultrasound to confirm complex fluid as clinically indicated. Chest X-Ray 03/22/25 12:54 IMPRESSION: 1. Small opacities in the mid and lower lungs similar to the prior study from 03/18/2025 2. No new focal pulmonary consolidation. Discharge Plan Discharge Attending physician on discharge: Tristian Cortes Consulting providers: Jenifer Medina; Rachel Quijano; Jasmyne Swift Discharging Clinician: Jamsyne Swift Anticipated Discharge Date/Time: 03/24/25 12:21 Patient Disposition: NH Residential/Asst Living Activity: may shower and as tolerated Diet: heart healthy Discharge Instructions: 1). UTI * I have prescribed the final doses of your antibiotic coverage please complete as indicated * Good hygiene and keep area dry to reduce chance of recurrent UTI's 2). Weakness * Continue PT/OT How can you care for yourself at home? ? Keep track of any new symptoms or changes in your symptoms. ? Rest until you feel better. ? Be safe with medicines. Take your medicines exactly as prescribed. Call your doctor if you think you are having a problem with your medicine. ? Do not drive after taking a prescription pain medicine. ? Ensure to follow-up with primary care physician as indicated and provide updated medication list provided to you at discharge. When should you call for help? Call 911 anytime you think you may need emergency care. For example, call if: ? You passed out (lost consciousness). Call your doctor now or seek immediate medical care if: ? You have new symptoms like fever, difficulty breathing, Chest pain, vomiting, or rash. ? You have new or different pain. ? You are confused and are having trouble thinking clearly. ? Your symptoms are getting worse. Watch closely for changes in your health, and be sure to contact your doctor if: ? You do not get better as expected. Patient Instructions: Antibiotic Form, Apixaban (By mouth), Urinary Tract Infection in Older Adults (DC) Patient Language: Persian Stand Alone Forms: General Discharge Information, Long-Term Discharge Follow-up/Referrals: PHYSICIAN NOT ON STAFF,NONSTAFF [Primary Care Provider] - 2 Weeks Discharge Medications: New cefpodoxime 200 mg tablet 200 mg PO BID Qty: 6 0RF Rx Instructions: must administer with a meal/food Continued cyanocobalamin (vitamin B-12) 1,000 mcg tablet 1,000 mcg PO DAILY levothyroxine 50 mcg tablet 50 mcg PO DAILY rivastigmine tartrate 3 mg capsule 3 mg PO DAILY memantine 10 mg tablet 10 mg PO BID diclofenac sodium 1 % gel See Rx Instructions .ROUTE .COMPLEX Rx Instructions: as prescribed Eliquis 5 mg tablet 5 mg PO BID cholecalciferol (vitamin D3) [Dialyvite Vitamin D] 125 mcg (5,000 unit) Capsule See Rx Instructions .ROUTE .COMPLEX Rx Instructions: per family atorvastatin 10 mg tablet 10 mg PO QHS doxycycline monohydrate 100 mg capsule 100 mg PO BID Patient Comments: Prescribed on 03/13/25 to be taken twice per day for seven days. Last given 03/17/25 afternoon levothyroxine 100 mcg tablet 100 mcg PO DAILY metoprolol tartrate 25 mg tablet 12.5 mg PO Q12H nystatin [Nyamyc] 100,000 unit/gram powder 1 applic TOPICAL TID PRN (Reason: skin maceration) buspirone 5 mg tablet 5 mg PO BID Date of admission: 03/19/25 10:46 Primary Care Provider: PHYSICIAN NOT ON STAFF,NONSTAFF Admitting Provider: Basilia Jon Attending physician on admission: Basilia Jon Condition: Stable Quality VTE Prophylaxis VTE prophylaxis: pharmacologic ordered -Patient's previous records reviewed on admission -ER notes reviewed in detail on admission -discussed all findings and current treatment plan with patient/Family/POA -Consultations reviewed for recommendations -Patient's disposition for safe discharge discussed with case sealer Dictation performed by [employer] direct speech recognition software, therefore taxi dancer variants and typographical errors may occur. Hospitalist MIPS Heart Failure (Exclusion) Patient has history of Heart Transplant or Left Ventricular Assistive Device?: No IF YES, STOP HERE Heart Failure (Qualifier) Patient has current or prior documentation of LVEF less than or equal to 40%, or mod/servere depressed LVSF?: No IF NO, STOP HERE
[2025-03-24] MEDS: cefTRIAXone 1 GM in SODIUM CHLORIDE 0.9% IV 50 ML 100 ML IVPB (14:30)
== END 2025-03-24 18:10 | DRG 689 ==
LOC: ANHED 12:27 → ANH2MED 14:41
PROVIDERS: Emergency Medicine; Nurse Practitioner Gerontology; Physician Assistant; Student in an Organized Health Care Education/Training Program; Admitting Provider Internal Medicine; Emergency Provider Emergency Medicine; Visit Provider Nurse Practitioner Family
DX: N30.01 Acute cystitis with hematuria (principal); G93.41 Metabolic encephalopathy; J18.9 Pneumonia, unspecified organism; Z16.23 Resistance to quinolones and fluoroquinolones; S80.11XA Contusion of right lower leg, initial encounter; B96.20 Unspecified Escherichia coli [E. coli] as the cause of diseases classified elsewhere; D69.6 Thrombocytopenia, unspecified; E03.9 Hypothyroidism, unspecified; F03.90 Unspecified dementia, unspecified severity, without behavioral disturbance, psychotic disturbance, mood disturbance, and anxiety; I48.91 Unspecified atrial fibrillation; Z79.01 Long term (current) use of anticoagulants; Z99.3 Dependence on wheelchair; Z66 Do not resuscitate; Z86.73 Personal history of transient ischemic attack (TIA), and cerebral infarction without residual deficits
CPT/HCPCS: 36415; 36600; 70450; 71045; 73700; 80048; 80053; 80202; 81001; 82565; 82805; 82948; 83735; 85018; 85025; 85027; 85055; 86140; 87086; 87641; 93005; 94002; 94003; 94640; 96361; 96365; 96366; 96367; 96375; 97110; 97162; 97166; 97530; 99285; A9270; G0378; J0696; J3373; J7030